=== PATIENT | male | born 1955 | race Caucasian/White ===

== ENCOUNTER 2016-09-09 11:32 | Emergency (ER) | payer OTHER ==
[2016-09-09] MEDS ORDERED: Albuterol/Ipratropium NEB.SOL* Albuterol 2.5 MG/Ipratropium 0.5 MG 3 ML INH ONE (12:28)
[2016-09-09 12:38] LABS: Hematocrit 41 % (42-52); Hemoglobin 14.4 g/dl (14.0-18.0); Mean Corpuscular HGB Conc 35 g/dl (31-36); Mean Corpuscular Hemoglobin 33 pg (27-31); Mean Corpuscular Volume 95 fL (80-94); Mean Platelet Volume 9 um3 (7.4-10.4); Red Blood Count 4.34 10^6/ul (4.0-5.4); Red Cell Distribution Width 14 % (10.5-15); White Blood Count 5.9 10^3/ul (3.5-10.8)
[2016-09-09] MEDS ORDERED: traMADol TAB* 50 MG PO ONE (12:49)
[2016-09-09 12:57] LABS: Albumin 4.3 g/dL (3.2-5.2); BUN/Creatinine Ratio 18.8 (8-20); Calcium 10.3 mg/dL (8.6-10.3); EGFR African American 149.9 (>60); EGFR Non-African American 116.6 (>60); Globulin 3.2 g/dL (2-4); Potassium 4.2 mmol/L (3.5-5.0); Total Bilirubin 0.3 mg/dL (0.2-1.0); Total Protein 7.5 g/dL (6.4-8.9)
--- NOTE | 2016-09-09 14:31 | RAD ---
Indication: Shortness of breath. 2 views of the chest including dual energy PA views demonstrate no mediastinal shift. Heart is of normal size and configuration. Lung jaimes demonstrate no pleural fluid, pneumonia or pneumothorax. IMPRESSION: No active cardiopulmonary disease is noted.
[2016-09-09 15:17] VITALS: BP 142/92
--- NOTE | 2016-09-09 18:01 | ED ---
Philip Cole Billy, scribed for Ryland Pierce MD on 09/09/16 at 1234 . Shortness of Breath - HPI Summary HPI Summary: Patient is a 61 y/o male who presents to the ED with SOB since this morning. He is an alcoholic and was at the [facility] this morning when the nurse noticed he had dyspnea. He denies edema in the lower extremities and reports SOB and dyspnea is unchanged from baseline. He states he normally coughs often and usually feels lightheaded or dizzy from coughing. He reports he had an alcoholic beverage the night before and that he is a smoker. - History of Current Complaint Chief Complaint: EDShortnessOfBreath Time Seen by Provider: 09/09/16 11:49 Hx Obtained From: Patient Onset/Duration: Gradual Onset, Lasting Weeks - Always present. Current Severity: Moderate Dyspnea At: Rest Aggrevating Factors: Nothing Alleviating Factors: Nothing Associated Signs & Symptoms: Cough (Nonproductive), Dizzy - with cough - Allergy/Home Medications Allergies/Adverse Reactions: Allergies Allergy/AdvReac Type Severity Reaction Status Date / Time No Known Allergies Allergy Verified 04/03/16 10:57 PMH/Surg Hx/FS Hx/Imm Hx Endocrine/Hematology History: Denies: Hx Anticoagulant Therapy, Hx Diabetes Cardiovascular History: Reports: Hx Hypertension Denies: Hx Congestive Heart Failure, Hx Myocardial Infarction Respiratory History: Reports: Hx Chronic Obstructive Pulmonary Disease (COPD), Hx Pneumonia GI History: Reports: Hx Gastroesophageal Reflux Disease History: Denies: Hx Renal Disease Musculoskeletal History: Denies: Hx Arthritis, Hx Gout Sensory History: Reports: Hx Contacts or Glasses, Hx Eye Injury, Hx Eye Prosthesis, Hx Legally Blind, Hx Deafness, Hx Hearing Aid Opthamlomology History: Reports: Hx Contacts or Glasses, Hx Eye Injury, Hx Eye Prosthesis, Hx Legally Blind Neurological History: Reports: Hx Headaches Psychiatric History: Reports: Hx Anxiety, Hx Depression, Hx Community Mental Health Tx, Hx Substance Abuse Denies: Hx Attention Deficit Hyperactivity Disorder, Hx Eating Disorder, Hx Panic Disorder, Hx Post Traumatic Stress Disorder, Hx Inpatient Treatment, Hx Schizophrenia, Hx Bipolar Disorder, Hx Suicide Attempt, Hx of Violent Episodes Against Others, Other Psychiatric Issues/Disorders - Surgical History Surgery Procedure, Year, and Place: RT EYE PROSTHESIS - Immunization History Date of Tetanus Vaccine: unsure Date of Influenza Vaccine: none Infectious Disease History: No Infectious Disease History: Denies: Hx Human Immunodeficiency Virus (HIV), Hx of Known/Suspected MRSA, Traveled Outside the [place] in Last 30 Days - Family History Known Family History: Positive: Other - cancer - Social History Alcohol Use: Weekly Alcohol Amount: Pt states 2-3 drinks 2-3x per wk Hx Substance Use: Yes Substance Use Type: Reports: Marijuana Substance Use Comment - Amount & Last Used: Pt states "2 or 3 beers just before coming to the hospital" Hx Tobacco Use: Yes Smoking Status (MU): Heavy Every Day Tobacco Smoker Type: Cigarettes Amount Used/How Often: PACK OH DAY Have You Smoked in the Last Year: Yes Review of Systems Negative: Fever Positive: Shortness Of Breath, Cough, Other - Dyspnea. Neurological: Other - lightheadedness and dizziness with cough All Other Systems Reviewed And Are Negative: Yes Physical Exam Triage Information Reviewed: Yes Vital Signs On Initial Exam: Initial Vitals Temp Pulse Resp BP Pulse Ox 97.2 F 99 22 153/110 96 09/09/16 11:34 09/09/16 11:34 09/09/16 11:34 09/09/16 11:34 09/09/16 11:34 Vital Signs Reviewed: Yes Appearance: Positive: Well-Appearing, No Pain Distress Skin: Positive: Warm, Skin Color Reflects Adequate Perfusion, Dry Head/Face: Positive: Normal Head/Face Inspection Eyes: Positive: Normal ENT: Positive: Normal ENT inspection Neck: Positive: Supple, Nontender Respiratory/Lung Sounds: Positive: Breath Sounds Present, Wheezes - Mild wheezing diffusely. Cardiovascular: Positive: RRR Abdomen Description: Positive: Nontender, Soft Musculoskeletal: Positive: Abnormal @ - Left upper extremity is deformed and ecchymotic. Neurological: Positive: Normal Psychiatric: Positive: Normal Diagnostics - Vital Signs Vital Signs Temp Pulse Resp BP Pulse Ox 09/09/16 11:34 97.2 F 99 22 153/110 96 - Laboratory Lab Results: Lab Results 09/09/16 09/09/16 09/09/16 Range/Units 12:30 12:30 12:30 WBC 5.9 (3.5-10.8) 10^3/ul RBC 4.34 (4.0-5.4) 10^6/ul Hgb 14.4 (14.0-18.0) g/dl Hct 41 L (42-52) % MCV 95 H (80-94) fL MCH 33 H (27-31) pg MCHC 35 (31-36) g/dl RDW 14 (10.5-15) % Plt Count 149 L (150-450) 10^3/ul MPV 9 (7.4-10.4) um3 Neut % (Auto) 62.4 (38-83) % Lymph % (Auto) 22.1 L (25-47) % [place] % (Auto) 10.4 H (1-9) % Eos % (Auto) 4.2 (0-6) % Baso % (Auto) 0.9 (0-2) % Absolute Neuts (auto) 3.7 (1.5-7.7) 10^3/ul Absolute Lymphs (auto) 1.3 (1.0-4.8) 10^3/ul Absolute Monos (auto) 0.6 (0-0.8) 10^3/ul Absolute Eos (auto) 0.2 (0-0.6) 10^3/ul Absolute Basos (auto) 0.1 (0-0.2) 10^3/ul Absolute Nucleated RBC 0 10^3/ul Nucleated RBC % 0 Sodium 135 (133-145) mmol/L Potassium 4.2 (3.5-5.0) mmol/L Chloride 104 (101-111) mmol/L Carbon Dioxide 28 (22-32) mmol/L Anion Gap 3 (2-11) mmol/L BUN 13 (6-24) mg/dL Creatinine 0.69 (0.67-1.17) mg/dL Est GFR ( Amer) 149.9 (>60) Est GFR (Non-Af Amer) 116.6 (>60) BUN/Creatinine Ratio 18.8 (8-20) Glucose 97 (70-100) mg/dL Lactic Acid 0.7 (0.5-2.0) mmol/L Calcium 10.3 (8.6-10.3) mg/dL Total Bilirubin 0.30 (0.2-1.0) mg/dL AST 41 H (13-39) U/L ALT 43 (7-52) U/L Alkaline Phosphatase 70 (34-104) U/L Troponin I 0.00 (<0.04) ng/mL B-Natriuretic Peptide ( - 100) pg/mL Total Protein 7.5 (6.4-8.9) g/dL Albumin 4.3 (3.2-5.2) g/dL Globulin 3.2 (2-4) g/dL Albumin/Globulin Ratio 1.3 (1-3) 09/09/16 Range/Units 12:30 WBC (3.5-10.8) 10^3/ul RBC (4.0-5.4) 10^6/ul Hgb (14.0-18.0) g/dl Hct (42-52) % MCV (80-94) fL MCH (27-31) pg MCHC (31-36) g/dl RDW (10.5-15) % Plt Count (150-450) 10^3/ul MPV (7.4-10.4) um3 Neut % (Auto) (38-83) % Lymph % (Auto) (25-47) % [place] % (Auto) (1-9) % Eos % (Auto) (0-6) % Baso % (Auto) (0-2) % Absolute Neuts (auto) (1.5-7.7) 10^3/ul Absolute Lymphs (auto) (1.0-4.8) 10^3/ul Absolute Monos (auto) (0-0.8) 10^3/ul Absolute Eos (auto) (0-0.6) 10^3/ul Absolute Basos (auto) (0-0.2) 10^3/ul Absolute Nucleated RBC 10^3/ul Nucleated RBC % Sodium (133-145) mmol/L Potassium (3.5-5.0) mmol/L Chloride (101-111) mmol/L Carbon Dioxide (22-32) mmol/L Anion Gap (2-11) mmol/L BUN (6-24) mg/dL Creatinine (0.67-1.17) mg/dL Est GFR ( Amer) (>60) Est GFR (Non-Af Amer) (>60) BUN/Creatinine Ratio (8-20) Glucose (70-100) mg/dL Lactic Acid (0.5-2.0) mmol/L Calcium (8.6-10.3) mg/dL Total Bilirubin (0.2-1.0) mg/dL AST (13-39) U/L ALT (7-52) U/L Alkaline Phosphatase (34-104) U/L Troponin I (<0.04) ng/mL B-Natriuretic Peptide 30 ( - 100) pg/mL Total Protein (6.4-8.9) g/dL Albumin (3.2-5.2) g/dL Globulin (2-4) g/dL Albumin/Globulin Ratio (1-3) Result Diagrams: 09/09/16 12:30 09/09/16 12:30 Lab Statement: Any lab studies that have been ordered have been reviewed, and results considered in the medical decision making process. - Radiology CXR Radiology Interpretation Completed By: Radiologist - IMPRESSION: No active cardiopulmonary disease is noted. - EKG 1144 EKG Interpretation: Sinus. Borderline tachycardia. 96 bpm. Course/Dx - Course Course Of Treatment: Mr. Newsome was pretty vague when he presented as to whether or not he really had any complaint at all. He did agree to a neb but stopped it shelter through. His labs and CXR were normal and he was D/C'd to [facility] with his PMD. - Diagnoses Provider Diagnoses: COPD exacerbation Discharge - Discharge Plan Condition: Stable Disposition: HOME Patient Education Materials: COPD (Chronic Obstructive Pulmonary Disease) (ED) Referrals: Heriberto Jang MD [Primary Care Provider] - The documentation as recorded by the Philip melton Billy accurately reflects the service I personally performed and the decisions made by me, Ryland Pierce MD.
== END 2016-09-09 15:15 | disposition home or self-care (01) ==
LOC: ED 11:32
DX: J44.1 Chronic obstructive pulmonary disease with (acute) exacerbation (principal); F41.9 Anxiety disorder, unspecified; F32.9 Major depressive disorder, single episode, unspecified; F17.210 Nicotine dependence, cigarettes, uncomplicated; F10.20 Alcohol dependence, uncomplicated; K21.9 Gastro-esophageal reflux disease without esophagitis; H54.8 Legal blindness, as defined in USA
CPT/HCPCS: 36415; 71020; 80053; 83605; 83880; 84484; 85025; 93005; 94640; 99283; A9270-GY

== ENCOUNTER 2016-11-09 21:04 | Observation (INO) | payer OTHER ==
[2016-11-09] MEDS ORDERED: Ondansetron INJ* 2 MG/ML VIAL IV ONE (22:08)
[2016-11-09] MEDS ORDERED: Morphine INJ* 4 MG/ML 1 ML SYRINGE IV ONE (22:08)
[2016-11-09] MEDS ORDERED: NS 0.9% 1000 ML* 1,000 ML IV ONE (22:08)
[2016-11-09 22:40] LABS: Hematocrit 46 % (42-52); Hemoglobin 15.6 g/dl (14.0-18.0); Mean Corpuscular HGB Conc 34 g/dl (31-36); Mean Corpuscular Hemoglobin 32 pg (27-31); Mean Corpuscular Volume 95 fL (80-94); Mean Platelet Volume 9 um3 (7.4-10.4); Red Blood Count 4.82 10^6/ul (4.0-5.4); Red Cell Distribution Width 14 % (10.5-15); White Blood Count 9.6 10^3/ul (3.5-10.8)
--- NOTE | 2016-11-09 22:52 | RAD ---
INDICATION: Chest pain. COMPARISON: Comparison is made with the prior study from September 09, 2016. TECHNIQUE: A portable view of the chest was obtained. FINDINGS: Cardiac and mediastinal contours appear to be within normal limits. The lungs are clear. No pleural effusion is seen. IMPRESSION: NO EVIDENCE FOR ACUTE DISEASE.
[2016-11-09 22:56] LABS: BUN/Creatinine Ratio 19.3 (8-20); Calcium 10.7 mg/dL (8.6-10.3); EGFR African American 113.2 (>60); Globulin 3.3 g/dL (2-4); Potassium 3.5 mmol/L (3.5-5.0); Total Bilirubin 1.4 mg/dL (0.2-1.0); Total Protein 8.3 g/dL (6.4-8.9); Troponin I 0.01 ng/mL (<0.04)
[2016-11-09 23:22] LABS: Urine Bacteria Absent (Absent); Urine Bilirubin Negative (Negative); Urine Glucose Negative (Negative); Urine Nitrite Negative (Negative)
[2016-11-09] MEDS ORDERED: cefTRIAXone(*) 1 GM in NS 0.9% 50 ML* 50 ML IVPB ONE (23:40)
[2016-11-09] MEDS ORDERED: Iohexol 300* (CONTRAST) 10 ML SDV IV ONE (23:42)
[2016-11-10] MEDS ORDERED: cefTRIAXone(*) 1 GM ADVAN ONE (00:28)
[2016-11-10] MEDS ORDERED: Metoclopramide IV* 5 MG/ML 2 ML VIAL IV SLOW PU ONE (01:07)
[2016-11-10] MEDS ORDERED: Metoclopramide IV* 5 MG/ML 2 ML VIAL ONE ×2 (01:09)
[2016-11-10] MEDS ORDERED: LORazepam INJ* 2 MG/ML 1 ML VIAL IV PUSH ONE (03:25)
--- NOTE | 2016-11-10 04:51 | HP ---
H&P (Free Text) History and Physical: PCP: Sendy Jang MD Date/Time of Evaluation: 11/10/2016 0340 CC: intractable N/V HPI: Mr Newsome is a 61YO obese male HX COPD, chronic LBP, blind OD, & markedly hard of hearing presents reporting onset of diffuse abdominal pain associated with N/V starting upon awakening yesterday AM ~0500. He denies fever, chest pain , cough, congestion, recent injury/fall, or other issues. Evaluation is notable for tachycardia 100-120s, hypertensive systolics 140-150s, newly elevated total bilirubin 1.40, AST/ALT 64/56, UA consistent with UTI, & negative rapid influenza. Additionally he reports numerous somatic complaints such as ongoing L humeral pain from FX last summer, chronic LBP, headaches. PMedHx Allergies No Known Allergies Allergy (Verified 04/03/16 10:57) COPD osteomyelitis chronic LBP alcoholism blind OD s/p enucleation for defect markedly hard of hearing Ambulatory Orders DULoxetine DR CAP* [Cymbalta CAP*] 60 mg PO DAILY #30 cap 01/07/16 Multivitamins/Minerals TAB* [Theragran/minerals TAB*] 1 tab PO DAILY tab Thiamine TAB* [Vitamin B-1 TAB 100 MG*] 100 mg PO DAILY tab 02/14/16 Albuterol HFA INHALER* [Ventolin HFA Inhaler*] 2 puff INH TID PRN 02/26/16 Ibuprofen [Addaprin] 400 mg PO QID PRN #14 tab 04/03/16 PSurgHx OD enucleation SocHx: 1/2PPD cigarettes formerly 3-4PPD, 3-4 24oz beers daily, occasional marijuana; on disability for chronic LBP; full code status FamHx: positive for HTN ROS: as above, otherwise reviewed and all were negative Constitutional: NAD, normally developed, overweight unkempt white male vitals: Vital Signs Temp 36.7 C 11/09/16 21:37 Pulse 109 11/10/16 05:00 Resp 15 11/10/16 04:00 BP 140/105 11/10/16 05:00 Pulse Ox 97 11/10/16 05:00 Intake & Output 11/09/16 11/09/16 11/10/16 11:59 23:59 11:59 Intake Total 1000 50 Balance 1000 50 Weight 99.79 kg Intake: IV Fluids 1000 50 HEENM: atraumatic; sclera/conjunctiva: non-icteric/clear OS, prosthesis OD; hearing: markedly hard of hearing; oropharynx: clear, mucosa dry Neck: soft tissue: no nuchal rigidity; thyroid: normal Pulmonary: mild B rowell-inspiratory & expiratory rhonchi w/o wheeze, fair aeration , no accessory muscle use CV: RR/RR, normal S1S2, no carotid bruit, no jugular venous distention, 2+ B DP/ PT, trace BLE edema Abdominal: soft, non-distended, non-tender, no rebound/guarding/rigidity, normoactive bowel sounds, no hepatosplenomegaly or masses, no costovertebral angle tenderness Musculoskeletal: gait: stable, no contractures Integumental: normal appearance and texture of exposed skin Psychiatric orientation: AA&O to PPS affect: calm mood: cooperative eye contact: fair content: reliable responses: lacking in detail, somewhat evasive insight: poor Testing: Lab Results 11/09/16 11/09/16 11/09/16 Range/Units 22:15 22:25 22:25 WBC 9.6 (3.5-10.8) 10^3/ul RBC 4.82 (4.0-5.4) 10^6/ul Hgb 15.6 (14.0-18.0) g/dl Hct 46 (42-52) % MCV 95 H (80-94) fL MCH 32 H (27-31) pg MCHC 34 (31-36) g/dl RDW 14 (10.5-15) % Plt Count 165 (150-450) 10^3/ul MPV 9 (7.4-10.4) um3 Neut % (Auto) 80.0 (38-83) % Lymph % (Auto) 10.0 L (25-47) % [place] % (Auto) 8.2 (1-9) % Eos % (Auto) 0.9 (0-6) % Baso % (Auto) 0.9 (0-2) % Absolute Neuts (auto) 7.7 (1.5-7.7) 10^3/ul Absolute Lymphs (auto) 1.0 (1.0-4.8) 10^3/ul Absolute Monos (auto) 0.8 (0-0.8) 10^3/ul Absolute Eos (auto) 0.1 (0-0.6) 10^3/ul Absolute Basos (auto) 0.1 (0-0.2) 10^3/ul Absolute Nucleated RBC 0 10^3/ul Nucleated RBC % 0.1 INR (Anticoag Therapy) 0.88 L (0.89-1.11) APTT 26.2 (26.0-36.3) seconds Sodium (133-145) mmol/L Potassium (3.5-5.0) mmol/L Chloride (101-111) mmol/L Carbon Dioxide (22-32) mmol/L Anion Gap (2-11) mmol/L BUN (6-24) mg/dL Creatinine (0.67-1.17) mg/dL Est GFR ( Amer) (>60) Est GFR (Non-Af Amer) (>60) BUN/Creatinine Ratio (8-20) Glucose (70-100) mg/dL Lactic Acid (0.5-2.0) mmol/L Calcium (8.6-10.3) mg/dL Total Bilirubin (0.2-1.0) mg/dL AST (13-39) U/L ALT (7-52) U/L Alkaline Phosphatase (34-104) U/L Troponin I (<0.04) ng/mL Total Protein (6.4-8.9) g/dL Albumin (3.2-5.2) g/dL Globulin (2-4) g/dL Albumin/Globulin Ratio (1-3) Urine Color Urine Appearance Urine pH (5-9) Ur Specific [place] (1.010-1.030) Urine Protein (Negative) Urine Ketones (Negative) Urine Blood (Negative) Urine Nitrate (Negative) Urine Bilirubin (Negative) Urine Urobilinogen (Negative) Ur Leukocyte Esterase (Negative) Urine WBC (Auto) (Absent) Urine RBC (Auto) (Absent) Ur Squamous Epith Cells (Absent) Urine Bacteria (Absent) Hyaline Casts (Absent) Urine Glucose (Negative) Influenza A (Rapid) Negative (Negative) Influenza B (Rapid) Negative (Negative) 11/09/16 11/09/16 11/09/16 Range/Units 22:25 22:25 23:05 WBC (3.5-10.8) 10^3/ul RBC (4.0-5.4) 10^6/ul Hgb (14.0-18.0) g/dl Hct (42-52) % MCV (80-94) fL MCH (27-31) pg MCHC (31-36) g/dl RDW (10.5-15) % Plt Count (150-450) 10^3/ul MPV (7.4-10.4) um3 Neut % (Auto) (38-83) % Lymph % (Auto) (25-47) % [place] % (Auto) (1-9) % Eos % (Auto) (0-6) % Baso % (Auto) (0-2) % Absolute Neuts (auto) (1.5-7.7) 10^3/ul Absolute Lymphs (auto) (1.0-4.8) 10^3/ul Absolute Monos (auto) (0-0.8) 10^3/ul Absolute Eos (auto) (0-0.6) 10^3/ul Absolute Basos (auto) (0-0.2) 10^3/ul Absolute Nucleated RBC 10^3/ul Nucleated RBC % INR (Anticoag Therapy) (0.89-1.11) APTT (26.0-36.3) seconds Sodium 135 (133-145) mmol/L Potassium 3.5 (3.5-5.0) mmol/L Chloride 95 L (101-111) mmol/L Carbon Dioxide 26 (22-32) mmol/L Anion Gap 14 H (2-11) mmol/L BUN 17 (6-24) mg/dL Creatinine 0.88 (0.67-1.17) mg/dL Est GFR ( Amer) 113.2 (>60) Est GFR (Non-Af Amer) 88.0 (>60) BUN/Creatinine Ratio 19.3 (8-20) Glucose 130 H (70-100) mg/dL Lactic Acid 1.5 (0.5-2.0) mmol/L Calcium 10.7 H (8.6-10.3) mg/dL Total Bilirubin 1.40 H (0.2-1.0) mg/dL AST 64 H (13-39) U/L ALT 56 H (7-52) U/L Alkaline Phosphatase 73 (34-104) U/L Troponin I 0.01 (<0.04) ng/mL Total Protein 8.3 (6.4-8.9) g/dL Albumin 5.0 (3.2-5.2) g/dL Globulin 3.3 (2-4) g/dL Albumin/Globulin Ratio 1.5 (1-3) Urine Color Sonja Urine Appearance Clear Urine pH 7.0 (5-9) Ur Specific [place] 1.027 (1.010-1.030) Urine Protein 1+(30 mg/dl) H (Negative) Urine Ketones 1+ H (Negative) Urine Blood Negative (Negative) Urine Nitrate Negative (Negative) Urine Bilirubin Negative (Negative) Urine Urobilinogen Positive H (Negative) Ur Leukocyte Esterase Trace H (Negative) Urine WBC (Auto) 2+(11-20/hpf) H (Absent) Urine RBC (Auto) 1+(3-5/hpf) H (Absent) Ur Squamous Epith Cells Present H (Absent) Urine Bacteria Absent (Absent) Hyaline Casts Present H (Absent) Urine Glucose Negative (Negative) Influenza A (Rapid) (Negative) Influenza B (Rapid) (Negative) ECG, personally reviewed: sinus tachycardia rate 109, Q-waves V2-6, I, II, III, & AVF, no ischemia CXR, personally reviewed: IMPRESSION: NO EVIDENCE FOR ACUTE DISEASE. 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
[2016-11-10] MEDS ORDERED: traMADol TAB* 50 MG PO PRN (05:50)
[2016-11-10] MEDS ORDERED: Albuterol 2.5 MG/3 ML NEB.SOL* (0.083%) INH PRN (05:50)
[2016-11-10] MEDS ORDERED: Nicotine Inhaler* 10 MG AMP INH PRN (05:50)
[2016-11-10] MEDS ORDERED: Melatonin (NF) 3 MG TAB PO PRN (05:50)
[2016-11-10] MEDS ORDERED: Acetaminophen TAB* 325 MG PO PRN (05:50)
[2016-11-10] MEDS ORDERED: PROCHLORPERAZINE INJ 5 MG/ML 2 ML VIAL IV PRN (05:50)
[2016-11-10] MEDS ORDERED: Metoclopramide IV* 5 MG/ML 2 ML VIAL IV PRN (05:50)
[2016-11-10] MEDS ORDERED: Ondansetron INJ* 2 MG/ML VIAL IV PRN (05:50)
[2016-11-10] MEDS ORDERED: Thiamine IV* 100 MG/ML 2 ML VIAL IM ONE (05:52)
[2016-11-10] MEDS ORDERED: LORazepam INJ* 2 MG/ML 1 ML VIAL IV SCH ×2 (06:00→06:23)
[2016-11-10] MEDS ORDERED: LORazepam TAB(*) 1 MG PO SCH (06:00)
[2016-11-10] MEDS: Pantoprazole IV* 40 MG IV SCH ×2 (06:54→09:49)
[2016-11-10] MEDS ORDERED: Albuterol 2.5 MG/3 ML NEB.SOL* (0.083%) INH SCH (07:00)
[2016-11-10 07:18] LABS: Hematocrit 44 % (42-52); Hemoglobin 14.8 g/dl (14.0-18.0); Mean Corpuscular HGB Conc 34 g/dl (31-36); Mean Corpuscular Hemoglobin 33 pg (27-31); Mean Corpuscular Volume 96 fL (80-94); Mean Platelet Volume 10 um3 (7.4-10.4); Red Blood Count 4.54 10^6/ul (4.0-5.4); Red Cell Distribution Width 14 % (10.5-15); White Blood Count 11.9 10^3/ul (3.5-10.8)
[2016-11-10 07:34] LABS: Albumin 4.6 g/dL (3.2-5.2); BUN/Creatinine Ratio 17.2 (8-20); Calcium 9.7 mg/dL (8.6-10.3); Direct Bilirubin 0.3 mg/dL (0.03-0.18); EGFR African American 114.7 (>60); EGFR Non-African American 89.2 (>60); Globulin 3.2 g/dL (2-4); Indirect Bilirubin 0.8 mg/dL (0.3-1.0); Potassium 3.6 mmol/L (3.5-5.0); Total Bilirubin 1.1 mg/dL (0.2-1.0); Total Protein 7.8 g/dL (6.4-8.9)
--- NOTE | 2016-11-10 07:49 | RAD ---
CLINICAL HISTORY: Vomiting, evaluate for small bowel obstruction COMPARISON: April 18, 2016 TECHNIQUE: Multiple contiguous axial CT scans were obtained of the abdomen and pelvis after the administration of intravenous contrast. Coronal and sagittal multiplanar reformations are submitted for review. Oral contrast was administered. Delayed images were obtained through the abdomen and pelvis. FINDINGS: LUNG BASES: The lung bases are clear. LIVER: The liver is diffusely low in attenuation compared to the spleen. There are no focal hepatic parenchymal masses. BILE DUCTS: There is no intrahepatic or extrahepatic biliary dilatation. GALLBLADDER: The gallbladder is normal, without pericholecystic inflammatory change. PANCREAS: The pancreas is normal, without mass or ductal dilatation. SPLEEN: Normal in size and appearance. UPPER GI TRACT: Evaluation of the gastrointestinal tract is limited by incomplete gastric distention. There is mucosal thickening of the distal esophagus SMALL BOWEL AND MESENTERY: The small bowel is normal in contour, course, and caliber. There is no obstruction or dilatation. COLON: The colon is normal in contour, course, caliber. There is no pericolonic inflammatory change. There is a tubular, vermiform, hollow viscus that is blind ending, and originates from the cecum, consistent with a normal appendix. There is no periappendiceal inflammatory change. This is best seen on images 52 through 58 ADRENALS: Normal bilaterally. KIDNEYS: The kidneys are normal in shape, size, contour, and axis. There is no hydronephrosis or nephrolithiasis. BLADDER: The bladder is smooth in contour. PELVIC ORGANS: The prostate gland is normal. The seminal vesicles are symmetric. AORTA: The aorta is normal. IVC: Unremarkable LYMPH NODES: There is no lymphadenopathy by size criteria. ABDOMINAL WALL: There is no evidence for abdominal wall hernia. BONES AND SOFT TISSUES: Degenerative changes are noted along the spine and hips. There is a dysraphic defect of the posterior arch of S1. There is a subacute to chronic appearing fracture of the left eighth rib. OTHER: None IMPRESSION: 1. FATTY LIVER. 2. AGAIN NOTED IS MUCOSAL THICKENING OF THE DISTAL ESOPHAGUS.
[2016-11-10] MEDS ORDERED: Pneumococcal Vac Polyvalent* 0.5 ML VIAL IM ONE (08:00)
[2016-11-10] MEDS ORDERED: Mometasone/Formoter 200/5 MDI INH SCH (09:00)
--- NOTE | 2016-11-10 09:06 | RAD ---
Indication: Abdominal pain, nausea and vomiting. Elevated bilirubin. Comparison: November 10, 2016 CT. Technique: RIGHT upper quadrant ultrasound. Report: Appropriate direction flow documented in the portal and hepatic veins. 17.8 cm cephalocaudal liver is increased in echogenicity consistent with fatty infiltration. No conspicuous focal hepatic lesions or biliary dilatation. 4.3 mm common bile duct. Adequately distended gallbladder with normal 1.9 mm wall is without pathologic finding. The pancreas is obscured due to bowel gas. Negative for ascites. Unremarkable 10.9 cm RIGHT kidney. IMPRESSION: 1. Fatty infiltration of the liver. 2. No evidence for gallbladder pathology. Negative for biliary dilatation.
[2016-11-10] MEDS: Folic Acid TAB* 1 MG PO SCH (09:51)
[2016-11-10] MEDS: Multivitamins/Minerals TAB PO SCH (09:51)
[2016-11-10] MEDS: Thiamine TAB* 100 MG TAB PO SCH (09:51)
[2016-11-10] MEDS ORDERED: Albuterol HFA INHALER* 8 gm MDI INH PRN (09:59)
[2016-11-10] MEDS ORDERED: LORazepam TAB(*) 0.5 MG PO PRN (10:00)
--- NOTE | 2016-11-10 10:13 | PN ---
Subjective Date of Service: 11/10/16 Interval History: Pt is feeling better. He states his nausea is better but he continues to have waves of abdominal pain. No BM yet. Objective Active Medications: Acetaminophen (Tylenol Tab*) 650 mg PO Q6H PRN PRN Reason: FEVER/PAIN Albuterol (Ventolin 2.5 Mg/3 Ml Neb.Mariaa*) 2.5 mg INH Q2H PRN PRN Reason: SOB/WHEEZING Albuterol (Ventolin Hfa Inhaler*) 2 puff INH Q4H PRN PRN Reason: SHORTNESS OF BREATH Duloxetine HCl (Cymbalta Cap*) 60 mg PO DAILY [facility] Folic Acid (Folvite Tab*) 1 mg PO DAILY [facility] Last Admin: 11/10/16 09:51 Dose: 1 mg Lactated Ringer's (Lactated Ringers 1000 Ml Bag*) 1,000 mls @ 125 mls/hr IV PER RATE [facility] Last Admin: 11/10/16 06:54 Dose: 125 mls/hr Lorazepam (Ativan Tab(*)) 0 mg PO Q4H PRN; Protocol PRN Reason: alcohol withdrawal Melatonin (Melatonin (Nf)) 3 mg PO BEDTIME PRN; Protocol PRN Reason: Sleep Metoclopramide HCl (Reglan Iv*) 10 mg IV Q6H PRN PRN Reason: NAUSEA Mometasone Furoate/Formoterol Fumar (Dulera 200/5 Mdi*) 2 puff INH BID [facility] Last Admin: 11/10/16 07:33 Dose: 2 puff Multivitamins/Minerals (Theragran/Minerals Tab*) 1 tab PO DAILY [facility] Last Admin: 11/10/16 09:51 Dose: 1 tab Nicotine (Nicotine Inhaler*) 10 mg INH Q2H PRN PRN Reason: CRAVING Omeprazole (Prilosec Cap*) 20 mg PO DAILY@0600 [facility] Ondansetron HCl (Zofran Inj*) 4 mg IV Q6H PRN PRN Reason: NAUSEA Prochlorperazine Edisylate (Compazine Inj*) 10 mg IV Q6H PRN PRN Reason: NAUSEA Thiamine HCl (Vitamin B-1 Tab*) 100 mg PO DAILY [facility] Last Admin: 11/10/16 09:51 Dose: 100 mg Tramadol HCl (Ultram*) 50 mg PO Q6H PRN PRN Reason: PAIN Vital Signs 11/10/16 11/10/16 11/10/16 03:45 04:00 04:30 Temperature Pulse Rate 119 Respiratory 20 15 Rate Blood Pressure 148/108 136/99 (mmHg) O2 Sat by Pulse 97 Oximetry 11/10/16 11/10/16 11/10/16 05:00 05:18 05:30 Temperature Pulse Rate 109 109 Respiratory Rate Blood Pressure 140/105 133/93 (mmHg) O2 Sat by Pulse 97 95 Oximetry 11/10/16 11/10/16 11/10/16 05:48 06:35 06:36 Temperature 99.1 F 97.5 F 97.5 F Pulse Rate 108 108 Respiratory 18 18 Rate Blood Pressure 160/89 160/89 (mmHg) O2 Sat by Pulse 98 98 Oximetry 11/10/16 11/10/16 11/10/16 06:53 07:21 07:30 Temperature 98.2 F Pulse Rate 108 Respiratory 20 16 Rate Blood Pressure 123/84 (mmHg) O2 Sat by Pulse 98 Oximetry 11/10/16 11/10/16 11/10/16 07:35 07:36 08:53 Temperature Pulse Rate 76 76 Respiratory 15 16 16 Rate Blood Pressure (mmHg) O2 Sat by Pulse 97 97 Oximetry 11/10/16 09:58 Temperature Pulse Rate Respiratory 16 Rate Blood Pressure (mmHg) O2 Sat by Pulse Oximetry Oxygen Devices in Use Now: None Appearance: Middle aged male sitting up in bed, NAD Eyes: No Scleral Icterus Ears/Nose/Mouth/Throat: Mucous Membranes Moist Respiratory: Symmetrical Chest Expansion and Respiratory Effort, Clear to Auscultation Cardiovascular: NL Sounds; No Murmurs; No JVD, RRR, No Edema Abdominal: NL Sounds; No Tenderness; No Distention Extremities: No Clubbing, Cyanosis Skin: No Rash or Ulcers, No Nodules or Sclerosis Neurological: Alert and Oriented x 3 Result Diagrams: 11/10/16 07:02 11/10/16 07:02 Assess/Plan/Problems-Billing Mr Newsome is a 61 yo M who has a h/o chronic LBP, L humerus pain, EtOH abuse and tobacco abuse who presented to the ER with c/o nausea and vomiting and abdominal pain. - Patient Problems (1) Nausea and vomiting Current Visit: Yes Status: Acute Code(s): R11.2 - NAUSEA WITH VOMITING, UNSPECIFIED SNOMED Code(s): 91300518 Comment: Likely viral gastroenteritis. His symptoms have improved since admission. Advance diet to regular. If he tolerates the diet can go home this afternoon. Continue prn antiemetics. No clear source of his abdominal pain-I suspect the pain is just secondary to gastroenteritis. (2) Transaminitis Current Visit: Yes Status: Acute Code(s): R74.0 - NONSPEC ELEV OF LEVELS OF TRANSAMNS & LACTIC ACID DEHYDRGNSE SNOMED Code(s): 724580634 Comment: Pt was found to have fatty infiltration of the liver on CT and US. This in conjunction with alcohol abuse is likely what has caused the transaminitis. Follow LFTs intermittently. (3) UTI (urinary tract infection) Current Visit: Yes Status: Acute Comment: On admission it was thought the patient had a UTI though no bacteria was seen in the urine. To me it just looks like he was dry with hyaline casts. Stop ceftriaxone. (4) Alcohol abuse Current Visit: Yes Status: Acute Code(s): F10.10 - ALCOHOL ABUSE, UNCOMPLICATED SNOMED Code(s): 38784341 Comment: Continue WAM protocol but change to oral. Stop standing oral ativan. (5) Chronic back pain Current Visit: Yes Status: Acute Code(s): M54.9 - DORSALGIA, UNSPECIFIED; G89.29 - OTHER CHRONIC PAIN SNOMED Code(s): 617843920 Comment: Continue prn tramadol. (6) COPD (chronic obstructive pulmonary disease) Current Visit: Yes Status: Chronic Code(s): J44.9 - CHRONIC OBSTRUCTIVE PULMONARY DISEASE, UNSPECIFIED SNOMED Code(s): 00356222 Comment: No signs of exacerbation. Continue prn albuterol. (7) Tobacco abuse Current Visit: Yes Status: Acute Code(s): Z72.0 - TOBACCO USE SNOMED Code( s): 175542654 Comment: Smoking cessation encouraged. Continue nicotine replacement therapy. (8) DVT prophylaxis Current Visit: Yes Status: Acute Code(s): XXC5847 - SNOMED Code(s): 278601503 Comment: SQ heparin (9) Full code status Current Visit: Yes Status: Acute Code(s): Z78.9 - OTHER SPECIFIED HEALTH STATUS SNOMED Code(s): 926925732
[2016-11-10] MEDS: Heparin VIAL(*) 5000 UNITS/ML VIAL (FIVE THOUSAND) SUBCUT SCH ×2 (14:20→21:31)
[2016-11-11] MEDS ORDERED: cefTRIAXone VIAL(*) 1,000 MG in NS 0.9% 50 ML* 50 ML IVPB SCH (00:30)
[2016-11-11] MEDS ORDERED: CMCS - Melatonin (NF) 3 MG TAB PO PRN (02:27)
[2016-11-11] MEDS: Heparin VIAL(*) 5000 UNITS/ML VIAL (FIVE THOUSAND) SUBCUT SCH (05:32)
[2016-11-11] MEDS ORDERED: Omeprazole CAP* 20 MG PO SCH (06:00)
[2016-11-11] MEDS: Folic Acid TAB* 1 MG PO SCH (08:30)
[2016-11-11] MEDS: Multivitamins/Minerals TAB PO SCH (08:30)
[2016-11-11] MEDS: Thiamine TAB* 100 MG TAB PO SCH (08:30)
[2016-11-11] MEDS ORDERED: DULoxetine DR CAP* 30 MG CAP.DR PO SCH (09:00)
[2016-11-11 09:15] VITALS: BP 137/80
--- NOTE | 2016-11-11 09:40 | PN ---
Subjective Date of Service: 11/11/16 Interval History: Pt is feeling well. No further N/V/D. Objective Active Medications: Acetaminophen (Tylenol Tab*) 650 mg PO Q6H PRN PRN Reason: FEVER/PAIN Last Admin: 11/10/16 21:33 Dose: 650 mg Albuterol (Ventolin 2.5 Mg/3 Ml Neb.Mariaa*) 2.5 mg INH Q2H PRN PRN Reason: SOB/WHEEZING Albuterol (Ventolin Hfa Inhaler*) 2 puff INH Q4H PRN PRN Reason: SHORTNESS OF BREATH Duloxetine HCl (Cymbalta Cap*) 60 mg PO DAILY [facility] Last Admin: 11/11/16 08:30 Dose: 60 mg Folic Acid (Folvite Tab*) 1 mg PO DAILY [facility] Last Admin: 11/11/16 08:30 Dose: 1 mg Heparin Sodium (Porcine) (Heparin Vial(*)) 5,000 units SUBCUT Q8HR [facility] Last Admin: 11/11/16 05:32 Dose: 5,000 units Lactated Ringer's (Lactated Ringers 1000 Ml Bag*) 1,000 mls @ 125 mls/hr IV PER RATE [facility] Last Admin: 11/11/16 08:29 Dose: 125 mls/hr Lorazepam (Ativan Tab(*)) 0 mg PO Q4H PRN; Protocol PRN Reason: alcohol withdrawal Melatonin (Melatonin (Nf)) 3 mg PO BEDTIME PRN; Protocol PRN Reason: Sleep Metoclopramide HCl (Reglan Iv*) 10 mg IV Q6H PRN PRN Reason: NAUSEA Multivitamins/Minerals (Theragran/Minerals Tab*) 1 tab PO DAILY [facility] Last Admin: 11/11/16 08:30 Dose: 1 tab Nicotine (Nicotine Inhaler*) 10 mg INH Q2H PRN PRN Reason: CRAVING Omeprazole (Prilosec Cap*) 20 mg PO DAILY@0600 [facility] Last Admin: 11/11/16 05:32 Dose: 20 mg Ondansetron HCl (Zofran Inj*) 4 mg IV Q6H PRN PRN Reason: NAUSEA Prochlorperazine Edisylate (Compazine Inj*) 10 mg IV Q6H PRN PRN Reason: NAUSEA Thiamine HCl (Vitamin B-1 Tab*) 100 mg PO DAILY [facility] Last Admin: 11/11/16 08:30 Dose: 100 mg Tramadol HCl (Ultram*) 50 mg PO Q6H PRN PRN Reason: PAIN Last Admin: 11/10/16 19:41 Dose: 50 mg Vital Signs 11/10/16 11/10/16 11/10/16 09:54 09:58 10:40 Temperature 98.9 F Pulse Rate 102 Respiratory 16 16 16 Rate Blood Pressure 110/77 (mmHg) O2 Sat by Pulse 97 Oximetry 11/10/16 11/10/16 11/10/16 11:00 11:23 13:00 Temperature 98.3 F Pulse Rate 102 Respiratory 16 16 Rate Blood Pressure 113/68 (mmHg) O2 Sat by Pulse 99 Oximetry 11/10/16 11/10/16 11/10/16 13:58 15:30 17:00 Temperature 98.3 F Pulse Rate 97 87 Respiratory 16 24 Rate Blood Pressure 118/77 116/71 (mmHg) O2 Sat by Pulse 99 97 Oximetry 11/10/16 11/10/16 11/10/16 17:15 17:48 19:31 Temperature 98.2 F 98.4 F Pulse Rate 86 84 93 Respiratory 16 24 Rate Blood Pressure 115/62 126/94 (mmHg) O2 Sat by Pulse 97 98 99 Oximetry 11/10/16 11/10/16 11/10/16 19:41 21:14 21:41 Temperature Pulse Rate 88 Respiratory 17 18 Rate Blood Pressure 120/73 (mmHg) O2 Sat by Pulse 96 Oximetry 11/10/16 11/11/16 11/11/16 23:44 01:33 03:22 Temperature 98.6 F 98.1 F Pulse Rate 82 87 80 Respiratory 16 16 Rate Blood Pressure 127/86 138/87 115/86 (mmHg) O2 Sat by Pulse 99 96 97 Oximetry 11/11/16 11/11/16 11/11/16 05:09 07:30 08:00 Temperature 97.7 F 97.7 F Pulse Rate 86 76 Respiratory 16 17 Rate Blood Pressure 105/62 143/90 (mmHg) O2 Sat by Pulse 97 98 98 Oximetry 11/11/16 11/11/16 08:32 09:11 Temperature 97.8 F Pulse Rate 85 88 Respiratory 14 Rate Blood Pressure 137/80 (mmHg) O2 Sat by Pulse 97 97 Oximetry Oxygen Devices in Use Now: None Appearance: Middle aged male lying in bed, NAD Eyes: No Scleral Icterus Ears/Nose/Mouth/Throat: Mucous Membranes Moist Respiratory: Symmetrical Chest Expansion and Respiratory Effort, Clear to Auscultation Cardiovascular: NL Sounds; No Murmurs; No JVD, RRR, No Edema Abdominal: NL Sounds; No Tenderness; No Distention Extremities: No Clubbing, Cyanosis Skin: No Rash or Ulcers, No Nodules or Sclerosis Neurological: Alert and Oriented x 3 Result Diagrams: 11/10/16 07:02 11/10/16 07:02 Microbiology and Other Data: Microbiology 11/10/16 07:02 Aerobic Blood Culture - Preliminary Blood Venous No Growth Day 1 Anaerobic Blood Culture - Preliminary No Growth Day 1 Assess/Plan/Problems-Billing Mr Newsome is a 61 yo M who has a h/o chronic LBP, L humerus pain, EtOH abuse and tobacco abuse who presented to the ER with c/o nausea and vomiting and abdominal pain. - Patient Problems (1) Nausea and vomiting Current Visit: Yes Status: Acute Code(s): R11.2 - NAUSEA WITH VOMITING, UNSPECIFIED SNOMED Code(s): 95435492 Comment: Likely viral gastroenteritis. Symptoms have resolved. He has tolerated a regular diet. He is ready to go home. (2) Transaminitis Current Visit: Yes Status: Acute Code(s): R74.0 - NONSPEC ELEV OF LEVELS OF TRANSAMNS & LACTIC ACID DEHYDRGNSE SNOMED Code(s): 288105978 Comment: Pt was found to have fatty infiltration of the liver on CT and US. This in conjunction with alcohol abuse is likely what has caused the transaminitis. Follow LFTs intermittently as an outpatient. (3) UTI (urinary tract infection) Current Visit: Yes Status: Acute Comment: No clear evidence of UTI. (4) Alcohol abuse Current Visit: Yes Status: Acute Code(s): F10.10 - ALCOHOL ABUSE, UNCOMPLICATED SNOMED Code(s): 54051720 Comment: Pt is showing no signs of withdrawal. (5) Chronic back pain Current Visit: Yes Status: Acute Code(s): M54.9 - DORSALGIA, UNSPECIFIED; G89.29 - OTHER CHRONIC PAIN SNOMED Code(s): 570633377 Comment: Continue prn tramadol. (6) COPD (chronic obstructive pulmonary disease) Current Visit: Yes Status: Chronic Code(s): J44.9 - CHRONIC OBSTRUCTIVE PULMONARY DISEASE, UNSPECIFIED SNOMED Code(s): 70270445 Comment: No signs of exacerbation. Continue prn albuterol. (7) Tobacco abuse Current Visit: Yes Status: Acute Code(s): Z72.0 - TOBACCO USE SNOMED Code( s): 879524130 Comment: Smoking cessation encouraged. Continue nicotine replacement therapy. (8) DVT prophylaxis Current Visit: Yes Status: Acute Code(s): LQL0506 - SNOMED Code(s): 798319041 Comment: SQ heparin (9) Full code status Current Visit: Yes Status: Acute Code(s): Z78.9 - OTHER SPECIFIED HEALTH STATUS SNOMED Code(s): 107220592 Status and Disposition: d/c home
--- NOTE | 2016-11-11 21:27 | ED ---
Philip Cole Billy, scribed for Williams Garza MD on 11/09/16 at 2247 . Complex/Multi-Sys Presentation - HPI Summary HPI Summary: Patient is a 61 year-old male coming to [facility] for evaluation of lower sternal chest pain with emesis. He states that the pain is only present when vomiting, and he has had numerous episodes since 0900 today. He also reports diaphoresis, myalgia, diffuse abdominal cramping and headache. Denies any fever. Last BM at 0500 this morning. - History Of Current Complaint Chief Complaint: EDAbdPain Time Seen by Provider: 11/09/16 21:21 Hx Obtained From: Patient Onset/Duration: Gradual Onset, Lasting Hours, Still Present Timing: Intermittent, Lasting: Severity Currently: Moderate Severity Initially: Moderate Location: Pain At: - chest lower sternal, abdominal pain diffusely Aggravating Factor(s): emesis Alleviating Factor(s): none Associated Signs And Symptoms: Positive: Headache, Chest Pain, Nausea, Vomiting , Abdominal Pain. Negative: Fever - Allergies/Home Medications Allergies/Adverse Reactions: Allergies Allergy/AdvReac Type Severity Reaction Status Date / Time No Known Allergies Allergy Verified 04/03/16 10:57 PMH/Surg Hx/FS Hx/Imm Hx Endocrine/Hematology History: Denies: Hx Anticoagulant Therapy, Hx Diabetes Cardiovascular History: Reports: Hx Hypertension Denies: Hx Congestive Heart Failure, Hx Myocardial Infarction, Hx Pacemaker/ ICD Respiratory History: Reports: Hx Chronic Obstructive Pulmonary Disease (COPD), Hx Pneumonia GI History: Reports: Hx Gastroesophageal Reflux Disease History: Denies: Hx Renal Disease Musculoskeletal History: Denies: Hx Arthritis, Hx Gout Sensory History: Reports: Hx Contacts or Glasses, Hx Eye Injury, Hx Eye Prosthesis, Hx Legally Blind, Hx Deafness, Hx Hearing Aid Opthamlomology History: Reports: Hx Contacts or Glasses, Hx Eye Injury, Hx Eye Prosthesis, Hx Legally Blind Neurological History: Reports: Hx Headaches Psychiatric History: Reports: Hx Anxiety, Hx Depression, Hx Community Mental Health Tx, Hx Substance Abuse Denies: Hx Attention Deficit Hyperactivity Disorder, Hx Eating Disorder, Hx Panic Disorder, Hx Post Traumatic Stress Disorder, Hx Inpatient Treatment, Hx Schizophrenia, Hx Bipolar Disorder, Hx Suicide Attempt, Hx of Violent Episodes Against Others, Other Psychiatric Issues/Disorders - Surgical History Surgery Procedure, Year, and Place: RT EYE PROSTHESIS Glass eye prev cleared by xray;. right wrist I&D - Immunization History Date of Tetanus Vaccine: unsure Date of Influenza Vaccine: none Infectious Disease History: No Infectious Disease History: Denies: Hx Human Immunodeficiency Virus (HIV), Hx of Known/Suspected MRSA, Traveled Outside the [place] in Last 30 Days - Family History Known Family History: Positive: Other - cancer - Social History Alcohol Use: Weekly Alcohol Amount: Pt states 2-3 drinks 2-3x per wk Hx Substance Use: Yes Substance Use Type: Reports: Marijuana Substance Use Comment - Amount & Last Used: Pt states "2 or 3 beers just before coming to the hospital" Hx Tobacco Use: Yes Smoking Status (MU): Heavy Every Day Tobacco Smoker Type: Cigarettes Amount Used/How Often: PACK OH DAY Have You Smoked in the Last Year: Yes Review of Systems Positive: Skin Diaphoresis Negative: Erythema Negative: Sore Throat Positive: Chest Pain Negative: Shortness Of Breath, Cough Positive: Abdominal Pain, Vomiting, Nausea Positive: Myalgia. Negative: Edema Negative: Rash Positive: Headache All Other Systems Reviewed And Are Negative: Yes Physical Exam - Summary Physical Exam Summary: Constitutional: Well-developed, Well-nourished, Alert. (-) Distressed Skin: Warm, Dry HENT: Normocephalic; Atraumatic Eyes: Conjunctiva normal. Right-sided eye droop which appears to be chronic. Neck: Musculoskeletal ROM normal neck. (-) JVD, (-) Stridor, (-) Tracheal deviation Cardio: Rhythm regular, rate normal, Heart sounds normal; Intact distal pulses; The pedal pulses are 2+ and symmetric. Radial pulses are 2+ and symmetric. (-) Murmur Pulmonary/Chest wall: Effort normal. (-) Respiratory distress, (-) Wheezes, (-) Rales Abd: Soft, Diffusely tender (although inconsistently so), (-) Distension, (-) Guarding, (-) Rebound Musculoskeletal: (-) Edema Lymph: (-) Cervical adenopathy Neuro: Alert, Oriented x3 Psych: Mood and affect Normal Triage Information Reviewed: Yes Vital Signs On Initial Exam: Initial Vitals BP 151/93 11/09/16 21:25 Vital Signs Reviewed: Yes - Emil Coma Scale Coma Scale Total: 15 Diagnostics - Vital Signs Vital Signs Temp Pulse Resp BP Pulse Ox 11/09/16 21:37 98.1 F 105 21 151/93 100 11/09/16 21:30 98.1 F 105 21 151/93 100 11/09/16 21:26 105 17 99 11/09/16 21:25 151/93 - Laboratory Lab Results: Lab Results 11/09/16 11/09/16 11/09/16 Range/Units 22:15 22:25 22:25 WBC 9.6 (3.5-10.8) 10^3/ul RBC 4.82 (4.0-5.4) 10^6/ul Hgb 15.6 (14.0-18.0) g/dl Hct 46 (42-52) % MCV 95 H (80-94) fL MCH 32 H (27-31) pg MCHC 34 (31-36) g/dl RDW 14 (10.5-15) % Plt Count 165 (150-450) 10^3/ul MPV 9 (7.4-10.4) um3 Neut % (Auto) 80.0 (38-83) % Lymph % (Auto) 10.0 L (25-47) % [place] % (Auto) 8.2 (1-9) % Eos % (Auto) 0.9 (0-6) % Baso % (Auto) 0.9 (0-2) % Absolute Neuts (auto) 7.7 (1.5-7.7) 10^3/ul Absolute Lymphs (auto) 1.0 (1.0-4.8) 10^3/ul Absolute Monos (auto) 0.8 (0-0.8) 10^3/ul Absolute Eos (auto) 0.1 (0-0.6) 10^3/ul Absolute Basos (auto) 0.1 (0-0.2) 10^3/ul Absolute Nucleated RBC 0 10^3/ul Nucleated RBC % 0.1 INR (Anticoag Therapy) 0.88 L (0.89-1.11) APTT 26.2 (26.0-36.3) seconds Sodium (133-145) mmol/L Potassium (3.5-5.0) mmol/L Chloride (101-111) mmol/L Carbon Dioxide (22-32) mmol/L Anion Gap (2-11) mmol/L BUN (6-24) mg/dL Creatinine (0.67-1.17) mg/dL Est GFR ( Amer) (>60) Est GFR (Non-Af Amer) (>60) BUN/Creatinine Ratio (8-20) Glucose (70-100) mg/dL Lactic Acid (0.5-2.0) mmol/L Calcium (8.6-10.3) mg/dL Magnesium (1.9-2.7) mg/dL Total Bilirubin (0.2-1.0) mg/dL AST (13-39) U/L ALT (7-52) U/L Alkaline Phosphatase (34-104) U/L Troponin I (<0.04) ng/mL Total Protein (6.4-8.9) g/dL Albumin (3.2-5.2) g/dL Globulin (2-4) g/dL Albumin/Globulin Ratio (1-3) Amylase (29-103) U/L Lipase (11.0-82.0) U/L Urine Color Urine Appearance Urine pH (5-9) Ur Specific [place] (1.010-1.030) Urine Protein (Negative) Urine Ketones (Negative) Urine Blood (Negative) Urine Nitrate (Negative) Urine Bilirubin (Negative) Urine Urobilinogen (Negative) Ur Leukocyte Esterase (Negative) Urine WBC (Auto) (Absent) Urine RBC (Auto) (Absent) Ur Squamous Epith Cells (Absent) Urine Bacteria (Absent) Hyaline Casts (Absent) Urine Glucose (Negative) Influenza A (Rapid) Negative (Negative) Influenza B (Rapid) Negative (Negative) 11/09/16 11/09/16 11/09/16 Range/Units 22:25 22:25 23:05 WBC (3.5-10.8) 10^3/ul RBC (4.0-5.4) 10^6/ul Hgb (14.0-18.0) g/dl Hct (42-52) % MCV (80-94) fL MCH (27-31) pg MCHC (31-36) g/dl RDW (10.5-15) % Plt Count (150-450) 10^3/ul MPV (7.4-10.4) um3 Neut % (Auto) (38-83) % Lymph % (Auto) (25-47) % [place] % (Auto) (1-9) % Eos % (Auto) (0-6) % Baso % (Auto) (0-2) % Absolute Neuts (auto) (1.5-7.7) 10^3/ul Absolute Lymphs (auto) (1.0-4.8) 10^3/ul Absolute Monos (auto) (0-0.8) 10^3/ul Absolute Eos (auto) (0-0.6) 10^3/ul Absolute Basos (auto) (0-0.2) 10^3/ul Absolute Nucleated RBC 10^3/ul Nucleated RBC % INR (Anticoag Therapy) (0.89-1.11) APTT (26.0-36.3) seconds Sodium 135 (133-145) mmol/L Potassium 3.5 (3.5-5.0) mmol/L Chloride 95 L (101-111) mmol/L Carbon Dioxide 26 (22-32) mmol/L Anion Gap 14 H (2-11) mmol/L BUN 17 (6-24) mg/dL Creatinine 0.88 (0.67-1.17) mg/dL Est GFR ( Amer) 113.2 (>60) Est GFR (Non-Af Amer) 88.0 (>60) BUN/Creatinine Ratio 19.3 (8-20) Glucose 130 H (70-100) mg/dL Lactic Acid 1.5 (0.5-2.0) mmol/L Calcium 10.7 H (8.6-10.3) mg/dL Magnesium 2.0 (1.9-2.7) mg/dL Total Bilirubin 1.40 H (0.2-1.0) mg/dL AST 64 H (13-39) U/L ALT 56 H (7-52) U/L Alkaline Phosphatase 73 (34-104) U/L Troponin I 0.01 (<0.04) ng/mL Total Protein 8.3 (6.4-8.9) g/dL Albumin 5.0 (3.2-5.2) g/dL Globulin 3.3 (2-4) g/dL Albumin/Globulin Ratio 1.5 (1-3) Amylase 40 (29-103) U/L Lipase 19 (11.0-82.0) U/L Urine Color Sonja Urine Appearance Clear Urine pH 7.0 (5-9) Ur Specific [place] 1.027 (1.010-1.030) Urine Protein 1+(30 mg/dl) H (Negative) Urine Ketones 1+ H (Negative) Urine Blood Negative (Negative) Urine Nitrate Negative (Negative) Urine Bilirubin Negative (Negative) Urine Urobilinogen Positive H (Negative) Ur Leukocyte Esterase Trace H (Negative) Urine WBC (Auto) 2+(11-20/hpf) H (Absent) Urine RBC (Auto) 1+(3-5/hpf) H (Absent) Ur Squamous Epith Cells Present H (Absent) Urine Bacteria Absent (Absent) Hyaline Casts Present H (Absent) Urine Glucose Negative (Negative) Influenza A (Rapid) (Negative) Influenza B (Rapid) (Negative) Result Diagrams: 11/10/16 07:02 11/10/16 07:02 Lab Statement: Any lab studies that have been ordered have been reviewed, and results considered in the medical decision making process. - Radiology CXR Xray Interpretation: No Acute Changes Radiology Interpretation Completed By: Radiologist - CT abd/pel w ct CT Interpretation Completed By: Radiologist - Fatty liver. Subacute left eighth rib fracture. Questionbale esophagitis. - EKG 2236 EKG Interpretation: sinus tachycardia 109 bpm, no STEMI Complex Multi-Symp Course/Dx - Diagnoses Provider Diagnoses: UTI (urinary tract infection), Nausea and vomiting - Physician Notifications Discussed Care Of Patient With: Dr. Garcia (hospitalist) accepts admission. Discharge - Discharge Plan Condition: Stable Disposition: ADMITTED TO [facility] documentation as recorded by the Philip melton Billy accurately reflects the service I personally performed and the decisions made by , Williams Garza MD.
--- NOTE | 2016-11-12 01:53 | DS ---
DISCHARGE SUMMARY: DATE OF ADMISSION: 11/10/16 DATE OF DISCHARGE: 11/11/16 PRIMARY CARE PROVIDER: Dr. Jang. ORTHOPEDIC SURGEON: Dr. Estrada. PRINCIPAL DIAGNOSIS: Viral gastroenteritis. SECONDARY DIAGNOSES: 1. Chronic back pain. 2. Chronic left shoulder/humerus pain. 3. Chronic obstructive pulmonary disease. 4. History of alcoholism. DISCHARGE MEDICATIONS: 1. Albuterol 2 puffs inhaled t.i.d. p.r.n. shortness of breath. 2. Ibuprofen 400 mg p.o. 4 times a day p.r.n. pain. 3. Duloxetine 60 mg p.o. daily. 4. Thiamine 100 mg p.o. daily. 5. Multivitamin 1 tab p.o. daily. 6. Tylenol 650 mg p.o. q.6 hours p.r.n. pain. HOSPITAL COURSE: Mr. Newsome is a 61-year-old male who presented to the emergency room on 11/09/16 with complaints of intractable nausea and vomiting. The patient woke up at approximately 5 a.m. on the morning of 11/09/16 with abdominal pain, nausea, and vomiting. He went all day and finally presented to the emergency room in the evening of 11/09/16. In the ER, he was noted to be tachycardic and had elevated LFTs. The patient was admitted for presumed viral gastroenteritis and evaluation of abdominal pain. The patient did undergo CT scan of the abdomen and pelvis, which revealed fatty liver and mucosal thickening of the distal esophagus. The patient, because of the elevated LFTs underwent an abdominal ultrasound, which again revealed fatty infiltration of the liver and no evidence for gallbladder pathology. I suspect this patient's elevated LFTs are related to his history of alcohol abuse and fatty liver disease. The patient will need to have these followed as an outpatient. In terms of the mucosal thickening seen on the abdomen and pelvis CT scan, this could be related to the vomiting that he was doing. Evaluation as an outpatient down the road could be considered. In terms of the abdominal pain, nausea, and vomiting, these symptoms have improved with the course of the hospitalization. The patient was able to tolerate a regular diet for several meals prior to being discharged home. He is not having any diarrhea or vomiting any further. At this point, it was felt that the patient is stable for discharge home. FOLLOWUP CONCERNS: The patient is being discharged home today, 11/11/16. He is to follow up with Dr. Jang on 11/17/16 at 3:30 p.m. Of note, I did contact Dr. Estrada's office to schedule an appointment for the patient due to complaints of left shoulder and humerus pain. The patient had previously seen Dr. Estrada; however, has missed his last 2 appointments. He has been scheduled for 11/12/16 at 10:45 a.m. I did stress the importance of making this appointment as if he does not, he may be dismissed from the practice. ACTIVITY LEVEL: As tolerated. DIET: Regular. CONDITION ON DISCHARGE: Stable. TIME SPENT: Thirty five minutes was spent discharging this patient. CC: Dr. Jang* [id number]/[facility] #: [id number] MTDStephanie
== END 2016-11-11 11:20 | disposition home or self-care (01) ==
LOC: ED 21:04 → MED 11-10 03:40
PROVIDERS: ADMIT Hospitalist; ATTEND Hospitalist
DX: A08.4 Viral intestinal infection, unspecified (principal); R10.9 Unspecified abdominal pain; N39.0 Urinary tract infection, site not specified; M54.9 Dorsalgia, unspecified; G89.29 Other chronic pain; M25.512 Pain in left shoulder; R74.0 Nonspecific elevation of levels of transaminase and lactic acid dehydrogenase [LDH]; J44.9 Chronic obstructive pulmonary disease, unspecified; F10.20 Alcohol dependence, uncomplicated; Z23 Encounter for immunization; M86.9 Osteomyelitis, unspecified; K76.0 Fatty (change of) liver, not elsewhere classified; R00.0 Tachycardia, unspecified; I45.81 Long QT syndrome; Z79.899 Other long term (current) drug therapy; F17.210 Nicotine dependence, cigarettes, uncomplicated
CPT/HCPCS: 36415; 71010; 74177; 76705; 80048; 80053; 80076; 81003; 81015; 82150; 83605; 83690; 83735; 84484; 85025; 85610; 85730; 87040; 87077; 87086; 87502; 90471; 90732; 93005; 94640; 94760; 96361; 96365; 96372; 96375; 99285; 99406; A9270-GY; G0009; G0378; J0696; J1644; J2060; J2270; J2405; Q9967

== ENCOUNTER 2016-11-20 17:39 | Observation (INO) | payer OTHER ==
[2016-11-20] MEDS ORDERED: LORazepam INJ* 2 MG/ML 1 ML VIAL IV PUSH ONE (18:22)
[2016-11-20] MEDS ORDERED: Morphine INJ* 4 MG/ML 1 ML SYRINGE IV ONE (18:22)
[2016-11-20] MEDS ORDERED: Ondansetron INJ* 2 MG/ML VIAL IV ONE (18:22)
[2016-11-20 18:30] LABS: Hematocrit 44 % (42-52); Mean Corpuscular HGB Conc 34 g/dl (31-36); Mean Corpuscular Hemoglobin 33 pg (27-31); Mean Corpuscular Volume 95 fL (80-94); Mean Platelet Volume 10 um3 (7.4-10.4); Red Blood Count 4.61 10^6/ul (4.0-5.4); Red Cell Distribution Width 14 % (10.5-15); White Blood Count 5.3 10^3/ul (3.5-10.8)
[2016-11-20 18:41] LABS: Albumin 4.7 g/dL (3.2-5.2); BUN/Creatinine Ratio 14.9 (8-20); Calcium 10.1 mg/dL (8.6-10.3); EGFR African American 114.7 (>60); EGFR Non-African American 89.2 (>60); Globulin 3.2 g/dL (2-4); Potassium 3.8 mmol/L (3.5-5.0); Total Bilirubin 1.1 mg/dL (0.2-1.0); Total Protein 7.9 g/dL (6.4-8.9)
[2016-11-20] MEDS ORDERED: Iohexol 300* (CONTRAST) 10 ML SDV IV ONE (18:54)
[2016-11-20] MEDS ORDERED: Iohexol 350* (CONTRAST) 500 ML MDV IV ONE (18:56)
--- NOTE | 2016-11-20 19:08 | RAD ---
INDICATION: Chest pain COMPARISON: Left shoulder September 14, 2016; chest x-ray November 09, 2016 TECHNIQUE: PA and lateral dual-energy views were obtained. FINDINGS: Bones/Soft Tissues: There are no acute bony findings. There is a known fracture of the surgical neck of the left humerus Cardiomediastinal: The cardiomediastinal silhouette is normal. Lungs: There are no infiltrates. Pleura: There are no pleural effusions. Other: None IMPRESSION: NO ACTIVE DISEASE.
--- NOTE | 2016-11-20 20:24 | RAD ---
INDICATION: Chest pain. Evaluate for pulmonary embolus. Epigastric pain. COMPARISON: CTA chest February 12, 2016; CT abdomen pelvis November 10, 2016 TECHNIQUE: Axial source images were obtained from the thoracic inlet to the symphysis pubis following administration of oral and intravenous contrast. 100 mL Omnipaque 300 was utilized. Coronal and sagittal reconstructed images were acquired. CHEST FINDINGS: Neck/thyroid: The visualized neck to include the thyroid appear normal. Chest wall: There are no acute abnormalities of the bony thorax or chest wall. There is no supraclavicular, infraclavicular, or axillary lymphadenopathy. There are mildly asymmetric left axillary lymph nodes with one lymph node measuring up to 11 mm in short axis. This appears essentially unchanged, however. Lungs : There are no pulmonary parenchymal masses or infiltrates. The pulmonary interstitium appears normal. There are no endobronchial lesions. Cardiomediastinal structures: The heart is normal in size. There is no pericardial effusion. There is no evidence of aortic aneurysm or dissection. The pulmonary vessels appear normal. There is no CT images of acute pulmonary embolic disease.. There is no mediastinal or hilar adenopathy. There is thickening of the distal esophagus unchanged consider esophagitis. Consider upper endoscopy Pleura : There are no pleural-based masses or effusions. ABDOMINAL/PELVIC FINDINGS: Liver: The liver is normal in size. There is hepatic steatosis There are no masses. There is no ductal dilatation. Gallbladder: There are no calcified gallstones. There is no evidence of wall thickening or pericholecystic fluid. Spleen: The spleen is normal in size. There are no masses. Pancreas: There is no evidence of pancreatic mass or ductal dilatation. Adrenal glands: There is no evidence of adrenal mass. Kidneys: The kidneys are normal in size and position. There are prompt nephrograms and there is prompt excretion bilaterally. There are no renal parenchymal masses. There is no evidence of nephrolithiasis. Adenopathy: There is no evidence of adenopathy by size criteria. Fluid collections: There are no free or localized fluid collections. Vessels:The aorta and IVC appear normal GI tract: There are no acute CT bowel findings. There is no obstruction. The stomach and small bowel appear normal. The lower GI tract is normal. The cecum, ileocecal valve, and terminal ileum appear normal. The appendix is visualized and appear normal. Pelvic organs: The prostate and seminal vesicles appear normal. Incidental note is made of a prostatic calcifications. Bladder: There are no bladder masses. Abdominal and pelvic soft tissues: The extraperitoneal abdominal and pelvic soft tissues appear normal.. Osseous structures: There are no acute osseous findings. There is posterior element fusion defect at S1. There is degenerative disc disease involving the lumbar spine with multilevel vacuum disc phenomena. IMPRESSION: 1. No CT evidence of acute pulmonary embolic disease. Lungs clear. 2. Nonspecific mucosal thickening of the distal esophagus. This represents a stable finding. Consider further investigation to include upper endoscopy if not already performed. 3. Hepatic steatosis
[2016-11-20] MEDS ORDERED: Metoclopramide IV* 5 MG/ML 2 ML VIAL IV ONE (22:09)
[2016-11-20] MEDS ORDERED: Albuterol HFA INHALER* 8 gm MDI INH PRN (22:46)
[2016-11-20] MEDS ORDERED: Ibuprofen TAB* 400 MG PO PRN (22:46)
[2016-11-20] MEDS ORDERED: Acetaminophen TAB* 325 MG PO PRN (22:46)
[2016-11-20] MEDS ORDERED: Ondansetron INJ* 2 MG/ML VIAL IV PRN (22:48)
[2016-11-20] MEDS ORDERED: Morphine INJ* 2 MG/ML 1 ML SYRINGE IV PRN (22:48)
[2016-11-20] MEDS ORDERED: Acetaminophen SUPP* 650 MG SUPP PR PRN (22:48)
[2016-11-20] MEDS ORDERED: NS 0.9% 1000 ML* 1,000 ML IV SCH (23:00)
[2016-11-21] MEDS ORDERED: LORazepam TAB(*) 1 MG PO PRN (01:12)
[2016-11-21] MEDS: Heparin VIAL(*) 5000 UNITS/ML VIAL (FIVE THOUSAND) SUBCUT SCH ×3 (05:25→21:23)
--- NOTE | 2016-11-21 05:29 | HP ---
ADDENDUM NOW INCLUDED ON THIS REPORT HISTORY AND PHYSICAL: DATE OF ADMISSION: 11/20/16 CHIEF COMPLAINT: Nausea, vomiting. HISTORY OF PRESENT ILLNESS: The patient is a 61-year-old gentleman recently discharged from [facility], who presents with intractable nausea and vomiting, which he said started at 5 a.m. and he has been doing regularly every hour since then. Does not matter if he eats or drinks. He denies any diarrhea. He says his last alcoholic beverage was on Wednesday, which was Budweiser and only had a few that day. He admits to alcohol abuse in his past, though. He is very anxious to stay as he feels he cannot go home because he has had an argument with his roommates as well. He denies any fevers or chills. He does have abdominal discomfort with the nausea and vomiting. He also has some left arm and shoulder pain from recent injury there as well. He has no other specific complaints. PAST MEDICAL HISTORY: Significant for osteomyelitis, COPD, alcohol abuse, chronic back pain, right eye blindness, hearing loss. PAST SURGICAL HISTORY: I and D of his forearm and a glass eye. MEDICATIONS: His current medications include: 1. Albuterol two puffs inhaled 3 times a day as needed. 2. Ibuprofen 400 mg 4 times a day as needed. 3. Duloxetine 60 mg daily. 4. Thiamine 100 mg daily. 5. Multivitamin one tablet daily. 6. Tylenol 650 mg every 6 hours as needed. ALLERGIES: No known drug allergies. FAMILY HISTORY: Reviewed, noncontributory. SOCIAL HISTORY: Smokes 3 to 4 packs a day. Drinks several Budweisers a day. Occasional marijuana. Surrogate decision maker is his friend, Anoop. REVIEW OF SYSTEMS: A 14-point review of systems was completed with the patient. All pertinent positives and negatives are in the history of present illness, otherwise negative. PHYSICAL EXAMINATION GENERAL: A pleasant gentleman, lying in bed, in no acute distress. VITAL SIGNS: Heart rate 108 beats per minute, respiratory rate 17 breaths per minute, pulse ox 95%, blood pressure 131/110, temperature is 97.9 degrees. HEENT: Normocephalic, atraumatic. Pupils equal, round, reactive to light. Moist mucous membranes. NECK: Supple. No JVD, bruits, palpable thyroid, or lymphadenopathy. CHEST: Clear to auscultation and percussion bilaterally. CARDIOVASCULAR: S1, S2 appreciated. Increased rate. ABDOMEN: Positive bowel sounds in all 4 quadrants. Soft, nontender, nondistended. No hepatosplenomegaly. EXTREMITIES: No cyanosis, clubbing, or edema; +2 peripheral pulses bilaterally. NEUROLOGIC: Alert and oriented x3. Moves all extremities. SKIN: No rashes or abnormalities. DIAGNOSTIC STUDIES/LAB DATA: White count 5.3, hemoglobin 15.0, hematocrit 44, and platelets 218. Sodium 132, potassium 3.8, chloride 95, CO2 24, BUN 13, creatinine 0.87, and glucose 126. AST 50, ALT 68. INR is 0.86. Flu swab is negative. Chest X-ray: No active disease. CTA of the chest, abdomen and pelvis was interpreted per Radiology as no CT evidence of acute pulmonary embolic disease. Lungs clear. Nonspecific mucosal thickening of distal esophagus. This represents stable finding, consider further investigation to include upper endoscopy if not already performed, hepatic steatosis. ASSESSMENT AND PLAN: 1. Intractable nausea and vomiting: We will place the patient on normal saline at 100 cc an hour, Zofran 4 mg IV q.4 hours p.r.n. Make patient NPO. Morphine p.r.n. for his pain. Anticipate the patient to turn around rather quickly and be able to discharge as early as tomorrow. 2. Alcohol abuse: He says his last drink was on Wednesday. Although he is a little tachycardic and tremulous, I think this is chronic. I do not think he is having any evidence of withdrawal at this time, but we will monitor. 3. Hypertension: Blood pressure is somewhat high as his heart rate. We will place the patient on Lopressor. 4. Depression: Continue duloxetine. 5. DVT prophylaxis: Heparin subcu. 6. Fluids, Electrolytes, Nutrition: NPO. Fluids as noted. 7. The patient is a full code. TIME SPENT: Over 75 minutes was spent on this H and P, more than 40 minutes of which was spent in direct [id number] contact with the patient in evaluation, physical exam, counseling, and coordination of care. ADDENDUM: Please note that the patient does have a finding on his CAT scan of some thickening of the esophagus and he would benefit from an upper EGD. This could be done as an outpatient, but should be followed up on. CC: Dr. Jang* [id number]/[facility] #: [id number]/[facility] #: [id number] KEANU
[2016-11-21 05:37] LABS: Urine Bacteria Absent (Absent); Urine Bilirubin Negative (Negative); Urine Glucose Negative (Negative); Urine Nitrite Negative (Negative)
--- NOTE | 2016-11-21 05:47 | HP ---
HISTORY AND PHYSICAL:* ADDENDUM: Please note that the patient does have a finding on his CAT scan of some thickening of the esophagus and he would benefit from an upper EGD. This could be done as an outpatient, but should be followed up on. [id number]/[facility] #: [id number] [facility]
[2016-11-21] MEDS ORDERED: Nicotine Inhaler* 10 MG AMP INH PRN (09:50)
[2016-11-21] MEDS ORDERED: Nicotine GUM* 2 MG PO PRN (09:50)
--- NOTE | 2016-11-21 09:50 | PN ---
Subjective Date of Service: 11/21/16 Interval History: Mr. Newsome states that he is "tired" from being up all night and "hungry." He denies nausea at this time and denies any significant abdominal pain. He states that he frequently has burning in his chest and abdominal pain that has been "worked up" but "nobody ever finds anything." He would like to try some food and see how he feels. Family History: Unchanged from Admission Social History: Unchanged from Admission Past Medical History: Unchanged from Admission Objective Active Medications: Acetaminophen (Tylenol Tab*) 650 mg PO Q6H PRN PRN Reason: FEVER/PAIN Acetaminophen (Tylenol Supp*) 650 mg SD Q4H PRN PRN Reason: FEVER/PAIN Albuterol (Ventolin Hfa Inhaler*) 2 puff INH TID PRN PRN Reason: SHORTNESS OF BREATH Duloxetine HCl (Cymbalta Cap*) 60 mg PO DAILY [facility] Heparin Sodium (Porcine) (Heparin Vial(*)) 5,000 units SUBCUT Q8HR [facility] Last Admin: 11/21/16 05:25 Dose: 5,000 units Sodium Chloride (Ns 0.9% 1000 Ml*) 1,000 mls @ 100 mls/hr IV PER RATE PAUL Last Admin: 11/21/16 00:45 Dose: 100 mls/hr Ibuprofen (Motrin Tab*) 400 mg PO QID PRN PRN Reason: PAIN Lorazepam (Ativan Tab(*)) 1 mg PO Q4H PRN PRN Reason: ANXIETY Last Admin: 11/21/16 01:52 Dose: 1 mg Metoprolol Tartrate (Lopressor Tab*) 25 mg PO BID [facility] Morphine Sulfate (Morphine Inj (Syringe)*) 2 mg IV Q4H PRN PRN Reason: PAIN - MILD Last Admin: 11/21/16 00:45 Dose: 2 mg Multivitamins/Minerals (Theragran/Minerals Tab*) 1 tab PO DAILY [facility] Ondansetron HCl (Zofran Inj*) 4 mg IV Q4H PRN PRN Reason: NAUSEA Last Admin: 11/21/16 00:45 Dose: 4 mg Pantoprazole Sodium (Protonix Iv*) 40 mg IV DAILY [facility] Thiamine HCl (Vitamin B-1 Tab*) 100 mg PO DAILY [facility] Vital Signs 11/20/16 11/20/16 11/21/16 23:00 23:38 00:00 Temperature 97.6 F Pulse Rate 111 105 107 Respiratory 23 16 Rate Blood Pressure 138/110 150/100 (mmHg) O2 Sat by Pulse 95 95 99 Oximetry 11/21/16 11/21/16 11/21/16 00:23 00:45 01:45 Temperature 97.6 F Pulse Rate 107 Respiratory 18 17 18 Rate Blood Pressure 150/100 (mmHg) O2 Sat by Pulse 99 Oximetry 11/21/16 11/21/16 11/21/16 01:52 02:45 03:47 Temperature 98.3 F Pulse Rate 101 Respiratory 16 16 16 Rate Blood Pressure 126/74 (mmHg) O2 Sat by Pulse 98 Oximetry 11/21/16 07:33 Temperature 98.0 F Pulse Rate 98 Respiratory 16 Rate Blood Pressure 144/75 (mmHg) O2 Sat by Pulse 100 Oximetry Oxygen Devices in Use Now: None Appearance: Male patient, sitting up in bed, in NAD Eyes: No Scleral Icterus Respiratory: Symmetrical Chest Expansion and Respiratory Effort, Clear to Auscultation Cardiovascular: NL Sounds; No Murmurs; No JVD, RRR - tachycardia, apical 102 Abdominal: - - diffuse tenderness, BS present Extremities: No Edema, No Clubbing, Cyanosis Skin: No Rash or Ulcers Neurological: Alert and Oriented x 3 Lines/Tubes/Other Access: Clean, Dry and Intact Peripheral IV Result Diagrams: 11/20/16 17:48 11/20/16 17:48 Assess/Plan/Problems-Billing Assessment: Mr. Newsome is a 61 yo male with a PMH of COPD, ETOH abuse, right eye blindness, chronic back pain, and depression who presented to the ED on 11/20 with intractable n/v. - Patient Problems (1) Nausea and vomiting Code(s): R11.2 - NAUSEA WITH VOMITING, UNSPECIFIED Comment: Unclear etiology, appears to be resolving No clear source of abdominal pain Patient with recent gastroenteritis last week ? if this episode secondary to acute gastritis from ETOH and NSAID use Patient recommended to have GI follow-up; also needs to follow up on esophageal thickening seen on CT. Continue prn antiemetics (2) Alcohol abuse Code(s): F10.10 - ALCOHOL ABUSE, UNCOMPLICATED Comment: Pt is showing no overt signs of withdrawal, though patient with noted HTN. Continue to monitor closely. Patient states last drink was on Wednesday. (3) Depression Code(s): F32.9 - MAJOR DEPRESSIVE DISORDER, SINGLE EPISODE, UNSPECIFIED Comment: Continue duloxetine. (4) HTN (hypertension) Code(s): I10 - ESSENTIAL (PRIMARY) HYPERTENSION Comment: Better controlled. Unclear if chronic or secondary to ETOH withdrawal. Continue metoprolol. (5) Tobacco abuse Code(s): Z72.0 - TOBACCO USE Comment: Smoking cessation encouraged. Continue nicotine replacement therapy. (6) COPD (chronic obstructive pulmonary disease) Code(s): J44.9 - CHRONIC OBSTRUCTIVE PULMONARY DISEASE, UNSPECIFIED Comment: No signs of exacerbation. Continue prn albuterol. (7) DVT prophylaxis Code(s): [id number] - Comment: SQ heparin Status and Disposition: OBV admit. D/c to home when medically stable.
[2016-11-21] MEDS: Pantoprazole IV* 40 MG IV SCH (09:58)
[2016-11-21] MEDS: Thiamine TAB* 100 MG TAB PO SCH (09:58)
[2016-11-21] MEDS: Metoprolol Tartrate TAB* 25 MG PO SCH ×2 (09:58→21:22)
[2016-11-21] MEDS: DULoxetine DR CAP* 60 MG CAP.DR PO SCH (09:58)
[2016-11-21] MEDS: Multivitamins/Minerals TAB PO SCH (09:58)
[2016-11-21] MEDS ORDERED: Mouth Piece, Nicotine* 1 EACH CARTRIDGE INH ONE (10:00)
[2016-11-21] MEDS: Nicotine PATCH 21 MG/24 HR* PATCH TRANSDERM SCH (10:37)
[2016-11-21] MEDS ORDERED: LORazepam TAB(*) 1 MG PO SCH (16:00)
[2016-11-21] MEDS ORDERED: Zolpidem TAB* 5 MG PO ONE (21:00)
[2016-11-21] MEDS ORDERED: Nicotine Patch Removal NOTE PATCH OFF SCH (21:00)
[2016-11-22] MEDS: Heparin VIAL(*) 5000 UNITS/ML VIAL (FIVE THOUSAND) SUBCUT SCH (06:35)
[2016-11-22] MEDS: DULoxetine DR CAP* 60 MG CAP.DR PO SCH (08:13)
[2016-11-22] MEDS: Thiamine TAB* 100 MG TAB PO SCH (08:13)
[2016-11-22] MEDS: Multivitamins/Minerals TAB PO SCH (08:13)
[2016-11-22] MEDS: Pantoprazole IV* 40 MG IV SCH (08:14)
[2016-11-22] MEDS: Metoprolol Tartrate TAB* 25 MG PO SCH (08:14)
[2016-11-22] MEDS: Nicotine PATCH 21 MG/24 HR* PATCH TRANSDERM SCH (08:15)
[2016-11-22] MEDS ORDERED: Multivitamins/Minerals TAB PO SCH (09:00)
[2016-11-22] MEDS ORDERED: Thiamine TAB* 100 MG TAB PO SCH (09:00)
[2016-11-22] MEDS ORDERED: Folic Acid TAB* 1 MG PO SCH (09:00)
--- NOTE | 2016-11-22 09:06 | PN ---
Subjective Date of Service: 11/22/16 Interval History: Mr. Newsome is very agitated this morning, stating, "I wanna get out of here, I' m fine." He denies abd pain, n/v/d. He states he didn't sleep all night and "I' ll be back anyway for something else." He sent the service counselor away this morning because "it's just going to hold up my discharge." I discussed that the patient expressed concern for black tarry stools yesterday. He has not yet provided a stool specimen and refuses a rectal exam. He has agreed to have a CBC drawn and then asked for a bus pass to leave. No other acute complaints. Family History: Unchanged from Admission Social History: Unchanged from Admission Past Medical History: Unchanged from Admission Objective Active Medications: Acetaminophen (Tylenol Tab*) 650 mg PO Q6H PRN PRN Reason: FEVER/PAIN Last Admin: 11/21/16 21:22 Dose: 650 mg Acetaminophen (Tylenol Supp*) 650 mg [place] Q4H PRN PRN Reason: FEVER/PAIN Albuterol (Ventolin Hfa Inhaler*) 2 puff INH TID PRN PRN Reason: SHORTNESS OF BREATH Duloxetine HCl (Cymbalta Cap*) 60 mg PO DAILY [facility] Last Admin: 11/22/16 08:13 Dose: 60 mg Folic Acid (Folvite Tab*) 1 mg PO DAILY [facility] Last Admin: 11/22/16 08:14 Dose: 1 mg Heparin Sodium (Porcine) (Heparin Vial(*)) 5,000 units SUBCUT Q8HR [facility] Last Admin: 11/22/16 06:35 Dose: 5,000 units Sodium Chloride (Ns 0.9% 1000 Ml*) 1,000 mls @ 100 mls/hr IV PER RATE [facility] Last Admin: 11/21/16 00:45 Dose: 100 mls/hr Ibuprofen (Motrin Tab*) 400 mg PO QID PRN PRN Reason: PAIN Lorazepam (Ativan Tab(*)) 0 mg PO .PER WAM SCORE [facility] PRN Reason: Protocol Metoprolol Tartrate (Lopressor Tab*) 25 mg PO BID [facility] Last Admin: 11/22/16 08:14 Dose: 25 mg Morphine Sulfate (Morphine Inj (Syringe)*) 2 mg IV Q4H PRN PRN Reason: PAIN - MILD Last Admin: 11/21/16 00:45 Dose: 2 mg Multivitamins/Minerals (Theragran/Minerals Tab*) 1 tab PO DAILY [facility] Last Admin: 11/22/16 08:13 Dose: 1 tab Nicotine (Nicotine Inhaler*) 10 mg INH Q2H PRN PRN Reason: CRAVING Nicotine (Nicotine Patch 21 Mg/24 Hr*) 1 patch TRANSDERM Q24HR [facility] Last Admin: 11/22/16 08:15 Dose: 1 patch Nicotine Polacrilex (Nicotine Gum*) 2 mg PO Q2H PRN PRN Reason: CRAVING Ondansetron HCl (Zofran Inj*) 4 mg IV Q4H PRN PRN Reason: NAUSEA Last Admin: 11/21/16 00:45 Dose: 4 mg Pantoprazole Sodium (Protonix Iv*) 40 mg IV DAILY [facility] Last Admin: 11/22/16 08:14 Dose: 40 mg Pharmacy Profile Note (Nicotine Patch Removal Note*) 1 note PATCH OFF 2100 [facility] Last Admin: 11/21/16 22:29 Dose: 1 note Thiamine HCl (Vitamin B-1 Tab*) 100 mg PO DAILY [facility] Last Admin: 11/22/16 08:13 Dose: 100 mg Vital Signs 11/21/16 11/21/16 11/21/16 15:22 19:53 23:54 Temperature 97.6 F 98.5 F 98.1 F Pulse Rate 82 78 83 Respiratory 12 18 Rate Blood Pressure 129/80 135/84 157/87 (mmHg) O2 Sat by Pulse 98 98 99 Oximetry 11/22/16 03:52 Temperature 98.5 F Pulse Rate 77 Respiratory 16 Rate Blood Pressure 112/75 (mmHg) O2 Sat by Pulse 98 Oximetry Oxygen Devices in Use Now: None Appearance: Male patient, sitting up in bed, in NAD Eyes: PERRLA Ears/Nose/Mouth/Throat: Clear Oropharnyx, Mucous Membranes Moist Neck: NL Appearance and Movements; NL JVP Respiratory: Symmetrical Chest Expansion and Respiratory Effort, Clear to Auscultation Cardiovascular: NL Sounds; No Murmurs; No JVD, RRR Abdominal: NL Sounds; No Tenderness; No Distention Extremities: No Edema Skin: No Rash or Ulcers Neurological: Alert and Oriented x 3 Lines/Tubes/Other Access: Clean, Dry and Intact Peripheral IV Nutrition: Taking PO's Result Diagrams: 11/20/16 17:48 04/21/17 17:48 Assess/Plan/Problems-Billing Assessment: Mr. Newsome is a 61 yo male with a PMH of COPD, ETOH abuse, right eye blindness, chronic back pain, and depression who presented to the ED on 11/20 with intractable n/v. - Patient Problems (1) Nausea and vomiting Code(s): R11.2 - NAUSEA WITH VOMITING, UNSPECIFIED Comment: Unclear etiology, resolved. No clear source of abdominal pain Recheck HH this AM Patient with recent gastroenteritis last week ? if this episode secondary to acute gastritis from ETOH and NSAID use Patient recommended to have GI follow-up; also needs to follow up on esophageal thickening seen on CT. Continue prn antiemetics (2) Alcohol abuse Code(s): F10.10 - ALCOHOL ABUSE, UNCOMPLICATED Comment: Pt is showing no overt signs of withdrawal, though patient with noted HTN. Patient only scored 0-1 on WAM Patient states last drink was on Wednesday. Patient advised to stop drinking ETOH. (3) Depression Code(s): F32.9 - MAJOR DEPRESSIVE DISORDER, SINGLE EPISODE, UNSPECIFIED Comment: Continue duloxetine. (4) HTN (hypertension) Code(s): I10 - ESSENTIAL (PRIMARY) HYPERTENSION Comment: Better controlled. Unclear if chronic or secondary to ETOH withdrawal. Continue metoprolol. Patient advised to f/u with PCP. He does not want to start any medication for HTN. (5) Tobacco abuse Code(s): Z72.0 - TOBACCO USE Comment: Smoking cessation encouraged. Continue nicotine replacement therapy. (6) COPD (chronic obstructive pulmonary disease) Code(s): J44.9 - CHRONIC OBSTRUCTIVE PULMONARY DISEASE, UNSPECIFIED Comment: No signs of exacerbation. Continue prn albuterol. (7) DVT prophylaxis Code(s): FQU1578 - Comment: SQ heparin Status and Disposition: OBV admit. D/c to home when medically stable.
[2016-11-22 09:24] LABS: Hematocrit 41 % (42-52); Hemoglobin 13.9 g/dl (14.0-18.0); Mean Corpuscular HGB Conc 34 g/dl (31-36); Mean Corpuscular Hemoglobin 33 pg (27-31); Mean Corpuscular Volume 96 fL (80-94); Mean Platelet Volume 9 um3 (7.4-10.4); Red Blood Count 4.27 10^6/ul (4.0-5.4); Red Cell Distribution Width 13 % (10.5-15); White Blood Count 4.6 10^3/ul (3.5-10.8)
[2016-11-22 09:26] VITALS: BP 139/96
--- NOTE | 2016-11-25 00:28 | DS ---
MEDICINE DISCHARGE SUMMARY: DATE OF ADMISSION: 11/20/16 DATE OF DISCHARGE: 11/22/16 ATTENDING PHYSICIAN: Ibis Colby MD* (as dictated by Janine Baumann NP). PRIMARY CARE PROVIDER: Dr. Heriberto Jang. PRIMARY DISCHARGE DIAGNOSES: 1. Nausea, vomiting and diarrhea. 2. Suspected gastritis. 3. Esophageal thickening seen on CT scan. The patient advised to follow up with PCP to obtain referral to GI for endoscopy. SECONDARY DISCHARGE DIAGNOSES: 1. History of osteomyelitis. 2. Chronic obstructive pulmonary disease. 3. Left shoulder pain. 4. History of alcohol abuse. 5. Chronic back pain. 6. Right eye blindness. 7. Hearing loss. MEDICATIONS AT DISCHARGE: 1. Multivitamin 1 tab daily. 2. Albuterol inhaler 2 puffs inhaled t.i.d. p.r.n. 3. Acetaminophen 650 mg q.6 hours p.r.n. 4. Thiamine 100 mg daily. 5. Ibuprofen 400 mg 4 times a day p.r.n. 6. Duloxetine DR 60 mg daily. HOSPITAL COURSE OF STAY: For full details, please refer to the H and P provided by Dr. Rendon on 11/20/16. In summary, Mr. Newsome is a 61-year-old male patient who presented to the ER with concerns for intractable nausea and vomiting that have been again ongoing for several hours. He denied recent alcohol use. He did report some abdominal discomfort. He was placed on n.p.o. status and given IV hydration as well as supportive care. The following morning , the patient was requesting food, he was started on clear liquids and advanced to soft diet and tolerated this well; however, later on the day the patient did report that he was having diarrhea that looked "dark and tarry." A stool occult order was placed as well as a stool culture, but the patient had no further stools that he provided for the specimens. The following morning, I did offer the patient a rectal exam in order to obtain the stool occult. The patient did decline stating that he thinks it is due to the Pepto-Bismol he had. He also refused any labs stating that he wanted to get out of here. I did explain to the patient because of his concern for GI bleeding that we should check this given that he has risk factors ____ alcohol use as well as previous history of chronic abdominal pain as well as esophageal thickening seen on a CT scan. The patient did agree to a CBC, which was stable. In regards to the hypertension, the patient was started on Lopressor here. The patient declined to continue this at home because his blood pressures he states are usually "pretty good." He will address this with his PCP. It is likely that his blood pressures were elevated secondary to possible withdrawal, as he did exhibit some tremors; however, he only scored at most a 1 on the WAM protocol. The patient was advised to follow up with his PCP to have further monitoring of his blood pressures outside of the hospital setting as he may benefit from antihypertensives. Again, the patient was advised to please follow up with his PCP and to pursue an outpatient endoscopy to further evaluate the esophageal thickening seen on his CT scan. Additionally, the patient continues to complain of left shoulder pain but has not followed up with his orthopedist, Dr. Estrada. He was advised to do so in order to get it evaluated and to prevent being discharged from their practice. CONCERNS AT DISCHARGE: Mr. Newsome was discharged to home on 11/22/16. DIET: Soft diet, advance as tolerated. ACTIVITY: As tolerated. CONDITION: Improved, stable. DISPOSITION: To home. TIME SPENT: Time spent on this discharge was approximately 40 minutes. Again, this is only a brief summary of the patient's hospital course of stay. For full details, please refer to the full medical record. If you have any further questions or need further assistance, please feel free to contact me at . JANINE BAUMNAN NP CC: Dr. Heriberto Jang* [id number]/[facility] #: [id number] KEANU
== END 2016-11-22 10:30 | disposition home or self-care (01) ==
LOC: ED 17:39 → MED 22:48
PROVIDERS: ADMIT Internal Medicine; ATTEND Internal Medicine
DX: R11.2 Nausea with vomiting, unspecified (principal); M86.9 Osteomyelitis, unspecified; J44.9 Chronic obstructive pulmonary disease, unspecified; M54.9 Dorsalgia, unspecified; F10.10 Alcohol abuse, uncomplicated; R07.9 Chest pain, unspecified; H54.41 Blindness, right eye, normal vision left eye; F32.9 Major depressive disorder, single episode, unspecified; R00.0 Tachycardia, unspecified; F17.210 Nicotine dependence, cigarettes, uncomplicated
CPT/HCPCS: 36415; 71020; 71275; 74177; 80053; 81003; 81015; 83605; 83690; 83880; 84484; 85025; 85610; 87040; 87502; 96361; 96372; 96374; 96375; 96376; 99285; A9270-GY; G0378; J1644; J2060; J2270; J2405; Q9967

== ENCOUNTER 2016-12-15 15:42 | Inpatient (IN) | payer OTHER ==
[2016-12-15] MEDS ORDERED: Ondansetron INJ* 2 MG/ML VIAL IV ONE (16:05)
[2016-12-15] MEDS ORDERED: LORazepam INJ* 2 MG/ML 1 ML VIAL ONE (16:10)
[2016-12-15] MEDS ORDERED: Propofol* 200 ML ONE (16:21)
[2016-12-15] MEDS ORDERED: Succinylcholine* 20 MG/ML 10 ML VIAL ONE (16:21)
[2016-12-15] MEDS ORDERED: Succinylcholine* 20 MG/ML 10 ML VIAL IV ONE (16:38)
[2016-12-15] MEDS ORDERED: Etomidate* 2 MG/ML 10 ML VIAL IV ONE (16:38)
[2016-12-15] MEDS ORDERED: Propofol* 10 MG/ML 20 ML BTL IV PUSH ONE ×2 (16:40→17:04)
[2016-12-15] MEDS ORDERED: Propofol* 500 MG/50 ML BTL ONE (16:41)
[2016-12-15] MEDS ORDERED: Midazolam* 1 MG/ML 10 ML VIAL (10 MG) ONE (16:50)
[2016-12-15] MEDS ORDERED: Propofol* 500 MG/50 ML BTL IV SCH ×3 (17:00→18:00)
[2016-12-15 17:27] LABS: Red Cell Distribution Width 13 % (10.5-15); White Blood Count 8.7 10^3/ul (3.5-10.8)
[2016-12-15 17:32] LABS: Hematocrit 45 % (42-52); Hemoglobin 15.2 g/dl (14.0-18.0); Mean Corpuscular HGB Conc 34 g/dl (31-36); Mean Corpuscular Hemoglobin 33 pg (27-31); Mean Corpuscular Volume 96 fL (80-94); Red Blood Count 4.67 10^6/ul (4.0-5.4)
[2016-12-15 17:37] LABS: Add Diff/Slide Review? Slide Review Added; Comments Flag Yes
[2016-12-15 17:44] LABS: ALT 23 U/L (7-52); AST 31 U/L (13-39); Albumin 4.5 g/dL (3.2-5.2); Alkaline Phosphatase 74 U/L (34-104); Anion Gap 11 mmol/L (2-11); BUN/Creatinine Ratio 9.3 (8-20); Blood Urea Nitrogen 9 mg/dL (6-24); CO2 Carbon Dioxide 23 mmol/L (22-32); Chloride 99 mmol/L (101-111); EGFR African American 101.2 (>60); EGFR Non-African American 78.7 (>60); Globulin 3.3 g/dL (2-4); Glucose 168 mg/dL (70-100); Lipase 14 U/L (11.0-82.0); Potassium 4.1 mmol/L (3.5-5.0); Sodium 133 mmol/L (133-145); Total Protein 7.8 g/dL (6.4-8.9); Troponin I 0.01 ng/mL (<0.04)
[2016-12-15] MEDS ORDERED: LORazepam INJ* 2 MG/ML 1 ML VIAL IM ONE (17:47)
--- NOTE | 2016-12-15 17:57 | RAD ---
Indication: Confusion. CT of the cervical spine was obtained in the axial plane. Sagittal and coronal reconstructed images were obtained. The skull base demonstrates no evidence of fracture. Mastoid air cells are grossly unremarkable. The C1 ring is intact. No fracture is noted. At C2-C3 there is no disc protrusion noted. Bilateral facet arthropathy is noted. No central or foraminal stenosis is identified. At C3-C4 degenerative disc disease with spondylytic ridge flattens the thecal sac. Bilateral uncovertebral joint hypertrophy is noted worse on the right than on the left resulting in right foraminal stenosis. At C4-C5 degenerative disc disease is noted. No central or foraminal stenosis is noted. Mild facet arthropathy is noted. At C5-C6 degenerative disc disease is noted. Spondylitic ridge is noted. Mild uncovertebral hypertrophy narrows both foramen bilaterally. Evidence of old fracture of the spinous process of C6 is noted. Margins appear to be well-corticated. At C6-C7 spondylitic ridge with bilateral uncovertebral joint hypertrophy narrows both foramen. At C7-T1 degenerative disc disease is noted. IMPRESSION: DEGENERATIVE DISC DISEASE AT C3-C4, C4-C5, C5-C6 AND C6-C7. NO FRACTURE OF THE CERVICAL SPINE IS NOTED. OLD UNUNITED FRACTURE SPINOUS PROCESS OF C6.
[2016-12-15 17:59] LABS: Alcohol < 10 mg/dL (<10)
[2016-12-15 18:05] LABS: Mean Platelet Volume 9 um3 (7.4-10.4)
--- NOTE | 2016-12-15 18:05 | RAD ---
Indication: Confusion. CT of the brain was performed without IV contrast. Comparison is made with previous exam dated January 31, 2016. Ventricular structures are midline. No midline shift is noted. The extra-axial spaces are unremarkable. There is no evidence of intracranial mass or hemorrhage. No other high or low density lesions are identified. Mastoid air cells are unremarkable. 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 Air-fluid level is noted in the left maxillary sinus. IMPRESSION: Acute left maxillary sinusitis. No intracranial mass or hemorrhage is noted. 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
--- NOTE | 2016-12-15 18:42 | RAD ---
Indication: Post intubation. Respiratory failure. Single frontal view of the chest performed at 1829 hours was reviewed. Comparison is made with previous exam dated November 20, 2016. No mediastinal shift is noted. Heart is of normal size and configuration. Lung jaimes appear clear. Endotracheal tube appears to BE in appropriate location. Nasogastric tube is in place. IMPRESSION: ET TUBE APPEARS TO BE IN APPROPRIATE LOCATION.
--- NOTE | 2016-12-15 19:49 | HP ---
H&P (Free Text) History and Physical: History & Physical - Critical Care Requesting Physician: Dr Williams Garza Primary Care: Dr Laine Louis Reason for consult: seizure Limitations in history/physical: intubated/sedated, post seizure, history from chart/ER Date of consult: 12/15/2016 HPI: 61y M w/pmhx Alcohol abuse, Atrial fibrillation, HTN, COPD, anxiety/ depression, tobacco abuse, Right eye prosthesis; who presented [place] [facility] complaints of [place]. He stated to ER he thought he had a seizure at home and fell on his head. In the ER he was nauseaous. While being evaluated he had a witnessed seizure episode, given Ativan iv, then intubated for airway protection. Started on propofol and versed infusion, Keppra IV for seizure. CT head and CT C-spine was done. They noted a small laceration on the back of patients head, red/swollen without bleeding, not very deep but definitely broken skin, no intervention done to stitch up site. According to chart he was awake/alert when he came in and smelled of alcohol. Currently in ICU now intubated, sedated; pupil on left reactive. No smell of alcohol. Not breathing over the vent. No seizures noted. ROS: unable to be obtained due to mental status/intubated/sedated PMHx: HTN, COPD, Atrial fibrillation, anxiety, depression, tobacco abuse, alcohol abuse PSHx: Right eye prosthesis Family History: unable to obtain Social History: as per chart; drinks daily 2-3 drinks 2-3x/week; marijuana+; smoking+; Allergies: NKDA Home Medications: RX: DULoxetine DR GONZALES* [Cymbalta CAP*] 60 mg PO DAILY #30 cap 01/07/16 [Rx Confirmed 12/15/16] RX: Multivitamins/Minerals TAB* [Theragran/minerals TAB*] 1 tab PO DAILY tab [Rx Confirmed 12/15/16] RX: Thiamine TAB* [Vitamin B-1 TAB 100 MG*] 100 mg PO DAILY tab 02/14/16 [Rx Confirmed 12/15/16] RX: Albuterol HFA INHALER* [Ventolin HFA Inhaler*] 2 puff INH TID PRN 02/26/16 [ History Confirmed 12/15/16] RX: Ibuprofen [Addaprin] 400 mg PO QID PRN #14 tab 04/03/16 [Rx Confirmed ] RX: Acetaminophen TAB* [Tylenol TAB*] 650 mg PO Q6H PRN #0 tab 11/11/16 [Rx Confirmed 12/15/16] Gabapentin CAP(*) [Neurontin 300 CAP(*)] 300 mg PO BEDTIME 12/15/16 [History Confirmed 12/15/16] traZODone TAB* [Desyrel TAB*] 100 mg PO BEDTIME PRN 12/15/16 [History Confirmed 12/15/16] Tele: NSR Vitals: Vital Signs Temp 97.2 F 12/15/16 19:34 Pulse 105 12/15/16 19:00 Resp 16 12/15/16 19:00 BP 124/90 12/15/16 19:00 Pulse Ox 100 12/15/16 19:00 Intake & Output 12/15/16 12/15/16 12/16/16 06:59 18:59 06:59 Intake Total 18 Balance 18 Weight 170 lb 205 lb 0.478 oz Intake: IV Narcotic Infusion 18 Versed 18 O2/Vent: AC 16/450/+5/50%; tv 450, rr 16 Infusions: propofol 100, versed 10mg/hr Current Medications: Propofol (Diprivan*) 500 mg in 50 mls @ 23.133 mls/hr IV .(Initial Rate) PAUL; 50 MCG/KG/MIN PRN Reason: Protocol Last Admin: 12/15/16 16:34 Dose: 23.133 mls/hr Thiamine HCl 100 mg/ Folic Acid 1 mg/ Multivitamins 10 ml / Sodium Chloride 1, 011.2 mls @ 75 mls/hr IV ONCE ONE Stop: 12/16/16 09:10 Levetiracetam 1,000 mg/ Sodium (Chloride) 110 mls @ 440 mls/hr IVPB ONCE ONE Stop: 12/15/16 19:54 Levetiracetam (Keppra Iv Premix*) 500 mg in 100 mls @ 400 mls/hr IV Q12H PAUL Midazolam HCl 100 mg/ Sodium (Chloride) 100 mls @ 0 mls/hr IV .Q24HR PAUL PRN Reason: As Directed Midazolam HCl 100 mg/ Sodium (Chloride) 100 mls @ 0 mls/hr IV .Q24HR PAUL PRN Reason: As Directed Propofol (Diprivan*) 500 mg in 50 mls @ 27.9 mls/hr IV .(Initial Rate) PAUL; 50 MCG/KG/MIN PRN Reason: Protocol Famotidine 20 mg/ Sodium (Chloride) 102 mls @ 408 mls/hr IVPB DAILY PAUL Lorazepam (Ativan Inj*) 1 mg IV PUSH Q1HR PRN PRN Reason: SEIZURES Thiamine HCl (Vitamin B-1 Tab*) 100 mg PO DAILY PAUL Physical Exam: General: intubated, sedated Head: normocephalic, posterior skull laceration/notbleeding/erythema/going skin deep only HEENT: right eye not present; left eye+ without icterus/pallor. Reactive pupil but pinpoint. Moist mucous membranes Neck: soft, supple, no jvd, no stridor CVS: normal rate, normal rhythm, no murmur Resp: bilateral air entry, no rhales, no wheeze, no rhonchi, no acc muscle use Abdomen: soft, nontender, nondistended, bowel sounds present Ext: pulses+, warm, no edema Skin: intact, no breakdown, + dryness Neuro: intubated, sedated, doesnt aroune to stimuli Labs: Laboratory Results - last 24 hr 12/15/16 12/15/16 12/15/16 17:15 17:15 17:15 WBC 8.7 RBC 4.67 Hgb 15.2 Hct 45 MCV 96 H MCH 33 H MCHC 34 RDW 13 Plt Count 211 MPV 9 Neut % (Auto) 79.5 Lymph % (Auto) 11.2 L [place] % (Auto) 7.2 Eos % (Auto) 1.1 Baso % (Auto) 1.0 Absolute Neuts (auto) 6.9 Absolute Lymphs (auto) 1.0 Absolute Monos (auto) 0.6 Absolute Eos (auto) 0.1 Absolute Basos (auto) 0.1 Absolute Nucleated RBC 0.03 Nucleated RBC % 0.3 Sodium 133 Potassium 4.1 Chloride 99 L Carbon Dioxide 23 Anion Gap 11 BUN 9 Creatinine 0.97 Est GFR ( Amer) 101.2 Est GFR (Non-Af Amer) 78.7 BUN/Creatinine Ratio 9.3 Glucose 168 H Lactic Acid 5.0 H* Calcium 10.0 Total Bilirubin 0.80 AST 31 ALT 23 Alkaline Phosphatase 74 Troponin I 0.01 Total Protein 7.8 Albumin 4.5 Globulin 3.3 Albumin/Globulin Ratio 1.4 Lipase 14 Serum Alcohol < 10 Imaging: CT head 12/15 reviewed acute left maxillary sinusitis Ct spine 12/15 reviewed deg disc disease C3-C7, no fracture; old spinous C6 fracture noted. CXR 12/15 ett above dagmar; no infiltrate/ptx/effusion/congestion noted. Assessment: 61y M w/pmhx Alcohol abuse, Atrial fibrillation, HTN, COPD, anxiety/ depression, tobacco abuse, Right eye prosthesis; who presented to [facility] [place] complaints of seizure and fall at home, had nausea and seizure in ER, intubated for airway protection. -Seizure -Acute Respiratory Failure, unspecified, intubated for airway protection -Fall with head laceration Plan: Neuro- keppra load to be given 1gm iv. Start keppra 500mg iv bid. Seizure may be due to etoh withdrawal? No electrolyte abnormalities. No acute intracranial process/bleed noted. Will obtain MRI. Neuro consult. Neurochecks. Fall prec. Asp prec. Dec versed first to off, then start decreasing propofol. Obtain EEG tonight. CT spine neg for trauma, unable to obtain neuro exam completely. CT head reviewed and negative. Wound care to head laceration. CVS- hemodyn stable. No pressors. Cont IVF. Give thiamine/folate/MVI first. Cont NS infusion. Trend lactic acid, likely elevated due to seizure/transient hypoxia during. Resp- on AC, obtain ABG. CXR clear. Wean sedation. Neurochecks and possible weaning in AM if alert/oriented. ID- afebrile, no wbc elevation. Some maxillary sinusitis. Will monitor for now. No abx. GI- NPO for now. GI prophylaxis Renal- IVF hydration. Normal renal function, normal K. trend lactic acid. Heme- hg stable, plt stable. No bleeding noted. Endo- FS as needed, BS elevated. Check hga1c Musculsk- wound care to back of head, no need for stitches at this time. Wounds- wound care to back of head Nutrition- NPO for now DVT prophylaxis: SCDs GI prophylaxis: pepcid Central Line: no Arterial Line: no Lira Cathetor: no Disposition: ICU for seizure, intubated for airway protection Code Status: full code Total Critical Care time is 45 minutes, excluding procedures/teaching Jl Byrnes MD Family Life Counselor (Electronically Signed)
[2016-12-15] MEDS ORDERED: Thiamine IV* 100 MG, Folic Acid IV* 1 MG, Multiple Vitamin IV ADULT* 10 ML in NS 0.9% 1... IV ONE (20:00)
[2016-12-15] MEDS ORDERED: Propofol* 100 ML ONE (20:13)
[2016-12-15] MEDS: Propofol* 100 ML IV SCH ×2 (20:16→22:09)
[2016-12-15 20:23] LABS: FIO2 45; Resp Rate 16; Ventilator Volume 500
[2016-12-15 20:27] LABS: PCO2 Arterial 45 mmHg (35-45)
[2016-12-16] MEDS: Propofol* 100 ML IV SCH ×6 (00:39→20:26)
[2016-12-16 04:10] LABS: Urine Bacteria 1+ (Absent); Urine Bilirubin Negative (Negative); Urine Glucose Negative (Negative); Urine Nitrite Negative (Negative)
[2016-12-16 06:21] LABS: Hematocrit 46 % (42-52); Hemoglobin 15.4 g/dl (14.0-18.0); Mean Corpuscular HGB Conc 34 g/dl (31-36); Mean Corpuscular Hemoglobin 33 pg (27-31); Mean Corpuscular Volume 98 fL (80-94); Mean Platelet Volume 10 um3 (7.4-10.4); Red Blood Count 4.67 10^6/ul (4.0-5.4); Red Cell Distribution Width 13 % (10.5-15); White Blood Count 11.2 10^3/ul (3.5-10.8)
[2016-12-16 06:36] LABS: BUN/Creatinine Ratio 10.8 (8-20); Calcium 9.7 mg/dL (8.6-10.3); EGFR African American 79.2 (>60); EGFR Non-African American 61.6 (>60); Potassium 3.7 mmol/L (3.5-5.0)
[2016-12-16] MEDS: levETIRAcetam 500 MG IVPREMIX* 500 MG/100 ML BAG IV SCH ×2 (07:37→20:41)
--- NOTE | 2016-12-16 08:06 | PN ---
Progress Note - Progress Note Note: Progress Note - Critical Care 24 hour events: -admitted yesterday, remaisn on vent; off versed. this morning on 80 of propofol -discontinued, awakens but not opening eyes, moving all ext, restless, doesnt follow commands; tachycardic -restarting some propofol -EEG to be done this morning Tele: NSR Vitals: Vital Signs Temp 98.1 F 12/16/16 03:28 Pulse 109 12/16/16 06:00 Resp 20 12/16/16 07:00 BP 144/87 12/16/16 06:00 Pulse Ox 100 12/16/16 06:00 Intake & Output 12/15/16 12/16/16 12/16/16 18:59 06:59 18:59 Intake Total 1641 Output Total 1050 Balance 591 Weight 170 lb 205 lb 14.588 oz Intake: IV Fluids 975 NS (0.9%) 337 banana bag 638 IVPB 110 NS (0.9%) 110 Medicated IV 508 CC - Propofol/Diprivan 487 Versed 21 IV Narcotic Infusion 48 Versed 48 Output: NG Tube Drainage Amount 250 Lira 800 O2/Vent: AC 16/500/+5/35%; tv 500, rr 23 Infusions: propofol 80 -> dec to 40 now Current Medications: Thiamine HCl 100 mg/ Folic Acid 1 mg/ Multivitamins 10 ml / Sodium Chloride 1, 011.2 mls @ 75 mls/hr IV ONCE ONE Stop: 12/16/16 09:28 Last Admin: 12/15/16 21:30 Dose: 75 mls/hr Levetiracetam (Keppra Iv Premix*) 500 mg in 100 mls @ 400 mls/hr IV Q12H PAUL Last Admin: 12/16/16 07:37 Dose: 400 mls/hr Midazolam HCl 100 mg/ Sodium (Chloride) 100 mls @ 0 mls/hr IV .Q24HR PAUL PRN Reason: As Directed Propofol (Diprivan*) 100 mls @ 27.9 mls/hr IV .(Initial Rate) PAUL; 50 MCG/KG/ MIN PRN Reason: Protocol Last Admin: 12/16/16 03:53 Dose: 44.6 mls/hr Famotidine 20 mg/ Sodium (Chloride) 102 mls @ 408 mls/hr IVPB DAILY PAUL Lorazepam (Ativan Inj*) 1 mg IV PUSH Q1HR PRN PRN Reason: SEIZURES Thiamine HCl (Vitamin B-1 Tab*) 100 mg PO DAILY PAUL Physical Exam: General: intubated, sedated Head: normocephalic, posterior skull laceration/notbleeding/erythema/going skin deep only HEENT: right eye not present; left eye+ without icterus/pallor, pinpoint but reactive. Moist mucous membranes Neck: soft, supple, no jvd, no stridor CVS: normal rate, normal rhythm, no murmur Resp: bilateral air entry, no rhales, no wheeze, no rhonchi, no acc muscle use Abdomen: soft, nontender, nondistended, bowel sounds present Ext: pulses+, warm, no edema Skin: intact, no breakdown, + dryness Neuro: intubated, sedated, moves all ext and awakening/not alert off sedation. Labs: Laboratory Results - last 24 hr 12/15/16 12/15/16 12/15/16 17:15 17:15 17:15 WBC 8.7 RBC 4.67 Hgb 15.2 Hct 45 MCV 96 H MCH 33 H MCHC 34 RDW 13 Plt Count 211 MPV 9 Neut % (Auto) 79.5 Lymph % (Auto) 11.2 L [place] % (Auto) 7.2 Eos % (Auto) 1.1 Baso % (Auto) 1.0 Absolute Neuts (auto) 6.9 Absolute Lymphs (auto) 1.0 Absolute Monos (auto) 0.6 Absolute Eos (auto) 0.1 Absolute Basos (auto) 0.1 Absolute Nucleated RBC 0.03 Nucleated RBC % 0.3 Patient Temperature ABG pH ABG pCO2 ABG pO2 ABG HCO3 ABG O2 Saturation ABG Base Excess Respiration Rate O2 Delivery Device Ventilator Type Vent Mode FiO2 Inspiratory Time PEEP Pressure Support Pressure Control EPAP IPAP BiPAP Sodium 133 Potassium 4.1 Chloride 99 L Carbon Dioxide 23 Anion Gap 11 BUN 9 Creatinine 0.97 Est GFR ( Amer) 101.2 Est GFR (Non-Af Amer) 78.7 BUN/Creatinine Ratio 9.3 Glucose 168 H Lactic Acid 5.0 H* Calcium 10.0 Total Bilirubin 0.80 AST 31 ALT 23 Alkaline Phosphatase 74 Troponin I 0.01 Total Protein 7.8 Albumin 4.5 Globulin 3.3 Albumin/Globulin Ratio 1.4 Lipase 14 Urine Color Urine Appearance Urine pH Ur Specific [place] Urine Protein Urine Ketones Urine Blood Urine Nitrate Urine Bilirubin Urine Urobilinogen Ur Leukocyte Esterase Urine WBC (Auto) Urine RBC (Auto) Ur Squamous Epith Cells Urine Bacteria Hyaline Casts Urine Glucose Serum Alcohol < 10 12/15/16 12/15/16 12/16/16 20:02 20:15 03:30 WBC RBC Hgb Hct MCV MCH MCHC RDW Plt Count MPV Neut % (Auto) Lymph % (Auto) [place] % (Auto) Eos % (Auto) Baso % (Auto) Absolute Neuts (auto) Absolute Lymphs (auto) Absolute Monos (auto) Absolute Eos (auto) Absolute Basos (auto) Absolute Nucleated RBC Nucleated RBC % Patient Temperature Not Reportable ABG pH 7.37 ABG pCO2 45 ABG pO2 195 H ABG HCO3 25.1 ABG O2 Saturation 99.8 H ABG Base Excess 0.3 Respiration Rate 16 O2 Delivery Device vent Ventilator Type 500 Vent Mode cmv/apv FiO2 45 Inspiratory Time 0.9 PEEP 5 Pressure Support Not Reportable Pressure Control Not Reportable EPAP Not Reportable IPAP Not Reportable BiPAP Not Reportable Sodium Potassium Chloride Carbon Dioxide Anion Gap BUN Creatinine Est GFR ( Amer) Est GFR (Non-Af Amer) BUN/Creatinine Ratio Glucose Lactic Acid 0.9 Calcium Total Bilirubin AST ALT Alkaline Phosphatase Troponin I Total Protein Albumin Globulin Albumin/Globulin Ratio Lipase Urine Color Yellow Urine Appearance Cloudy Urine pH 5.0 Ur Specific [place] 1.012 Urine Protein 2+(100 mg/dl) H Urine Ketones Negative Urine Blood 2+ H Urine Nitrate Negative Urine Bilirubin Negative Urine Urobilinogen Negative Ur Leukocyte Esterase 1+ H Urine WBC (Auto) 2+(11-20/hpf) H Urine RBC (Auto) 2+(6-10/hpf) H Ur Squamous Epith Cells Present H Urine Bacteria 1+ H Hyaline Casts Present H Urine Glucose Negative Serum Alcohol 12/16/16 12/16/16 05:55 05:55 WBC 11.2 H RBC 4.67 Hgb 15.4 Hct 46 MCV 98 H MCH 33 H MCHC 34 RDW 13 Plt Count 154 MPV 10 Neut % (Auto) 79.1 Lymph % (Auto) 8.0 L [place] % (Auto) 10.9 H Eos % (Auto) 1.4 Baso % (Auto) 0.6 Absolute Neuts (auto) 8.9 H Absolute Lymphs (auto) 0.9 L Absolute Monos (auto) 1.2 H Absolute Eos (auto) 0.2 Absolute Basos (auto) 0.1 Absolute Nucleated RBC 0 Nucleated RBC % 0 Patient Temperature ABG pH ABG pCO2 ABG pO2 ABG HCO3 ABG O2 Saturation ABG Base Excess Respiration Rate O2 Delivery Device Ventilator Type Vent Mode FiO2 Inspiratory Time PEEP Pressure Support Pressure Control EPAP IPAP BiPAP Sodium 134 Potassium 3.7 Chloride 100 L Carbon Dioxide 25 Anion Gap 9 BUN 13 Creatinine 1.20 H Est GFR ( Amer) 79.2 Est GFR (Non-Af Amer) 61.6 BUN/Creatinine Ratio 10.8 Glucose 106 H Lactic Acid Calcium 9.7 Total Bilirubin AST ALT Alkaline Phosphatase Troponin I Total Protein Albumin Globulin Albumin/Globulin Ratio Lipase Urine Color Urine Appearance Urine pH Ur Specific [place] Urine Protein Urine Ketones Urine Blood Urine Nitrate Urine Bilirubin Urine Urobilinogen Ur Leukocyte Esterase Urine WBC (Auto) Urine RBC (Auto) Ur Squamous Epith Cells Urine Bacteria Hyaline Casts Urine Glucose Serum Alcohol Imaging: CT head 12/15 reviewed acute left maxillary sinusitis Ct spine 12/15 reviewed deg disc disease C3-C7, no fracture; old spinous C6 fracture noted. CXR 12/15 ett above dagmar; no infiltrate/ptx/effusion/congestion noted. Assessment: 61y M w/pmhx Alcohol abuse, Atrial fibrillation, HTN, COPD, anxiety/ depression, tobacco abuse, Right eye prosthesis; who [place] [facility] [place] of [place] and fall at home, had nausea and seizure in ER, intubated for airway protection. -Seizure -Encephelopathy, r/o postictal state, sedation -ALBERT -Acute Respiratory Failure, unspecified, intubated for airway protection -Fall with head laceration Plan: Neuro- cont keppra 500mg iv bid. neuro checks, fall prec. EEG to be done now. Wean propofol down slowly to start waking patient, restarting to 40 for acute agitation. no seizures overnight noted. ativan prn if needed. off versed infusion. NSR without afib episodes. last temp 99.9, wbc 11 today. no electrolyte abnormalities. CVS- hemodyn stable. No pressors. Cont IVF. lactic acid resolved, likely from transient hypoxia/seizure. Resp- on AC, fio2 35%, no secretions. once more awake/alert, can go to cpap/ weaning for extubation. no acute respiratory issue, intubated for airway protection. ID- last temp 99.9, wbc 11 now. monitor off abx. will start if spike in temp or wbc further rises, this could be reactive. Some maxillary sinusitis on CT imaging only. GI- NPO for now. GI prophylaxis Renal- IVF hydration. nonoliguric ALBERT noted Cr 1.2; likely from transient hypoxic/ischemic insult. Cont IVF hydration, making urine with positive balance. Heme- hg stable, plt stable. No bleeding noted. Endo- FS as needed, BS elevated. Check hga1c Musculsk- wound care to back of head, no need for stitches at this time. Wounds- wound care to back of head Nutrition- NPO for now DVT prophylaxis: SCDs GI prophylaxis: pepcid Central Line: no Arterial Line: no Lira Cathetor: yes Disposition: ICU for seizure, intubated for airway protection Code Status: full code Total Critical Care time is 35 minutes, excluding procedures/teaching Jl Byrnes MD General Ophthalmologist (Electronically Signed)
[2016-12-16] MEDS ORDERED: NS 0.9% 1000 ML* 1,000 ML IV SCH ×2 (08:15)
[2016-12-16] MEDS ORDERED: LORazepam INJ* 2 MG/ML 1 ML VIAL IV PUSH ONE (10:41)
[2016-12-16] MEDS ORDERED: fentaNYL* 50 MCG/ML 2 ML VIAL (100 MCG VIAL) IV SLOW PU ONE (14:25)
[2016-12-16] MEDS ORDERED: fentaNYL* 50 MCG/ML 2 ML VIAL (100 MCG VIAL) ONE (14:25)
--- NOTE | 2016-12-16 15:32 | RAD ---
Indication: Pneumonia. Single frontal view of the chest performed at 1445 hours was reviewed. Comparison is made with previous exam dated December 15, 2016. Endotracheal tube is at the level of the aortic arch. Nasogastric tube appears in place. Lung jaimes appear hyperinflated. IMPRESSION: TUBES AND LINES APPEAR IN APPROPRIATE POSITION. NO DEFINITE INFILTRATES ARE NOTED.
[2016-12-16 16:00] LABS: Benzodiazepine Urine Screen Presumptive Positive (None Detect)
[2016-12-16 16:31] LABS: TSH (Thyroid Stimulating Horm) 0.43 mcIU/mL (0.34-5.60)
[2016-12-16 17:53] LABS: Free T4 0.95 ng/dL (0.61-1.12)
--- NOTE | 2016-12-16 18:36 | CONS ---
NEUROLOGY CONSULTATION: DATE OF CONSULT: 12/16/16 REFERRING PHYSICIAN: Dr. Byrnes. LOCATION: He is in the intensive care unit bed 2. CHIEF COMPLAINT: Unresponsiveness, seizure. HISTORY OF PRESENT ILLNESS: Tyler Newsome is a 61-year-old man who presented to the emergency room yesterday with an apparent seizure at home. I am not sure how he got to the emergency room, but he was able to give a history to the emergency room physician, Dr. Garza, that he thought he had a seizure at home and had hit his head. He was nauseous in the emergency room and then had a seizure observed. He did not recover and was given intra-venous lorazepam and intubated. He has been on propofol since. I have been told by Dr. Byrnes and the ICU staff that when the propofol is decreased, he becomes agitated and they have had to reinstitute it. He was put on levetiracetam when he presented to the emergency room, 1000 mg load and 500 q.12 hours. He has a history of alcoholism and was evaluated in [address] Berta Huang for a possible seizure with a normal EEG and a discharge diagnosis of possible alcohol withdrawal seizure. As far as we know, that is his only history of epilepsy and he is not on antiepileptics at home. His evaluation to this point is notable for head CT scan and notable for a scalp hematoma, but no intracranial abnormalities were interpreted. I reviewed the scan and it reveals a cerebellar atrophy to me, which was present in 2015 as well. His laboratory studies have been pretty unrevealing with a normal white blood cell count on admission, borderline elevated MCV at 96, and otherwise an unremarkable CBC. His white blood cell count argenis slightly to 11.2 this morning. His chemistries likewise have been fairly unremarkable with an admitting glucose of 168, a lactate of 5.0 which dropped rapidly to 0.9 by last night. His electrolytes including sodium and calcium are otherwise unremarkable. Liver enzymes are normal as is albumin. His alcohol level on admission was less than 10. He had a urinalysis on presentation notable for proteinuria, 2+ blood, 1+ leukocyte esterase, 1+ bacteria, and 2+ white blood cells. PAST MEDICAL HISTORY: Notable for alcoholism, remote history of osteomyelitis, hearing loss, chronic back pain, multiple emergency room visits for multiple falls typically associated with alcohol. MEDICATIONS: As far as we know, medications at home consist of: 1. Duloxetine 60 mg p.o. daily. 2. Multivitamins. 3. Thiamine 100 mg p.o. daily. 4. Ventolin inhaler 2 puffs t.i.d. p.r.n. 5. Gabapentin 300 mg p.o. q.h.s. 6. Trazodone 100 mg p.o. q.h.s. These are unconfirmed. Medications at the time of evaluation consist of: 1. Propofol drip which was discontinued at the beginning of my exam. 2. Thiamine 100 mg given intravenously yesterday and now p.o., which he is not getting. 3. He received some lorazepam earlier today, I believe. 4. Famotidine 20 mg IV q.24 hours. 5. Levetiracetam 500 mg IV q.12 hours. ALLERGIES: According to computer records, he does not have any drug allergies. REVIEW OF SYSTEMS: Currently not possible other than review of the hospital records. He was last here in the hospital on November 20 with intractable nausea and vomiting. He was still drinking alcohol as of that admission according to the admission records. PHYSICAL EXAMINATION: He is intubated in an ICU bed with a neck collar on. He initially is immobile, but as the propofol wears off, he exhibits more spontaneous movement. Most recent temperature is 99.1 temporally, blood pressure 122/79, heart rate is in the 110s and appears to be in sinus. Oxygen saturation is 100% when last checked. His CT of the cervical spine was cleared and the cervical collar was taken off. There is no meningismus. There is no Kernig's sign either. Straight leg raising produces no particular response. Heart is in a regular rhythm. I do not hear murmurs. The skin is warm and somewhat moist. He has a laceration in his left parieto-occipital area. 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 The left pupil reacts initially from about 2.5 to 2 mm, but as the propofol wears off, dilates to about 4 and reacts to 2 mm. He has a dense left lenticular cataract obscuring his fundus. There is no spontaneous eye movement. Initially, he does not respond to corneal reflex on the left, but does as the propofol wears off. Responds to nasal tickle early and briskly and symmetrically. He has a symmetrical facial grimace. Later as he starts to follow some commands, he attempts to open his eye and does just barely open the left eye. Muscle tone is fairly diminished initially and then increases as the propofol wears off. He moves his arms and legs restlessly. Early on, he did not respond to pain other than grimacing, but subsequently he did and symmetrically in all limbs. Reflexes were absent at the knees. Plantar responses were flexor bilaterally. After the propofol had been off a while, he became somewhat restless. At that point, he was able to follow some commands with squeezing my right hand, raising one finger in the right hand, and squeezing the left hand to command. DIAGNOSTIC STUDIES/LAB DATA: I reviewed his CT images personally. IMPRESSION: Observed seizure. May have been another alcohol withdrawal seizure or he may have a primary seizure disorder. I agree with Adriel at the current dosing. He had an EEG earlier today, which I reviewed. It reveals excessive beta activity consistent with drug effect, but no epileptiform discharges. He may have also suffered a concussion as clearly he has hit his head. Currently he is following commands. As he continues to lighten, hopefully we will be extubate him either today or tomorrow. Recommend repeating his EEG tomorrow morning. I would recommend checking an ammonia level, TSH, and a B12 level. He has already received parenteral thiamine. If he does not continue to improve, then we may opt to obtain an MRI scan, but it would be easier to do so as he is extubated, and at this point, I do not think it is needed. I will continue to follow with you. [id number]/[facility] #: [id number] [facility] CENTERStephanie
[2016-12-16] MEDS: Thiamine TAB* 100 MG TAB PO SCH (21:19)
[2016-12-17] MEDS: Propofol* 100 ML IV SCH ×2 (01:34→06:26)
[2016-12-17] MEDS: Chlorhexidine MOUTHWASH 0.12%* 15 ML UDC TOPICAL SCH ×6 (02:19→21:56)
[2016-12-17] MEDS: LORazepam INJ* 2 MG/ML 1 ML VIAL IV PUSH PRN ×3 (02:38→17:34)
[2016-12-17 06:24] LABS: Hematocrit 44 % (42-52); Hemoglobin 14.8 g/dl (14.0-18.0); Mean Corpuscular HGB Conc 34 g/dl (31-36); Mean Corpuscular Hemoglobin 33 pg (27-31); Mean Corpuscular Volume 97 fL (80-94); Mean Platelet Volume 10 um3 (7.4-10.4); Red Cell Distribution Width 14 % (10.5-15); White Blood Count 10.6 10^3/ul (3.5-10.8)
[2016-12-17 06:42] LABS: Albumin 3.9 g/dL (3.2-5.2); BUN/Creatinine Ratio 10.9 (8-20); Calcium 9.4 mg/dL (8.6-10.3); EGFR African American 96.6 (>60); EGFR Non-African American 75.1 (>60); Globulin 3.2 g/dL (2-4); Potassium 3.3 mmol/L (3.5-5.0); Total Bilirubin 0.8 mg/dL (0.2-1.0); Total Protein 7.1 g/dL (6.4-8.9)
--- NOTE | 2016-12-17 08:03 | EEG ---
ELECTROENCEPHALOGRAPHY: DATE OF STUDY: 12/16/16 LOCATION: The patient is in ICU, bed 5. REFERRING PROVIDER: Dr. Byrnes. CLINICAL PROBLEM: The patient presented with seizures in the emergency room the day prior to this r ecording. A second seizure resulted in intubation. The patient was on propofol at the onset of the recording. Other medications include Keppra and midazolam. REPORT: This 16-channel EEG is remarkable for background activity at the onset of the recording con sisting of mixed beta and theta rhythms mainly. Propofol was turned off right at the beginning of t he recording. Over the evolution of the recording, delta rhythms and theta rhythms diminished in pr ominence and beta activity also diminished somewhat in amplitude, but remained prominent. Rhythms a re generally synchronous and symmetrical. Beta rhythms were of higher amplitude bifrontally. Some delta rhythms increased in abundance centrally and parasagittally as the tracing progressed. Sleep stages were not recognized. Activation procedures were not attempted. There were no focal or epilep tiform discharges. CLINICAL IMPRESSION: Abnormal EEG due to generalized slowing and disorganization of background rhyt hms as well as increased beta rhythms all consistent with sedatives and hypnotic drug effect. There are no focal or epileptiform discharges during this recording. [id number]/[facility] #: [id number]
--- NOTE | 2016-12-17 08:12 | RAD ---
Indication: Seizure. Follow-up pneumonia. Fever, cough, shortness of breath. History of cardiac and chronic respiratory disease. Comparison: December 16, 2016 Technique: Upright AP 0605 hours Report: Tip of endotracheal tube 3.5 cm above the Kelly. Nasogastric tube passes to the gastric body. Mild prominence of the interstitial markings. No compelling alveolar infiltrates. Negative for pleural effusion or pneumothorax. Negative for cardiomegaly. Mildly tortuous thoracic aorta. Unremarkable central pulmonary vasculature. IMPRESSION: Unchanged mild prominence of interstitial markings. No compelling alveolar infiltrates.
[2016-12-17] MEDS: levETIRAcetam 500 MG IVPREMIX* 500 MG/100 ML BAG IV SCH ×2 (08:28→20:20)
[2016-12-17] MEDS ORDERED: Potassium Chloride LIQUID* 20 MEQ PACKET PO ONE (09:00)
[2016-12-17] MEDS: Thiamine TAB* 100 MG TAB PO SCH (09:25)
--- NOTE | 2016-12-17 10:29 | PN ---
Progress Note - Progress Note Note: Progress Note - Critical Care 24 hour events: -remains on vent; fever 100.8 last night; still tachy, -off propofol and calmer today, less coughing. -follows commands, no distress, no diaphoresis -yesterday had some hypoxia during sedation weaning, vent stopped working and gave no volume, manually bagged for a few min, sats came to 100%, and pt calm, vent was changed. Tele: tachycardic Vitals: Vital Signs Temp 100.3 F 12/17/16 07:27 Pulse 116 12/17/16 10:00 Resp 28 12/17/16 10:00 BP 129/89 12/17/16 10:00 Pulse Ox 100 12/17/16 10:00 Intake & Output 12/16/16 12/17/16 12/17/16 18:59 06:59 18:59 Intake Total 1090 523 Output Total 475 1175 Balance 615 -652 Weight 208 lb 8.917 oz Intake: IV Fluids 719 74 NS (0.9%) 357 74 banana bag 362 IVPB 110 110 NS (0.9%) 110 110 Medicated IV 261 339 CC - Propofol/Diprivan 261 339 Output: NG Tube Drainage Amount 250 Lira 475 925 O2/Vent: AC 16/500/+5/35%; tv 500, rr 18; sat 98% Infusions: propofol off Current Medications: Chlorhexidine Gluconate (Peridex Mouth Wash 0.12%*) 15 ml TOPICAL Q4HR [facility] Last Admin: 12/17/16 08:57 Dose: 15 ml Levetiracetam (Keppra Iv Premix*) 500 mg in 100 mls @ 400 mls/hr IV Q12H PAUL Last Admin: 12/17/16 08:28 Dose: 400 mls/hr Propofol (Diprivan*) 100 mls @ 27.9 mls/hr IV .(Initial Rate) PAUL; 50 MCG/KG/ MIN PRN Reason: Protocol Last Admin: 12/17/16 06:26 Dose: 19.5 mls/hr Famotidine 20 mg/ Sodium (Chloride) 102 mls @ 408 mls/hr IVPB DAILY PAUL Last Admin: 12/17/16 08:57 Dose: 408 mls/hr Lorazepam (Ativan Inj*) 1 mg IV PUSH Q1HR PRN PRN Reason: SEIZURE/WITHDRAW Last Admin: 12/17/16 06:18 Dose: 1 mg Thiamine HCl (Vitamin B-1 Tab*) 100 mg PO DAILY PAUL Last Admin: 12/17/16 09:25 Dose: 100 mg Physical Exam: General: intubated, follows commands, sleepy. Head: normocephalic, posterior skull laceration/notbleeding/erythema/going skin deep only HEENT: right eye not present; left eye+ without icterus/pallor, pinpoint but reactive. Moist mucous membranes Neck: soft, supple, no jvd, no stridor CVS: tachycardic, normal rhythm, no murmur Resp: bilateral air entry, no rhales, no wheeze, no rhonchi, no acc muscle use Abdomen: soft, nontender, nondistended, bowel sounds present Ext: pulses+, warm, no edema Skin: intact, no breakdown, + dryness Neuro: intubated, awakens, follows commands, opens eyes, comfortable, moves all ext and awakening/not alert off sedation. Labs: Laboratory Results - last 24 hr 12/16/16 12/16/16 12/16/16 15:12 15:30 15:30 WBC RBC Hgb Hct MCV MCH MCHC RDW Plt Count MPV Neut % (Auto) Lymph % (Auto) [place] % (Auto) Eos % (Auto) Baso % (Auto) Absolute Neuts (auto) Absolute Lymphs (auto) Absolute Monos (auto) Absolute Eos (auto) Absolute Basos (auto) Absolute Nucleated RBC Nucleated RBC % INR (Anticoag Therapy) 0.86 L APTT 28.3 Sodium Potassium Chloride Carbon Dioxide Anion Gap BUN Creatinine Est GFR ( Amer) Est GFR (Non-Af Amer) BUN/Creatinine Ratio Glucose Calcium Total Bilirubin AST ALT Alkaline Phosphatase Ammonia 51 Total Protein Albumin Globulin Albumin/Globulin Ratio TSH Free T4 Urine Opiates Screen None detected Ur Barbiturates Screen None detected Ur Phencyclidine Scrn None detected Ur Amphetamines Screen None detected U Benzodiazepines Scrn Presumptive positive H Urine Cocaine Screen None detected U Cannabinoids Screen Presumptive positive H 12/16/16 12/17/16 12/17/16 15:30 05:50 05:50 WBC 10.6 RBC 4.50 Hgb 14.8 Hct 44 MCV 97 H MCH 33 H MCHC 34 RDW 14 Plt Count 135 L MPV 10 Neut % (Auto) 77.9 Lymph % (Auto) 9.2 L [place] % (Auto) 11.1 H Eos % (Auto) 1.0 Baso % (Auto) 0.8 Absolute Neuts (auto) 8.3 H Absolute Lymphs (auto) 1.0 Absolute Monos (auto) 1.2 H Absolute Eos (auto) 0.1 Absolute Basos (auto) 0.1 Absolute Nucleated RBC 0.01 Nucleated RBC % 0.1 INR (Anticoag Therapy) APTT Sodium 138 Potassium 3.3 L Chloride 102 Carbon Dioxide 25 Anion Gap 11 BUN 11 Creatinine 1.01 Est GFR ( Amer) 96.6 Est GFR (Non-Af Amer) 75.1 BUN/Creatinine Ratio 10.9 Glucose 97 Calcium 9.4 Total Bilirubin 0.80 AST 34 ALT 19 Alkaline Phosphatase 67 Ammonia Total Protein 7.1 Albumin 3.9 Globulin 3.2 Albumin/Globulin Ratio 1.2 TSH 0.43 Free T4 0.95 Urine Opiates Screen Ur Barbiturates Screen Ur Phencyclidine Scrn Ur Amphetamines Screen U Benzodiazepines Scrn Urine Cocaine Screen U Cannabinoids Screen Imaging: CT head 12/15 reviewed acute left maxillary sinusitis Ct spine 12/15 reviewed deg disc disease C3-C7, no fracture; old spinous C6 fracture noted. CXR 12/15 ett above dagmar; no infiltrate/ptx/effusion/congestion noted. Assessment: 61y M w/pmhx Alcohol abuse, Atrial fibrillation, HTN, COPD, anxiety/ depression, tobacco abuse, Right eye prosthesis; who presented to [facility] ER for complaints of seizure and fall at home, had nausea and seizure in ER, intubated for airway protection. -Seizure -Encephelopathy, r/o postictal state, sedation -ALBERT, improved -Acute Respiratory Failure, unspecified, intubated for airway protection -Fall with head laceration Plan: Neuro- cont keppra 500mg iv bid. neuro checks, fall prec. EEG showed some slowing, possibly from medication, no acute seizures noted. Off propofol, appropriate,. reassess after extubation. ativan prn if needed. NSR without afib episodes. last temp 100.8, wbc 10 today. no electrolyte abnormalities. Friends told staff he drinks 12 beers a night everyday? WIll start librium now for withdrawal prevention, already >48 hours. cont thiamine/folate/mvi. neuro following, reviewed consult. reassess neuro status. previous seizure episodes from likely withdrawal in past noted in history. CVS- hemodyn stable, still tachy to 100-110. No pressors. off ivf. Resp- on CPAP, just extubated to DC, no distress. cough weak now. awake, alert, sleepy. bronchodilators prn. suctioning/pulm toilet as needed. wean fio2 to keep sat >92% ID- last temp 100.8, wbc 10. monitor off abx. Hemodyn stable. Some maxillary sinusitis on CT imaging only. Could this be some alcohol withdrawal causing fevers? GI- NPO for now. swallow eval later. today. Renal- nonoliguric ALBERT improved now to 1.01; likely from transient hypoxic/ ischemic insult. good urine output. Heme- hg stable, plt declined but >100k. No bleeding noted. d/c pepcid Endo- FS as needed, BS elevated. Check hga1c Musculsk- wound care to back of head, no need for stitches at this time. Wounds- wound care to back of head Nutrition- swallow eval later. DVT prophylaxis: SCDs GI prophylaxis: none Central Line: no Arterial Line: no Lira Cathetor: yes Disposition: ICU for seizure, intubated for airway protection; extubated now. Code Status: full code Total Critical Care time is 35 minutes, excluding procedures/teaching Jl Byrnes MD Fire Prevention Inspector (Electronically Signed)
[2016-12-17 12:41] LABS: BIPAP Y; EPAP 5; FIO2 35; IPAP 12; Patient Temp ABG 98.7; Resp Rate 34
[2016-12-17 12:44] LABS: PCO2 Arterial 39 mmHg (35-45)
--- NOTE | 2016-12-17 13:05 | PN ---
Progress Note - Progress Note Note: Extubate to ventimask; he was opening eyes, comfortable on vent and CPAP. following commands. Notified he was more lethargic, shallow breaths, tachypneic. Placed on NIV More awake and alert then, still looks sleepy overall still but moves all ext and opens eyes, just drowsy, doesnt answer questions. Off precedex, last ativan was at 6am this morning. Will hold all further sedatives/opiates. Does not appear to be in withdrawal state. No clinical seizures noted now. on keppra 500mg iv bid. keep on NIV 07/06 35% sat 99%, rr 18, tv 600-1000 ABG done - 7.41/39/108 on 35% NIV. Monitor on NIV Neurology f/u later today. Keep neurochecks repeat ABG if further lethargy/obtunded state low threshold for intubation for declining mental status. Will consider MRI/repeat CT head today. last EEG yesterday i was told was negative of seizures. Seems more encephelopathy (still post ictal? subclinical seizure? contusion?) is the issue now. Remains ICU status. Jl Byrnes
[2016-12-17] MEDS ORDERED: Haloperidol INJ IV/IM* 5 MG/ML AMP ONE (16:51)
[2016-12-17] MEDS ORDERED: EPINEPHrine,Rac 2.25% NEB.SOL* 0.5 ML ONE ×2 (17:29→18:35)
[2016-12-17] MEDS ORDERED: Dexamethasone IV* 4 MG/ML 5 ML VIAL (20 MG) ONE (17:31)
[2016-12-17] MEDS ORDERED: Dexamethasone IV* 10 MG in NS 0.9% 50 ML* 50 ML IVPB ONE (18:00)
[2016-12-17] MEDS ORDERED: EPINEPHrine,Rac 2.25% NEB.SOL* 0.5 ML INH ONE ×2 (18:00→19:30)
[2016-12-17] MEDS ORDERED: Albuterol 2.5 MG/3 ML NEB.SOL* (0.083%) INH ONE ×2 (19:55→19:57)
[2016-12-17] MEDS ORDERED: Morphine INJ* 2 MG/ML 1 ML SYRINGE ONE (19:57)
[2016-12-17] MEDS ORDERED: methylPREDNISolone 125 MG* 2 ML VIAL ONE (19:58)
[2016-12-17] MEDS ORDERED: Albuterol 2.5 MG/3 ML NEB.SOL* (0.083%) INH PRN (20:05)
[2016-12-17] MEDS ORDERED: methylPREDNISolone 125 MG* 2 ML VIAL IV ONE (20:05)
[2016-12-17] MEDS: Albuterol 2.5 MG/3 ML NEB.SOL* (0.083%) INH SCH (20:20)
[2016-12-17 20:37] LABS: PCO2 Arterial 33 mmHg (35-45)
[2016-12-17] MEDS ORDERED: Spiriva Inhaler DEVICE* 1 EACH DEVICE INH ONE (21:00)
[2016-12-17] MEDS: guaiFENesin ER TAB 600 MG PO SCH (21:55)
[2016-12-17] MEDS: Tiotropium CAP.INH* CAP.INH/18 MCG INH SCH (21:55)
[2016-12-17] MEDS: Mometasone/Formoter 200/5 MDI INH SCH (21:55)
--- NOTE | 2016-12-17 22:25 | PN ---
NEUROLOGY FOLLOWUP: DATE OF FOLLOWUP: 12/17/16 LOCATION: He is in the intensive care unit, bed 2. ATTENDING PHYSICIAN: Dr. Byrnes. CHIEF COMPLAINT: Seizure. INTERVAL HISTORY: Since yesterday, Tyler was extubated about 3 to 4 hours ago. His last propofol was at that point in time and he had Ativan at about 6 this morning. Currently, he is responding and answering questions and saying that he wants to go home. MEDICATIONS: Reviewed; he is on: 1. Thiamine orally at this point. 2. Keppra 500 mg IV q.12 hours. 3. Propofol and lorazepam as above. PHYSICAL EXAM: He was spoken to, but minimally examined. Temperature 98.7, blood pressure 129/85, and heart rate running in the 100 to 110 range. He is lethargic, but answers questions. He makes visual contact with the examiner. Voice is soft and somewhat harsh and mildly dysarthric. He moves his limbs voluntarily. He is oriented to person and place. IMPRESSION: Tyler probably had an alcohol withdrawal seizure. His roommate volunteers that he drinks about 12 beers a day. I asked Tyler about prior seizures and he said he did not have them as a kid, but that he did have one about a year and a half ago. That one was attributed to alcohol withdrawal and he said that is probably what happened here as well. Currently, he is still lethargic and would be at risk of falling. He should be kept in the hospital until he can safely ambulate. I would continue Keppra for now, but most likely would not discharge him on an anticonvulsant. He will need to be watched for possible alcohol withdrawal while he is here in the hospital. [id number]/[facility] #: [id number] [facility]
[2016-12-17] MEDS ORDERED: Ziprasidone IM INJ* 20 MG/ML VIAL IM ONE (23:00)
[2016-12-18] MEDS: LORazepam INJ* 2 MG/ML 1 ML VIAL IV PUSH PRN (00:02)
[2016-12-18] MEDS: Albuterol 2.5 MG/3 ML NEB.SOL* (0.083%) INH SCH ×2 (02:07→07:28)
--- NOTE | 2016-12-18 02:52 | EEG ---
ELECTROENCEPHALOGRAPHY: DATE OF STUDY: 12/17/16 - ROOM #ICU-02 REFERRING PHYSICIAN: Dr. Byrnes. LOCATION: The patient is in the intensive care unit. CLINICAL HISTORY: Seizure and subsequent unresponsiveness requiring intubation. The patient is on propofol, Keppra, Pepcid. REPORT: This 16-channel EEG is performed in the intensive care unit. The patient is on propofol at the onset of the recording. Background rhythm consists of diffuse beta and delta rhythms. There is no anterior to posterior gradient. Movement artifact is seen infrequently. The propofol was continued throughout the recording. There were no evidence of sleep stages. There were no focal or epileptiform discharges. CLINICAL IMPRESSION: Abnormal EEG due to generalized slowing and disorganization of background rhythms consistent with anesthetic drug effect. There were no epileptiform features to this recording. [id number]/[facility] #: [id number] MTDD
[2016-12-18] MEDS ORDERED: methylPREDNISolone SOD 40 MG* 1 ML VIAL IV SCH ×3 (04:00→18:00)
--- NOTE | 2016-12-18 04:59 | PN ---
Progress Note - Progress Note Note: Nursing called at start of shift ~1930 reporting Mr Newsome s/p extubation today now with strider, increased respiratory rate, decreased saO2. Receiving 3rd racemic epinephrine neb. Upon my arrival, Mr Newsome is awake and alert, oriented to person & place. Denies significant SOB, chest pain, N/V, palpitations, or other issues. Gen: unkempt white male; Lungs: no strider currently, poor aeration w/ scant mid- to end-expiratory wheeze, RR mid-20s to low 40s, mild abdominal accessory muscle use; CV: sinus tachycardia rate 120's ( receiving epinephrine neb); abdomen: SNTND. Case discussed with Rosaura Byrnes MD occupational nurse who agreed with albuterol neb x2 followed by ABG with plan to re- intubate if ABG is poor or if his respiratory status does no improve as he would not be expected to maintain this level work of breathing throughout the night. Re-evaluation post-albuterol nebs x2 reveals resolution of his abdominal accessory muscle use, improved aeration, and resolution of his expiratory wheeze. RR down to the mid- to high 20s. ABG consistent with mild hyperventilation. Dr Byrnes updated. Afterwards, he did become agitated, again increasing his RR into the mid-30s while maintaining his saO2 in the mid-90s. 10mg IM ziprasidone alleviated and allowed him to sleep comfortably through the night.
[2016-12-18] MEDS: Chlorhexidine MOUTHWASH 0.12%* 15 ML UDC TOPICAL SCH ×2 (05:46→05:55)
[2016-12-18 06:48] LABS: BUN/Creatinine Ratio 18.4 (8-20); Calcium 9.5 mg/dL (8.6-10.3); EGFR African American 134.1 (>60); EGFR Non-African American 104.3 (>60); Potassium 4.2 mmol/L (3.5-5.0)
--- NOTE | 2016-12-18 07:06 | ED ---
meredith Cole Timothy, scribed for Williams Garza MD on 12/15/16 at 1609 . Neurological HPI - HPI Summary HPI Summary: Initial visit was for fall, with bleeding from the occipital scalp. He began to seize during examination LEVEL V CAVEAT: PT IS INTOXICATED Tyler Newsome is a 61 yo male presenting to [facility] with seizure; the smell on his clothes is suggestive of EtOH. Pt states he is in 6/10 pain. His MHx includes R eye prosthesis and L ear hearing aid, irregular heartbeat, Afib, HTN , LAURENT, COPD, PNA, GERD, depression, anxiety, substance abuse, tobacco use. - History of Current Complaint Stated Complaint: SEIZURE Time Seen by Provider: 12/15/16 16:00 Hx Obtained From: Patient Onset/Duration: Sudden Onset Timing: Intermittent Episodes Lasting: Onset Severity: Moderate Current Severity: Moderate Seizure Severity: Moderate Number of Seizures: 1 Pain Intensity: 6 Pain Scale Used: 0-10 Numeric Character: Other: - seizure Associated Signs and Symptoms: Positive: Seizure - Additional Pertinent History Primary Care Physician: [id number] - Allergy/Home Medications Allergies/Adverse Reactions: Allergies Allergy/AdvReac Type Severity Reaction Status Date / Time No Known Allergies Allergy Verified 04/03/16 10:57 Home Medications: Home Medications Gabapentin CAP(*) [Neurontin 300 CAP(*)] 300 mg PO BEDTIME 12/15/16 [History Confirmed 12/15/16] traZODone TAB* [Desyrel TAB*] 100 mg PO BEDTIME PRN 12/15/16 [History Confirmed 12/15/16] PMH/Surg Hx/FS Hx/Imm Hx Endocrine/Hematology History: Denies: Hx Anticoagulant Therapy, Hx Diabetes Cardiovascular History: Reports: Hx Hypertension Denies: Hx Congestive Heart Failure, Hx Myocardial Infarction, Hx Pacemaker/ ICD Respiratory History: Reports: Hx Chronic Obstructive Pulmonary Disease (COPD), Hx Pneumonia GI History: Reports: Hx Gastroesophageal Reflux Disease History: Denies: Hx Renal Disease Musculoskeletal History: Denies: Hx Arthritis, Hx Gout Sensory History: Reports: Hx Contacts or Glasses, Hx Eye Injury, Hx Eye Prosthesis, Hx Legally Blind, Hx Deafness, Hx Hearing Aid, Other Sensory Impairments - Has R eye prosthesis and L hearing aide Opthamlomology History: Reports: Hx Contacts or Glasses, Hx Eye Injury, Hx Eye Prosthesis, Hx Legally Blind, Other Sensory Impairments - Has R eye prosthesis and L hearing aide Neurological History: Reports: Hx Headaches Psychiatric History: Reports: Hx Anxiety, Hx Depression, Hx Community Mental Health Tx, Hx Substance Abuse Denies: Hx Attention Deficit Hyperactivity Disorder, Hx Eating Disorder, Hx Panic Disorder, Hx Post Traumatic Stress Disorder, Hx Inpatient Treatment, Hx Schizophrenia, Hx Bipolar Disorder, Hx Suicide Attempt, Hx of Violent Episodes Against Others, Other Psychiatric Issues/Disorders - Surgical History Surgery Procedure, Year, and Place: RT EYE PROSTHESIS Glass eye prev cleared by xray;. right wrist I&D - Immunization History Date of Tetanus Vaccine: unsure Date of Influenza Vaccine: none Infectious Disease History: Denies: Hx Human Immunodeficiency Virus (HIV), Hx of Known/Suspected MRSA, Traveled Outside the [place] in Last 30 Days - Family History Known Family History: Positive: Unknown - level v caveat: pt is intoxicated and unable to communicate, Other - cancer. alcoholism. - Social History Alcohol Use: Daily Alcohol Amount: Pt states 2-3 drinks 2-3x per wk Hx Substance Use: Yes Substance Use Type: Reports: Marijuana Substance Use Comment - Amount & Last Used: Pt states "2 or 3 beers just before coming to the hospital" Hx Tobacco Use: Yes Smoking Status (MU): Heavy Every Day Tobacco Smoker Type: Cigarettes Amount Used/How Often: PACK OH DAY Have You Smoked in the Last Year: Yes - Additional Comments History Additional Comments: LEVEL V CAVEAT: PT IS INTOXICATED Review of Systems - ROS Summary Review of Systems Summary: LEVEL V CAVEAT: PT IS INTOXICATED Positive: Other - occipital scalp laceration Neurological: Other - seizure All Other Systems Reviewed And Are Negative: No Physical Exam - Summary Physical Exam Summary: LEVEL V CAVEAT: PT IS INTOXICATED Constitutional: Well-developed, Well-nourished, Alert. (-) Distressed Skin: Warm, Dry. Laceration to the occipital scalp. HENT: Eyes: Conjunctiva normal Neck: Musculoskeletal ROM normal neck. (-) JVD, (-) Stridor, (-) Tracheal deviation Cardio: Rhythm regular, rate normal, Heart sounds normal; Intact distal pulses; The pedal pulses are 2+ and symmetric. Radial pulses are 2+ and symmetric. (-) Murmur Pulmonary/Chest wall: Effort normal. (-) Respiratory distress, (-) Wheezes, (-) Rales. Pt is coughing and retching upon examination. Abd: Soft. (-) Tenderness, (-) Distension, (-) Guarding, (-) Rebound Musculoskeletal: (-) Edema Lymph: (-) Cervical adenopathy Neuro: Alert, Oriented x3, Strength normal, Cranial nerves II-XII are grossly intact. (-) Dysmetria, (-) Nystagmus, (-) Ataxia by finger to nose testing, (-) Sensory deficit. Psych: Mood and affect Normal Triage Information Reviewed: Yes Vital Signs On Initial Exam: Initial Vitals Temp Pulse Resp BP Pulse Ox 96.1 F 110 16 115/85 95 12/15/16 15:53 12/15/16 15:53 12/15/16 15:53 12/15/16 15:53 12/15/16 15:53 Vital Signs Reviewed: Yes Procedures - Intubation Time of Intubation: 16:11 Intubation Method: orotracheal Tube Size (cm): 7.5 Medications: Succinylcholine Breath Sounds after Intubation: equal Intubation Complications: no complications Post Intubation Xray: No - unable to be completed prior to admission Diagnostics - Vital Signs Vital Signs Temp Pulse Resp BP Pulse Ox 12/15/16 15:53 96.1 F 110 16 115/85 95 - Laboratory Lab Results: Lab Results 12/15/16 12/15/16 12/15/16 Range/Units 17:15 17:15 17:15 WBC 8.7 (3.5-10.8) 10^3/ul RBC 4.67 (4.0-5.4) 10^6/ul Hgb 15.2 (14.0-18.0) g/dl Hct 45 (42-52) % MCV 96 H (80-94) fL MCH 33 H (27-31) pg MCHC 34 (31-36) g/dl RDW 13 (10.5-15) % Plt Count 211 (150-450) 10^3/ul MPV 9 (7.4-10.4) um3 Neut % (Auto) 79.5 (38-83) % Lymph % (Auto) 11.2 L (25-47) % [place]dwell % (Auto) 7.2 (1-9) % Eos % (Auto) 1.1 (0-6) % Baso % (Auto) 1.0 (0-2) % Absolute Neuts (auto) 6.9 (1.5-7.7) 10^3/ul Absolute Lymphs (auto) 1.0 (1.0-4.8) 10^3/ul Absolute Monos (auto) 0.6 (0-0.8) 10^3/ul Absolute Eos (auto) 0.1 (0-0.6) 10^3/ul Absolute Basos (auto) 0.1 (0-0.2) 10^3/ul Absolute Nucleated RBC 0.03 10^3/ul Nucleated RBC % 0.3 Sodium 133 (133-145) mmol/L Potassium 4.1 (3.5-5.0) mmol/L Chloride 99 L (101-111) mmol/L Carbon Dioxide 23 (22-32) mmol/L Anion Gap 11 (2-11) mmol/L BUN 9 (6-24) mg/dL Creatinine 0.97 (0.67-1.17) mg/dL Est GFR ( Amer) 101.2 (>60) Est GFR (Non-Af Amer) 78.7 (>60) BUN/Creatinine Ratio 9.3 (8-20) Glucose 168 H (70-100) mg/dL Lactic Acid 5.0 H* (0.5-2.0) mmol/L Calcium 10.0 (8.6-10.3) mg/dL Total Bilirubin 0.80 (0.2-1.0) mg/dL AST 31 (13-39) U/L ALT 23 (7-52) U/L Alkaline Phosphatase 74 (34-104) U/L Troponin I 0.01 (<0.04) ng/mL Total Protein 7.8 (6.4-8.9) g/dL Albumin 4.5 (3.2-5.2) g/dL Globulin 3.3 (2-4) g/dL Albumin/Globulin Ratio 1.4 (1-3) Lipase 14 (11.0-82.0) U/L Serum Alcohol < 10 (<10) mg/dL Result Diagrams: 12/17/16 05:50 12/18/16 06:20 Lab Statement: Any lab studies that have been ordered have been reviewed, and results considered in the medical decision making process. - CT Brain CT Interpretation: No Acute Changes - IMPRESSION: Acute left maxillary sinusitis. No intracranial mass or hemorrhage is noted. 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 CT Interpretation Completed By: Radiologist C-Spine CT Interpretation: No Acute Changes - IMPRESSION: DEGENERATIVE DISC DISEASE AT C3-C4, C4-C5, C5-C6 AND C6-C7. NO FRACTURE OF THE CERVICAL SPINE IS NOTED. OLD UNUNITED FRACTURE SPINOUS PROCESS OF C6. CT Interpretation Completed By: Radiologist Re-Evaluation - Re-Evaluation First Eval Re-Evaluation Time: 16:09 Change: Worse Comment: Pt is seizing, and will be intubated (see procedure note) Second Eval Re-Evaluation Time: 16:39 Change: Worse Comment: Pt is seizing again. Third Eval Re-Evaluation Time: 17:03 Change: Improved Comment: Pt is resting comfortably. Course/Dx - Course Assessment/Plan: Tyler Newsome is a 61 yo male presenting to [facility] S/P seizure and intoxicated. In the ED he received ativan, zofran, anectine, diprivan, amidate, midazolam HCl, leviteracetam. Upon seizing in the ED, he was intubated (see procedural note). His CT brain suggests acute left maxillary sinusitis, no intracranial mass or hemorrhage is noted. There is chronic abnormality of the right orbit and eye prosthesis. His CT C-spine suggests no acute fracture (see documentation). After clinical examination and review of his lab and imaging studies, and discussion with Dr. Byrnes, he will be admitted to [facility] prior to completion of the ED work up, with EKG and CXR pending, due to the critical nature of the Pt's complaints. Intubation was for airway protection in this patient with seizures and active vomiting - Diagnoses Provider Diagnoses: Alcohol intoxication, Seizure, Closed head injury - Physician Notifications Discussed Care of Patient With: [id number] - Dr. Byrnes (paid search manager) - Dr. Byrnes will present to [facility] to evaluate Pt, and accept Pt for admission. - Critical Care Time Critical Care Time: 30-74 min Discharge - Discharge Plan Condition: Stable Disposition: ADMITTED TO [facility] documentation as recorded by the meredith melton Timothy accurately reflects the service I personally performed and the decisions made by me, Williams Garza MD.
[2016-12-18] MEDS: Mometasone/Formoter 200/5 MDI INH SCH ×2 (07:28→10:44)
[2016-12-18] MEDS: Tiotropium CAP.INH* CAP.INH/18 MCG INH SCH (07:29)
[2016-12-18] MEDS: levETIRAcetam 500 MG IVPREMIX* 500 MG/100 ML BAG IV SCH (07:56)
--- NOTE | 2016-12-18 08:39 | PN ---
Progress Note - Progress Note Note: Progress Note - Critical Care 24 hour events: -extubated yesterday successfully, was sleepy afterward and req transient bipap but more awake and comfortable afterward. -later in evening tachypneic, resp distress with stridor? but noted exp wheezing but night hospitalist. given racemic epi by me when called but with albuterol and steroids he was improved. -this morning on aerosol mask, no wheezing, comfortable, no distress, no acc muscle use. states he wants to go home. -last temp 100.3. no diarrhea/chills/cough/sputum prod. Tele: tachycardic Vitals: Vital Signs Temp 98.2 F 12/18/16 03:43 Pulse 111 12/18/16 07:30 Resp 24 12/18/16 07:30 BP 129/76 12/18/16 07:00 Pulse Ox 100 12/18/16 07:30 Intake & Output 12/17/16 12/18/16 12/18/16 18:59 06:59 18:59 Intake Total 164.3 211 Output Total 450 550 400 Balance -285.7 -339 -400 Weight 202 lb 9.677 oz Intake: IV Fluids 2.8 NS (0.9%) 2.8 IVPB 102 211 NS (0.9%) 102 211 Medicated IV 59.5 CC - Propofol/Diprivan 59.5 Output: Urine 550 400 Lira 450 O2/Vent: aerosol mask Infusions: none Current Medications: Albuterol (Ventolin 2.5 Mg/3 Ml Neb.Mariaa*) 2.5 mg INH Q2H PRN PRN Reason: SOB/WHEEZING Last Admin: 12/17/16 22:21 Dose: 2.5 mg Albuterol (Ventolin 2.5 Mg/3 Ml Neb.Mariaa*) 2.5 mg INH [id number] [facility]WA[facility] Last Admin: 12/18/16 07:28 Dose: 2.5 mg Chlorhexidine Gluconate (Peridex Mouth Wash 0.12%*) 15 ml TOPICAL Q4HR [facility] Last Admin: 12/18/16 05:55 Dose: Not Given Folic Acid (Folvite Tab*) 1 mg PO DAILY [facility] Guaifenesin (Mucinex*) 1,200 mg PO BID [facility] Last Admin: 12/17/16 21:55 Dose: Not Given Levetiracetam (Keppra Iv Premix*) 500 mg in 100 mls @ 400 mls/hr IV Q12H [facility] Last Admin: 12/18/16 07:56 Dose: 400 mls/hr Lorazepam (Ativan Inj*) 1 mg IV PUSH Q1HR PRN PRN Reason: SEIZURE/WITHDRAW Last Admin: 12/18/16 00:02 Dose: 1 mg Methylprednisolone Sodium Succinate (Solu-Medrol 40 Mg) 40 mg IV Q12H [facility] Mometasone Furoate/Formoterol Fumar (Dulera 200/5 Mdi*) 2 puff INH BID [facility] Last Admin: 12/18/16 07:28 Dose: Not Given Multivitamins (Theragran Tab*) 1 tab PO DAILY [facility] Thiamine HCl (Vitamin B-1 Tab*) 100 mg PO DAILY [facility] Last Admin: 12/17/16 09:25 Dose: 100 mg Tiotropium [place] (Spiriva Cap.Inh*) 1 cap INH DAILY [facility] Last Admin: 12/18/16 07:29 Dose: Not Given Physical Exam: General: awake, alert, no distress Head: normocephalic, posterior skull laceration/notbleeding/erythema/going skin deep only HEENT: right eye not present; left eye+ without icterus/pallor, pinpoint but reactive. Moist mucous membranes Neck: soft, supple, no jvd, no stridor CVS: tachycardic, normal rhythm, no murmur Resp: bilateral air entry, no rhales, no wheeze, no rhonchi, no acc muscle use Abdomen: soft, nontender, nondistended, bowel sounds present Ext: pulses+, warm, no edema Skin: intact, no breakdown, + dryness Neuro: awake, alert, follows commands, no distress, moves all ext. Labs: Laboratory Results - last 24 hr 12/17/16 12/17/16 12/18/16 12:30 20:30 06:20 Patient Temperature 98.7 ABG pH 7.41 7.44 ABG pCO2 39 33 L ABG pO2 108 H 89 ABG HCO3 25.0 24.1 ABG O2 Saturation 99.5 H 98.2 H ABG Base Excess 0.2 -1.0 Respiration Rate 34 O2 Delivery Device Bipap Ventilator Type Not Reportable Vent Mode St FiO2 35 Inspiratory Time .9 PEEP Not Reportable Pressure Support Not Reportable Pressure Control Not Reportable EPAP 5 IPAP 12 BiPAP Y Sodium 140 Potassium 4.2 Chloride 104 Carbon Dioxide 26 Anion Gap 10 BUN 14 Creatinine 0.76 Est GFR ( Amer) 134.1 Est GFR (Non-Af Amer) 104.3 BUN/Creatinine Ratio 18.4 Glucose 168 H Calcium 9.5 Imaging: CT head 12/15 reviewed acute left maxillary sinusitis Ct spine 12/15 reviewed deg disc disease C3-C7, no fracture; old spinous C6 fracture noted. CXR 12/15 ett above dagmar; no infiltrate/ptx/effusion/congestion noted. Assessment: 61y M w/pmhx Alcohol abuse, Atrial fibrillation, HTN, COPD, anxiety/ depression, tobacco abuse, Right eye prosthesis; who presented to [facility] for complaints of seizure and fall at home, had nausea and seizure in ER, intubated for airway protection. -COPD exaccerbation -Seizure -Encephelopathy, r/o postictal state, sedation -ALBERT, improved -Acute Respiratory Failure, unspecified, intubated for airway protection -Fall with head laceration Plan: Neuro- cont keppra 500mg iv bid. neuro checks, fall prec. EEG showed some slowing, possibly from medication, no acute seizures noted. More awake/alert. ativan prn if needed. NSR without afib episodes. No evidence of delirium or alcohol withdrawal noted. cont thiamine/folate/mvi. neuro following. Their rec is the seizure is likey from alcohol withdrawal, but would continue keppra for now on discharge, he would followup with PCP/neuro after discharge. reassess neuro status. CVS- hemodyn stable, still tachy to 100-110. No pressors. off ivf. Resp- on aerosol mask, wean to NC. cont albuterol q2h prn. solumedrol 40mg iv q12h. Far less resp distress today. wean fio2 to keep sat =>92%. CXR pending now. ID- afebrile, tmax last night 100.8 during exaccerbation. monitor off abx. CXR pending today. Hemodyn stable. Some maxillary sinusitis on CT imaging only. Could this be some alcohol withdrawal causing fevers? GI- PO diet to be started today, swallow eval. Renal- nonoliguric ALBERT improved; likely from transient hypoxic/ischemic insult. good urine output. Replete K as needed Heme- hg stable, plt declined but >100k. No bleeding noted. off pepcid Endo- FS as needed, BS elevated. Check hga1c Musculsk- wound care to back of head, no need for stitches at this time. Wounds- wound care to back of head Nutrition- PO diet after swallow eval. DVT prophylaxis: SCDs GI prophylaxis: none Central Line: no Arterial Line: no Lira Cathetor: yes Disposition: ICU for seizure, intubated for airway protection, extubated; monitor resp status. neuro f/u today. possible d/c in coming 24hrs if improved. Code Status: full code Jl Byrnes MD Certified Cytotechnologist (Electronically Signed)
[2016-12-18] MEDS ORDERED: Vitamin THERAPEUTIC TAB PO SCH (09:00)
[2016-12-18] MEDS ORDERED: Folic Acid TAB* 1 MG PO SCH (09:00)
--- NOTE | 2016-12-18 09:11 | RAD ---
INDICATION: COPD. Exacerbation. COMPARISON: December 17, 2016 TECHNIQUE: An AP portable view obtained at 0834 hours is submitted. FINDINGS: Bones/Soft Tissues: There are no acute bony findings. Cardiomediastinal: The cardiomediastinal silhouette is normal. Lungs: There are no infiltrates. Pleura: There are no pleural effusions. Other: None IMPRESSION: NO ACTIVE DISEASE.
[2016-12-18] MEDS ORDERED: Nicotine Inhaler* 10 MG AMP INH PRN (09:57)
[2016-12-18] MEDS ORDERED: Mouth Piece, Nicotine* 1 EACH CARTRIDGE INH PRN (09:57)
[2016-12-18] MEDS: guaiFENesin ER TAB 600 MG PO SCH (10:44)
[2016-12-18] MEDS: Thiamine TAB* 100 MG TAB PO SCH (10:48)
[2016-12-18 16:26] LABS: Hematocrit 41 % (42-52); Hemoglobin 13.6 g/dl (14.0-18.0); Mean Corpuscular HGB Conc 33 g/dl (31-36); Mean Corpuscular Hemoglobin 32 pg (27-31); Mean Corpuscular Volume 98 fL (80-94); Mean Platelet Volume 10 um3 (7.4-10.4); Red Blood Count 4.24 10^6/ul (4.0-5.4); Red Cell Distribution Width 13 % (10.5-15); White Blood Count 11.3 10^3/ul (3.5-10.8)
[2016-12-18 16:27] LABS: Add Diff/Slide Review? Slide Review Added; Comments Flag Yes
--- NOTE | 2016-12-18 17:28 | DCNOTE ---
Discharge Summary Patient Name: Tyler Newsome ; Acc [id number] Date of Admission: 12/15/2016 Date of Discharge: 12/18/2016 Attending: Dr Jl Byrnes Consultants: Dr Byron Long (neurologist) Admitting Diagnoses: Seizure Discharge Diagnoses: Seizure, COPD exaccerbation HPI/Hospital Course: 61y M w/pmhx Alcohol abuse, Atrial fibrillation, HTN, COPD , anxiety/depression, tobacco abuse, Right eye prosthesis; who presented to [facility] for complaints of seizure. He stated to ER he thought he had a seizure at home and fell on his head. In the ER he was nauseaous. While being evaluated he had a witnessed seizure episode, given Ativan iv, then intubated for airway protection. Started on propofol and versed infusion, Keppra IV for seizure. CT head and CT C-spine was done. They noted a small laceration on the back of patients head, red/swollen without bleeding, not very deep but definitely broken skin, no intervention done to stitch up site. According to chart he was awake/alert when he came in and smelled of alcohol. He was successfully extubated once mental status improved. We continued keppra with no further seizure activity, EEG was done twice with no seizure activity documented. Neurology suspected this to be alcohol withdrawal seizures. He was counselled on alcohol cessation and advised to followup with PCP. The day of extubation in the evening patient was short of breath and had wheezing, given albuterol and steroids and improved dramatically overnight. He was stable, walking around the ICU. He is determined to leave today, whether Against medical advice. We discussed care plan, options, new medications like keppra to be started till follow up with PCP and eventually neurologist outpatient is done. He stated he would take steroid taper and new Keppra medication from pharmacy. Procedures/Imaging: CT head; Electroencephelogram, Chest xray. Laboratory/Data: - Discharge Medications: See med reconciliation form; continue home medications; new medications are Keppra 500mg PO BID, Prednisone 20mg 10mg 5mg taper for 6 days total, mometasone/formoterol inhaler bid for COPD, Spiriva inh daily. Diet: cardiac diet Activity: as tolerated Condition upon discharge: stable Disposition: Home Code Status: full code Recommendations: follow up with PCP in 2 weeks with eventually Neurologist referral outpatient. Follow-up: as above. Total Discharge time <30minutes Jl Byrnes MD Parts Cataloger (Electronically Signed)
[2016-12-18 18:43] VITALS: BP 154/95
== END 2016-12-18 18:10 | disposition home or self-care (01) | DRG 53 ==
LOC: ED 15:42 → ICU 18:33
PROVIDERS: ADMIT Internal Medicine Critical Care Medicine; ATTEND Internal Medicine Critical Care Medicine
PROC: 0BH17EZ Insertion of Endotracheal Airway into Trachea, Via Natural or Artificial Opening (ICD-10-PCS; principal; 2016-12-15)
PROC: 5A1945Z Respiratory Ventilation, 24-96 Consecutive Hours (ICD-10-PCS; 2016-12-15)
DX: G40.509 Epileptic seizures related to external causes, not intractable, without status epilepticus (principal); J96.00 Acute respiratory failure, unspecified whether with hypoxia or hypercapnia; G93.40 Encephalopathy, unspecified; N17.9 Acute kidney failure, unspecified; J44.1 Chronic obstructive pulmonary disease with (acute) exacerbation; F10.239 Alcohol dependence with withdrawal, unspecified; Y90.0 Blood alcohol level of less than 20 mg/100 ml; I48.91 Unspecified atrial fibrillation; I10 Essential (primary) hypertension; F41.8 Other specified anxiety disorders; F17.210 Nicotine dependence, cigarettes, uncomplicated; S01.01XA Laceration without foreign body of scalp, initial encounter; W18.30XA Fall on same level, unspecified, initial encounter; Y92.9 Unspecified place or not applicable; Z79.1 Long term (current) use of non-steroidal anti-inflammatories (NSAID); Z79.899 Other long term (current) drug therapy; J32.0 Chronic maxillary sinusitis; R06.4 Hyperventilation
CPT/HCPCS: 36415; 36600; 70450; 71010; 72125; 80048; 80053; 80307; 80320; 81003; 81015; 82140; 82803; 83605; 83690; 84439; 84443; 84484; 85025; 85610; 85730; 87086; 87641; 93005; 94002; 94003; 94640; 94660; 94760; 95819; 95822; 99406; A9270-GY; G0480; J0330; J1630; J2060; J2250; J2270; J2704; J2920; J2930; J3010

== ENCOUNTER 2016-12-23 18:40 | Observation (INO) | payer OTHER ==
[2016-12-23] MEDS ORDERED: LORazepam INJ* 2 MG/ML 1 ML VIAL IV PUSH ONE (19:18)
[2016-12-23] MEDS ORDERED: Thiamine IV* 100 MG, Folic Acid IV* 1 MG, Multiple Vitamin IV ADULT* 10 ML in NS 0.9% 1... IV ONE (19:55)
[2016-12-23 19:57] LABS: Urine Bacteria Absent (Absent); Urine Bilirubin Negative (Negative); Urine Glucose Negative (Negative); Urine Nitrite Negative (Negative)
[2016-12-23 20:10] LABS: Hematocrit 39 % (42-52); Hemoglobin 13.2 g/dl (14.0-18.0); Mean Corpuscular HGB Conc 34 g/dl (31-36); Mean Corpuscular Hemoglobin 32 pg (27-31); Mean Corpuscular Volume 95 fL (80-94); Red Blood Count 4.07 10^6/ul (4.0-5.4); Red Cell Distribution Width 13 % (10.5-15); White Blood Count 8.2 10^3/ul (3.5-10.8)
[2016-12-23 20:11] LABS: Add Diff/Slide Review? Slide Review Added; Comments Flag Yes
[2016-12-23 20:12] LABS: ALT 27 U/L (7-52); Albumin 3.9 g/dL (3.2-5.2); Alcohol < 10 mg/dL (<10); Alkaline Phosphatase 62 U/L (34-104); BUN/Creatinine Ratio 16.4 (8-20); Blood Urea Nitrogen 12 mg/dL (6-24); CO2 Carbon Dioxide 27 mmol/L (22-32); Calcium 9.5 mg/dL (8.6-10.3); Chloride 99 mmol/L (101-111); EGFR African American 140.5 (>60); EGFR Non-African American 109.2 (>60); Globulin 3.4 g/dL (2-4); Glucose 114 mg/dL (70-100); Sodium 137 mmol/L (133-145); Total Protein 7.3 g/dL (6.4-8.9)
[2016-12-23] MEDS ORDERED: cefTRIAXone(*) 1 GM in NS 0.9% 50 ML* 50 ML IVPB ONE (21:11)
[2016-12-23 21:18] LABS: Magnesium 1.9 mg/dL (1.9-2.7)
[2016-12-23 21:34] LABS: Mean Platelet Volume 10 um3 (7.4-10.4)
--- NOTE | 2016-12-23 22:45 | RAD ---
INDICATION: Seizure COMPARISON: Most recent comparison CT of the brain is dated December 15, 2016 TECHNIQUE: Contiguous axial sections of the brain were obtained from the skull base to the vertex without contrast. FINDINGS: The ventricles, cisterns and sulci are within normal limits. The bazzi-white matter differentiation is adequately maintained and there is no sulcal effacement. No significant focal abnormality or mass effect is present. There is no evidence for intracranial hemorrhage. No significant focal osseous abnormality is present. The mastoid air cells appear clear. Inspissated secretion is partially visualized in the left maxillary sinus. IMPRESSION: No acute intracranial abnormality.
--- NOTE | 2016-12-23 22:46 | RAD ---
INDICATION: Seizure COMPARISON: None TECHNIQUE: 3 views of the right hip were obtained. FINDINGS: The visualized bones of the right hip are well-corticated and properly aligned. The joint spaces are normal. There is no radiographic evidence of acute fracture or dislocation. IMPRESSION: Normal radiograph of the right hip. If the patient's symptoms persist follow-up imaging is recommended.
[2016-12-23] MEDS ORDERED: Albuterol 2.5 MG/3 ML NEB.SOL* (0.083%) INH PRN (23:33)
[2016-12-23] MEDS ORDERED: Ondansetron INJ* 2 MG/ML VIAL IV PRN (23:33)
[2016-12-23] MEDS ORDERED: Melatonin (NF) 3 MG TAB PO PRN (23:33)
[2016-12-23] MEDS ORDERED: Acetaminophen TAB* 325 MG PO PRN (23:33)
[2016-12-23] MEDS ORDERED: NS 0.9% 1000 ML* 1,000 ML IV SCH (23:45)
[2016-12-23] MEDS ORDERED: LORazepam INJ* 2 MG/ML 1 ML VIAL IV SCH (23:45)
--- NOTE | 2016-12-23 23:59 | HP ---
H&P (Free Text) History and Physical: PCP: Sendy Jang MD Date/Time of Evaluation: 12/23/2016 2330 CC: "seizure" HPI: Mr Newsome is a 61YO alcoholic male discharged from [facility] 12/15/2016 after an ICU admission for alcohol withdrawal seizures requiring intubation. He relates that after discharge he immediately returned to drinking. He states over the past few days he has been drinking "about a beer an hour" until today when he decided only to drink 1/2 beer because he needed to get out and do some shopping. While at [facility] he collapsed and reportedly had seizure-like shaking. He did bite his tongue. There is no report of loss of bowel/bladder. He does not recall the event, only awakening to EMS. He denies prodromal symptoms and current new or worsened issues. He did not fill his prescription for levetiracetam prescribed at discharge. Vitals are notable for mild tachycardia, 100-110s. Labs are most notable for a K + of 3.3. Lactic acid is 1.3, will check prolactin. Mg++ is 1.9. PMedHx COPD osteomyelitis chronic LBP alcoholism w/ HX delirium tremens and withdrawal seizures mild macrocytic anemia blind OD s/p enucleation for defect markedly hard of hearing Ambulatory Orders Nursing to reconcile. DULoxetine DR CAP* [Cymbalta CAP*] 60 mg PO DAILY #30 cap 01/07/16 Multivitamins/Minerals TAB* [Theragran/minerals TAB*] 1 tab PO DAILY tab Thiamine TAB* [Vitamin B-1 TAB 100 MG*] 100 mg PO DAILY tab 02/14/16 Albuterol HFA INHALER* [Ventolin HFA Inhaler*] 2 puff INH TID PRN 02/26/16 Ibuprofen [Addaprin] 400 mg PO QID PRN #14 tab 04/03/16 Acetaminophen TAB* [Tylenol TAB*] 650 mg PO Q6H PRN #0 tab 11/11/16 Gabapentin CAP(*) [Neurontin 300 CAP(*)] 300 mg PO BEDTIME 12/15/16 traZODone TAB* [Desyrel TAB*] 100 mg PO BEDTIME PRN 12/15/16 Albuterol 2.5MG/3ML (0.083%)* [Ventolin 2.5 MG/3 ML NEB.DOMINGA*] 2.5 mg INH Q2H PRN #0 ml 12/18/16 Levetiracetam [Keppra 500] 500 mg PO BID #60 tab 12/18/16 Mometasone/Formoter 200/5 MDI* [Dulera 200/5 MDI*] 2 puff INH BID 30 Days Thiamine TAB* [Vitamin B-1 TAB 100 MG*] 100 mg PO DAILY tab 12/18/16 Tiotropium CAP.INH* [Spiriva CAP.INH*] 1 cap INH DAILY 30 Days 12/18/16 predniSONE TAB* [Deltasone TAB*] 5 mg PO DAILY #2 tab 12/18/16 predniSONE TAB* [Deltasone TAB*] 10 mg PO DAILY #2 tab 12/18/16 predniSONE TAB* [Deltasone TAB*] 20 mg PO DAILY #2 tab 12/18/16 Allergies No Known Allergies Allergy (Verified 04/03/16 10:57) PSurgHx OD enucleation SocHx: 1/2PPD cigarettes formerly 3-4PPD, 6-12 beers daily, occasional marijuana ; on disability for chronic LBP; full code status FamHx: positive for HTN & HLD ROS: as above, otherwise reviewed and all were negative Constitutional: NAD, normally developed, overweight unkempt malodorous white male vitals: Vital Signs Temp 35.9 C 12/23/16 18:43 Pulse 107 12/23/16 20:42 Resp 16 12/23/16 19:57 BP 121/81 12/23/16 20:30 Pulse Ox 93 12/23/16 20:42 Intake & Output 12/22/16 12/23/16 12/23/16 23:59 11:59 23:59 Weight 95.254 kg HEENM: atraumatic; sclera/conjunctiva: non-icteric/clear OS, enucleated OD with clean patch in place; hearing: markedly hard of hearing; oropharynx: clear, mucosa tacky Neck: soft tissue: non-tender; thyroid: normal Pulmonary: scattered mild rhonchi, fair to good aeration, no accessory muscle use CV: TR/RR, normal S1S2, no carotid bruit, no jugular venous distention, 2+ B DP/ PT, trace BLE edema Abdominal: soft, non-distended, non-tender, no rebound/guarding/rigidity, normoactive bowel sounds, no hepatosplenomegaly or masses, no costovertebral angle tenderness Musculoskeletal: general: grossly intact; gait: stable Integumental: healing contusion occiput (from previous seizure) Psychiatric orientation: AA&O to PPS affect: calm mood: cooperative eye contact: fair content: fairly reliable responses: lacking in detail, evasive insight: poor Testing: Lab Results 12/23/16 12/23/16 12/23/16 Range/Units 18:45 19:50 19:50 WBC 8.2 (3.5-10.8) 10^3/ul RBC 4.07 (4.0-5.4) 10^6/ul Hgb 13.2 L (14.0-18.0) g/dl Hct 39 L (42-52) % MCV 95 H (80-94) fL MCH 32 H (27-31) pg MCHC 34 (31-36) g/dl RDW 13 (10.5-15) % Plt Count 238 (150-450) 10^3/ul MPV 10 (7.4-10.4) um3 Neut % (Auto) 70.9 (38-83) % Lymph % (Auto) 15.3 L (25-47) % Weld % (Auto) 10.3 H (1-9) % Eos % (Auto) 3.3 (0-6) % Baso % (Auto) 0.2 (0-2) % Absolute Neuts (auto) 5.8 (1.5-7.7) 10^3/ul Absolute Lymphs (auto) 1.3 (1.0-4.8) 10^3/ul Absolute Monos (auto) 0.8 (0-0.8) 10^3/ul Absolute Eos (auto) 0.3 (0-0.6) 10^3/ul Absolute Basos (auto) 0 (0-0.2) 10^3/ul Absolute Nucleated RBC 0.01 10^3/ul Nucleated RBC % 0.2 INR (Anticoag Therapy) 1.02 (0.89-1.11) Sodium (133-145) mmol/L Potassium Chloride (101-111) mmol/L Carbon Dioxide (22-32) mmol/L Anion Gap BUN (6-24) mg/dL Creatinine (0.67-1.17) mg/dL Est GFR ( Amer) (>60) Est GFR (Non-Af Amer) (>60) BUN/Creatinine Ratio (8-20) Glucose (70-100) mg/dL Lactic Acid (0.5-2.0) mmol/L Calcium (8.6-10.3) mg/dL Magnesium Total Bilirubin (0.2-1.0) mg/dL AST ALT (7-52) U/L Alkaline Phosphatase (34-104) U/L Total Protein (6.4-8.9) g/dL Albumin (3.2-5.2) g/dL Globulin (2-4) g/dL Albumin/Globulin Ratio (1-3) Urine Color Sonja Urine Appearance Cloudy Urine pH 5.0 (5-9) Ur Specific [place] 1.027 (1.010-1.030) Urine Protein 2+(100 mg/dl) H (Negative) Urine Ketones 1+ H (Negative) Urine Blood Negative (Negative) Urine Nitrate Negative (Negative) Urine Bilirubin Negative (Negative) Urine Urobilinogen Positive H (Negative) Ur Leukocyte Esterase Trace H (Negative) Urine WBC (Auto) 1+(6-10/hpf) H (Absent) Urine RBC (Auto) Absent (Absent) Ur Squamous Epith Cells Present H (Absent) Urine Bacteria Absent (Absent) Urine Glucose Negative (Negative) Serum Alcohol (<10) mg/dL 12/23/16 12/23/16 12/23/16 Range/Units 19:50 19:50 20:56 WBC (3.5-10.8) 10^3/ul RBC (4.0-5.4) 10^6/ul Hgb (14.0-18.0) g/dl Hct (42-52) % MCV (80-94) fL MCH (27-31) pg MCHC (31-36) g/dl RDW (10.5-15) % Plt Count (150-450) 10^3/ul MPV (7.4-10.4) um3 Neut % (Auto) (38-83) % Lymph % (Auto) (25-47) % Weld % (Auto) (1-9) % Eos % (Auto) (0-6) % Baso % (Auto) (0-2) % Absolute Neuts (auto) (1.5-7.7) 10^3/ul Absolute Lymphs (auto) (1.0-4.8) 10^3/ul Absolute Monos (auto) (0-0.8) 10^3/ul Absolute Eos (auto) (0-0.6) 10^3/ul Absolute Basos (auto) (0-0.2) 10^3/ul Absolute Nucleated RBC 10^3/ul Nucleated RBC % INR (Anticoag Therapy) (0.89-1.11) Sodium 137 (133-145) mmol/L Potassium TNP 3.3 L Chloride 99 L (101-111) mmol/L Carbon Dioxide 27 (22-32) mmol/L Anion Gap TNP BUN 12 (6-24) mg/dL Creatinine 0.73 (0.67-1.17) mg/dL Est GFR ( Amer) 140.5 (>60) Est GFR (Non-Af Amer) 109.2 (>60) BUN/Creatinine Ratio 16.4 (8-20) Glucose 114 H (70-100) mg/dL Lactic Acid 1.3 (0.5-2.0) mmol/L Calcium 9.5 (8.6-10.3) mg/dL Magnesium TNP 1.9 Total Bilirubin 0.70 (0.2-1.0) mg/dL AST TNP 26 ALT 27 (7-52) U/L Alkaline Phosphatase 62 (34-104) U/L Total Protein 7.3 (6.4-8.9) g/dL Albumin 3.9 (3.2-5.2) g/dL Globulin 3.4 (2-4) g/dL Albumin/Globulin Ratio 1.1 (1-3) Urine Color Urine Appearance Urine pH (5-9) Ur Specific [place] (1.010-1.030) Urine Protein (Negative) Urine Ketones (Negative) Urine Blood (Negative) Urine Nitrate (Negative) Urine Bilirubin (Negative) Urine Urobilinogen (Negative) Ur Leukocyte Esterase (Negative) Urine WBC (Auto) (Absent) Urine RBC (Auto) (Absent) Ur Squamous Epith Cells (Absent) Urine Bacteria (Absent) Urine Glucose (Negative) Serum Alcohol < 10 (<10) mg/dL ECG, personally reviewed: NSR rate 102, no ischemia CT brain WO, personally reviewed: IMPRESSION: No acute intracranial abnormality. XRY pelvis/R hip, personally reviewed: IMPRESSION: Normal radiograph of the right hip. If the patient's symptoms persist follow-up imaging is recommended. 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
[2016-12-24] MEDS: LORazepam TAB(*) 1 MG PO SCH ×2 (00:18→08:14)
[2016-12-24] MEDS: levETIRAcetam TAB* 500 MG PO SCH ×2 (00:18→08:15)
[2016-12-24 05:46] LABS: BUN/Creatinine Ratio 13.8 (8-20); Calcium 8.4 mg/dL (8.6-10.3); EGFR African American 160.6 (>60); EGFR Non-African American 124.9 (>60); Potassium 3.3 mmol/L (3.5-5.0)
[2016-12-24] MEDS ORDERED: Omeprazole CAP* 20 MG PO SCH (06:00)
[2016-12-24] MEDS ORDERED: Nicotine Inhaler* 10 MG AMP INH PRN (08:27)
[2016-12-24] MEDS ORDERED: Mouth Piece, Nicotine* 1 EACH CARTRIDGE INH ONE (09:00)
[2016-12-24] MEDS ORDERED: Multivitamins/Minerals TAB PO SCH (09:00)
[2016-12-24] MEDS ORDERED: Docusate CAP* 100 MG PO SCH (09:00)
[2016-12-24] MEDS ORDERED: Spiriva Inhaler DEVICE* 1 EACH DEVICE ONE (09:00)
[2016-12-24] MEDS ORDERED: Thiamine TAB* 100 MG TAB PO SCH (09:00)
[2016-12-24] MEDS ORDERED: Folic Acid TAB* 1 MG PO SCH (09:00)
[2016-12-24] MEDS ORDERED: Tiotropium CAP.INH* CAP.INH/18 MCG INH SCH (09:00)
[2016-12-24] MEDS ORDERED: Mometasone/Formoter 200/5 MDI INH SCH (09:00)
[2016-12-24] MEDS ORDERED: NS 0.9% 1000 ML* 1,000 ML IV SCH (10:49)
--- NOTE | 2016-12-24 10:50 | PN ---
Subjective Date of Service: 12/24/16 Interval History: Patient seen and examined at bedside. He looks very disorganized and is wandering around the room with gauze hanging from his nose. When asked what he is looking for, he states, "cards." When asked to specify, he states, "Visa and [employer]." I asked where he is and he replies, "the 12th floor." He does not remember what brought him in last evening. He states, "I'm getting out of here. " Does not answer any more of my questions. Family History: Unchanged from Admission Social History: Unchanged from Admission Past Medical History: Unchanged from Admission Objective Active Medications: Acetaminophen (Tylenol Tab*) 650 mg PO Q6H PRN PRN Reason: FEVER/PAIN Albuterol (Ventolin 2.5 Mg/3 Ml Neb.Mariaa*) 2.5 mg INH Q2H PRN PRN Reason: SOB/WHEEZING Docusate Sodium (Colace Cap*) 200 mg PO BID [facility] Last Admin: 12/24/16 08:15 Dose: 200 mg Folic Acid (Folvite Tab*) 1 mg PO DAILY [facility] Last Admin: 12/24/16 08:15 Dose: 1 mg Levetiracetam (Keppra Tab*) 500 mg PO BID [facility] Last Admin: 12/24/16 08:15 Dose: 500 mg Lorazepam (Ativan Inj*) 0 mg IV .PER WAM SCORE [facility] PRN Reason: Protocol Lorazepam (Ativan Tab(*)) 2 mg PO Q8H [facility] PRN Reason: Taper Stop: 12/26/16 19:59 Last Admin: 12/24/16 08:14 Dose: 2 mg Melatonin (Melatonin (Nf)) 3 mg PO BEDTIME PRN; Protocol PRN Reason: Sleep Mometasone Furoate/Formoterol Fumar (Dulera 200/5 Mdi*) 2 puff INH BID [facility] Last Admin: 12/24/16 08:10 Dose: 2 puff Multivitamins/Minerals (Theragran/Minerals Tab*) 1 tab PO DAILY [facility] Last Admin: 12/24/16 08:15 Dose: 1 tab Nicotine (Nicotine Inhaler*) 10 mg INH Q2H PRN PRN Reason: CRAVING Last Admin: 12/24/16 09:32 Dose: 10 mg Omeprazole (Prilosec Cap*) 20 mg PO DAILY@0600 [facility] Last Admin: 12/24/16 05:05 Dose: Not Given Ondansetron HCl (Zofran Inj*) 4 mg IV Q6H PRN PRN Reason: NAUSEA Thiamine HCl (Vitamin B-1 Tab*) 100 mg PO DAILY [facility] Last Admin: 12/24/16 08:15 Dose: 100 mg Tiotropium Altus (Spiriva Cap.Inh*) 1 cap INH DAILY [facility] Last Admin: 12/24/16 08:09 Dose: 1 inh Vital Signs 12/23/16 12/24/16 12/24/16 23:46 00:01 00:18 Temperature 97.6 F Pulse Rate 110 31 Respiratory 20 16 Rate Blood Pressure 139/66 (mmHg) O2 Sat by Pulse 98 56 Oximetry 12/24/16 12/24/16 12/24/16 02:18 03:22 03:30 Temperature 99.1 F Pulse Rate 105 Respiratory 32 32 Rate Blood Pressure 146/55 (mmHg) O2 Sat by Pulse 94 90 Oximetry 12/24/16 12/24/16 12/24/16 07:15 08:14 09:18 Temperature 98.5 F 98.7 F Pulse Rate 98 94 Respiratory 18 18 22 Rate Blood Pressure 131/77 115/70 (mmHg) O2 Sat by Pulse 99 98 Oximetry Oxygen Devices in Use Now: None Appearance: Disheveled male, agitated, pacing in room Eyes: - - right eye enucleation, prosthetic not in place Respiratory: - - scattered rhonchi Cardiovascular: RRR Abdominal: NL Sounds; No Tenderness; No Distention Neurological: - - Alert, oriented to self Lines/Tubes/Other Access: Clean, Dry and Intact Peripheral IV Nutrition: Taking PO's Result Diagrams: 12/23/16 19:50 12/24/16 05:09 Assess/Plan/Problems-Billing Assessment: 61 yo male, PMH significant for ETOH abuse and withdrawal induced seizures, chronic back pain and chronic shoulder pain, hearing loss, COPD who presented to the ED on 12/23 with concern for seizure at [facility]. - Patient Problems (1) Altered mental status Code(s): R41.82 - ALTERED MENTAL STATUS, UNSPECIFIED Comment: ? delirium Patient is profoundly hard of hearing but is also refusing to stop and listen or answer questions appropriately. Continue WAM and neuro checks. Patient informed that he will not be discharged or allowed to leave until he answers questions appropriately and proves he is able to understand the information. (2) Alcohol withdrawal seizure Code(s): F10.239 - ALCOHOL DEPENDENCE WITH WITHDRAWAL, UNSPECIFIED; R56.9 - UNSPECIFIED CONVULSIONS Comment: Continue scheduled lorazepam. Previously hospitalized earlier this month for the same Discharged 12/15/16 and instructed to continue Keppra - pt states he could not get Rx Patient states he is leaving the area and going to [place] and won't be around to follow-up with PCP. SW consult. Will try to have Rx filled here at [facility] prior to discharge. (3) Alcohol abuse Current Visit: No Status: Chronic Code(s): F10.10 - ALCOHOL ABUSE, UNCOMPLICATED SNOMED Code(s): 09454218 Comment: Patient mildly tachycardic - continue fluids Pt is showing no overt signs of withdrawal, only scoring 1-2 on WAM Patient advised to stop drinking ETOH. Patient not motivated to quit drinking at this time. (4) COPD (chronic obstructive pulmonary disease) Code(s): J44.9 - CHRONIC OBSTRUCTIVE PULMONARY DISEASE, UNSPECIFIED Comment: No signs of exacerbation. Continue Spiriva and prn albuterol. (5) HTN (hypertension) Code(s): I10 - ESSENTIAL (PRIMARY) HYPERTENSION Comment: Controlled. Continue to monitor. (6) Hypokalemia Code(s): E87.6 - HYPOKALEMIA Comment: Will give 1L NS with 40mEq K+ (7) DVT prophylaxis Code(s): NAP2736 - Comment: SCDs Status and Disposition: OBV admit. D/c to home when medically stable.
[2016-12-24] MEDS ORDERED: NS 0.9% w/ 40 Meq KCL 1000 ML* 1,000 ML IV SCH ×2 (11:00)
[2016-12-24 14:01] VITALS: BP 132/90
--- NOTE | 2016-12-24 14:14 | PN ---
Hospitalist Progress Note Security at bedside with patient. Patient is more oriented and is able to identify why he is here and where he is. He states, "I know. I had a seizure." He is very upset that he is missing $600 and the clothes he bought at [facility]. He states, "I'm going to go get what's mine." I spoke with the patient and conveyed my concern for continued alcohol withdrawal and risk of further seizures without being on Keppra or benzos, which he has been receiving here. I did offer to send the patient a prescription to [facility]. He states he won't pick it up because his insurance makes him get prescriptions at [facility]. I asked the patient to get his Keppra at [facility], to which he responds, "I don't care. I want what's mine. If I , I ." Patient able to verbalize understanding that he has a seizure disorder and that this is likely related to his drinking. He understands that we are giving him medication to treat his seizure but he does not want to wait for us to provide this medication here. I did let the patient know that I was willing to send a RX to [facility] for him to cone picker later for the Keppra that was previously prescribed. Patient leaving AMA. He pulled his own IV and is packing up to go.
--- NOTE | 2016-12-25 01:39 | DS ---
DISCHARGE SUMMARY: DATE OF ADMISSION: 12/23/16 DATE OF DISCHARGE: 12/24/16 ATTENDING PHYSICIAN: Ibis Colby MD* (as dictated by Janine Baumann NP) PRIMARY CARE PHYSICIAN: Dr. Jang. HOSPITAL COURSE: Mr. Newsome is a 61-year-old male, who was recently [place] [facility] on 12/15/16 after an ICU admission for alcohol withdrawal seizures requiring intubation. Per the H and P provided by Dr. Garcia on 12/23/16, the patient reports that after discharge, he immediately returned to drinking and reported that he had been drinking "about hour" over the past 3 days. Yesterday, on 12/23/16, the patient reports drinking only half a beer, because he needed to go out and do some shopping. While at the [facility] in [place], the patient reportedly collapsed and had seizure-like shaking. The patient does not recall the event. He was brought into the ER for further evaluation and admitted under observation. On the medicine unit this morning, the patient was seen wandering in his room. He was refusing IV fluids and was verbally aggressive and reportedly somewhat combative with staff. The patient would not directly answer the questions asked by this provider, stating "I have to get out of here." He did not seem to know where he was. At one point, he just stopped answering questions altogether. I did tell him very clearly that I would not agree to discharge him or allow him to leave the hospital if I felt that he was unsafe or disoriented. He also was told that he needs to cooperate with the assessment and questions. The patient did agree to IV fluids at this point and his room was moved to the front of the unit by the nurses' station. However, after a few hours, the patient again became agitated and states that he is leaving. He is reporting that his money and belongings were still in that [facility] last evening and he is going to go find it. I did return back to the room and found security was nearby for safety purposes. The patient did agree to speak with me and was able to coherently tell me that he understands that he had a seizure. He also understands that his alcohol use and drinking and withdrawal is the cause of his seizure. He states that he was prescribed medication, but that the mail order pharmacy never delivered his medications. Apparently, he has been bouncing between a friend's apartment and the rescue mission. He states that he does stay with a friend here in [place]. He will also be leaving the area to go to [place] over the next couple of days. In any case, the patient was able to demonstrate capacity to understand the situation and is able to properly identify himself, time, and place. He is fully aware that if he leaves here that he is at risk for having additional seizures, which may result in severe disability, further injury and possible , including by cardiorespiratory arrest. The patient states "I don't care. If I , I ." He denies trying to harm himself. He simply states that he wants to get back to [facility] and find his stuff. The patient was discharged AMA. He did sign the AMA paperwork and was escorted out of the building by hospital staff. TIME SPENT: Time spent on this discharge was approximately 55 minutes. JANINE BAUMANN NP CC: Dr. Jang* [id number]/CPS #: [id number] KEANU
== END 2016-12-24 14:23 | disposition left against medical advice (07) ==
LOC: ED 18:40 → MEDTELE 23:30
PROVIDERS: ADMIT Hospitalist; ATTEND Internal Medicine
DX: G40.509 Epileptic seizures related to external causes, not intractable, without status epilepticus (principal); F10.239 Alcohol dependence with withdrawal, unspecified; R41.82 Altered mental status, unspecified; R00.0 Tachycardia, unspecified; J44.9 Chronic obstructive pulmonary disease, unspecified; M54.9 Dorsalgia, unspecified; M25.519 Pain in unspecified shoulder; H91.90 Unspecified hearing loss, unspecified ear; I10 Essential (primary) hypertension; E87.6 Hypokalemia; S70.01XA Contusion of right hip, initial encounter; W19.XXXA Unspecified fall, initial encounter; Y92.512 Supermarket, store or market as the place of occurrence of the external cause; F17.210 Nicotine dependence, cigarettes, uncomplicated
CPT/HCPCS: 36415; 70450; 80048; 80053; 80320; 81003; 81015; 83605; 83735; 84146; 85025; 85610; 87086; 93005; 94640; 94760; 96365; 96366; 96367; 96375; 99285; 99406; A9270-GY; G0378; G0480; J0696; J2060

== ENCOUNTER 2017-01-02 14:46 | Emergency (ER) | payer OTHER ==
--- NOTE | 2017-01-02 18:34 | ED ---
Rubén Cole Rebecca, scribed for Yrn Arango MD on 01/02/17 at 1454 . Substance Abuse/Use - HPI Summary HPI Summary: Pt is a 61 y/o M BIBA accompanied by police who comes to ED p/w EtOH intoxication. EtOH intoxication is characterized as moderately stuporous. Unknown amount of EtOH consumed or approximate time of ingestion. Current sx aggravated and alleviated by nothing. Per EMS, he had his LLE stuck in a first- floor window and they helped him down from it. Pt denies any complaints, including neck pain. Denies any trauma or injuries. PMHx substance abuse. - History Of Current Complaint Chief Complaint: EDSubstanceAbuse Stated Complaint: 2208 Hx Obtained From: Patient, EMS Ingestion History: Type/Name Of Drug - EtOH Overdose Characteristics: Oral Severity Initially: Moderate Severity Currently: Moderate Character: Stuporous Aggravating Factor(s): Nothing Alleviating Factor(s): Nothing Associated Signs And Symptoms: Negative - Allergies/Home Medications Allergies/Adverse Reactions: Allergies Allergy/AdvReac Type Severity Reaction Status Date / Time No Known Allergies Allergy Verified 04/03/16 10:57 PMH/Surg Hx/FS Hx/Imm Hx Endocrine/Hematology History: Denies: Hx Anticoagulant Therapy, Hx Diabetes Cardiovascular History: Reports: Hx Hypertension Denies: Hx Congestive Heart Failure, Hx Myocardial Infarction, Hx Pacemaker/ ICD Respiratory History: Reports: Hx Chronic Obstructive Pulmonary Disease (COPD), Hx Pneumonia GI History: Reports: Hx Gastroesophageal Reflux Disease History: Denies: Hx Renal Disease Musculoskeletal History: Denies: Hx Arthritis, Hx Gout Sensory History: Reports: Hx Cataracts, Hx Contacts or Glasses, Hx Eye Injury, Hx Eye Prosthesis, Hx Legally Blind, Hx Deafness, Hx Hearing Aid, Other Sensory Impairments - Has R eye prosthesis and L hearing aide Opthamlomology History: Reports: Hx Cataracts, Hx Contacts or Glasses, Hx Eye Injury, Hx Eye Prosthesis, Hx Legally Blind, Other Sensory Impairments - Has R eye prosthesis and L hearing aide Neurological History: Reports: Hx Headaches Psychiatric History: Reports: Hx Anxiety, Hx Depression, Hx Community Mental Health Tx, Hx Substance Abuse Denies: Hx Attention Deficit Hyperactivity Disorder, Hx Eating Disorder, Hx Panic Disorder, Hx Post Traumatic Stress Disorder, Hx Inpatient Treatment, Hx Schizophrenia, Hx Bipolar Disorder, Hx Suicide Attempt, Hx of Violent Episodes Against Others, Other Psychiatric Issues/Disorders - Surgical History Surgery Procedure, Year, and Place: RT EYE PROSTHESIS Glass eye prev cleared by xray;. right wrist I&D - Immunization History Date of Tetanus Vaccine: unsure Date of Influenza Vaccine: none Infectious Disease History: Denies: Hx Human Immunodeficiency Virus (HIV), Hx of Known/Suspected MRSA - Family History Known Family History: Positive: Other - cancer. alcoholism. - Social History Alcohol Use: Daily Alcohol Amount: Pt states 2-3 drinks 2-3x per wk Hx Substance Use: Yes Substance Use Type: Reports: Marijuana Hx Tobacco Use: Yes Smoking Status (MU): Heavy Every Day Tobacco Smoker Type: Cigarettes Amount Used/How Often: PACK OH DAY Have You Smoked in the Last Year: Yes Review of Systems Negative: Arthralgia - Denies neck pain Positive: Other - EtOH intoxication - stuporous All Other Systems Reviewed And Are Negative: Yes Physical Exam - Summary Physical Exam Summary: Gen: no pain distress, smells of alcohol Skin: warm, color, dry Head: Old abrasions on the back of his head with scabs Eyes: EOMI, HAILEY, R eye is closed ENT: normal Neck: supple, nontender Resp: CTA, breath sounds present Cardio: RRR Abd: soft, nontender Bowel: present Musc: normal, strength/ROM intact Neuro: normal, sensory/motor intact, A&O x3 Psych: stuporous Triage Information Reviewed: Yes Vital Signs On Initial Exam: Initial Vitals Temp Pulse Resp BP Pulse Ox 97.7 F 101 20 133/63 98 01/02/17 14:52 01/02/17 14:52 01/02/17 14:52 01/02/17 14:52 01/02/17 14:52 Vital Signs Reviewed: Yes Diagnostics - Vital Signs Vital Signs Temp Pulse Resp BP Pulse Ox 01/02/17 14:52 97.7 F 101 20 133/63 98 - Laboratory Lab Statement: Any lab studies that have been ordered have been reviewed, and results considered in the medical decision making process. Course/Dx - Course Course Of Treatment: A 61 year-old Quinn JEFFERSON accompanied by police comes to ED p/w EtOH intoxication. He is moderately stuporous, having consumed an unknown amount of EtOH. Pt denies any complaints, including neck pain. Denies any trauma or injuries. Assessment/Plan: NO CRITICAL CARE TIME. 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 DISCHARGE HOME STABLE. - Diagnoses Provider Diagnoses: Alcohol intoxication, Non-union of fracture, Chronic left shoulder pain Discharge - Discharge Plan Condition: Stable Disposition: HOME Patient Education Materials: Alcohol Intoxication (ED), Shoulder Pain (ED) Referrals: Heriberto Jang MD [Primary Care Provider] - [facility] [Outside] [facility] [Outside] [facility] [Outside] Additional Instructions: FOLLOW UP WITH YOUR DOCTOR. RETURN TO THE EMERGENCY DEPARTMENT FOR ANY WORSENING OF YOUR CONDITION OR QUESTIONS OR CONCERNS. The documentation as recorded by the Rubén melton Rebecca accurately reflects the service I personally performed and the decisions made by me, Yrn Arango MD.
[2017-01-02 18:46] VITALS: BP 130/85
--- NOTE | 2017-01-02 18:49 | RAD ---
Indication: Shoulder pain. 4 views of left shoulder demonstrates an ununited fracture of the anatomic neck of the humerus. This was present on September 14, 2016 and is not significantly changed. AC joint arthritis is noted. 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 Pseudoarthrosis is noted. No changes noted since previous exam.
== END 2017-01-02 18:45 | disposition home or self-care (01) ==
LOC: ED 14:46
DX: F10.129 Alcohol abuse with intoxication, unspecified (principal); M25.519 Pain in unspecified shoulder; F17.210 Nicotine dependence, cigarettes, uncomplicated; M25.512 Pain in left shoulder
CPT/HCPCS: 99281

== ENCOUNTER 2017-01-17 12:26 | Observation (INO) | payer OTHER ==
[2017-01-17] MEDS ORDERED: NS 0.9% 1000 ML* 1,000 ML IV ONE ×2 (13:03→15:34)
[2017-01-17] MEDS ORDERED: Ondansetron INJ* 2 MG/ML VIAL IV ONE ×2 (13:03→17:14)
[2017-01-17] MEDS ORDERED: Thiamine IV* 100 MG, Folic Acid IV* 1 MG, Multiple Vitamin IV ADULT* 10 ML in NS 0.9% 1... IV ONE (13:07)
[2017-01-17 13:24] LABS: Hematocrit 46 % (42-52); Hemoglobin 15.3 g/dl (14.0-18.0); Mean Corpuscular HGB Conc 33 g/dl (31-36); Mean Corpuscular Hemoglobin 32 pg (27-31); Mean Corpuscular Volume 97 fL (80-94); Mean Platelet Volume 10 um3 (7.4-10.4); Red Blood Count 4.78 10^6/ul (4.0-5.4); Red Cell Distribution Width 15 % (10.5-15); White Blood Count 4.6 10^3/ul (3.5-10.8)
[2017-01-17 13:36] LABS: ALT 37 U/L (7-52); AST 61 U/L (13-39); Albumin 4.3 g/dL (3.2-5.2); Alkaline Phosphatase 81 U/L (34-104); Anion Gap 12 mmol/L (2-11); BUN/Creatinine Ratio 8.1 (8-20); Blood Urea Nitrogen 6 mg/dL (6-24); C Reactive Protein 2.23 mg/L (< 5.00); CO2 Carbon Dioxide 24 mmol/L (22-32); Calcium 9.9 mg/dL (8.6-10.3); Chloride 102 mmol/L (101-111); Creatine Kinase 153 U/L (10-223); EGFR African American 138.3 (>60); EGFR Non-African American 107.5 (>60); Globulin 3.2 g/dL (2-4); Glucose 87 mg/dL (70-100); Lipase 16 U/L (11.0-82.0); Magnesium 1.6 mg/dL (1.9-2.7); Potassium 3.7 mmol/L (3.5-5.0); Sodium 138 mmol/L (133-145); Total Protein 7.5 g/dL (6.4-8.9)
[2017-01-17 14:03] LABS: Acetaminophen < 15 mcg/mL; Salicylate < 2.50 mg/dL (<30)
[2017-01-17] MEDS ORDERED: Magnesium Sulfate 2 GM IV* 2 GM/50 ML BAG IVPB ONE (14:05)
[2017-01-17] MEDS ORDERED: Iohexol 300* (CONTRAST) 10 ML SDV IV ONE (15:21)
[2017-01-17 15:28] LABS: Urine Bacteria Absent (Absent); Urine Bilirubin Negative (Negative); Urine Glucose Negative (Negative); Urine Nitrite Negative (Negative); Urine Sperm Present (Absent)
[2017-01-17 15:52] LABS: Alcohol 27 mg/dL (<10)
--- NOTE | 2017-01-17 16:06 | RAD ---
CLINICAL HISTORY: Vomiting and right lower quadrant pain COMPARISON: Numerous prior CTs of the abdomen and pelvis, most recently dated November 10, 2016 TECHNIQUE: Contrast enhanced CT examination of the abdomen and pelvis from the lung bases through the initial tuberosities. The patient received 109 mL Omnipaque 300 intravenously prior to imaging.The patient received oral contrast as well prior to imaging. FINDINGS: Unless otherwise specified comparisons reference below are made to the fourth 1117 CT of the abdomen and pelvis. VISUALIZED LUNG BASES: The posterior aspect of the right lung base there is a pleural-based density most consistent with atelectasis. Otherwise the visualized lung bases are grossly clear. There is no pleural effusion. ABDOMEN AND PELVIS: Similar to the previous CT examination there is diffuse homogenous hypoattenuation of the liver. The spleen, pancreas and adrenal glands are grossly normal in appearance. The gallbladder is normal. The kidneys are normal in appearance without focal mass, calcification or signs of hydronephrosis. The oral contrast has progressed as far as the descending colon. The small and large bowel are not distended. The patient's normal appendix is identified in the right lower quadrant measuring 6 mm in diameter. There is no gross retroperitoneal or mesenteric lymphadenopathy. In the left anterior pararenal fat there is a stable partially calcified 8 mm nodule of doubtful clinical significance. Coarse calcification is seen in the otherwise normal-appearing prostate gland. The abdominal aorta and iliac arteries are normal in course and diameter. Degenerative changes of the lower thoracic and lumbar spine includes loss of intervertebral disc height and multilevel vacuum disc phenomenon. The changes are most severe at the L4/L5 disc space where there is endplate sclerosis and subchondral lucencies.There are no pathologic appearing bone lesions. IMPRESSION: 1. Hepatic steatosis or other chronic infiltrative disease of the liver is normal in appearance to the prior CT examinations. 2. There is no acute inflammatory change of the gastrointestinal tract, 3. Chronic and degenerative changes unlikely to be directly related to the patient's current presentation.
[2017-01-17] MEDS ORDERED: LORazepam INJ* 2 MG/ML 1 ML VIAL IV ONE (17:14)
--- NOTE | 2017-01-17 17:39 | ED ---
Esperanza Cole Edward, scribed for Yrn Arango MD on 01/17/17 at 1303 . Abdominal Pain/Male - HPI Summary HPI Summary: 61 y/o male presents to ED with abdominal pain and vomiting. The pain is diffuse and characterized as a cramping pain. Assoc sx: blood in emesis, lower back and L shoulder pain, diaphoresis and no bowel movements in the past two days. Denies troubles with urination. Patient stated that he slipped and hurt his back at 05:00 this morning. Patient also states he had an esophageal tube placed a couple of weeks ago. PMHx esophageal varices. - History of Current Complaint Chief Complaint: EDNauseaVomitDiarrh Stated Complaint: VOMITING Time Seen by Provider: 01/17/17 12:55 Hx Obtained From: Patient Onset/Duration: Sudden Onset - At 05:00 this morning Timing: Intermittent - Stomach cramps Severity Initially: Moderate Severity Currently: Moderate Pain Intensity: 4 Pain Scale Used: 0-10 Numeric Location: Diffuse - ABD Character: Cramping Associated Signs And Symptoms: Positive: Diaphoresis, Back Pain - Lower pack pain, Vomiting - blood in vomit, Other - L Shoulder pain, no bowel movements in past two days. Denies troubles with urination - Allergies/Home Medications Allergies/Adverse Reactions: Allergies Allergy/AdvReac Type Severity Reaction Status Date / Time No Known Allergies Allergy Verified 04/03/16 10:57 PMH/Surg Hx/FS Hx/Imm Hx Previously Healthy: No Endocrine/Hematology History: Denies: Hx Anticoagulant Therapy, Hx Diabetes Cardiovascular History: Reports: Hx Hypertension Denies: Hx Congestive Heart Failure, Hx Myocardial Infarction, Hx Pacemaker/ ICD Respiratory History: Reports: Hx Chronic Obstructive Pulmonary Disease (COPD), Hx Pneumonia GI History: Reports: Hx Gastroesophageal Reflux Disease History: Denies: Hx Renal Disease Musculoskeletal History: Denies: Hx Arthritis, Hx Gout Sensory History: Reports: Hx Cataracts, Hx Contacts or Glasses, Hx Eye Injury, Hx Eye Prosthesis, Hx Legally Blind, Hx Deafness, Hx Hearing Aid, Other Sensory Impairments - Has R eye prosthesis and L hearing aide Opthamlomology History: Reports: Hx Cataracts, Hx Contacts or Glasses, Hx Eye Injury, Hx Eye Prosthesis, Hx Legally Blind, Other Sensory Impairments - Has R eye prosthesis and L hearing aide Neurological History: Reports: Hx Headaches Psychiatric History: Reports: Hx Anxiety, Hx Depression, Hx Community Mental Health Tx, Hx Substance Abuse Denies: Hx Attention Deficit Hyperactivity Disorder, Hx Eating Disorder, Hx Panic Disorder, Hx Post Traumatic Stress Disorder, Hx Inpatient Treatment, Hx Schizophrenia, Hx Bipolar Disorder, Hx Suicide Attempt, Hx of Violent Episodes Against Others, Other Psychiatric Issues/Disorders - Surgical History Surgery Procedure, Year, and Place: RT EYE PROSTHESIS Glass eye prev cleared by xray;. right wrist I&D - Immunization History Date of Tetanus Vaccine: unsure Date of Influenza Vaccine: none Infectious Disease History: No Infectious Disease History: Denies: Hx Human Immunodeficiency Virus (HIV), Hx of Known/Suspected MRSA, Traveled Outside the [place] in Last 30 Days - Family History Known Family History: Positive: Other - cancer. alcoholism. - Social History Occupation: Unemployed Lives: With Family - With friends Alcohol Use: Daily Alcohol Amount: Pt states 2-3 drinks 2-3x per wk Hx Substance Use: Yes Substance Use Type: Reports: Marijuana Substance Use Comment - Amount & Last Used: Pt states "2 or 3 beers just before coming to the hospital" Hx Tobacco Use: Yes Smoking Status (MU): Heavy Every Day Tobacco Smoker Type: Cigarettes Amount Used/How Often: PACK OH DAY Have You Smoked in the Last Year: Yes Review of Systems Positive: Skin Diaphoresis Eyes: Negative ENT: Negative Cardiovascular: Negative Respiratory: Negative Positive: Abdominal Pain - Diffuse, cramping, Vomiting - Hematemesis, Other - No bowel movments in a day or two Genitourinary: Negative Negative: dysuria Positive: Myalgia - Lower back pain, L shoulder pain Skin: Negative Neurological: Negative Psychological: Normal All Other Systems Reviewed And Are Negative: Yes Physical Exam Triage Information Reviewed: Yes Vital Signs On Initial Exam: Initial Vitals Temp Pulse Resp BP Pulse Ox 97.8 F 106 16 142/88 100 01/17/17 12:30 01/17/17 12:30 01/17/17 12:30 01/17/17 12:30 01/17/17 12:30 Vital Signs Reviewed: Yes Appearance: Positive: Ill-Appearing - Moderately ill-appearing Skin: Positive: Warm, Skin Color Reflects Adequate Perfusion, Diaphoretic Head/Face: Positive: Normal Head/Face Inspection Eyes: Positive: Normal, EOMI, HAILEY ENT: Positive: Normal ENT inspection Neck: Positive: Supple, Nontender Respiratory/Lung Sounds: Positive: Clear to Auscultation, Breath Sounds Present Cardiovascular: Positive: Tachycardia Abdomen Description: Positive: Soft, Other: - Diffusely tender. Emesis is pink- tinged Bowel Sounds: Positive: Hypoactive Musculoskeletal: Positive: Normal Neurological: Positive: Normal, Sensory/Motor Intact, Alert, Oriented to Person Place, Time Psychiatric: Positive: Normal, Affect/Mood Appropriate - [place] Coma Scale Coma Scale Total: 15 Diagnostics - Vital Signs Vital Signs Temp Pulse Resp BP Pulse Ox 01/17/17 12:32 103 16 98 01/17/17 12:30 97.8 F 106 16 142/88 100 - Laboratory Lab Results: Lab Results 01/17/17 01/17/17 01/17/17 Range/Units 12:48 12:48 12:48 WBC 4.6 (3.5-10.8) 10^3/ul RBC 4.78 (4.0-5.4) 10^6/ul Hgb 15.3 (14.0-18.0) g/dl Hct 46 (42-52) % MCV 97 H (80-94) fL MCH 32 H (27-31) pg MCHC 33 (31-36) g/dl RDW 15 (10.5-15) % Plt Count 107 L (150-450) 10^3/ul MPV 10 (7.4-10.4) um3 Neut % (Auto) 68.4 (38-83) % Lymph % (Auto) 17.8 L (25-47) % [place]iscoe % (Auto) 8.5 (1-9) % Eos % (Auto) 2.8 (0-6) % Baso % (Auto) 2.5 H (0-2) % Absolute Neuts (auto) 3.1 (1.5-7.7) 10^3/ul Absolute Lymphs (auto) 0.8 L (1.0-4.8) 10^3/ul Absolute Monos (auto) 0.4 (0-0.8) 10^3/ul Absolute Eos (auto) 0.1 (0-0.6) 10^3/ul Absolute Basos (auto) 0.1 (0-0.2) 10^3/ul Absolute Nucleated RBC 0.01 10^3/ul Nucleated RBC % 0.2 INR (Anticoag Therapy) 0.81 L (0.89-1.11) APTT 31.0 (26.0-36.3) seconds Sodium 138 (133-145) mmol/L Potassium 3.7 (3.5-5.0) mmol/L Chloride 102 (101-111) mmol/L Carbon Dioxide 24 (22-32) mmol/L Anion Gap 12 H (2-11) mmol/L BUN 6 (6-24) mg/dL Creatinine 0.74 (0.67-1.17) mg/dL Est GFR ( Amer) 138.3 (>60) Est GFR (Non-Af Amer) 107.5 (>60) BUN/Creatinine Ratio 8.1 (8-20) Glucose 87 (70-100) mg/dL Lactic Acid (0.5-2.0) mmol/L Calcium 9.9 (8.6-10.3) mg/dL Magnesium 1.6 L (1.9-2.7) mg/dL Total Bilirubin 0.80 (0.2-1.0) mg/dL AST 61 H (13-39) U/L ALT 37 (7-52) U/L Alkaline Phosphatase 81 (34-104) U/L Total Creatine Kinase 153 (10-223) U/L Troponin I 0.00 (<0.04) ng/mL C-Reactive Protein 2.23 (< 5.00) mg/L B-Natriuretic Peptide ( - 100) pg/mL Total Protein 7.5 (6.4-8.9) g/dL Albumin 4.3 (3.2-5.2) g/dL Globulin 3.2 (2-4) g/dL Albumin/Globulin Ratio 1.3 (1-3) Lipase 16 (11.0-82.0) U/L TSH 0.90 (0.34-5.60) mcIU/mL Urine Color Urine Appearance Urine pH (5-9) Ur Specific Singer (1.010-1.030) Urine Protein (Negative) Urine Ketones (Negative) Urine Blood (Negative) Urine Nitrate (Negative) Urine Bilirubin (Negative) Urine Urobilinogen (Negative) Ur Leukocyte Esterase (Negative) Urine WBC (Auto) (Absent) Urine RBC (Auto) (Absent) Ur Squamous Epith Cells (Absent) Urine Bacteria (Absent) Hyaline Casts (Absent) Urine Sperm (Absent) Urine Glucose (Negative) Salicylates < 2.50 (<30) mg/dL Acetaminophen < 15 mcg/mL Serum Alcohol 27 H (<10) mg/dL 01/17/17 01/17/17 01/17/17 Range/Units 12:48 12:48 15:15 WBC (3.5-10.8) 10^3/ul RBC (4.0-5.4) 10^6/ul Hgb (14.0-18.0) g/dl Hct (42-52) % MCV (80-94) fL MCH (27-31) pg MCHC (31-36) g/dl RDW (10.5-15) % Plt Count (150-450) 10^3/ul MPV (7.4-10.4) um3 Neut % (Auto) (38-83) % Lymph % (Auto) (25-47) % [place]isco[place] % (Auto) (1-9) % Eos % (Auto) (0-6) % Baso % (Auto) (0-2) % Absolute Neuts (auto) (1.5-7.7) 10^3/ul Absolute Lymphs (auto) (1.0-4.8) 10^3/ul Absolute Monos (auto) (0-0.8) 10^3/ul Absolute Eos (auto) (0-0.6) 10^3/ul Absolute Basos (auto) (0-0.2) 10^3/ul Absolute Nucleated RBC 10^3/ul Nucleated RBC % INR (Anticoag Therapy) (0.89-1.11) APTT (26.0-36.3) seconds Sodium (133-145) mmol/L Potassium (3.5-5.0) mmol/L Chloride (101-111) mmol/L Carbon Dioxide (22-32) mmol/L Anion Gap (2-11) mmol/L BUN (6-24) mg/dL Creatinine (0.67-1.17) mg/dL Est GFR ( Amer) (>60) Est GFR (Non-Af Amer) (>60) BUN/Creatinine Ratio (8-20) Glucose (70-100) mg/dL Lactic Acid 2.8 H* (0.5-2.0) mmol/L Calcium (8.6-10.3) mg/dL Magnesium (1.9-2.7) mg/dL Total Bilirubin (0.2-1.0) mg/dL AST (13-39) U/L ALT (7-52) U/L Alkaline Phosphatase (34-104) U/L Total Creatine Kinase (10-223) U/L Troponin I (<0.04) ng/mL C-Reactive Protein (< 5.00) mg/L B-Natriuretic Peptide 18 ( - 100) pg/mL Total Protein (6.4-8.9) g/dL Albumin (3.2-5.2) g/dL Globulin (2-4) g/dL Albumin/Globulin Ratio (1-3) Lipase (11.0-82.0) U/L TSH (0.34-5.60) mcIU/mL Urine Color Sonja Urine Appearance Clear Urine pH 5.0 (5-9) Ur Specific Singer 1.026 (1.010-1.030) Urine Protein 1+(30 mg/dl) H (Negative) Urine Ketones Trace H (Negative) Urine Blood 1+ H (Negative) Urine Nitrate Negative (Negative) Urine Bilirubin Negative (Negative) Urine Urobilinogen Negative (Negative) Ur Leukocyte Esterase Trace H (Negative) Urine WBC (Auto) 2+(11-20/hpf) H (Absent) Urine RBC (Auto) 1+(3-5/hpf) H (Absent) Ur Squamous Epith Cells Present H (Absent) Urine Bacteria Absent (Absent) Hyaline Casts Present H (Absent) Urine Sperm Present H (Absent) Urine Glucose Negative (Negative) Salicylates (<30) mg/dL Acetaminophen mcg/mL Serum Alcohol (<10) mg/dL Result Diagrams: 01/17/17 12:48 01/17/17 12:48 Lab Statement: Any lab studies that have been ordered have been reviewed, and results considered in the medical decision making process. - CT ABD/Pelvis CT CT Interpretation: No Acute Changes - 1. Hepatic steatosis or other chronic infiltrative disease of the liver is normal in appearance to the prior CT examinations. 2. There is no acute inflammatory change of the gastrointestinal tract, 3. Chronic and degenerative changes unlikely to be directly related to the patient's current presentation CT Interpretation Completed By: Radiologist Re-Evaluation - Re-Evaluation 1 Re-Evaluation Time: 17:35 Change: Unchanged - Still vomiting, abd pain still present Abdominal Pain Fem Course/Dx - Course Course Of Treatment: NO CRITICAL CARE TIME. DISCUSSED RESULTS WITH PATIENT. HE IS STILL VOMITING, HAVING PAIN AND UNABLE TO TOLERATE PO. ADMIT HOSPITALIST STABLE. - Diagnoses Provider Diagnoses: Intractable vomiting, Abdominal pain - Provider Notifications Discussed Care Of Patient With: Aldo Bonilla Time Discussed With Above Provider: 17:30 Instructed by Provider To: Admit As Inpatient Discharge - Discharge Plan Condition: Stable Disposition: ADMITTED TO [facility] Referrals: Heriberto Jang MD [Primary Care Provider] - The documentation as recorded by the Esperanza melton Edward accurately reflects the service I personally performed and the decisions made by me, Yrn Arango MD.
--- NOTE | 2017-01-17 17:54 | ADMNOTE ---
Subjective Date of Service: 01/17/17 Interval History: ADMISSION HISTORY AND PHYSICAL EXAM: Allergies Allergy/AdvReac Type Severity Reaction Status Date / Time No Known Allergies Allergy Verified 04/03/16 10:57 Home Medications Medication Instructions Recorded Confirmed Type DULoxetine CAP* [Cymbalta CAP*] 60 mg PO DAILY #30 cap 01/07/16 12/15/16 Rx Multivitamins/Minerals TAB* 1 tab PO DAILY tab 02/14/16 12/15/16 Rx [Theragran/minerals TAB*] Thiamine TAB* [Vitamin B-1 TAB 100 100 mg PO DAILY tab 02/14/16 12/15/16 Rx MG*] Albuterol HFA INHALER* [Ventolin 2 puff INH TID PRN 02/26/16 12/15/16 History HFA Inhaler*] Ibuprofen [Addaprin] 400 mg PO QID PRN #14 tab 04/03/16 12/15/16 Rx Acetaminophen TAB* [Tylenol TAB*] 650 mg PO Q6H PRN #0 tab 11/11/16 12/15/16 Rx Gabapentin CAP(*) [Neurontin 300 300 mg PO BEDTIME 12/15/16 12/15/16 History CAP(*)] traZODone TAB* [Desyrel TAB*] 100 mg PO BEDTIME PRN 12/15/16 12/15/16 History Albuterol 2.5MG/3ML (0.083%)* 2.5 mg INH Q2H PRN #0 ml 12/18/16 Rx [Ventolin 2.5 MG/3 ML NEB.DOMINGA*] Levetiracetam [Keppra 500] 500 mg PO BID #60 tab 12/18/16 Rx Mometasone/Formoter 200/5 MDI* 2 puff INH BID 30 Days 12/18/16 Rx [Dulera 200/5 MDI*] Thiamine TAB* [Vitamin B-1 TAB 100 100 mg PO DAILY tab 12/18/16 Rx MG*] Tiotropium CAP.INH* [Spiriva 1 cap INH DAILY 30 Days 12/18/16 Rx CAP.INH*] predniSONE TAB* [Deltasone TAB*] 5 mg PO DAILY #2 tab 12/18/16 Rx predniSONE TAB* [Deltasone TAB*] 10 mg PO DAILY #2 tab 12/18/16 Rx predniSONE TAB* [Deltasone TAB*] 20 mg PO DAILY #2 tab 12/18/16 Rx levETIRAcetam TAB* [Keppra TAB*] 500 mg PO BID #90 tab 12/24/16 Rx HPI: Patient states he has had mid-abdominal pain and emesis including blood for about 24 hrs, states he had "a couple" of drinks yesterday. He only take vitamins, thiamin, and tramadol at home. Social History: Findings - Lives in rooming house. SDM is his friend there, Anoop Solorzano. Smoker, alcoholic Past Medical History: Findings Review of Systems - Measurements Intake and Output: Intake and Output Last 24 Hours 01/15/17 01/16/17 01/17/17 01/18/17 06:59 06:59 06:59 06:59 Intake Total 2049 Balance 2049 Weight 190 lb Intake: IV Fluids 2049 - Review of Systems Constitutional Symptoms: Negative: Weight Gain, Weight Loss, Weakness, Fatigue, Fever, Night Sweats, Unexplained Falls, Other Dermatology: Positive: Normal HEENT: Positive: Normal Eyes: Positive: Other - hx enucleation R eye Thyroid: Positive: Normal Pulmonary: Positive: Cough - chronic cough Cardiology: Positive: Normal Gastroenterology: Positive: Abdominal Pain, Vomiting, Haematemesis Genital - Urinary: Positive: Normal Endocrinology: Positive: Normal Hematologic/Lymphatic: Negative: Anemia, Easy Brusing, Hx Leukemia, Hx Lymphoma, Use of Anticoagulant, Use of Antiplatelet Drugs, Other Neurology: Positive: Other - diminished hearing Psychiatry: Positive: Normal Allergic/Immunologic: Negative: Hx Anaphylaxis, Hx Angioedema, Hx Environmental, Hx Seasonal, Athsma, Hx HIV, Immunocompromise, Swollen Glands LymphNodes, Other Objective Active Medications: Chlordiazepoxide (Librium Cap*) 25 mg PO TID PAUL Chlordiazepoxide (Librium Cap*) 25 mg PO Q3H PRN PRN Reason: AGITATION/ANXIETY Enoxaparin Sodium (Lovenox(*)) 40 mg SUBCUT Q24H PAUL Potassium Chloride/Dextrose (D5w 1/2 Ns Kcl 20 Meq 1000 Ml*) 1,000 mls @ 125 mls/hr IV PER RATE PAUL Pantoprazole Sodium (Protonix Iv*) 40 mg IV Q12H PAUL Thiamine HCl (Vitamin B-1 Tab*) 100 mg PO DAILY [facility] Vital Signs 01/17/17 01/17/17 01/17/17 12:30 12:32 13:00 Temperature 97.8 F Pulse Rate 106 103 104 Respiratory 16 16 19 Rate Blood Pressure 142/88 (mmHg) O2 Sat by Pulse 100 98 100 Oximetry 01/17/17 01/17/17 01/17/17 14:00 15:00 16:00 Temperature Pulse Rate 101 105 102 Respiratory 12 17 11 Rate Blood Pressure 138/104 (mmHg) O2 Sat by Pulse 100 98 95 Oximetry 01/17/17 01/17/17 17:00 17:31 Temperature Pulse Rate 96 Respiratory 16 18 Rate Blood Pressure (mmHg) O2 Sat by Pulse 98 Oximetry Oxygen Devices in Use Now: None Appearance: Alert, sitting up on ED stretcher. In good spirits, looks comfortable. Eyes: No Scleral Icterus Ears/Nose/Mouth/Throat: Clear Oropharnyx, Mucous Membranes Moist Neck: NL Appearance and Movements; NL JVP, No Thyroid Enlargement, Masses Respiratory: Symmetrical Chest Expansion and Respiratory Effort, Clear to Percussion, - - mild Cardiovascular: NL Sounds; No Murmurs; No JVD, RRR, No Edema Abdominal: - - soft, mild mid-abdominal tenderness. Nl BS Extremities: No Edema, No Clubbing, Cyanosis, - Skin: No Rash or Ulcers, No Nodules or Sclerosis, - Neurological: Alert and Oriented x 3, NL Sensation Result Diagrams: 01/17/17 12:48 01/17/17 12:48 Additional Lab and Data: Lab Results 01/17/17 01/17/17 01/17/17 Range/Units 12:48 12:48 12:48 WBC 4.6 (3.5-10.8) 10^3/ul RBC 4.78 (4.0-5.4) 10^6/ul Hgb 15.3 (14.0-18.0) g/dl Hct 46 (42-52) % MCV 97 H (80-94) fL MCH 32 H (27-31) pg MCHC 33 (31-36) g/dl RDW 15 (10.5-15) % Plt Count 107 L (150-450) 10^3/ul MPV 10 (7.4-10.4) um3 Neut % (Auto) 68.4 (38-83) % Lymph % (Auto) 17.8 L (25-47) % [place] % (Auto) 8.5 (1-9) % Eos % (Auto) 2.8 (0-6) % Baso % (Auto) 2.5 H (0-2) % Absolute Neuts (auto) 3.1 (1.5-7.7) 10^3/ul Absolute Lymphs (auto) 0.8 L (1.0-4.8) 10^3/ul Absolute Monos (auto) 0.4 (0-0.8) 10^3/ul Absolute Eos (auto) 0.1 (0-0.6) 10^3/ul Absolute Basos (auto) 0.1 (0-0.2) 10^3/ul Absolute Nucleated RBC 0.01 10^3/ul Nucleated RBC % 0.2 INR (Anticoag Therapy) 0.81 L (0.89-1.11) APTT 31.0 (26.0-36.3) seconds Sodium 138 (133-145) mmol/L Potassium 3.7 (3.5-5.0) mmol/L Chloride 102 (101-111) mmol/L Carbon Dioxide 24 (22-32) mmol/L Anion Gap 12 H (2-11) mmol/L BUN 6 (6-24) mg/dL Creatinine 0.74 (0.67-1.17) mg/dL Est GFR ( Amer) 138.3 (>60) Est GFR (Non-Af Amer) 107.5 (>60) BUN/Creatinine Ratio 8.1 (8-20) Glucose 87 (70-100) mg/dL Lactic Acid (0.5-2.0) mmol/L Calcium 9.9 (8.6-10.3) mg/dL Magnesium 1.6 L (1.9-2.7) mg/dL Total Bilirubin 0.80 (0.2-1.0) mg/dL AST 61 H (13-39) U/L ALT 37 (7-52) U/L Alkaline Phosphatase 81 (34-104) U/L Total Creatine Kinase 153 (10-223) U/L Troponin I 0.00 (<0.04) ng/mL C-Reactive Protein 2.23 (< 5.00) mg/L B-Natriuretic Peptide ( - 100) pg/mL Total Protein 7.5 (6.4-8.9) g/dL Albumin 4.3 (3.2-5.2) g/dL Globulin 3.2 (2-4) g/dL Albumin/Globulin Ratio 1.3 (1-3) Lipase 16 (11.0-82.0) U/L TSH 0.90 (0.34-5.60) mcIU/mL Urine Color Urine Appearance Urine pH (5-9) Ur Specific Conway (1.010-1.030) Urine Protein (Negative) Urine Ketones (Negative) Urine Blood (Negative) Urine Nitrate (Negative) Urine Bilirubin (Negative) Urine Urobilinogen (Negative) Ur Leukocyte Esterase (Negative) Urine WBC (Auto) (Absent) Urine RBC (Auto) (Absent) Ur Squamous Epith Cells (Absent) Urine Bacteria (Absent) Hyaline Casts (Absent) Urine Sperm (Absent) Urine Glucose (Negative) Salicylates < 2.50 (<30) mg/dL Acetaminophen < 15 mcg/mL Serum Alcohol 27 H (<10) mg/dL 01/17/17 01/17/17 01/17/17 Range/Units 12:48 12:48 15:15 WBC (3.5-10.8) 10^3/ul RBC (4.0-5.4) 10^6/ul Hgb (14.0-18.0) g/dl Hct (42-52) % MCV (80-94) fL MCH (27-31) pg MCHC (31-36) g/dl RDW (10.5-15) % Plt Count (150-450) 10^3/ul MPV (7.4-10.4) um3 Neut % (Auto) (38-83) % Lymph % (Auto) (25-47) % Borden % (Auto) (1-9) % Eos % (Auto) (0-6) % Baso % (Auto) (0-2) % Absolute Neuts (auto) (1.5-7.7) 10^3/ul Absolute Lymphs (auto) (1.0-4.8) 10^3/ul Absolute Monos (auto) (0-0.8) 10^3/ul Absolute Eos (auto) (0-0.6) 10^3/ul Absolute Basos (auto) (0-0.2) 10^3/ul Absolute Nucleated RBC 10^3/ul Nucleated RBC % INR (Anticoag Therapy) (0.89-1.11) APTT (26.0-36.3) seconds Sodium (133-145) mmol/L Potassium (3.5-5.0) mmol/L Chloride (101-111) mmol/L Carbon Dioxide (22-32) mmol/L Anion Gap (2-11) mmol/L BUN (6-24) mg/dL Creatinine (0.67-1.17) mg/dL Est GFR ( Amer) (>60) Est GFR (Non-Af Amer) (>60) BUN/Creatinine Ratio (8-20) Glucose (70-100) mg/dL Lactic Acid 2.8 H* (0.5-2.0) mmol/L Calcium (8.6-10.3) mg/dL Magnesium (1.9-2.7) mg/dL Total Bilirubin (0.2-1.0) mg/dL AST (13-39) U/L ALT (7-52) U/L Alkaline Phosphatase (34-104) U/L Total Creatine Kinase (10-223) U/L Troponin I (<0.04) ng/mL C-Reactive Protein (< 5.00) mg/L B-Natriuretic Peptide 18 ( - 100) pg/mL Total Protein (6.4-8.9) g/dL Albumin (3.2-5.2) g/dL Globulin (2-4) g/dL Albumin/Globulin Ratio (1-3) Lipase (11.0-82.0) U/L TSH (0.34-5.60) mcIU/mL Urine Color Sonja Urine Appearance Clear Urine pH 5.0 (5-9) Ur Specific [place] 1.026 (1.010-1.030) Urine Protein 1+(30 mg/dl) H (Negative) Urine Ketones Trace H (Negative) Urine Blood 1+ H (Negative) Urine Nitrate Negative (Negative) Urine Bilirubin Negative (Negative) Urine Urobilinogen Negative (Negative) Ur Leukocyte Esterase Trace H (Negative) Urine WBC (Auto) 2+(11-20/hpf) H (Absent) Urine RBC (Auto) 1+(3-5/hpf) H (Absent) Ur Squamous Epith Cells Present H (Absent) Urine Bacteria Absent (Absent) Hyaline Casts Present H (Absent) Urine Sperm Present H (Absent) Urine Glucose Negative (Negative) Salicylates (<30) mg/dL Acetaminophen mcg/mL Serum Alcohol (<10) mg/dL Microbiology and Other Data: Microbiology 01/17/17 15:25 Gastric Occult Blood - Final Gastric Fluid Assess/Plan/Problems-Billing Assessment: - Patient Problems (1) Abdominal pain Current Visit: Yes Status: Acute Code(s): R10.9 - UNSPECIFIED ABDOMINAL PAIN SNOMED Code(s): 66059166 Comment: Suspect alcoholic gastritis. IV pantoprazole q 12 hr, IV fluids. CBC 01/18. (2) Alcoholism /alcohol abuse Current Visit: No Status: Chronic Priority: Medium Code(s): F10.20 - ALCOHOL DEPENDENCE, UNCOMPLICATED SNOMED Code(s): 1034221 Comment: SW referral made. (3) Tobacco abuse Current Visit: No Status: Chronic Code(s): Z72.0 - TOBACCO USE SNOMED Code (s): 624585383 Comment: Pt advised to quit smoking and avoid second hand smoke.
[2017-01-17] MEDS ORDERED: Enoxaparin(*) 40 MG/0.4 ML SYR SUBCUT SCH (18:00)
[2017-01-17] MEDS: chlordiazePOXIDE CAP* 25 MG PO PRN (18:12)
[2017-01-17] MEDS: Pantoprazole IV* 40 MG IV SCH (19:09)
[2017-01-17] MEDS: Thiamine TAB* 100 MG TAB PO SCH (21:04)
[2017-01-17] MEDS ORDERED: Acetaminophen TAB* 325 MG PO PRN (21:19)
[2017-01-17] MEDS: chlordiazePOXIDE CAP* 25 MG PO SCH (22:07)
[2017-01-17] MEDS: D5W 1/2 NS KCl 20 Meq 1000 ML* 1,000 ML IV SCH (22:08)
[2017-01-18] MEDS: Pantoprazole IV* 40 MG IV SCH (05:45)
[2017-01-18] MEDS: chlordiazePOXIDE CAP* 25 MG PO PRN (05:54)
[2017-01-18 06:03] LABS: Hematocrit 40 % (42-52); Hemoglobin 13.7 g/dl (14.0-18.0); Mean Corpuscular HGB Conc 34 g/dl (31-36); Mean Corpuscular Hemoglobin 33 pg (27-31); Mean Corpuscular Volume 97 fL (80-94); Mean Platelet Volume 10 um3 (7.4-10.4); Red Blood Count 4.17 10^6/ul (4.0-5.4); Red Cell Distribution Width 14 % (10.5-15); White Blood Count 5.6 10^3/ul (3.5-10.8)
[2017-01-18 06:10] LABS: Comments Flag Yes
[2017-01-18 06:11] LABS: Add Diff/Slide Review? Slide Review Added
[2017-01-18] MEDS: D5W 1/2 NS KCl 20 Meq 1000 ML* 1,000 ML IV SCH (06:38)
[2017-01-18] MEDS: chlordiazePOXIDE CAP* 25 MG PO SCH ×2 (08:40→13:57)
[2017-01-18] MEDS: Thiamine TAB* 100 MG TAB PO SCH (08:41)
[2017-01-18] MEDS ORDERED: Multivitamins/Minerals TAB PO SCH (09:00)
[2017-01-18] MEDS ORDERED: Folic Acid TAB* 1 MG PO SCH (09:00)
--- NOTE | 2017-01-18 10:56 | DCNOTE ---
"Subjective Date of Service: 01/18/17 Interval History: Feels much better today. Ate OK. Slept poorly due to frequent interruptions by the staff. Anxious to go home. Pt states he already missed his appt with his counselor this AM but will re-schedule it. Social History: Findings - Lives in rooming house. SDM is his friend there, Anoop Solorzano. Smoker, alcoholic Past Medical History: Findings Objective Active Medications: Acetaminophen (Tylenol Tab*) 650 mg PO Q4H PRN PRN Reason: PAIN Chlordiazepoxide (Librium Cap*) 25 mg PO TID [facility] Last Admin: 01/18/17 08:40 Dose: 25 mg Chlordiazepoxide (Librium Cap*) 25 mg PO Q3H PRN PRN Reason: AGITATION/ANXIETY Last Admin: 01/18/17 05:54 Dose: 25 mg Enoxaparin Sodium (Lovenox(*)) 40 mg SUBCUT Q24H [facility] Last Admin: 01/17/17 21:04 Dose: 40 mg Folic Acid (Folvite Tab*) 1 mg PO DAILY [facility] Last Admin: 01/18/17 08:41 Dose: 1 mg Potassium Chloride/Dextrose (D5w 1/2 Ns Kcl 20 Meq 1000 Ml*) 1,000 mls @ 125 mls/hr IV PER RATE [facility] Last Admin: 01/18/17 06:38 Dose: 125 mls/hr Multivitamins/Minerals (Theragran/Minerals Tab*) 1 tab PO DAILY [facility] Last Admin: 01/18/17 08:41 Dose: 1 tab Pantoprazole Sodium (Protonix Iv*) 40 mg IV Q12H [facility] Last Admin: 01/18/17 05:45 Dose: 40 mg Thiamine HCl (Vitamin B-1 Tab*) 100 mg PO DAILY [facility] Last Admin: 01/18/17 08:41 Dose: 100 mg Vital Signs 01/17/17 01/17/17 01/17/17 18:00 18:12 18:30 Temperature Pulse Rate 93 Respiratory 20 22 Rate Blood Pressure 142/96 149/94 (mmHg) O2 Sat by Pulse 98 Oximetry 01/17/17 01/17/17 01/17/17 19:00 19:38 20:41 Temperature 97.8 F 97.8 F Pulse Rate 93 92 92 Respiratory 24 18 18 Rate Blood Pressure 169/92 169/92 (mmHg) O2 Sat by Pulse 97 100 100 Oximetry 01/17/17 01/17/17 01/17/17 22:07 22:20 22:22 Temperature 98.6 F Pulse Rate 89 Respiratory 20 20 16 Rate Blood Pressure 120/76 (mmHg) O2 Sat by Pulse 97 Oximetry 01/18/17 01/18/17 01/18/17 00:07 00:14 02:22 Temperature 98.0 F Pulse Rate 89 82 Respiratory 18 Rate Blood Pressure 140/86 124/79 (mmHg) O2 Sat by Pulse 100 98 Oximetry 01/18/17 01/18/17 01/18/17 04:05 05:54 05:59 Temperature Pulse Rate 81 79 Respiratory 19 Rate Blood Pressure 143/88 127/83 (mmHg) O2 Sat by Pulse 97 97 Oximetry 01/18/17 01/18/17 07:57 08:40 Temperature 97.3 F Pulse Rate 78 Respiratory 16 16 Rate Blood Pressure 115/93 (mmHg) O2 Sat by Pulse 100 Oximetry Oxygen Devices in Use Now: None Appearance: Alert, sitting up in bed. In good spirits. Looks comfortable. Respiratory: Symmetrical Chest Expansion and Respiratory Effort, Clear to Auscultation, Clear to Percussion Cardiovascular: NL Sounds; No Murmurs; No JVD, RRR, No Edema, - Extremities: No Edema, No Clubbing, Cyanosis, - Neurological: Alert and Oriented x 3, NL Sensation Result Diagrams: 01/18/17 05:37 01/17/17 12:48 Additional Lab and Data: Lab Results 01/17/17 01/17/17 01/17/17 Range/Units 12:48 12:48 12:48 WBC 4.6 (3.5-10.8) 10^3/ul RBC 4.78 (4.0-5.4) 10^6/ul Hgb 15.3 (14.0-18.0) g/dl Hct 46 (42-52) % MCV 97 H (80-94) fL MCH 32 H (27-31) pg MCHC 33 (31-36) g/dl RDW 15 (10.5-15) % Plt Count 107 L (150-450) 10^3/ul MPV 10 (7.4-10.4) um3 Neut % (Auto) 68.4 (38-83) % Lymph % (Auto) 17.8 L (25-47) % Stoddard % (Auto) 8.5 (1-9) % Eos % (Auto) 2.8 (0-6) % Baso % (Auto) 2.5 H (0-2) % Absolute Neuts (auto) 3.1 (1.5-7.7) 10^3/ul Absolute Lymphs (auto) 0.8 L (1.0-4.8) 10^3/ul Absolute Monos (auto) 0.4 (0-0.8) 10^3/ul Absolute Eos (auto) 0.1 (0-0.6) 10^3/ul Absolute Basos (auto) 0.1 (0-0.2) 10^3/ul Absolute Nucleated RBC 0.01 10^3/ul Nucleated RBC % 0.2 INR (Anticoag Therapy) 0.81 L (0.89-1.11) APTT 31.0 (26.0-36.3) seconds Sodium 138 (133-145) mmol/L Potassium 3.7 (3.5-5.0) mmol/L Chloride 102 (101-111) mmol/L Carbon Dioxide 24 (22-32) mmol/L Anion Gap 12 H (2-11) mmol/L BUN 6 (6-24) mg/dL Creatinine 0.74 (0.67-1.17) mg/dL Est GFR ( Amer) 138.3 (>60) Est GFR (Non-Af Amer) 107.5 (>60) BUN/Creatinine Ratio 8.1 (8-20) Glucose 87 (70-100) mg/dL Lactic Acid (0.5-2.0) mmol/L Calcium 9.9 (8.6-10.3) mg/dL Magnesium 1.6 L (1.9-2.7) mg/dL Total Bilirubin 0.80 (0.2-1.0) mg/dL AST 61 H (13-39) U/L ALT 37 (7-52) U/L Alkaline Phosphatase 81 (34-104) U/L Total Creatine Kinase 153 (10-223) U/L Troponin I 0.00 (<0.04) ng/mL C-Reactive Protein 2.23 (< 5.00) mg/L B-Natriuretic Peptide ( - 100) pg/mL Total Protein 7.5 (6.4-8.9) g/dL Albumin 4.3 (3.2-5.2) g/dL Globulin 3.2 (2-4) g/dL Albumin/Globulin Ratio 1.3 (1-3) Lipase 16 (11.0-82.0) U/L TSH 0.90 (0.34-5.60) mcIU/mL Urine Color Urine Appearance Urine pH (5-9) Ur Specific Towson (1.010-1.030) Urine Protein (Negative) Urine Ketones (Negative) Urine Blood (Negative) Urine Nitrate (Negative) Urine Bilirubin (Negative) Urine Urobilinogen (Negative) Ur Leukocyte Esterase (Negative) Urine WBC (Auto) (Absent) Urine RBC (Auto) (Absent) Ur Squamous Epith Cells (Absent) Urine Bacteria (Absent) Hyaline Casts (Absent) Urine Sperm (Absent) Urine Glucose (Negative) Salicylates < 2.50 (<30) mg/dL Acetaminophen < 15 mcg/mL Serum Alcohol 27 H (<10) mg/dL 01/17/17 01/17/17 01/17/17 Range/Units 12:48 12:48 15:15 WBC (3.5-10.8) 10^3/ul RBC (4.0-5.4) 10^6/ul Hgb (14.0-18.0) g/dl Hct (42-52) % MCV (80-94) fL MCH (27-31) pg MCHC (31-36) g/dl RDW (10.5-15) % Plt Count (150-450) 10^3/ul MPV (7.4-10.4) um3 Neut % (Auto) (38-83) % Lymph % (Auto) (25-47) % Stoddard % (Auto) (1-9) % Eos % (Auto) (0-6) % Baso % (Auto) (0-2) % Absolute Neuts (auto) (1.5-7.7) 10^3/ul Absolute Lymphs (auto) (1.0-4.8) 10^3/ul Absolute Monos (auto) (0-0.8) 10^3/ul Absolute Eos (auto) (0-0.6) 10^3/ul Absolute Basos (auto) (0-0.2) 10^3/ul Absolute Nucleated RBC 10^3/ul Nucleated RBC % INR (Anticoag Therapy) (0.89-1.11) APTT (26.0-36.3) seconds Sodium (133-145) mmol/L Potassium (3.5-5.0) mmol/L Chloride (101-111) mmol/L Carbon Dioxide (22-32) mmol/L Anion Gap (2-11) mmol/L BUN (6-24) mg/dL Creatinine (0.67-1.17) mg/dL Est GFR ( Amer) (>60) Est GFR (Non-Af Amer) (>60) BUN/Creatinine Ratio (8-20) Glucose (70-100) mg/dL Lactic Acid 2.8 H* (0.5-2.0) mmol/L Calcium (8.6-10.3) mg/dL Magnesium (1.9-2.7) mg/dL Total Bilirubin (0.2-1.0) mg/dL AST (13-39) U/L ALT (7-52) U/L Alkaline Phosphatase (34-104) U/L Total Creatine Kinase (10-223) U/L Troponin I (<0.04) ng/mL C-Reactive Protein (< 5.00) mg/L B-Natriuretic Peptide 18 ( - 100) pg/mL Total Protein (6.4-8.9) g/dL Albumin (3.2-5.2) g/dL Globulin (2-4) g/dL Albumin/Globulin Ratio (1-3) Lipase (11.0-82.0) U/L TSH (0.34-5.60) mcIU/mL Urine Color Sonja Urine Appearance Clear Urine pH 5.0 (5-9) Ur Specific Tow[place] 1.026 (1.010-1.030) Urine Protein 1+(30 mg/dl) H (Negative) Urine Ketones Trace H (Negative) Urine Blood 1+ H (Negative) Urine Nitrate Negative (Negative) Urine Bilirubin Negative (Negative) Urine Urobilinogen Negative (Negative) Ur Leukocyte Esterase Trace H (Negative) Urine WBC (Auto) 2+(11-20/hpf) H (Absent) Urine RBC (Auto) 1+(3-5/hpf) H (Absent) Ur Squamous Epith Cells Present H (Absent) Urine Bacteria Absent (Absent) Hyaline Casts Present H (Absent) Urine Sperm Present H (Absent) Urine Glucose Negative (Negative) Salicylates (<30) mg/dL Acetaminophen mcg/mL Serum Alcohol (<10) mg/dL Microbiology and Other Data: Microbiology 01/17/17 15:25 Gastric Occult Blood - Final Gastric Fluid Assess/Plan/Problems-Billing Assessment: - Patient Problems (1) Abdominal pain Current Visit: Yes Status: Acute Code(s): R10.9 - UNSPECIFIED ABDOMINAL PAIN SNOMED Code(s): 57166972 Comment: Suspect alcoholic gastritis, much improved. Rx omeprazole 20 mg daily for 2 months as outpt. (2) Alcoholism /alcohol abuse Current Visit: No Status: Chronic Priority: Medium Code(s): F10.20 - ALCOHOL DEPENDENCE, UNCOMPLICATED SNOMED Code(s): 9040245 Comment: Pt advised to make appt with his counselor this week. (3) Tobacco abuse Current Visit: No Status: Chronic Code(s): Z72.0 - TOBACCO USE SNOMED Code (s): 679068048 Comment: Pt advised to quit smoking and avoid second hand smoke. Status and Disposition: Discharge now. Fup Dr. Jang and his counselor. Search Terms: tyler chauhan, 1955 Search Date: 01/18/2017 10:57:31 AM The Drug Utilization Report below displays all of the controlled substance prescriptions, if any, that your patient has filled in the last twelve months. The information displayed on this report is compiled from pharmacy submissions to the Department, and accurately reflects the information as submitted by the pharmacies. This report was requested by: Aldo Bonilla | Reference #: [id number] Others' Prescriptions Patient Name: Tyler Chauhan Date: 1955 Address: [address] [place] [address] Sex: Male Rx Written Rx Dispensed Drug Quantity Days Supply Prescriber Name 08/13/2016 12/02/2016 zolpidem tartrate 10 mg tablet 14 14 Heriberto Jang MD 08/13/2016 10/17/2016 zolpidem tartrate 10 mg tablet 14 14 Heriberto Jang MD 08/13/2016 08/14/2016 zolpidem tartrate 10 mg tablet 14 14 Heriberto Jang MD 08/13/2016 08/14/2016 tramadol hcl 50 mg tablet 30 15 Heriberto Jang MD 04/18/2016 04/18/2016 oxycodone-acetaminophen 5-325 mg tablet 10 3 Yrn Arango MD 03/24/2016 03/24/2016 hydrocodone-acetaminophen 5-325 tablet 10 4 Ryland Pierce MD 02/27/2016 02/27/2016 oxycodone-acetaminophen 5-325 mg tablet 10 3 Nic Moreira 02/14/2016 02/15/2016 hydrocodone-acetaminophen 5-325 tablet 20 4 Diana Abbasi 02/01/2016 02/01/2016 hydrocodone-acetaminophen 5-325 tablet 20 4 Yrn Arango MD"
[2017-01-18 14:26] VITALS: BP 132/85
--- NOTE | 2017-01-18 22:34 | DS ---
CC: Dr. Jang * DISCHARGE SUMMARY: DATE OF ADMISSION: 01/17/17 DATE OF DISCHARGE: 01/18/17 HOSPITAL COURSE: This 61-year-old man presented with abdominal pain and vomiting. He had these symptoms for about one day. Although he had been discharged from the hospital not so long ago with a long list of medications, I do not think he was taking any of them. He did mention he had some tramadol at home, which I believe he got from Urgent Care at some time. He takes some vitamins. He continues to smoke. I believe he greatly understated how much alcohol he had been drinking. His alcohol level was 27 in the emergency room. My clinical impression was that the patient had alcoholic gastritis.. On the day of discharge, his hematocrit was 40, hemoglobin was 13.7, which is a little lower than on admission, but that may be accounted for by his IV hydration. He received some intravenous fluids and some chlordiazepoxide. He felt much better the next morning. Basically, his symptoms are gone and he was ready to go home. I am giving him 2 months' prescription for omeprazole 20 mg daily. He had had an appointment with his alcohol counselor scheduled for the morning of discharge , which he missed. I told him to reschedule it within a week of his discharge today. He was advised to quit smoking as well. FINAL DIAGNOSES: 1. Probable alcoholic gastritis. 2. Chronic alcoholism. 3. Tobacco abuse. DISCHARGE MEDICATIONS: 1. Chlordiazepoxide 25 mg b.i.d., dispense 4 capsules. 2. Omeprazole 20 mg daily for 2 months. 3. Albuterol inhaler 2 puffs t.i.d. p.r.n. 4. Thiamine 100 mg daily. [id number]/[facility] #: [id number] MTDD
== END 2017-01-18 14:25 | disposition home or self-care (01) ==
LOC: ED 12:26 → MED 17:49
PROVIDERS: ADMIT Internal Medicine; ATTEND Internal Medicine
DX: K29.20 Alcoholic gastritis without bleeding (principal); F10.20 Alcohol dependence, uncomplicated; I10 Essential (primary) hypertension; J44.9 Chronic obstructive pulmonary disease, unspecified; K21.9 Gastro-esophageal reflux disease without esophagitis; F17.210 Nicotine dependence, cigarettes, uncomplicated; Z79.899 Other long term (current) drug therapy
CPT/HCPCS: 36415; 74177; 80053; 80320; 80329; 81003; 81015; 82271; 82550; 83605; 83690; 83735; 83880; 84443; 84484; 85025; 85610; 85730; 86140; 87077; 87086; 96361; 96365; 96366; 96367; 96372; 96375; 96376; 99284; A9270-GY; G0378; G0480; J1650; J2060; J2405; Q9967

== ENCOUNTER 2017-04-27 15:30 | Inpatient (IN) | payer OTHER ==
[2017-04-27] MEDS ORDERED: LORazepam INJ* 2 MG/ML 1 ML VIAL IV PUSH ONE ×3 (17:14→18:59)
[2017-04-27] MEDS ORDERED: NS 0.9% 1000 ML* 1,000 ML IV ONE (17:15)
[2017-04-27 17:53] LABS: Hematocrit 43 % (42-52); Mean Corpuscular HGB Conc 35 g/dl (31-36); Mean Corpuscular Hemoglobin 34 pg (27-31); Mean Corpuscular Volume 97 fL (80-94); Mean Platelet Volume 10 um3 (7.4-10.4); Red Blood Count 4.46 10^6/ul (4.0-5.4); Red Cell Distribution Width 13 % (10.5-15); White Blood Count 5.5 10^3/ul (3.5-10.8)
[2017-04-27 18:03] LABS: Albumin 4.7 g/dL (3.2-5.2); Anion Gap 19 mmol/L (2-11); BUN/Creatinine Ratio 9.9 (8-20); Blood Urea Nitrogen 8 mg/dL (6-24); CO2 Carbon Dioxide 20 mmol/L (22-32); Calcium 10.5 mg/dL (8.6-10.3); Chloride 98 mmol/L (101-111); EGFR African American 124.2 (>60); EGFR Non-African American 96.6 (>60); Globulin 3.6 g/dL (2-4); Glucose 100 mg/dL (70-100); Potassium 3.5 mmol/L (3.5-5.0); Sodium 137 mmol/L (133-145); Total Protein 8.3 g/dL (6.4-8.9)
[2017-04-27 18:04] LABS: ALT 79 U/L (7-52); AST 157 U/L (13-39); Alkaline Phosphatase 71 U/L (34-104)
[2017-04-27 18:05] LABS: Acetaminophen < 15 mcg/mL; Alcohol 81 mg/dL (<10); Salicylate < 2.50 mg/dL (<30)
[2017-04-27 18:19] LABS: TSH (Thyroid Stimulating Horm) 2.51 mcIU/mL (0.34-5.60)
[2017-04-27] MEDS ORDERED: Ondansetron INJ* 2 MG/ML VIAL IV PRN (19:24)
[2017-04-27] MEDS ORDERED: NS 0.9% 1000 ML* 1,000 ML IV SCH (19:30)
[2017-04-27] MEDS ORDERED: Thiamine IV* 100 MG/ML 2 ML VIAL IM ONE (19:44)
[2017-04-27] MEDS ORDERED: levETIRAcetam TAB* 500 MG PO SCH (21:00)
[2017-04-27] MEDS: LORazepam INJ* 2 MG/ML 1 ML VIAL IV PUSH SCH ×2 (21:07→22:43)
[2017-04-27] MEDS: LORazepam TAB(*) 1 MG PO SCH (21:07)
[2017-04-27] MEDS: Heparin VIAL(*) 5000 UNITS/ML VIAL (FIVE THOUSAND) SUBCUT SCH (21:10)
[2017-04-27 21:41] LABS: Benzodiazepine Urine Screen None Detected (None Detect)
[2017-04-27 21:43] LABS: Urine Bacteria Absent (Absent); Urine Bilirubin Negative (Negative); Urine Glucose Negative (Negative); Urine Nitrite Negative (Negative)
[2017-04-28] MEDS: LORazepam INJ* 2 MG/ML 1 ML VIAL IV PUSH SCH ×2 (00:18→02:13)
--- NOTE | 2017-04-28 00:30 | HP ---
HISTORY AND PHYSICAL: DATE OF ADMISSION: 04/27/17 PROVIDER: Devonte Garcia MD* (this H and P dictation provided by Mariama Field NP) PRIMARY CARE PROVIDER: Heriberto Jang MD CHIEF COMPLAINT: Vomiting. As of note, the patient is not able to answer all questions, some information is gathered from prior H and P and from what the patient is able to provide. HISTORY OF PRESENT ILLNESS: He is a 62-year-old alcoholic male, [place] [facility] [place]. He was here in November of this year with alcohol withdrawal seizures, requiring intubation. Today, he comes to the emergency room via EMS, complained of vomiting and diarrhea. He stated that there was some blood in his vomit when he was still at home. On arrival of the ER, he was shaking, Ativan was given and he has been drowsy ever since. He does awake to stimuli, but then goes back to sleep easily. He has not had any vomiting since arrival to the ER or any further shaking. We were consulted for admission to control his seizures and manage his nausea and vomiting. He will be admitted to the medical floor for observation tonight. We will provide the [facility] protocol, Ativan IV p.r.n., fluid to replenish what he had, and monitoring of his seizures. PAST MEDICAL HISTORY: COPD, osteomyelitis, chronic low back pain, alcoholism with history of delirium tremens and withdrawal seizures. He is unable to provide what medications he is actually taking at this time. Nursing to reconcile once he is alert and oriented. ALLERGIES: No known drug allergies. FAMILY HISTORY: According to previous records is positive for hypertension and hyperlipidemia. SOCIAL HISTORY: Unable to provide me social history, but he was able to say that he has only had one beer today. He is a full code status and was unable to tell me who is surrogate decision maker is. REVIEW OF SYSTEMS: He appears weak on the stretcher, unsteady when he is moving from side to side, very tremulous. He wears dark sunglasses over his eyes. When asked if he has had chest pain, he states no. He denies being short of breath. He does state he had nausea and vomiting at home with blood that he saw on the vomit. He has multiple bruises, a large bruise on his right shoulder. He has an open area on his right leblanc. He denies being dizzy, having increased anxiety or depression. PHYSICAL EXAMINATION GENERAL: This is a 62-year-old male looking older than his stated age. He is unkempt male. HEENT: He does have his sunglasses on. His eyes are swollen. Mouth: Moist mucous membranes. NECK: Nontender, thyroid is normal. LUNGS: He does have some scattered rhonchi. Good aeration on room air. Symmetrical chest rise. HEART: Normal S1, S2. No carotid bruit. No jugular distention. He is tachycardic with a sinus tachycardia. ABDOMEN: Round, soft, nondistended, nontender. Active bowel sounds. MUSCULOSKELETAL: He is lying on the stretcher, appears tremulous. He has not been up walking since he has been here. PSYCHIATRIC: He is alert, knows he is in the hospital, but does not know the time of day or what day it is. He is shaky, but cooperative, a poor historian at this point. DIAGNOSTIC STUDIES/LAB DATA: Reports since he has been here he had an electrocardiogram, which shows a sinus tachycardia. His laboratory results, white count 5.5, H and H 15 and 43, platelet count 143. His chemistry, sodium is 137, potassium 3.5, chloride 98, carbon dioxide 20, BUN and creatinine is 8 and 0.81, glucose is 100, calcium 10.5, AST is 157, ALT is 79. TSH is 2.51. Toxicology, his serum alcohol is 81 at this time. IMPRESSION: A 62-year-old who will be admitted for alcohol withdrawal seizures related to nausea and vomiting. He will be placed on the [place] protocol and will have seizure precautions in place. PLAN: 1. Nausea and vomiting. We will replace his fluid loss and provide Zofran for nausea and vomiting. 2. Seizures. He will be on seizure precautions and Ativan p.r.n. 3. ETOH withdrawal. He will be on the [place] protocol and we will provide Ativan according to the [facility] protocol. 4. FEN. We will keep him n.p.o. until he is more awake, and is not having nausea and vomiting. 5. DVT prophylaxis. We will have him on heparin 5000 units q.8 hours and SCD stocking. 6. He is a full code. He is unable to tell me at this time his surrogate decision maker. TIME SPENT: Time spent on this exam was approximately 60 minutes with greater than half that time was spent [id number] with the patient, obtaining H and P. The other half time was spent going over the plan of care and implementing the plan of care. I discussed plan with Dr. Garcia, who is in agreement with the plan. MARIAMA FIELD, [employer] [id number]/[facility] #: [id number] KEANU
[2017-04-28] MEDS: Nicotine Inhaler* 10 MG AMP INH PRN ×2 (00:53→19:39)
[2017-04-28] MEDS: Acetaminophen TAB* 325 MG PO PRN ×2 (00:53→10:53)
[2017-04-28] MEDS: Mouth Piece, Nicotine* 1 EACH CARTRIDGE INH SCH ×2 (00:53→19:38)
[2017-04-28] MEDS: LORazepam TAB(*) 1 MG PO SCH (04:24)
[2017-04-28] MEDS: Heparin VIAL(*) 5000 UNITS/ML VIAL (FIVE THOUSAND) SUBCUT SCH ×4 (06:20→21:26)
[2017-04-28] MEDS ORDERED: chlordiazePOXIDE CAP* 25 MG PO ONE (08:19)
[2017-04-28] MEDS ORDERED: Multivitamins/Minerals TAB PO SCH (09:00)
[2017-04-28] MEDS: Thiamine TAB* 100 MG TAB PO SCH (09:32)
[2017-04-28] MEDS ORDERED: chlordiazePOXIDE CAP* 25 MG PO PRN (09:32)
[2017-04-28] MEDS: Folic Acid TAB* 1 MG PO SCH (09:32)
--- NOTE | 2017-04-28 09:40 | PN ---
Subjective Date of Service: 04/28/17 Interval History: C/O pain R elbow. Objective Active Medications: Acetaminophen (Tylenol Tab*) 650 mg PO Q4H PRN PRN Reason: PAIN Last Admin: 04/28/17 00:53 Dose: 650 mg Chlordiazepoxide (Librium Cap*) 25 mg PO TID COUNTS INCLUDE 234 BEDS AT THE [facility] Chlordiazepoxide (Librium Cap*) 25 mg PO Q2H PRN PRN Reason: AGITATION Device (Nicotine Mouth Piece*) 1 each INH .CARTRIDGE COUNTS INCLUDE 234 BEDS AT THE [facility] Last Admin: 04/28/17 00:53 Dose: 1 each Folic Acid (Folvite Tab*) 1 mg PO DAILY COUNTS INCLUDE 234 BEDS AT THE [facility] Last Admin: 04/28/17 09:32 Dose: 1 mg Heparin Sodium (Porcine) (Heparin Vial(*)) 5,000 units SUBCUT Q8HR COUNTS INCLUDE 234 BEDS AT THE [facility] Last Admin: 04/28/17 06:20 Dose: 5,000 units Nicotine (Nicotine Inhaler*) 10 mg INH Q2H PRN PRN Reason: CRAVING Last Admin: 04/28/17 00:53 Dose: 10 mg Thiamine HCl (Vitamin B-1 Tab*) 100 mg PO DAILY COUNTS INCLUDE 234 BEDS AT THE [facility] Last Admin: 04/28/17 09:32 Dose: 100 mg Vital Signs 04/27/17 04/27/17 04/27/17 19:30 20:25 20:30 Temperature 98.2 F Pulse Rate 115 120 Respiratory 29 21 21 Rate Blood Pressure 126/77 149/103 (mmHg) O2 Sat by Pulse 98 100 Oximetry 04/27/17 04/27/17 04/27/17 21:07 22:07 22:22 Temperature 98.4 F Pulse Rate 116 Respiratory 20 18 24 Rate Blood Pressure 139/79 (mmHg) O2 Sat by Pulse 94 Oximetry 04/27/17 04/27/17 04/27/17 22:43 23:07 23:43 Temperature Pulse Rate Respiratory 17 18 16 Rate Blood Pressure (mmHg) O2 Sat by Pulse Oximetry 04/27/17 04/28/17 04/28/17 23:54 00:18 01:18 Temperature 98.2 F Pulse Rate 114 Respiratory 20 18 16 Rate Blood Pressure 131/86 (mmHg) O2 Sat by Pulse 97 Oximetry 04/28/17 04/28/17 04/28/17 02:06 02:13 03:13 Temperature 98.2 F Pulse Rate 112 Respiratory 20 19 17 Rate Blood Pressure 142/86 (mmHg) O2 Sat by Pulse 98 Oximetry 04/28/17 04/28/17 04/28/17 04:22 04:24 06:01 Temperature 98.2 F Pulse Rate 97 97 Respiratory 16 16 16 Rate Blood Pressure 134/87 125/79 (mmHg) O2 Sat by Pulse 98 93 Oximetry 04/28/17 04/28/17 04/28/17 06:24 07:57 08:00 Temperature 98.1 F Pulse Rate 76 Respiratory 16 16 16 Rate Blood Pressure 155/76 (mmHg) O2 Sat by Pulse Oximetry 04/28/17 09:31 Temperature Pulse Rate Respiratory 24 Rate Blood Pressure (mmHg) O2 Sat by Pulse Oximetry Oxygen Devices in Use Now: None Appearance: Alert, sitting on the edge of his bed. Neutral affect. Shaky but otherwise looks comfortable. Eyes: No Scleral Icterus Respiratory: Symmetrical Chest Expansion and Respiratory Effort, Clear to Auscultation, Clear to Percussion Cardiovascular: NL Sounds; No Murmurs; No JVD, RRR, No Edema, - Extremities: No Edema, No Clubbing, Cyanosis, - - R elbow minimally tender Neurological: NL Sensation - Gave day of month as the . Mod tremor. Moves all limbs. Result Diagrams: 04/27/17 16:20 04/27/17 16:20 Additional Lab and Data: Lab Results 04/27/17 04/27/17 Range/Units 16:20 16:20 WBC 5.5 (3.5-10.8) 10^3/ul RBC 4.46 (4.0-5.4) 10^6/ul Hgb 15.0 (14.0-18.0) g/dl Hct 43 (42-52) % MCV 97 H (80-94) fL MCH 34 H (27-31) pg MCHC 35 (31-36) g/dl RDW 13 (10.5-15) % Plt Count 143 L (150-450) 10^3/ul MPV 10 (7.4-10.4) um3 Neut % (Auto) 61.7 (38-83) % Lymph % (Auto) 21.0 L (25-47) % Taney % (Auto) 13.8 H (1-9) % Eos % (Auto) 0.7 (0-6) % Baso % (Auto) 2.8 H (0-2) % Absolute Neuts (auto) 3.4 (1.5-7.7) 10^3/ul Absolute Lymphs (auto) 1.2 (1.0-4.8) 10^3/ul Absolute Monos (auto) 0.8 (0-0.8) 10^3/ul Absolute Eos (auto) 0 (0-0.6) 10^3/ul Absolute Basos (auto) 0.2 (0-0.2) 10^3/ul Absolute Nucleated RBC 0 10^3/ul Nucleated RBC % 0.1 Sodium 137 (133-145) mmol/L Potassium 3.5 (3.5-5.0) mmol/L Chloride 98 L (101-111) mmol/L Carbon Dioxide 20 L (22-32) mmol/L Anion Gap 19 H (2-11) mmol/L BUN 8 (6-24) mg/dL Creatinine 0.81 (0.67-1.17) mg/dL Est GFR ( Amer) 124.2 (>60) Est GFR (Non-Af Amer) 96.6 (>60) BUN/Creatinine Ratio 9.9 (8-20) Glucose 100 (70-100) mg/dL Calcium 10.5 H (8.6-10.3) mg/dL Total Bilirubin 1.30 H (0.2-1.0) mg/dL AST 157 H (13-39) U/L ALT 79 H (7-52) U/L Alkaline Phosphatase 71 (34-104) U/L Troponin I 0.00 (<0.04) ng/mL Total Protein 8.3 (6.4-8.9) g/dL Albumin 4.7 (3.2-5.2) g/dL Globulin 3.6 (2-4) g/dL Albumin/Globulin Ratio 1.3 (1-3) TSH 2.51 (0.34-5.60) mcIU/mL Salicylates < 2.50 (<30) mg/dL Acetaminophen < 15 mcg/mL Serum Alcohol 81 H (<10) mg/dL Assess/Plan/Problems-Billing Assessment: - Patient Problems (1) Alcohol withdrawal Current Visit: No Status: Acute Priority: Medium Code(s): F10.239 - ALCOHOL DEPENDENCE WITH WITHDRAWAL, UNSPECIFIED SNOMED Code(s): 572818100 Comment: Mild to mod sx's. Start scheduled and PRN chlordiazepoxide. About 4 PM, having received 2 doses of chlordiazepoxide, he told nurse he was suicidai and wanted to sign out AMA. He told me he wanted to leave and was depressed, also wanted to smoke. Psychiatry consult to evaluate capacity to sign our AMA requested.
--- NOTE | 2017-04-28 10:18 | RAD ---
INDICATION: Right elbow pain COMPARISON: None. TECHNIQUE: 2 views right elbow. REPORT: The visualized bones of the right elbow are well corticated and properly aligned. There is no radiographically apparent fracture or dislocation. There is no radiographic evidence of pathologic joint effusion. IMPRESSION: Normal radiograph of the right elbow. If the patient's symptoms persist further follow-up imaging is recommended.
[2017-04-28] MEDS: chlordiazePOXIDE CAP* 25 MG PO SCH ×4 (14:35→21:43)
--- NOTE | 2017-04-28 16:56 | CONSULT ---
Consult Consult: Consult for Medical Decision Making Capacity S: Psychiatry is asked to evaluate the medical decision making capacity of this 62 y.o. single, white male with a history of chronic alcohol use disorder, currently admitted for alcohol detoxification on , who is demanding d/c to home AMA. As per primary team the patient is at risk for negative medical outcomes including possible seizure or delirium tremens if he were to leave prior to completing treatment. They also express a concern that the patient allegedly made a suicidal statement to a member of the nursing staff. He later denied this to the attending physician. On exam the patient is hard of hearing and somewhat difficult to engage for this reason. He denies SI and states that he wants to go home so that he can watch TV and have a cigarette. I ask him about possible negative outcomes related to leaving AMA and he is unable to identify any. He is tearful and claims to have untreated pain in his left shoulder. He declines the offer of alcohol rehabilitation services, stating "My dad drank until he was 89 and he was fine." O: the patient is an aging, long haired white male with an enucleated right eye , wearing glasses and patient gown. Patient is tearful, speaks loudly, is minimally cooperative; depressed with tearful affect; somewhat disorganized thought process; thought content mostly somatic; denies SI or HI, poor insight with impaired judgment; awake and alert A/P 1. Capacity: the patient lacks an understanding of the risks associated with his preference to leave the hospital AMA. He does not have capacity to make informed medical decisions and the hospital should not sara his request of discharge AMA. 2. Suicidal ideation: the patient denies this. No need for psychiatric follow up. 3. Alcohol Use DO: patient would benefit from drug/alcohol rehabilitation but declines this.
[2017-04-29] MEDS: Mouth Piece, Nicotine* 1 EACH CARTRIDGE INH SCH ×2 (00:49→10:33)
[2017-04-29] MEDS: Nicotine Inhaler* 10 MG AMP INH PRN ×3 (00:50→18:09)
[2017-04-29] MEDS: Heparin VIAL(*) 5000 UNITS/ML VIAL (FIVE THOUSAND) SUBCUT SCH ×3 (05:53→22:47)
[2017-04-29] MEDS ORDERED: chlordiazePOXIDE CAP* 25 MG PO ONE (09:27)
[2017-04-29] MEDS: chlordiazePOXIDE CAP* 25 MG PO SCH ×3 (09:28→22:45)
[2017-04-29] MEDS: Folic Acid TAB* 1 MG PO SCH (09:31)
[2017-04-29] MEDS: Thiamine TAB* 100 MG TAB PO SCH (09:31)
--- NOTE | 2017-04-29 09:36 | PN ---
Subjective Date of Service: 04/29/17 Interval History: C/O L shoulder pain after a while. States he wants to leave. Objective Active Medications: Acetaminophen (Tylenol Tab*) 650 mg PO Q4H PRN PRN Reason: PAIN Last Admin: 04/28/17 10:53 Dose: 650 mg Chlordiazepoxide (Librium Cap*) 25 mg PO Q2H PRN PRN Reason: AGITATION Chlordiazepoxide (Librium Cap*) 25 mg PO Q6H [facility] Chlordiazepoxide (Librium Cap*) 25 mg PO ONCE ONE Stop: 04/29/17 09:28 Device (Nicotine Mouth Piece*) 1 each INH [facility] Last Admin: 04/29/17 00:49 Dose: 1 each Folic Acid (Folvite Tab*) 1 mg PO DAILY [facility] Last Admin: 04/28/17 09:32 Dose: 1 mg Heparin Sodium (Porcine) (Heparin Vial(*)) 5,000 units SUBCUT Q8HR [facility] Last Admin: 04/29/17 05:53 Dose: Not Given Nicotine (Nicotine Inhaler*) 10 mg INH Q2H PRN PRN Reason: CRAVING Last Admin: 04/29/17 00:50 Dose: 10 mg Thiamine HCl (Vitamin B-1 Tab*) 100 mg PO DAILY [facility] Last Admin: 04/28/17 09:32 Dose: 100 mg Vital Signs 04/28/17 04/28/17 04/28/17 10:06 11:31 12:18 Temperature Pulse Rate 100 93 Respiratory 22 Rate Blood Pressure 133/83 146/89 (mmHg) O2 Sat by Pulse 98 Oximetry 04/28/17 04/28/17 04/28/17 14:17 14:35 16:35 Temperature 97.9 F Pulse Rate 97 Respiratory 18 18 18 Rate Blood Pressure 136/89 (mmHg) O2 Sat by Pulse Oximetry 04/28/17 04/28/17 04/28/17 18:34 20:00 20:17 Temperature 98.2 F Pulse Rate 95 86 Respiratory 20 16 18 Rate Blood Pressure 126/70 129/79 (mmHg) O2 Sat by Pulse 99 97 Oximetry 04/28/17 04/28/17 04/28/17 21:43 22:15 23:43 Temperature Pulse Rate 87 Respiratory 20 16 16 Rate Blood Pressure 131/87 (mmHg) O2 Sat by Pulse 98 Oximetry 0904/29/17 04/29/17 00:02 02:08 03:55 Temperature 97.7 F 98.1 F 98.1 F Pulse Rate 85 93 87 Respiratory 20 18 20 Rate Blood Pressure 142/91 138/86 129/93 (mmHg) O2 Sat by Pulse 99 99 96 Oximetry 04/29/17 04/29/17 04/29/17 03:57 06:05 08:00 Temperature 97.7 F Pulse Rate 85 Respiratory 20 16 18 Rate Blood Pressure 124/77 (mmHg) O2 Sat by Pulse 99 Oximetry 04/29/17 08:10 Temperature 97.9 F Pulse Rate 106 Respiratory 18 Rate Blood Pressure 123/99 (mmHg) O2 Sat by Pulse 100 Oximetry Oxygen Devices in Use Now: None Appearance: Alert, walking easily in his room. Sl agitated, restless, otehrwise looks comfortable. Eyes: No Scleral Icterus Extremities: No Edema, No Clubbing, Cyanosis, - Skin: No Rash or Ulcers, No Nodules or Sclerosis, - Neurological: NL Sensation - Rambling thoughts, not making logical connections. , - - Not making logical connections, rambling thoughts. SL wide-based gait. Result Diagrams: 04/27/17 16:20 04/27/17 16:20 Additional Lab and Data: Lab Results 04/27/17 04/27/17 Range/Units 16:20 16:20 WBC 5.5 (3.5-10.8) 10^3/ul RBC 4.46 (4.0-5.4) 10^6/ul Hgb 15.0 (14.0-18.0) g/dl Hct 43 (42-52) % MCV 97 H (80-94) fL MCH 34 H (27-31) pg MCHC 35 (31-36) g/dl RDW 13 (10.5-15) % Plt Count 143 L (150-450) 10^3/ul MPV 10 (7.4-10.4) um3 Neut % (Auto) 61.7 (38-83) % Lymph % (Auto) 21.0 L (25-47) % [place] % (Auto) 13.8 H (1-9) % Eos % (Auto) 0.7 (0-6) % Baso % (Auto) 2.8 H (0-2) % Absolute Neuts (auto) 3.4 (1.5-7.7) 10^3/ul Absolute Lymphs (auto) 1.2 (1.0-4.8) 10^3/ul Absolute Monos (auto) 0.8 (0-0.8) 10^3/ul Absolute Eos (auto) 0 (0-0.6) 10^3/ul Absolute Basos (auto) 0.2 (0-0.2) 10^3/ul Absolute Nucleated RBC 0 10^3/ul Nucleated RBC % 0.1 Sodium 137 (133-145) mmol/L Potassium 3.5 (3.5-5.0) mmol/L Chloride 98 L (101-111) mmol/L Carbon Dioxide 20 L (22-32) mmol/L Anion Gap 19 H (2-11) mmol/L BUN 8 (6-24) mg/dL Creatinine 0.81 (0.67-1.17) mg/dL Est GFR ( Amer) 124.2 (>60) Est GFR (Non-Af Amer) 96.6 (>60) BUN/Creatinine Ratio 9.9 (8-20) Glucose 100 (70-100) mg/dL Calcium 10.5 H (8.6-10.3) mg/dL Total Bilirubin 1.30 H (0.2-1.0) mg/dL AST 157 H (13-39) U/L ALT 79 H (7-52) U/L Alkaline Phosphatase 71 (34-104) U/L Troponin I 0.00 (<0.04) ng/mL Total Protein 8.3 (6.4-8.9) g/dL Albumin 4.7 (3.2-5.2) g/dL Globulin 3.6 (2-4) g/dL Albumin/Globulin Ratio 1.3 (1-3) TSH 2.51 (0.34-5.60) mcIU/mL Salicylates < 2.50 (<30) mg/dL Acetaminophen < 15 mcg/mL Serum Alcohol 81 H (<10) mg/dL Assess/Plan/Problems-Billing Assessment: - Patient Problems (1) Alcohol withdrawal Current Visit: No Status: Acute Priority: Medium Code(s): F10.239 - ALCOHOL DEPENDENCE WITH WITHDRAWAL, UNSPECIFIED SNOMED Code(s): 573694807 Comment: Stilll in delirium 04/29. Increase chlordiazepoxide to 25 mg q 6 hr , extra 25 mg 04/29 AM. Psychiatry consult appreciated. Pt lacks capacity to sign out AMA, denied suicidal ideation. COntinue thiamine. (2) Tobacco abuse Current Visit: No Status: Chronic Code(s): Z72.0 - TOBACCO USE SNOMED Code (s): 035757050 Comment: Nicotine inhaler PRN.
[2017-04-29] MEDS ORDERED: chlordiazePOXIDE CAP* 25 MG PO SCH ×2 (10:00→14:00)
[2017-04-29] MEDS ORDERED: LORazepam INJ* 2 MG/ML 1 ML VIAL IV PUSH PRN (12:36)
[2017-04-29] MEDS ORDERED: chlordiazePOXIDE CAP* 25 MG PO PRN (12:37)
[2017-04-29] MEDS: LORazepam INJ* 2 MG/ML 1 ML VIAL ONE ×2 (12:42→14:16)
[2017-04-29] MEDS ORDERED: LORazepam INJ* 2 MG/ML 1 ML VIAL IV PUSH ONE ×2 (12:50→12:56)
[2017-04-29] MEDS ORDERED: LORazepam INJ* 2 MG/ML 1 ML VIAL ONE (12:57)
[2017-04-29] MEDS ORDERED: Haloperidol INJ IV/IM* 5 MG/ML AMP IM PRN (13:10)
[2017-04-29] MEDS ORDERED: Haloperidol INJ IV/IM* 5 MG/ML AMP ONE (13:12)
[2017-04-29] MEDS: LORazepam INJ* 2 MG/ML 1 ML VIAL IV PUSH PRN ×3 (15:50→22:46)
[2017-04-29] MEDS: Acetaminophen TAB* 325 MG PO PRN (18:07)
[2017-04-29] MEDS: Ziprasidone IM INJ* 20 MG/ML VIAL IM PRN (19:14)
[2017-04-30] MEDS: LORazepam INJ* 2 MG/ML 1 ML VIAL IV PUSH PRN ×9 (00:59→23:37)
[2017-04-30] MEDS: chlordiazePOXIDE CAP* 25 MG PO SCH ×4 (05:11→23:41)
[2017-04-30] MEDS: Heparin VIAL(*) 5000 UNITS/ML VIAL (FIVE THOUSAND) SUBCUT SCH ×3 (05:12→23:41)
[2017-04-30] MEDS: Folic Acid TAB* 1 MG PO SCH (07:44)
[2017-04-30] MEDS: Thiamine TAB* 100 MG TAB PO SCH (07:44)
--- NOTE | 2017-04-30 14:42 | ED ---
Kanu Cole Thomas, scribed for Williams Garza MD on 04/27/17 at 1851 . Complex/Multi-Sys Presentation - HPI Summary HPI Summary: The pt is a 62 y/o M BIBA with N/V/D that began this AM. He did notice some blood in his vomit. He additionally c/o diaphoresis, tachypnea, abd pain and he is tremulous. He late used alcohol today at 12:00. He was a patient at [facility] a few months ago. During that visit, he had a major withdrawal seizure and had to be emergently intubated. He is currently on medication for depression. - History Of Current Complaint Chief Complaint: EDNauseaVomitDiarrh Time Seen by Provider: 04/27/17 16:45 Hx Obtained From: Patient Onset/Duration: Still Present Timing: Constant Severity Currently: Severe Aggravating Factor(s): None Alleviating Factor(s): None Associated Signs And Symptoms: Positive: Nausea, Vomiting, Diarrhea, Diaphoresis , Other - Hematemesis, tachypnea, abd pain Related History: Other - Hx of ETOH abuse - Allergies/Home Medications Allergies/Adverse Reactions: Allergies Allergy/AdvReac Type Severity Reaction Status Date / Time No Known Allergies Allergy Verified 04/03/16 10:57 Home Medications: Home Medications DULoxetine CAP* [Cymbalta CAP*] 60 mg PO DAILY 04/27/17 [History Confirmed ] levETIRAcetam TAB* [Keppra TAB*] 500 mg PO 04/27/17 [History] PMH/Surg Hx/FS Hx/Imm Hx Previously Healthy: No Endocrine/Hematology History: Reports: Hx Anemia - Mild macrocytic anemia Denies: Hx Anticoagulant Therapy, Hx Diabetes Cardiovascular History: Reports: Hx Hypertension Denies: Hx Congestive Heart Failure, Hx Myocardial Infarction, Hx Pacemaker/ ICD Respiratory History: Reports: Hx Chronic Obstructive Pulmonary Disease (COPD), Hx Pneumonia GI History: Reports: Hx Gastroesophageal Reflux Disease History: Denies: Hx Renal Disease Musculoskeletal History: Reports: Other Musculoskeletal History - Pt. states fx of right arm that needs to be examined by a DrJoseline Denies: Hx Arthritis, Hx Gout Sensory History: Reports: Hx Cataracts, Hx Contacts or Glasses, Hx Eye Injury, Hx Eye Prosthesis, Hx Legally Blind, Hx Deafness, Other Sensory Impairments - Has R eye prosthesis, Blind OD s/p enucleation defect Denies: Hx Hearing Aid Opthamlomology History: Reports: Hx Cataracts, Hx Contacts or Glasses, Hx Eye Injury, Hx Eye Prosthesis, Hx Legally Blind, Other Sensory Impairments - Has R eye prosthesis, Blind OD s/p enucleation defect Neurological History: Reports: Hx Headaches, Hx Seizures - Alcohol withdrawal Psychiatric History: Reports: Hx Anxiety, Hx Depression, Hx Community Mental Health Tx, Hx Substance Abuse Denies: Hx Attention Deficit Hyperactivity Disorder, Hx Eating Disorder, Hx Panic Disorder, Hx Post Traumatic Stress Disorder, Hx Inpatient Treatment, Hx Schizophrenia, Hx Bipolar Disorder, Hx Suicide Attempt, Hx of Violent Episodes Against Others, Other Psychiatric Issues/Disorders - Surgical History Surgery Procedure, Year, and Place: RT EYE PROSTHESIS Glass eye prev cleared by xray;. right wrist I&D - Immunization History Date of Tetanus Vaccine: unsure Date of Influenza Vaccine: none Infectious Disease History: No Infectious Disease History: Denies: Hx Human Immunodeficiency Virus (HIV), Hx of Known/Suspected MRSA, Traveled Outside the [place] in Last 30 Days - Family History Known Family History: Positive: Other - cancer. alcoholism. - Social History Alcohol Use: Daily Alcohol Amount: Pt states 2-3 drinks 2-3x per wk Hx Substance Use: Yes Substance Use Type: Reports: Marijuana Substance Use Comment - Amount & Last Used: Pt. states that his last drink was at 2200 on 01/16/17, two 24 oz beers Hx Tobacco Use: Yes Smoking Status (MU): Heavy Every Day Tobacco Smoker Type: Cigarettes Amount Used/How Often: PACK OH DAY Have You Smoked in the Last Year: Yes Review of Systems Positive: Skin Diaphoresis. Negative: Fever, Chills Negative: Erythema - eyes Negative: Sore Throat Negative: Chest Pain Positive: Other - Tachypnea. Negative: Shortness Of Breath Positive: Abdominal Pain, Vomiting - with blood, Diarrhea, Nausea Negative: dysuria, hematuria Negative: Myalgia, Edema - legs Negative: Rash Neurological: Other - Tremulous. NEGATIVE: dizziness All Other Systems Reviewed And Are Negative: Yes Physical Exam - Summary Physical Exam Summary: Constitutional: Well-developed, Well-nourished, Alert. (-) Distressed Skin: Warm, Diaphoretic. HENT: Normocephalic; Atraumatic Eyes: Conjunctiva normal Neck: Musculoskeletal ROM normal neck. (-) JVD, (-) Stridor, (-) Tracheal deviation Cardio: Rhythm regular, tachycardic, Heart sounds normal; Intact distal pulses; The pedal pulses are 2+ and symmetric. Radial pulses are 2+ and symmetric. (-) Murmur Pulmonary/Chest wall: Effort normal. (-) Respiratory distress, (-) Wheezes, (-) Rales. He is tachypnic. Abd: Soft, (-) Tenderness, (-) Distension, (-) Guarding, (-) Rebound Musculoskeletal: (-) Edema Lymph: (-) Cervical adenopathy Neuro: Alert, Oriented x3. He is tremulous. Psych: Mood and affect Normal Triage Information Reviewed: Yes Vital Signs On Initial Exam: Initial Vitals Temp Pulse Resp BP Pulse Ox 96.8 F 113 15 146/98 99 04/27/17 16:10 04/27/17 16:10 04/27/17 16:10 04/27/17 16:10 04/27/17 16:10 Vital Signs Reviewed: Yes - [place] Coma Scale Coma Scale Total: 15 Diagnostics - Vital Signs Vital Signs Temp Pulse Resp BP Pulse Ox 04/27/17 18:30 111 22 160/108 100 04/27/17 18:00 109 21 162/98 100 04/27/17 17:39 112 20 159/104 99 04/27/17 17:30 123 21 142/122 100 04/27/17 17:26 117 20 173/93 100 04/27/17 17:25 117 16 100 04/27/17 16:10 96.8 F 113 15 146/98 99 - Laboratory Lab Results: Lab Results 04/27/17 04/27/17 Range/Units 16:20 16:20 WBC 5.5 (3.5-10.8) 10^3/ul RBC 4.46 (4.0-5.4) 10^6/ul Hgb 15.0 (14.0-18.0) g/dl Hct 43 (42-52) % MCV 97 H (80-94) fL MCH 34 H (27-31) pg MCHC 35 (31-36) g/dl RDW 13 (10.5-15) % Plt Count 143 L (150-450) 10^3/ul MPV 10 (7.4-10.4) um3 Neut % (Auto) 61.7 (38-83) % Lymph % (Auto) 21.0 L (25-47) % [place] % (Auto) 13.8 H (1-9) % Eos % (Auto) 0.7 (0-6) % Baso % (Auto) 2.8 H (0-2) % Absolute Neuts (auto) 3.4 (1.5-7.7) 10^3/ul Absolute Lymphs (auto) 1.2 (1.0-4.8) 10^3/ul Absolute Monos (auto) 0.8 (0-0.8) 10^3/ul Absolute Eos (auto) 0 (0-0.6) 10^3/ul Absolute Basos (auto) 0.2 (0-0.2) 10^3/ul Absolute Nucleated RBC 0 10^3/ul Nucleated RBC % 0.1 Sodium 137 (133-145) mmol/L Potassium 3.5 (3.5-5.0) mmol/L Chloride 98 L (101-111) mmol/L Carbon Dioxide 20 L (22-32) mmol/L Anion Gap 19 H (2-11) mmol/L BUN 8 (6-24) mg/dL Creatinine 0.81 (0.67-1.17) mg/dL Est GFR ( Amer) 124.2 (>60) Est GFR (Non-Af Amer) 96.6 (>60) BUN/Creatinine Ratio 9.9 (8-20) Glucose 100 (70-100) mg/dL Calcium 10.5 H (8.6-10.3) mg/dL Total Bilirubin 1.30 H (0.2-1.0) mg/dL AST 157 H (13-39) U/L ALT 79 H (7-52) U/L Alkaline Phosphatase 71 (34-104) U/L Troponin I 0.00 (<0.04) ng/mL Total Protein 8.3 (6.4-8.9) g/dL Albumin 4.7 (3.2-5.2) g/dL Globulin 3.6 (2-4) g/dL Albumin/Globulin Ratio 1.3 (1-3) TSH 2.51 (0.34-5.60) mcIU/mL Salicylates < 2.50 (<30) mg/dL Acetaminophen < 15 mcg/mL Serum Alcohol 81 H (<10) mg/dL Result Diagrams: 04/27/17 16:20 04/27/17 16:20 Lab Statement: Any lab studies that have been ordered have been reviewed, and results considered in the medical decision making process. - EKG 17:16 Cardiac Rate: Tachycardia - 117 BPM EKG Interpretation: Sinus tachycardia. No STEMI. Complex Multi-Symp Course/Dx Assessment/Plan: The pt is a 62 y/o M BIBA with N/V/D that began this AM. He did notice some blood in his vomit. He additionally c/o diaphoresis, tachypnea, abd pain and he is tremulous. He late used alcohol today at 12:00. He was a patient at [facility] a few months ago. During that visit, he had a major withdrawal seizure and had to be emergently intubated. He is currently on medication for depression. In the ED course the patient was given Ativan and IV fluids. Bloodwork and toxicology was obtained. EKG at 17:16 shows sinus tachycardia at 117 BPM with no STEMI. I consulted with Jane Field NP, who admits the patient to [facility]. He is diagnosed with alcohol withdrawal. - Diagnoses Provider Diagnoses: Alcohol withdrawal - Physician Notifications Discussed Care Of Patient With: Jane Field Time Discussed With Above Provider: 19:13 Instructed by Provider To: Other - I consulted with Jane Field NP, who admits the patient to [facility]. Discharge - Discharge Plan Condition: Stable Disposition: ADMITTED TO [facility] documentation as recorded by the Kanu melton Thomas accurately reflects the service I personally performed and the decisions made by me, Williams Garza MD.
[2017-04-30] MEDS: Ziprasidone IM INJ* 20 MG/ML VIAL IM PRN (17:17)
--- NOTE | 2017-04-30 19:52 | PN ---
Subjective Date of Service: 04/30/17 Interval History: Multiple elevated WAMs ~10-15. Pt poor historian not able to express other complaints. Objective Active Medications: Acetaminophen (Tylenol Tab*) 650 mg PO Q4H PRN PRN Reason: PAIN Last Admin: 04/29/17 18:07 Dose: 650 mg Chlordiazepoxide (Librium Cap*) 50 mg PO Q2H PRN PRN Reason: AGITATION Last Admin: 04/29/17 18:07 Dose: 50 mg Chlordiazepoxide (Librium Cap*) 50 mg PO Q6H [facility] Last Admin: 04/30/17 16:14 Dose: 50 mg Device (Nicotine Mouth Piece*) 1 each INH [facility] Last Admin: 04/29/17 10:33 Dose: 1 each Folic Acid (Folvite Tab*) 1 mg PO DAILY [facility] Last Admin: 04/30/17 07:44 Dose: 1 mg Heparin Sodium (Porcine) (Heparin Vial(*)) 5,000 units SUBCUT Q8HR [facility] Last Admin: 04/30/17 14:06 Dose: 5,000 units Lorazepam (Ativan Inj*) 0 mg IV PUSH Q2H PRN; Protocol PRN Reason: ANXIETY Last Admin: 04/30/17 16:11 Dose: 4 mg Nicotine (Nicotine Inhaler*) 10 mg INH Q2H PRN PRN Reason: CRAVING Last Admin: 04/29/17 18:09 Dose: 10 mg Thiamine HCl (Vitamin B-1 Tab*) 100 mg PO DAILY [facility] Last Admin: 04/30/17 07:44 Dose: 100 mg Ziprasidone (Geodon Im Inj*) 20 mg IM Q6H PRN PRN Reason: AGITATION Last Admin: 04/30/17 17:17 Dose: 20 mg Vital Signs 04/29/17 04/29/17 04/29/17 20:00 20:07 22:45 Temperature Pulse Rate Respiratory 22 20 20 Rate Blood Pressure (mmHg) O2 Sat by Pulse Oximetry 04/29/17 04/29/17 04/30/17 22:46 23:46 00:44 Temperature Pulse Rate Respiratory 20 20 20 Rate Blood Pressure (mmHg) O2 Sat by Pulse Oximetry 04/30/17 04/30/17 04/30/17 00:49 00:59 01:59 Temperature Pulse Rate 107 Respiratory 18 22 20 Rate Blood Pressure 134/89 (mmHg) O2 Sat by Pulse 95 Oximetry 04/30/17 04/30/17 04/30/17 02:19 02:23 04:21 Temperature Pulse Rate 111 111 128 Respiratory 16 16 24 Rate Blood Pressure 135/87 135/87 145/94 (mmHg) O2 Sat by Pulse 97 97 97 Oximetry 04/30/17 04/30/17 04/30/17 04:23 05:10 05:11 Temperature Pulse Rate 128 Respiratory 24 20 20 Rate Blood Pressure 145/94 (mmHg) O2 Sat by Pulse 97 Oximetry 04/30/17 04/30/17 04/30/17 06:22 06:25 07:24 Temperature Pulse Rate 117 117 Respiratory 42 42 48 Rate Blood Pressure 146/98 146/98 (mmHg) O2 Sat by Pulse 98 98 Oximetry 04/30/17 04/30/17 04/30/17 07:31 07:39 07:46 Temperature 97.9 F 97.9 F Pulse Rate 155 120 Respiratory 18 40 40 Rate Blood Pressure 155/91 155/91 (mmHg) O2 Sat by Pulse 93 93 Oximetry 04/30/17 04/30/17 04/30/17 08:00 08:29 08:39 Temperature Pulse Rate Respiratory 40 40 40 Rate Blood Pressure (mmHg) O2 Sat by Pulse Oximetry 04/30/17 04/30/17 04/30/17 09:05 09:26 09:27 Temperature 97.6 F 97.6 F Pulse Rate 119 119 Respiratory 20 44 44 Rate Blood Pressure 158/86 158/86 (mmHg) O2 Sat by Pulse 97 97 Oximetry 04/30/17 04/30/17 04/30/17 09:33 10:33 11:14 Temperature 98.3 F Pulse Rate 116 Respiratory 44 32 20 Rate Blood Pressure 145/86 (mmHg) O2 Sat by Pulse 95 Oximetry 04/30/17 04/30/17 04/30/17 11:25 11:26 11:33 Temperature 98.3 F Pulse Rate 116 Respiratory 40 40 40 Rate Blood Pressure 145/86 (mmHg) O2 Sat by Pulse 95 Oximetry 04/30/17 04/30/17 04/30/17 12:33 13:06 13:31 Temperature Pulse Rate 89 89 Respiratory 32 20 32 Rate Blood Pressure 120/71 120/71 (mmHg) O2 Sat by Pulse 91 93 Oximetry 04/30/17 04/30/17 04/30/17 13:32 14:06 15:06 Temperature Pulse Rate Respiratory 32 32 36 Rate Blood Pressure (mmHg) O2 Sat by Pulse Oximetry 04/30/17 04/30/17 04/30/17 15:08 16:00 16:05 Temperature 98.9 F Pulse Rate 117 117 Respiratory 36 44 Rate Blood Pressure 148/105 141/96 (mmHg) O2 Sat by Pulse 98 97 Oximetry 04/30/17 04/30/17 04/30/17 16:11 16:14 17:11 Temperature Pulse Rate Respiratory 44 44 44 Rate Blood Pressure (mmHg) O2 Sat by Pulse Oximetry 04/30/17 04/30/17 04/30/17 17:21 18:14 18:17 Temperature Pulse Rate 122 129 Respiratory 40 Rate Blood Pressure 165/91 156/94 (mmHg) O2 Sat by Pulse 97 Oximetry Oxygen Devices in Use Now: None Appearance: tremulousness, uncomprehensible speech. Ears/Nose/Mouth/Throat: NL Teeth, Lips, Gums Neck: NL Appearance and Movements; NL JVP Respiratory: Symmetrical Chest Expansion and Respiratory Effort, Clear to Auscultation Cardiovascular: NL Sounds; No Murmurs; No JVD, RRR Abdominal: NL Sounds; No Tenderness; No Distention, No Hepatosplenomegaly Extremities: No Edema, - - left shoulder dislocated. Skin: No Rash or Ulcers Neurological: - - not oriented vs difficult to comprehend. tremulousness. Result Diagrams: 04/27/17 16:20 04/27/17 16:20 Additional Lab and Data: Lab Results 04/27/17 04/27/17 Range/Units 16:20 16:20 WBC 5.5 (3.5-10.8) 10^3/ul RBC 4.46 (4.0-5.4) 10^6/ul Hgb 15.0 (14.0-18.0) g/dl Hct 43 (42-52) % MCV 97 H (80-94) fL MCH 34 H (27-31) pg MCHC 35 (31-36) g/dl RDW 13 (10.5-15) % Plt Count 143 L (150-450) 10^3/ul MPV 10 (7.4-10.4) um3 Neut % (Auto) 61.7 (38-83) % Lymph % (Auto) 21.0 L (25-47) % [place] % (Auto) 13.8 H (1-9) % Eos % (Auto) 0.7 (0-6) % Baso % (Auto) 2.8 H (0-2) % Absolute Neuts (auto) 3.4 (1.5-7.7) 10^3/ul Absolute Lymphs (auto) 1.2 (1.0-4.8) 10^3/ul Absolute Monos (auto) 0.8 (0-0.8) 10^3/ul Absolute Eos (auto) 0 (0-0.6) 10^3/ul Absolute Basos (auto) 0.2 (0-0.2) 10^3/ul Absolute Nucleated RBC 0 10^3/ul Nucleated RBC % 0.1 Sodium 137 (133-145) mmol/L Potassium 3.5 (3.5-5.0) mmol/L Chloride 98 L (101-111) mmol/L Carbon Dioxide 20 L (22-32) mmol/L Anion Gap 19 H (2-11) mmol/L BUN 8 (6-24) mg/dL Creatinine 0.81 (0.67-1.17) mg/dL Est GFR ( Amer) 124.2 (>60) Est GFR (Non-Af Amer) 96.6 (>60) BUN/Creatinine Ratio 9.9 (8-20) Glucose 100 (70-100) mg/dL Calcium 10.5 H (8.6-10.3) mg/dL Total Bilirubin 1.30 H (0.2-1.0) mg/dL AST 157 H (13-39) U/L ALT 79 H (7-52) U/L Alkaline Phosphatase 71 (34-104) U/L Troponin I 0.00 (<0.04) ng/mL Total Protein 8.3 (6.4-8.9) g/dL Albumin 4.7 (3.2-5.2) g/dL Globulin 3.6 (2-4) g/dL Albumin/Globulin Ratio 1.3 (1-3) TSH 2.51 (0.34-5.60) mcIU/mL Salicylates < 2.50 (<30) mg/dL Acetaminophen < 15 mcg/mL Serum Alcohol 81 H (<10) mg/dL Assess/Plan/Problems-Billing Assessment: 62 year old male PMH alcohol abuse complicated by seizures and DTs who p/w alcohol intoxication, withdrawals and delerium tremens. Still high benzodiazapine requirements. Did not have capacity to leave AMA per psych on recent eval. - Patient Problems (1) Acute alcohol intoxication delirium with moderate or severe use disorder Current Visit: No Status: Acute Priority: Medium Code(s): F10.921 - ALCOHOL USE, UNSPECIFIED WITH INTOXICATION DELIRIUM SNOMED Code(s): 43449635 Comment: continue WAM, ativan and standing librium 50mg q6 with 50mg q2 prn. (2) Alcohol withdrawal Current Visit: No Status: Acute Priority: Medium Code(s): F10.239 - ALCOHOL DEPENDENCE WITH WITHDRAWAL, UNSPECIFIED SNOMED Code(s): 873374301 Comment: Stilll in delirium 04/30 Pt lacks capacity to sign out AMA, denied suicidal ideation. Continue thiamine. (3) Tobacco abuse Current Visit: No Status: Chronic Code(s): Z72.0 - TOBACCO USE SNOMED Code (s): 488753009 Comment: Nicotine inhaler PRN. (4) DVT prophylaxis Current Visit: No Status: Acute Code(s): PSJ9599 - SNOMED Code(s): 150890290 Comment: heparin 5000 TID Status and Disposition: medicine inpatient. still in DT may be several more days to resolve. Attending: Chano Garnica
[2017-05-01] MEDS: Ziprasidone IM INJ* 20 MG/ML VIAL IM PRN (01:40)
[2017-05-01] MEDS: chlordiazePOXIDE CAP* 25 MG PO SCH ×3 (07:14→16:12)
[2017-05-01] MEDS: Heparin VIAL(*) 5000 UNITS/ML VIAL (FIVE THOUSAND) SUBCUT SCH ×3 (07:21→21:43)
[2017-05-01] MEDS: LORazepam INJ* 2 MG/ML 1 ML VIAL IV PUSH PRN ×7 (07:29→21:44)
[2017-05-01] MEDS: Folic Acid TAB* 1 MG PO SCH (09:02)
[2017-05-01] MEDS: Thiamine TAB* 100 MG TAB PO SCH (09:02)
--- NOTE | 2017-05-01 14:33 | RAD ---
INDICATION: Cough. Possible pneumonia COMPARISON: December 18, 2016 TECHNIQUE: An AP portable view obtained at 1450 hours is submitted. FINDINGS: Bones/Soft Tissues: There are no acute bony findings. Cardiomediastinal: The cardiomediastinal silhouette is normal. Lungs: There are no infiltrates. Pleura: There are no pleural effusions. Other: None IMPRESSION: NO ACTIVE DISEASE.
[2017-05-01] MEDS ORDERED: cefTRIAXone VIAL(*) 1,000 MG in NS 0.9% 50 ML* 50 ML IVPB SCH (16:30)
--- NOTE | 2017-05-01 17:27 | PN ---
Subjective Date of Service: 05/01/17 Interval History: Pt with increased cough with clear sputum. Continued tachycardia, Tmax 99.5. Orientation slightly better. Objective Active Medications: Acetaminophen (Tylenol Tab*) 650 mg PO Q4H PRN PRN Reason: PAIN Last Admin: 04/29/17 18:07 Dose: 650 mg Chlordiazepoxide (Librium Cap*) 50 mg PO Q2H PRN PRN Reason: AGITATION Last Admin: 04/29/17 18:07 Dose: 50 mg Chlordiazepoxide (Librium Cap*) 50 mg PO Q6H [facility] Last Admin: 05/01/17 16:12 Dose: Not Given Device (Nicotine Mouth Piece*) 1 each INH .CARTRIDGE [facility] Last Admin: 04/29/17 10:33 Dose: 1 each Folic Acid (Folvite Tab*) 1 mg PO DAILY [facility] Last Admin: 05/01/17 09:02 Dose: Not Given Heparin Sodium (Porcine) (Heparin Vial(*)) 5,000 units SUBCUT Q8HR [facility] Last Admin: 05/01/17 14:13 Dose: 5,000 units Ceftriaxone Sodium 1,000 mg/ (Sodium Chloride) 50 mls @ 200 mls/hr IVPB Q24H [facility] Last Admin: 05/01/17 17:14 Dose: 200 mls/hr Metronidazole/Sodium Chloride (Flagyl 500 Mg Ivpb*) 500 mg in 100 mls @ 100 mls /hr IVPB Q8H [facility] Lorazepam (Ativan Inj*) 0 mg IV PUSH Q2H PRN; Protocol PRN Reason: ANXIETY Last Admin: 05/01/17 16:01 Dose: 1 mg Nicotine (Nicotine Inhaler*) 10 mg INH Q2H PRN PRN Reason: CRAVING Last Admin: 04/29/17 18:09 Dose: 10 mg Thiamine HCl (Vitamin B-1 Tab*) 100 mg PO DAILY [facility] Last Admin: 05/01/17 09:02 Dose: Not Given Vital Signs 04/30/17 04/30/17 04/30/17 18:14 18:17 19:59 Temperature 98.3 F Pulse Rate 129 115 Respiratory 40 46 Rate Blood Pressure 156/94 169/97 (mmHg) O2 Sat by Pulse 97 100 Oximetry 04/30/17 04/30/17 04/30/17 20:08 20:10 21:08 Temperature Pulse Rate Respiratory 42 42 30 Rate Blood Pressure (mmHg) O2 Sat by Pulse Oximetry 04/30/17 04/30/17 04/30/17 22:04 23:37 23:41 Temperature 98.5 F Pulse Rate 108 Respiratory 38 40 36 Rate Blood Pressure 156/86 (mmHg) O2 Sat by Pulse 97 Oximetry 05/01/17 05/01/17 05/01/17 00:37 01:41 02:31 Temperature Pulse Rate 118 Respiratory 42 26 Rate Blood Pressure 128/81 (mmHg) O2 Sat by Pulse 94 Oximetry 05/01/17 05/01/17 05/01/17 03:00 06:19 07:29 Temperature Pulse Rate 125 115 Respiratory 45 16 Rate Blood Pressure 191/104 152/95 (mmHg) O2 Sat by Pulse 94 93 Oximetry 05/01/17 05/01/17 05/01/17 08:00 08:29 09:28 Temperature Pulse Rate 122 Respiratory 36 36 43 Rate Blood Pressure 126/101 (mmHg) O2 Sat by Pulse 95 Oximetry 05/01/17 05/01/17 05/01/17 09:36 10:36 11:42 Temperature 98.1 F Pulse Rate 112 Respiratory 38 32 38 Rate Blood Pressure 123/100 (mmHg) O2 Sat by Pulse 95 Oximetry 05/01/17 05/01/17 05/01/17 11:57 13:39 14:13 Temperature 98.5 F Pulse Rate 124 Respiratory 34 42 32 Rate Blood Pressure 140/93 (mmHg) O2 Sat by Pulse 96 Oximetry 05/01/17 05/01/17 05/01/17 15:13 15:45 16:01 Temperature 99.5 F Pulse Rate 120 Respiratory 34 22 38 Rate Blood Pressure 125/86 (mmHg) O2 Sat by Pulse 95 Oximetry Oxygen Devices in Use Now: None Appearance: Chronically ill appearing. Tachypneic. less tremulous Eyes: No Scleral Icterus, PERRLA, - - right eye enucleated. Neck: NL Appearance and Movements; NL JVP Respiratory: - - RR 30s, some rhonchi, no rales or wheezing. Cardiovascular: NL Sounds; No Murmurs; No JVD, RRR, - - tachycardic, regular. Abdominal: NL Sounds; No Tenderness; No Distention Extremities: No Edema, - - left shoulder painful, dislocated. Skin: No Rash or Ulcers Neurological: - - Oriented to name Result Diagrams: 04/27/17 16:20 04/27/17 16:20 Additional Lab and Data: Assess/Plan/Problems-Billing Assessment: 62 year old male PMH alcohol abuse complicated by seizures and DTs who p/w alcohol intoxication, withdrawals and delerium tremens. Tachy, tachpneic with worse cough, CXR clear but concern for aspiration, adding CFTX/flagyl (no unasyn here) - Patient Problems (1) Acute alcohol intoxication delirium with moderate or severe use disorder Current Visit: No Status: Acute Priority: Medium Code(s): F10.921 - ALCOHOL USE, UNSPECIFIED WITH INTOXICATION DELIRIUM SNOMED Code(s): 45558635 Comment: continue WAM, prn ativan. Reduce to librium 25mg TID prn (was not actually getting today 2/2 reported lethargy) (2) Alcohol withdrawal Current Visit: No Status: Acute Priority: Medium Code(s): F10.239 - ALCOHOL DEPENDENCE WITH WITHDRAWAL, UNSPECIFIED SNOMED Code(s): 537498187 Comment: plan as above, Continue thiamine. (3) Tobacco abuse Current Visit: No Status: Chronic Code(s): Z72.0 - TOBACCO USE SNOMED Code (s): 451204030 Comment: Nicotine inhaler PRN. (4) DVT prophylaxis Current Visit: No Status: Acute Code(s): JTE4392 - SNOMED Code(s): 765539468 Comment: heparin 5000 TID (5) Tachypnea Current Visit: Yes Status: Acute Code(s): R06.82 - TACHYPNEA, NOT ELSEWHERE CLASSIFIED SNOMED Code(s): 811542361 Comment: got CXR which was clear empirically treat for aspiration given worsening cough, tachpynea, tachycardia ( though could be from withdrawal still). No unasyn here will try ceftriaxone + flagyl as RN thought not taking po well. aspiration precautions. Status and Disposition: medicine inpatient. Attending: Chano Garnica
[2017-05-01] MEDS: metroNIDAZOLE IV 500 MG/100ML* 500 MG/100 ML BAG IVPB SCH (17:36)
[2017-05-01] MEDS ORDERED: chlordiazePOXIDE CAP* 25 MG PO PRN (17:41)
[2017-05-02] MEDS: metroNIDAZOLE IV 500 MG/100ML* 500 MG/100 ML BAG IVPB SCH ×2 (02:23→08:40)
[2017-05-02] MEDS: Heparin VIAL(*) 5000 UNITS/ML VIAL (FIVE THOUSAND) SUBCUT SCH ×3 (06:38→21:39)
[2017-05-02] MEDS: Folic Acid TAB* 1 MG PO SCH (07:57)
[2017-05-02] MEDS: Thiamine TAB* 100 MG TAB PO SCH (07:57)
[2017-05-02] MEDS: LORazepam INJ* 2 MG/ML 1 ML VIAL IV PUSH PRN ×5 (10:55→23:36)
--- NOTE | 2017-05-02 15:09 | PN ---
Subjective Date of Service: 05/02/17 Interval History: Pt much more alert today. Able to have understandable coherent conversation. Some coughing still, reduced RR. Objective Active Medications: Acetaminophen (Tylenol Tab*) 650 mg PO Q4H PRN PRN Reason: PAIN Last Admin: 04/29/17 18:07 Dose: 650 mg Amoxicillin/Clavulanate Potassium (Augmentin Tab*) 875 mg PO BID [facility] Chlordiazepoxide (Librium Cap*) 25 mg PO TID PRN PRN Reason: AGITATION Device (Nicotine Mouth Piece*) 1 each INH .CARTRIDGE [facility] Last Admin: 04/29/17 10:33 Dose: 1 each Folic Acid (Folvite Tab*) 1 mg PO DAILY [facility] Last Admin: 05/02/17 07:57 Dose: 1 mg Heparin Sodium (Porcine) (Heparin Vial(*)) 5,000 units SUBCUT Q8HR [facility] Last Admin: 05/02/17 13:20 Dose: 5,000 units Lorazepam (Ativan Inj*) 0 mg IV PUSH Q2H PRN; Protocol PRN Reason: ANXIETY Last Admin: 05/02/17 13:19 Dose: 2 mg Nicotine (Nicotine Inhaler*) 10 mg INH Q2H PRN PRN Reason: CRAVING Last Admin: 04/29/17 18:09 Dose: 10 mg Thiamine HCl (Vitamin B-1 Tab*) 100 mg PO DAILY [facility] Last Admin: 05/02/17 07:57 Dose: 100 mg Vital Signs 05/01/17 05/01/17 05/01/17 15:13 15:45 16:01 Temperature 99.5 F Pulse Rate 120 Respiratory 34 22 38 Rate Blood Pressure 125/86 (mmHg) O2 Sat by Pulse 95 Oximetry 05/01/17 05/01/17 05/01/17 16:42 17:01 17:39 Temperature 98.1 F 98.6 F Pulse Rate 123 134 Respiratory 28 38 28 Rate Blood Pressure 124/76 122/106 (mmHg) O2 Sat by Pulse 94 96 Oximetry 05/01/17 05/01/17 05/01/17 17:44 18:44 18:53 Temperature 98.1 F Pulse Rate 136 Respiratory 38 36 30 Rate Blood Pressure 120/80 (mmHg) O2 Sat by Pulse 97 Oximetry 05/01/17 05/01/17 05/01/17 19:47 20:00 20:34 Temperature 98.1 F 98.2 F Pulse Rate 120 116 Respiratory 28 28 24 Rate Blood Pressure 139/90 142/87 (mmHg) O2 Sat by Pulse 97 97 Oximetry 05/01/17 05/01/17 05/01/17 21:30 21:44 22:44 Temperature 98.0 F Pulse Rate 121 Respiratory 30 36 20 Rate Blood Pressure 127/90 (mmHg) O2 Sat by Pulse 96 Oximetry 05/01/17 05/02/17 05/02/17 22:50 00:26 02:56 Temperature 97.3 F 97.4 F Pulse Rate 126 71 104 Respiratory 30 16 16 Rate Blood Pressure 129/93 131/78 133/77 (mmHg) O2 Sat by Pulse 96 92 92 Oximetry 05/02/17 05/02/17 05/02/17 05:47 07:46 08:00 Temperature 97.6 F 97.9 F Pulse Rate 102 103 Respiratory 17 35 32 Rate Blood Pressure 119/87 133/95 (mmHg) O2 Sat by Pulse 97 97 Oximetry 05/02/17 05/02/17 05/02/17 09:52 10:55 11:50 Temperature 97.9 F Pulse Rate 107 Respiratory 28 34 32 Rate Blood Pressure 95/77 (mmHg) O2 Sat by Pulse 96 Oximetry 05/02/17 05/02/17 05/02/17 13:11 13:19 14:19 Temperature 98.1 F Pulse Rate 120 Respiratory 27 26 30 Rate Blood Pressure 109/82 (mmHg) O2 Sat by Pulse 97 Oximetry Oxygen Devices in Use Now: None Appearance: Much improved. No acute distress Eyes: No Scleral Icterus, PERRLA Ears/Nose/Mouth/Throat: NL Teeth, Lips, Gums Neck: NL Appearance and Movements; NL JVP Respiratory: Symmetrical Chest Expansion and Respiratory Effort, - - shallow breaths, initially some rhonchi in right middle lung Cardiovascular: NL Sounds; No Murmurs; No JVD, RRR Abdominal: NL Sounds; No Tenderness; No Distention Extremities: No Edema, - - left shoulder dislocation Neurological: Alert and Oriented x 3 Result Diagrams: 04/27/17 16:20 04/27/17 16:20 Additional Lab and Data: Microbiology and Other Data: Microbiology 04/27/17 16:24 Aerobic Blood Culture - Preliminary Blood Venous No Growth Day 4 Anaerobic Blood Culture - Preliminary No Growth Day 4 Blood Culture - Final Assess/Plan/Problems-Billing Assessment: 62 year old male PMH alcohol abuse complicated by seizures and DTs who p/w alcohol intoxication, withdrawals and delerium tremens. Tachy, tachpneic with worse cough, CXR clear but concern for aspiration and had rapid improvement after adding CFTX/flagyl (now changed to augmentin as safer for po) - Patient Problems (1) Acute alcohol intoxication delirium with moderate or severe use disorder Current Visit: No Status: Acute Priority: Medium Code(s): F10.921 - ALCOHOL USE, UNSPECIFIED WITH INTOXICATION DELIRIUM SNOMED Code(s): 81518907 Comment: continue WAM, prn ativan. Reduce to librium 25mg TID prn (was not actually getting today 2/2 reported lethargy) (2) Tachypnea Current Visit: Yes Status: Acute Code(s): R06.82 - TACHYPNEA, NOT ELSEWHERE CLASSIFIED SNOMED Code(s): 696839331 Comment: CXR which was clear empirically treat for aspiration given worsening cough, tachpynea, tachycardia ( though could be from withdrawal still). Improved with ceftriaxone + flagyl. Now augmentin as safer for po. (3) Alcohol withdrawal Current Visit: No Status: Acute Priority: Medium Code(s): F10.239 - ALCOHOL DEPENDENCE WITH WITHDRAWAL, UNSPECIFIED SNOMED Code(s): 471136717 Comment: plan as above, Continue thiamine. (4) Tobacco abuse Current Visit: No Status: Chronic Code(s): Z72.0 - TOBACCO USE SNOMED Code (s): 026423102 Comment: Nicotine inhaler PRN. (5) DVT prophylaxis Current Visit: No Status: Acute Code(s): [id number] - SNOMED Code(s): 169291115 Comment: heparin 5000 TID Status and Disposition: medicine inpatient. f/u re-ordered PT as per aide was requiring 2 person assist. Attending: Chano Garnica
[2017-05-02] MEDS: Nicotine Inhaler* 10 MG AMP INH PRN (17:17)
[2017-05-02] MEDS: Amoxicillin/Clavulanate TAB* 875 MG PO SCH (20:50)
[2017-05-03] MEDS: Heparin VIAL(*) 5000 UNITS/ML VIAL (FIVE THOUSAND) SUBCUT SCH ×3 (06:06→22:06)
[2017-05-03] MEDS: Folic Acid TAB* 1 MG PO SCH (07:58)
[2017-05-03] MEDS: Amoxicillin/Clavulanate TAB* 875 MG PO SCH ×2 (07:58→19:57)
[2017-05-03] MEDS: Thiamine TAB* 100 MG TAB PO SCH (07:58)
[2017-05-03] MEDS: Nicotine Inhaler* 10 MG AMP INH PRN ×2 (17:30→20:48)
--- NOTE | 2017-05-03 17:49 | PN ---
Subjective Date of Service: 05/03/17 Interval History: Patient seen and examined at bedside. Pt states that he has been having hallucinations. He feels as though the people around the hospital are here to hurt him and they may be putting stuff in his drinks. He was also afraid to tell me what town he lives in, in fear that I would send people to harm him at home. Denies fever, chills, shortness of breath, chest discomfort, N/V/D. He would like to get his arm fixed, he reports fracturing his right humerus last year and has not been able to get it fixed. Family History: Unchanged from Admission Social History: Unchanged from Admission Past Medical History: Unchanged from Admission Objective Active Medications: Acetaminophen (Tylenol Tab*) 650 mg PO Q4H PRN Reason: PAIN Amoxicillin/Clavulanate Potassium (Augmentin Tab*) 875 mg PO BID [facility] Chlordiazepoxide (Librium Cap*) 25 mg PO TID PRN Reason: AGITATION Device (Nicotine Mouth Piece*) 1 each INH .CARTRIDGE [facility] Folic Acid (Folvite Tab*) 1 mg PO DAILY [facility] Heparin Sodium (Porcine) (Heparin Vial(*)) 5,000 units SUBCUT Q8HR [facility] Lorazepam (Ativan Inj*) 0 mg IV PUSH Q2H PRN; Protocol Reason: ANXIETY Nicotine (Nicotine Inhaler*) 10 mg INH Q2H PRN Reason: CRAVING Thiamine HCl (Vitamin B-1 Tab*) 100 mg PO DAILY [facility] Vital Signs 05/02/17 05/02/17 05/02/17 18:14 19:29 19:36 Temperature 97.5 F Pulse Rate 115 Respiratory 30 20 22 Rate Blood Pressure 124/88 (mmHg) O2 Sat by Pulse 98 Oximetry 05/02/17 05/02/17 05/02/17 20:00 20:36 21:29 Temperature Pulse Rate 104 Respiratory 22 21 26 Rate Blood Pressure 112/81 (mmHg) O2 Sat by Pulse Oximetry 05/02/17 05/02/17 05/03/17 23:23 23:36 00:36 Temperature 98.2 F Pulse Rate 100 Respiratory 24 23 19 Rate Blood Pressure 125/84 (mmHg) O2 Sat by Pulse 96 Oximetry 05/03/17 05/03/17 05/03/17 01:38 03:29 05:30 Temperature 97.3 F 98.3 F 98.1 F Pulse Rate 94 91 95 Respiratory 16 16 16 Rate Blood Pressure 120/67 113/73 112/79 (mmHg) O2 Sat by Pulse 95 97 100 Oximetry 05/03/17 05/03/17 05/03/17 07:48 07:56 08:00 Temperature 97.9 F Pulse Rate 100 Respiratory 24 18 18 Rate Blood Pressure 107/79 (mmHg) O2 Sat by Pulse 95 Oximetry 05/03/17 05/03/17 05/03/17 10:14 12:19 14:42 Temperature 97.3 F 97.2 F Pulse Rate 93 96 97 Respiratory 20 18 20 Rate Blood Pressure 116/80 110/77 112/66 (mmHg) O2 Sat by Pulse 98 97 99 Oximetry 05/03/17 16:11 Temperature 97.4 F Pulse Rate 88 Respiratory 16 Rate Blood Pressure 115/75 (mmHg) O2 Sat by Pulse 100 Oximetry Oxygen Devices in Use Now: None Appearance: NAD, sitting up in a chair Ears/Nose/Mouth/Throat: Mucous Membranes Moist Respiratory: Symmetrical Chest Expansion and Respiratory Effort, Clear to Auscultation Cardiovascular: NL Sounds; No Murmurs; No JVD, RRR Abdominal: NL Sounds; No Tenderness; No Distention Extremities: No Edema Skin: No Rash or Ulcers Neurological: NL Muscle Strength and Tone, - - Alert and Oriented to person and time. Thinks he is in a hospital in [place]. Lines/Tubes/Other Access: Clean, Dry and Intact Peripheral IV - , site benign Nutrition: Taking PO's Result Diagrams: 04/27/17 16:20 04/27/17 16:20 Additional Lab and Data: Microbiology and Other Data: Microbiology 04/27/17 16:24 Aerobic Blood Culture - Preliminary Blood Venous No Growth Day 4 Anaerobic Blood Culture - Preliminary No Growth Day 4 Blood Culture - Final Assess/Plan/Problems-Billing Assessment: Mr. Newsome is a 62 year old male H alcohol abuse complicated by seizures and DTs who p/w alcohol intoxication, withdrawals and delirium tremens. - Patient Problems (1) Acute alcohol intoxication delirium with moderate or severe use disorder Code(s): F10.921 - ALCOHOL USE, UNSPECIFIED WITH INTOXICATION DELIRIUM SNOMED Code(s): 50247253 Comment: - Continue WAM, prn ativan, and librium 25mg TID prn (2) Alcohol withdrawal Code(s): F10.239 - ALCOHOL DEPENDENCE WITH WITHDRAWAL, UNSPECIFIED SNOMED Code (s): 816187138 Comment: - plan as above, Continue thiamine. (3) Tachypnea Code(s): R06.82 - TACHYPNEA, NOT ELSEWHERE CLASSIFIED SNOMED Code(s): 823702471 Comment: - CXR which was clear - Empirically treated for aspiration given worsening cough, tachpynea, tachycardia (though could be from withdrawal still) - Continue augmentin (4) Depression Status: Chronic Code(s): F32.9 - MAJOR DEPRESSIVE DISORDER, SINGLE EPISODE, UNSPECIFIED SNOMED Code(s): 98474083 Comment: - Resume duloxetine. (5) HTN (hypertension) Current Visit: No Status: Chronic Code(s): I10 - ESSENTIAL (PRIMARY) HYPERTENSION SNOMED Code(s): 93452957 Comment: -Normotensive (6) Tobacco abuse Code(s): Z72.0 - TOBACCO USE SNOMED Code(s): 234411556 Comment: - Nicotine inhaler PRN. (7) DVT prophylaxis Code(s): [id number] - SNOMED Code(s): 733042482 Comment: - SQ Heparin (8) Full code status Code(s): Z78.9 - OTHER SPECIFIED HEALTH STATUS SNOMED Code(s): 637174761 Status and Disposition: Inpatient. Possible discharge to home in the AM.
[2017-05-03] MEDS: Acetaminophen TAB* 325 MG PO PRN (19:57)
[2017-05-03] MEDS: Mouth Piece, Nicotine* 1 EACH CARTRIDGE INH SCH (20:51)
[2017-05-04] MEDS: Heparin VIAL(*) 5000 UNITS/ML VIAL (FIVE THOUSAND) SUBCUT SCH (05:33)
[2017-05-04 06:13] LABS: Hematocrit 37 % (42-52); Hemoglobin 12.9 g/dl (14.0-18.0); Mean Corpuscular HGB Conc 35 g/dl (31-36); Mean Corpuscular Hemoglobin 34 pg (27-31); Mean Corpuscular Volume 99 fL (80-94); Mean Platelet Volume 10 um3 (7.4-10.4); Red Blood Count 3.78 10^6/ul (4.0-5.4); Red Cell Distribution Width 13 % (10.5-15); White Blood Count 4.5 10^3/ul (3.5-10.8)
[2017-05-04 06:30] LABS: BUN/Creatinine Ratio 19.7 (8-20); Calcium 9.1 mg/dL (8.6-10.3); EGFR African American 144.6 (>60); EGFR Non-African American 112.4 (>60); Magnesium 1.8 mg/dL (1.9-2.7); Potassium 3.4 mmol/L (3.5-5.0)
[2017-05-04] MEDS ORDERED: Magnesium Sulfate 2 GM IV* 2 GM/50 ML BAG IVPB ONE (08:05)
[2017-05-04] MEDS ORDERED: Potassium Chlor TAB* 20 MEQ TAB.ER PO ONE (08:05)
[2017-05-04] MEDS: Folic Acid TAB* 1 MG PO SCH (08:20)
[2017-05-04] MEDS: Thiamine TAB* 100 MG TAB PO SCH (08:20)
[2017-05-04] MEDS: Amoxicillin/Clavulanate TAB* 875 MG PO SCH (08:20)
[2017-05-04 08:31] VITALS: BP 107/72
[2017-05-04] MEDS ORDERED: DULoxetine DR CAP* 30 MG CAP.DR PO SCH (09:00)
--- NOTE | 2017-05-04 10:14 | PN ---
Subjective Date of Service: 05/04/17 Interval History: Patient seen and examined at bedside. Denies fever, chills, shortness of breath , chest discomfort, N/V/D. Pt is anxious to get home today. Denies hallucinations and paranoia today. Family History: Unchanged from Admission Social History: Unchanged from Admission Past Medical History: Unchanged from Admission Objective Active Medications: Acetaminophen (Tylenol Tab*) 650 mg PO Q4H PRN Reason: PAIN Amoxicillin/Clavulanate Potassium (Augmentin Tab*) 875 mg PO BID [facility] Chlordiazepoxide (Librium Cap*) 25 mg PO TID PRN Reason: AGITATION Device (Nicotine Mouth Piece*) 1 each INH .CARTRIDGE [facility] Duloxetine HCl (Cymbalta Cap*) 60 mg PO DAILY [facility] Folic Acid (Folvite Tab*) 1 mg PO DAILY [facility] Heparin Sodium (Porcine) (Heparin Vial(*)) 5,000 units SUBCUT Q8HR [facility] Lorazepam (Ativan Inj*) 0 mg IV PUSH Q2H PRN; Protocol Reason: ANXIETY Nicotine (Nicotine Inhaler*) 10 mg INH Q2H PRN Reason: CRAVING Thiamine HCl (Vitamin B-1 Tab*) 100 mg PO DAILY [facility] Vital Signs 05/03/17 05/03/17 05/03/17 10:14 12:19 14:42 Temperature 97.3 F 97.2 F Pulse Rate 93 96 97 Respiratory 20 18 20 Rate Blood Pressure 116/80 110/77 112/66 (mmHg) O2 Sat by Pulse 98 97 99 Oximetry 05/03/17 05/03/17 05/03/17 16:11 18:12 19:33 Temperature 97.4 F 98.3 F 97.3 F Pulse Rate 88 98 90 Respiratory 16 18 20 Rate Blood Pressure 115/75 111/92 114/77 (mmHg) O2 Sat by Pulse 100 100 100 Oximetry 05/03/17 05/03/17 05/04/17 20:30 22:09 00:01 Temperature 98.0 F 97.3 F Pulse Rate 80 76 Respiratory 20 20 16 Rate Blood Pressure 119/74 108/70 (mmHg) O2 Sat by Pulse 99 100 Oximetry 05/04/17 05/04/17 03:06 08:29 Temperature 98.1 F 97.6 F Pulse Rate 86 91 Respiratory 16 18 Rate Blood Pressure 107/65 107/72 (mmHg) O2 Sat by Pulse 100 100 Oximetry Oxygen Devices in Use Now: None Appearance: NAD, standing in room Ears/Nose/Mouth/Throat: Mucous Membranes Moist Respiratory: Symmetrical Chest Expansion and Respiratory Effort, Clear to Auscultation Cardiovascular: NL Sounds; No Murmurs; No JVD, RRR Abdominal: NL Sounds; No Tenderness; No Distention Extremities: No Edema Skin: No Rash or Ulcers Neurological: Alert and Oriented x 3, NL Muscle Strength and Tone Lines/Tubes/Other Access: Clean, Dry and Intact Peripheral IV - site benign Nutrition: Taking PO's Result Diagrams: 05/04/17 05:59 05/04/17 05:59 Additional Lab and Data: Microbiology and Other Data: Microbiology 04/27/17 16:24 Aerobic Blood Culture - Preliminary Blood Venous No Growth Day 4 Anaerobic Blood Culture - Preliminary No Growth Day 4 Blood Culture - Final Assess/Plan/Problems-Billing Assessment: Mr. Newsome is a 62 year old male H alcohol abuse complicated by seizures and DTs who p/w alcohol intoxication, withdrawals and delirium tremens. - Patient Problems (1) Acute alcohol intoxication delirium with moderate or severe use disorder Code(s): F10.921 - ALCOHOL USE, UNSPECIFIED WITH INTOXICATION DELIRIUM SNOMED Code(s): 05722929 Comment: - Continue WAM, prn ativan, and librium 25mg TID prn (2) Alcohol withdrawal Code(s): F10.239 - ALCOHOL DEPENDENCE WITH WITHDRAWAL, UNSPECIFIED SNOMED Code (s): 921786345 Comment: - plan as above, Continue thiamine. (3) Tachypnea Code(s): R06.82 - TACHYPNEA, NOT ELSEWHERE CLASSIFIED SNOMED Code(s): 863151334 Comment: - Resolved - CXR which was clear - Empirically treated for aspiration (given worsening cough, tachpynea, tachycardia, though could be from withdrawal still) - Discontinue augmentin (4) Depression Status: Chronic Code(s): F32.9 - MAJOR DEPRESSIVE DISORDER, SINGLE EPISODE, UNSPECIFIED SNOMED Code(s): 88110159 Comment: - Resume duloxetine. (5) HTN (hypertension) Current Visit: No Status: Chronic Code(s): I10 - ESSENTIAL (PRIMARY) HYPERTENSION SNOMED Code(s): 33612270 Comment: -Normotensive (6) Tobacco abuse Code(s): Z72.0 - TOBACCO USE SNOMED Code(s): 975519846 Comment: - Nicotine inhaler PRN. (7) DVT prophylaxis Code(s): [id number] - SNOMED Code(s): 601470485 Comment: - SQ Heparin (8) Full code status Code(s): Z78.9 - OTHER SPECIFIED HEALTH STATUS SNOMED Code(s): 517291340 Status and Disposition: Inpatient. Stable for discharge to home today.
[2017-05-04] MEDS: Nicotine Inhaler* 10 MG AMP INH PRN (12:23)
--- NOTE | 2017-05-05 09:35 | DS ---
CC: Heriberto Jang MD * DISCHARGE SUMMARY: DATE OF ADMISSION: 04/27/17 DATE OF DISCHARGE: 05/04/17 ATTENDING PHYSICIAN: Yuliet Stallworth DO * (dictated by Shahid Bernal NP) PRIMARY CARE PROVIDER: Heriberto Jang MD PRIMARY DIAGNOSES: 1. Alcohol intoxication and alcohol withdrawal with delirium tremens. 2. Nausea, vomiting, resolved. 3. Suspected aspiration pneumonitis. SECONDARY DIAGNOSES: 1. Depression. 2. Hypertension. 3. Tobacco abuse. CONSULTATIONS WHILE IN THE HOSPITAL: Dr. Efraín Montez with Psychiatry. STUDIES WHILE IN THE HOSPITAL: Right elbow x-ray on 04/28/17. Radiologist's impression: Normal radiograph of the right elbow. Chest x-ray on 05/01/17. Radiologist's impression: No active disease. DISCHARGE MEDICATIONS: Continued home medications: 1. Folic acid 1 mg oral daily. 2. Thiamine 100 mg oral daily. 3. Albuterol HFA inhaler 2 puffs inhalation 3 times daily as needed for shortness of breath. 4. Cymbalta 60 mg oral daily. Discontinued home medications: Keppra. HISTORY OF PRESENT ILLNESS/HOSPITAL COURSE: Mr. Newsome is a 62-year-old male with past medical history significant for COPD, osteomyelitis, chronic low back pain, alcoholism with history of delirium tremens, withdrawal seizures, who presented to the hospital via EMS with complaints of vomiting and diarrhea. The patient reported some possible blood in his vomit at home. To note, the patient was here in November of this year with alcohol withdrawal seizures requiring intubation. On arrival to the emergency room, the patient was shaking. He was provided with Ativan and had been drowsy ever since. While in the emergency room, the patient had labs showing a hemoglobin of 15 and a hematocrit of 43, platelet count of 143. He had a chemistry showing a sodium of 137, potassium 3.5 , chloride 98, CO2 20, BUN 8, and creatinine 0.81, glucose 100. Toxicology showed a serum alcohol level of 81. Due to the patient's presentation, the Hospitalists were asked to evaluate him for admission. During the patient's hospitalization, he went through alcohol withdrawal. He was placed on a WAM protocol. He was requiring Ativan and Librium. During his stay, he was noted to be tachypneic, have tachycardia. It was felt this could be withdrawal. He had a chest x-ray on 05/01/17 that showed no active cardiopulmonary disease, but he was empirically started on Augmentin for possible aspiration pneumonia. The patient had Librium decreased as he was oversedated. At one point during his stay, the patient was trying to leave against medical advice. He was deemed to lack capacity at that time and it was felt that he did not have capacity to make his own medical decisions and leave the hospital. The patient, at that time, had denied any suicidal ideation. The patient continued to slowly improve, becoming more alert and oriented and less agitated and restless. The patient was able to walk around, ambulate with a straight gait, he took a shower and felt that he was ready for discharge to home. It was discussed with the patient about stopping drinking. He does not want to go to Alcoholics Anonymous, but was willing to go to the [facility] for treatment of his depression and alcohol abuse. It was felt that the patient was in a good state of mind and he was able to take care of himself in the outpatient setting. According to the patient, he is currently only on duloxetine, a multivitamin, vitamin Thiamine, and folic acid in addition to his inhaler. He denied taking any other medications currently. The patient is interested in trying to get his left arm repaired after a humerus fracture, but states that he is unsure of orthopedic surgeon willing to operate on him. Mr. Newsome is stable for discharge to home today. Vital signs are as follows: Temperature 97.6, heart rate 91, respiratory rate 18, O2 sat 100% on room air, blood pressure 107/72. DISCHARGE PLAN: Mr. Newsome will be discharged back to his boarding house where he currently rents a room. The patient is not interested in outpatient rehab at this time or Alcoholics Anonymous. The patient is agreeable to returning to the [facility] for counselling and has been encouraged to call and make himself an appointment. ACTIVITY: He can be activity as tolerated. DIET: Regular diet. As far as the patient's depression, he has been continued on his home Cymbalta. As far as his alcohol abuse, he has been encouraged to continue to take Thiamine, folic acid, and a multivitamin. The patient has been encouraged to stop smoking and drinking alcohol. The patient has been asked to return to the emergency room for any chest pain, shortness of breath. The patient has a followup appointment with Dr. Jang on 05/07/17 at 11:10 a.m. This is a summarized report of a complex medical history and hospital stay. For further details, please see the entire medical record. TIME SPENT: Time for this discharge was approximately 50 minutes, greater than half of that was spent [id number] with the patient discussing discharge plans and instructions. CONDITION ON DISCHARGE: Stable. SHAHID BERNAL, ANTHONY [id number]/[facility] #: [id number] KEANU
== END 2017-05-04 12:45 | disposition home or self-care (01) | DRG 775 ==
LOC: ED 15:30 → MED 19:13
PROVIDERS: ADMIT Internal Medicine; ATTEND Internal Medicine
DX: F10.239 Alcohol dependence with withdrawal, unspecified (principal); J69.0 Pneumonitis due to inhalation of food and vomit; F10.221 Alcohol dependence with intoxication delirium; G40.509 Epileptic seizures related to external causes, not intractable, without status epilepticus; Y90.4 Blood alcohol level of 80-99 mg/100 ml; F32.9 Major depressive disorder, single episode, unspecified; I10 Essential (primary) hypertension; F17.210 Nicotine dependence, cigarettes, uncomplicated; J44.9 Chronic obstructive pulmonary disease, unspecified; M54.5 Low back pain; Z82.49 Family history of ischemic heart disease and other diseases of the circulatory system; R06.82 Tachypnea, not elsewhere classified
CPT/HCPCS: 36415; 71010; 80048; 80053; 80307; 80320; 80329; 81003; 81015; 83735; 84443; 84484; 85025; 87040; 93005; 99406; A9270-GY; G0480; J0696; J1630; J1644; J2060; J3411; J3475; J3486

== ENCOUNTER 2017-05-21 13:54 | Emergency (ER) | payer OTHER ==
[2017-05-21] MEDS ORDERED: Ondansetron INJ* 2 MG/ML VIAL IV ONE (15:23)
[2017-05-21] MEDS ORDERED: Famotidine IV* 10 MG/ML 2 ML (20 mg) IV ONE (15:23)
[2017-05-21] MEDS ORDERED: NS 0.9% 1000 ML* 1,000 ML IV ONE (15:23)
--- NOTE | 2017-05-21 16:06 | RAD ---
Indication: Lower abdominal pain. CT of the abdomen and pelvis was performed without oral or IV contrast demonstration. Coronal and sagittal reconstructed images were obtained. Lung bases demonstrate no pleural fluid, nodules or masses. Heart is of normal size without evidence of pericardial effusion. The liver is normal in size. It is diffusely decreased in density consistent with hepatic steatosis. The gallbladder demonstrates no calcified gallstones. No pericholecystic fluid or wall thickening is identified. The pancreas demonstrates no mass or pancreatic duct dilatation. Common duct is not dilated. The spleen is normal in size. No adrenal masses are noted. The kidneys demonstrate symmetric nephrograms without hydronephrosis. No retroperitoneal lymphadenopathy is noted. CT of the pelvis demonstrates no evidence of pelvic adenopathy. The prostate is otherwise unremarkable. Calcification is noted in the prostate. No hernias are noted. IMPRESSION: No evidence of obstructive uropathy is noted. Evidence of prior prostatitis. Hepatic steatosis.
[2017-05-21 16:19] VITALS: BP 131/93
[2017-05-21 16:23] LABS: Hematocrit 42 % (42-52); Hemoglobin 14.4 g/dl (14.0-18.0); Mean Corpuscular HGB Conc 34 g/dl (31-36); Mean Corpuscular Hemoglobin 34 pg (27-31); Mean Corpuscular Volume 99 fL (80-94); Mean Platelet Volume 10 um3 (7.4-10.4); Red Blood Count 4.25 10^6/ul (4.0-5.4); Red Cell Distribution Width 13 % (10.5-15)
[2017-05-21 16:45] LABS: Albumin 4.5 g/dL (3.2-5.2); BUN/Creatinine Ratio 15.4 (8-20); C Reactive Protein 6.79 mg/L (< 5.00); EGFR African American 160.1 (>60); EGFR Non-African American 124.5 (>60); Globulin 3.4 g/dL (2-4); Potassium 4.2 mmol/L (3.5-5.0); Total Bilirubin 0.6 mg/dL (0.2-1.0); Total Protein 7.9 g/dL (6.4-8.9)
--- NOTE | 2017-05-23 08:22 | ED ---
Osvaldo Cole Angela, scribed for Ziyad Nagy MD on 05/21/17 at 1523 . Abdominal Pain/Male - HPI Summary HPI Summary: This pt is a 62 y/o male presenting to [facility] c/o abd pain, nausea and vomiting since 3-4 hours [employer]. Pt states he has some constipation and headache. He denies diarrhea. Pt states drinking about 4 ounces of alcohol today prior to onset of symptoms. PMHx: stomach ulcer, "kidney problems." Pt has chronic back and left shoulder pain. - History of Current Complaint Chief Complaint: EDAbdPain Stated Complaint: ABD PAIN Time Seen by Provider: 05/21/17 14:41 Hx Obtained From: Patient Onset/Duration: Lasting Hours Timing: Lasting Hours Severity Initially: Moderate Severity Currently: Moderate Pain Intensity: 4 Pain Scale Used: 0-10 Numeric Location: Diffuse Radiates: No Aggravating Factor(s): Other: - alcohol Alleviating Factor(s): Nothing Associated Signs And Symptoms: Positive: Constipation, Nausea, Vomiting, Other - headache. Negative: Diarrhea - Allergies/Home Medications Allergies/Adverse Reactions: Allergies Allergy/AdvReac Type Severity Reaction Status Date / Time No Known Allergies Allergy Verified 04/03/16 10:57 PMH/Surg Hx/FS Hx/Imm Hx Endocrine/Hematology History: Reports: Hx Anemia - Mild macrocytic anemia Denies: Hx Anticoagulant Therapy, Hx Diabetes Cardiovascular History: Reports: Hx Hypertension Denies: Hx Congestive Heart Failure, Hx Myocardial Infarction, Hx Pacemaker/ ICD Respiratory History: Reports: Hx Chronic Obstructive Pulmonary Disease (COPD), Hx Pneumonia GI History: Reports: Hx Gastroesophageal Reflux Disease History: Denies: Hx Renal Disease Musculoskeletal History: Reports: Other Musculoskeletal History - Pt. states fx of right arm that needs to be examined by a DrJoseline Denies: Hx Arthritis, Hx Gout Sensory History: Reports: Hx Cataracts, Hx Contacts or Glasses, Hx Eye Injury, Hx Eye Prosthesis, Hx Legally Blind, Hx Deafness, Other Sensory Impairments - Has R eye prosthesis, Blind OD s/p enucleation defect Denies: Hx Hearing Aid Opthamlomology History: Reports: Hx Cataracts, Hx Contacts or Glasses, Hx Eye Injury, Hx Eye Prosthesis, Hx Legally Blind, Other Sensory Impairments - Has R eye prosthesis, Blind OD s/p enucleation defect Neurological History: Reports: Hx Headaches, Hx Seizures - Alcohol withdrawal Psychiatric History: Reports: Hx Anxiety, Hx Depression, Hx Community Mental Health Tx, Hx Substance Abuse Denies: Hx Attention Deficit Hyperactivity Disorder, Hx Eating Disorder, Hx Panic Disorder, Hx Post Traumatic Stress Disorder, Hx Inpatient Treatment, Hx Schizophrenia, Hx Bipolar Disorder, Hx Suicide Attempt, Hx of Violent Episodes Against Others, Other Psychiatric Issues/Disorders - Surgical History Surgery Procedure, Year, and Place: RT EYE PROSTHESIS Glass eye prev cleared by xray;. right wrist I&D - Immunization History Date of Tetanus Vaccine: unsure Date of Influenza Vaccine: none Infectious Disease History: No Infectious Disease History: Denies: Hx Human Immunodeficiency Virus (HIV), Hx of Known/Suspected MRSA, Traveled Outside the [place] in Last 30 Days - Family History Known Family History: Positive: Other - cancer. alcoholism. - Social History Alcohol Use: Daily Alcohol Amount: Pt states 2-3 beers daily Hx Substance Use: Yes Substance Use Type: Reports: None, Marijuana Substance Use Comment - Amount & Last Used: Pt. states that his last drink was at 2200 on 01/16/17, two 24 oz beers Hx Tobacco Use: Yes Smoking Status (MU): Heavy Every Day Tobacco Smoker Type: Cigarettes Amount Used/How Often: PACK OH DAY Have You Smoked in the Last Year: Yes Review of Systems Negative: Fever, Chills Eyes: Negative ENT: Negative Cardiovascular: Negative Gastrointestinal: Other - constipation Positive: Abdominal Pain, Vomiting, Nausea. Negative: Diarrhea Genitourinary: Negative Positive: Other - chronic back pain, left shoulder pain Positive: Headache All Other Systems Reviewed And Are Negative: Yes Physical Exam - Summary Physical Exam Summary: VITAL SIGNS: Reviewed. GENERAL: Patient is a well-developed and nourished male who is lying comfortable in the stretcher. Patient is not in any acute respiratory distress. HEAD AND FACE: Normocephalic and atraumatic. EYES: PERRLA, EOMI, No injected conjunctiva. Pt has a right glass eye. EARS: Hearing grossly intact. Ear canals and tympanic membranes are WNL. MOUTH: Oropharynx within normal limits. NECK: Supple, trachea is midline, no adenopathy, no JVD. CHEST: Symmetric, no tenderness at palpation LUNGS: Clear to auscultation bilaterally. No wheezing or crackles. CVS: RRR, S1 and S2 present, no murmurs or gallops appreciated. ABDOMEN: Soft. Pt has diffuse abd tenderness. No signs of distention. Positive bowel sounds. No rebound no guarding, and no masses palpated. No abdominal bruit or pulsations. EXTREMITIES: FROM in all major joints, no edema, no cyanosis or clubbing. NEURO: Alert and oriented x 3. No acute neurological deficits. Speech is normal. SKIN: Dry and warm Triage Information Reviewed: Yes Vital Signs On Initial Exam: Initial Vitals Temp Pulse Resp BP Pulse Ox 97.1 F 110 17 115/78 98 05/21/17 14:08 05/21/17 14:08 05/21/17 14:08 05/21/17 14:08 05/21/17 14:08 Vital Signs Reviewed: Yes Diagnostics - Vital Signs Vital Signs Temp Pulse Resp BP Pulse Ox 05/21/17 14:15 108 13 97 05/21/17 14:08 97.1 F 110 17 115/78 98 - Laboratory Result Diagrams: 05/21/17 16:00 05/21/17 16:00 Lab Statement: Any lab studies that have been ordered have been reviewed, and results considered in the medical decision making process. - CT Abdomen/pelvis CT CT Interpretation: No Acute Changes - IMPRESSION: No evidence of obstructive uropathy is noted. Evidence of prior prostatitis. Hepatic steatosis. ED physician has reviewed this radiology report and agrees. CT Interpretation Completed By: Radiologist - EKG 1529 Cardiac Rate: Tachycardia - 107 bpm EKG Rhythm: Sinus Rhythm EKG Interpretation: No ST elevation EKG Comparison: No Significant Change - from priot on 04/27/17. 1758 Cardiac Rate: Tachycardia - 102 bpm EKG Rhythm: Sinus Rhythm EKG Interpretation: No ST elevation Re-Evaluation - Re-Evaluation First Eval Re-Evaluation Time: 18:01 Comment: I discussed the CT results with the pt. Abdominal Pain Fem Course/Dx - Course Assessment/Plan: This pt is a 62 y/o male presenting to [facility] c/o abd pain, nausea and vomiting since 3-4 hours [employer]. Pt states he has some constipation and headache. He denies diarrhea. Pt states drinking about 4 ounces of alcohol today prior to onset of symptoms. PMHx: stomach ulcer, "kidney problems." Pt has chronic back and left shoulder pain. Test results are at his baseline, including increased LFTs. CRP is 6.7. Since the pt came with bilateral flank pain and abdominal pain I did an abdominen/pelvis CT. Abd/pel CT shows no evidence of obstructive uropathy is noted. Evidence of prior prostatitis. Hepatic steatosis. The pt was given Zofran for the nausea and his symptoms improved. The pt reported an episode of sharp pain with movement with radiation to his chest. Second EKG is negative. The sharp pain lasted only 1-2 seconds but resolved. Therefore I have no suspicion for acute coronary syndrome. Since the pt is feeling better the pt will be discharged home. Pt is hemodynamically stable, alert and oriented x3. - Diagnoses Provider Diagnoses: Abdominal pain Discharge - Discharge Plan Condition: Stable Disposition: HOME Prescriptions: Ondansetron TAB* [Zofran 4 MG Tab*] 4 mg PO Q6H PRN #10 tab PRN Reason: Vomiting Patient Education Materials: Abdominal Pain (ED) Referrals: Heriberto Jang MD [Primary Care Provider] - Additional Instructions: Please follow up with your primary care provider. The documentation as recorded by the Osvaldo melton Angela accurately reflects the service I personally performed and the decisions made by , Ziyad Nagy MD.
== END 2017-05-21 18:17 | disposition home or self-care (01) ==
LOC: ED 13:54
DX: R10.84 Generalized abdominal pain (principal); R11.2 Nausea with vomiting, unspecified; K59.00 Constipation, unspecified; R51 Headache; R00.0 Tachycardia, unspecified; K76.0 Fatty (change of) liver, not elsewhere classified; D53.9 Nutritional anemia, unspecified; I10 Essential (primary) hypertension; J44.9 Chronic obstructive pulmonary disease, unspecified; K21.9 Gastro-esophageal reflux disease without esophagitis; F41.9 Anxiety disorder, unspecified; F32.9 Major depressive disorder, single episode, unspecified; F17.210 Nicotine dependence, cigarettes, uncomplicated
CPT/HCPCS: 36415; 74176; 80053; 83690; 85025; 86140; 93005; 96361; 96374; 96375; 99282; J2405

== ENCOUNTER 2017-06-21 02:28 | Emergency (ER) | payer OTHER ==
[2017-06-21] MEDS ORDERED: Aspirin Low Dose CHEW TAB* 81 MG PO ONE (02:50)
[2017-06-21] MEDS ORDERED: Morphine INJ* 4 MG/ML 1 ML CARPUJECT IV ONE (02:53)
[2017-06-21] MEDS ORDERED: Metoclopramide IV* 5 MG/ML 2 ML VIAL IV SLOW PU ONE (02:54)
[2017-06-21 03:38] LABS: Hematocrit 44 % (42-52); Hemoglobin 15.1 g/dl (14.0-18.0); Mean Corpuscular HGB Conc 35 g/dl (31-36); Mean Corpuscular Hemoglobin 34 pg (27-31); Mean Corpuscular Volume 98 fL (80-94); Mean Platelet Volume 10 um3 (7.4-10.4); Red Blood Count 4.45 10^6/ul (4.0-5.4); Red Cell Distribution Width 13 % (10.5-15)
[2017-06-21 03:49] LABS: Albumin 4.6 g/dL (3.2-5.2); BUN/Creatinine Ratio 14.7 (8-20); Calcium 10.3 mg/dL (8.6-10.3); EGFR African American 135.7 (>60); EGFR Non-African American 105.5 (>60); Globulin 3.1 g/dL (2-4); Magnesium 1.5 mg/dL (1.9-2.7); Potassium 3.6 mmol/L (3.5-5.0); Total Bilirubin 1.2 mg/dL (0.2-1.0); Total Protein 7.7 g/dL (6.4-8.9)
[2017-06-21 03:50] LABS: Troponin I 0.01 ng/mL (<0.04)
[2017-06-21] MEDS ORDERED: Magnesium Sulfate 2 GM IV* 2 GM/50 ML BAG IVPB ONE (04:05)
[2017-06-21] MEDS ORDERED: Iohexol 350* (CONTRAST) 500 ML MDV IV ONE (04:27)
--- NOTE | 2017-06-21 07:39 | RAD ---
HISTORY: Chest pain COMPARISONS: May 01, 2017 VIEWS: 1: frontal portable view of the chest at 3:15 AM FINDINGS: LINES AND TUBES: None. CARDIOMEDIASTINAL SILHOUETTE: The cardiomediastinal silhouette is normal for portable technique. PLEURA: The costophrenic angles are sharp. No pleural abnormalities are noted. LUNG PARENCHYMA: The lungs are clear. ABDOMEN: The upper abdomen is clear. There is no subphrenic gas. BONES AND SOFT TISSUES: No bone or soft tissue abnormalities are noted. IMPRESSION: NO ACTIVE CARDIOPULMONARY DISEASE.
--- NOTE | 2017-06-21 07:46 | RAD ---
HISTORY: Vomiting, chest pain, rule out pulmonary wasn't COMPARISONS: November 11, 2016 TECHNIQUE: Multiple contiguous axial CT scans of the chest were obtained without intravenous contrast. Coronal and sagittal multiplanar reformations are also submitted for review. FINDINGS: NECK AND THYROID: The lower neck and thyroid are unremarkable. CHEST WALL: There is no lower cervical, axillary, or supraclavicular lymphadenopathy by size criteria. HEART AND PERICARDIUM: The heart is unremarkable. AORTA AND PULMONARY VASCULATURE: There is no pulmonary arterial filling defect to suggest pulmonary embolism. There is no linear filling defect within the aorta to suggest aortic dissection. MEDIASTINUM: There is no mediastinal lymphadenopathy by size criteria. RAFFAELE: There is no hilar lymphadenopathy by size criteria. AIRWAY AND ESOPHAGUS: The airway is unremarkable, without endobronchial filling defect. The esophagus is grossly normal. LUNG PARENCHYMA: The lungs are clear. PLEURA: No pleural abnormalities are noted. UPPER ABDOMEN: There is fatty infiltration of the liver BONES AND SOFT TISSUES: Degenerative changes are noted. There is a chronic appearing fracture of the left eighth rib. OTHER: None. IMPRESSION: 1. NO PULMONARY ARTERIAL FILLING DEFECT TO SUGGEST PULMONARY EMBOLISM. 2. CHRONIC APPEARING LEFT EIGHTH RIB FRACTURE.
[2017-06-21 07:48] VITALS: BP 136/82
[2017-06-21] MEDS ORDERED: Ondansetron INJ* 2 MG/ML VIAL IV ONE (08:31)
--- NOTE | 2017-06-21 11:50 | ED ---
Marianela Cole Alfonso, scribed for Ziyad Nagy MD on 06/21/17 at 0927 . Progress - Progress Note Progress Note: This patient was signed out from Dr. Jones, pending disposition, awaiting social work consult. Pt given Zofran for N/V and his symptoms completely resolved. Tolerating PO very well. He declined Social work assessment because he has an outpatient social services assistant and an appointment for later today. He requests to be discharge. Therefore he will be discharged to home with PCP follow up The patients condition is stable and he will be discharged to home with Dx of nausea and vomiting. Course/Dx - Diagnoses Provider Diagnoses: Nausea and vomiting The documentation as recorded by the Marianela melton Alfonso accurately reflects the service I personally performed and the decisions made by , Ziyad Nagy MD.
== END 2017-06-21 09:39 | disposition home or self-care (01) ==
LOC: ED 02:28
DX: R11.2 Nausea with vomiting, unspecified (principal); R07.9 Chest pain, unspecified
CPT/HCPCS: 36415; 71010; 71275; 80053; 82150; 82550; 83690; 83735; 84484; 85025; 85379; 85610; 85730; 93005; 96374; 96375; 99283; A9270-GY; J2270; J2405; J2765; J3475; Q9967

== ENCOUNTER 2017-06-24 17:58 | Emergency (ER) | payer OTHER ==
[2017-06-24 18:04] VITALS: BP 130/84
--- NOTE | 2017-06-24 19:06 | RAD ---
indication: Fall. + EtOH. 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 COMPARISON: Most recent CT of the brain December 23, [address] scan of the brain and c-spine was performed without intravenous contrast enhancement. Contiguous axial sections were obtained from the lung apices through the vertex. BRAIN: The consistent with reported history. 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 The right globe prosthesis seen on prior CT examinations is not seen today. The ventricles, cisterns and sulci are within normal limits. No significant focal abnormality or mass effect is seen. The chang-white differentiation is adequately maintained. There is no evidence for intracranial hemorrhage. No significant bony abnormality is present. The mastoid air cells are appropriately aerated. The visualized paranasal sinuses are clear. C-SPINE: There is straightening of the normal cervical lordosis similar in appearance to the prior CT examination. The vertebral bodies and facet joints are otherwise appropriately aligned. There is no acute fracture. The dens is intact. There is no atlantodental widening. Multilevel degenerative changes of the cervical spine includes loss of intervertebral disc height at multiple levels most severely affecting C6/C7. On the coronal view images there is uncovertebral hypertrophy at the same levels. There is no hyperdense material in the cervical canal to indicate hemorrhage. The visualized musculature and soft tissues are normal. There is no gross lymphadenopathy visualized. Similar to the prior CT examination the lung apices exhibit centrilobular emphysematous changes and subpleural bullae. IMPRESSION: 1. No CT evidence of acute calvarial fracture or intracranial hemorrhage. 2. Consistent with the patient's reported history, the right globe prosthesis is absent. 2. Stable multilevel degenerative changes of the cervical spine without acute fracture or dislocation.
[2017-06-24] MEDS ORDERED: Al Hydrox/Mg Hydrox/Simet LIQ* 30 ML UDC ONE (19:58)
[2017-06-24] MEDS ORDERED: Al Hydrox/Mg Hydrox/Simet LIQ* 30 ML UDC PO ONE (19:59)
--- NOTE | 2017-06-24 21:53 | ED ---
Margo Cole SooYoung, scribed for Ryland Pierce MD on 06/24/17 at 1806 . Substance Abuse/Use - HPI Summary HPI Summary: LEVEL 5 CAVEAT: HPI LIMITED DUE TO PT CONDITION, ETOH A 62 y/o M LI presents to ED after possible fall. Per EMS, friend called ambulance and stated pt was reaching for something "and BOOM." Pt was alert on scene, but not fully oriented. Pt has been drinking. Pt has no complaints, denies LAURENT, neck pain. Pt has a R glass eye that is missing. - History Of Current Complaint Chief Complaint: EDSubstanceAbuse Stated Complaint: ETOH Time Seen by Provider: 06/24/17 17:59 Hx Obtained From: EMS - Allergies/Home Medications Allergies/Adverse Reactions: Allergies Allergy/AdvReac Type Severity Reaction Status Date / Time No Known Allergies Allergy Verified 06/21/17 02:35 PMH/Surg Hx/FS Hx/Imm Hx Previously Healthy: No Endocrine/Hematology History: Reports: Hx Anemia - Mild macrocytic anemia Denies: Hx Anticoagulant Therapy, Hx Diabetes Cardiovascular History: Reports: Hx Hypertension Denies: Hx Congestive Heart Failure, Hx Myocardial Infarction, Hx Pacemaker/ ICD Respiratory History: Reports: Hx Chronic Obstructive Pulmonary Disease (COPD), Hx Pneumonia GI History: Reports: Hx Gastroesophageal Reflux Disease History: Reports: Hx Renal Disease Denies: Hx Dialysis Musculoskeletal History: Reports: Other Musculoskeletal History - Pt. states fx of right arm that needs to be examined by a Dr. Denies: Hx Arthritis, Hx Gout Sensory History: Reports: Hx Cataracts, Hx Contacts or Glasses, Hx Eye Injury, Hx Eye Prosthesis, Hx Legally Blind, Hx Deafness, Other Sensory Impairments - Has R eye prosthesis, Blind OD s/p enucleation defect Denies: Hx Hearing Aid Opthamlomology History: Reports: Hx Cataracts, Hx Contacts or Glasses, Hx Eye Injury, Hx Eye Prosthesis, Hx Legally Blind, Other Sensory Impairments - Has R eye prosthesis, Blind OD s/p enucleation defect Neurological History: Reports: Hx Headaches, Hx Seizures - Alcohol withdrawal Psychiatric History: Reports: Hx Anxiety, Hx Depression, Hx Community Mental Health Tx, Hx Substance Abuse Denies: Hx Attention Deficit Hyperactivity Disorder, Hx Eating Disorder, Hx Panic Disorder, Hx Post Traumatic Stress Disorder, Hx Inpatient Treatment, Hx Schizophrenia, Hx Bipolar Disorder, Hx Suicide Attempt, Hx of Violent Episodes Against Others, Other Psychiatric Issues/Disorders - Surgical History Surgery Procedure, Year, and Place: RT EYE PROSTHESIS Glass eye prev cleared by xray;. right wrist I&D - Immunization History Date of Tetanus Vaccine: unk Date of Influenza Vaccine: unk Infectious Disease History: No Infectious Disease History: Denies: Hx Human Immunodeficiency Virus (HIV), Hx of Known/Suspected MRSA, Traveled Outside the [place] in Last 30 Days - Family History Known Family History: Positive: Unknown - level v caveat: pt is intoxicated and unable to communicate, Other - cancer. alcoholism. - Social History Occupation: Unemployed Lives: With Family Alcohol Use: Daily Alcohol Amount: Pt states 2-3 beers daily Hx Substance Use: Yes Substance Use Type: Reports: Marijuana Hx Tobacco Use: Yes Smoking Status (MU): Heavy Every Day Tobacco Smoker Type: Cigarettes Amount Used/How Often: PACK OH DAY Have You Smoked in the Last Year: Yes Review of Systems - ROS Summary Review of Systems Summary: LEVEL 5 CAVEAT, ETOH Negative: Other - neg: denies neck pain Negative: Headache All Other Systems Reviewed And Are Negative: Yes Physical Exam - Summary Physical Exam Summary: Appearance: The patient is well-nourished in no acute distress and in no acute pain. Skin: The skin is warm and dry and skin color reflects adequate perfusion. HEENT: Ecchymosis on occiput seems to be non-tender. The pupils are equal and reactive. The conjunctivae are clear and without drainage. Nares are patent and without drainage. Mouth reveals moist mucous membranes and the throat is without erythema and exudate. The external ears are intact. The ear canals are patent and without drainage. The tympanic membranes are intact. Neck: the neck is supple with full range of motion and non-tender. There are no carotid bruits. There is no neck vein distension. Respiratory: Chest is non-tender. Lungs are clear to auscultation and breath sounds are symmetrical and equal. Cardiovascular: Heart is regular rate and rhythm. There is no murmur or rub auscultated. There is no peripheral edema and pulses are symmetrical and equal. Abdomen: The abdomen is soft and non-tender. There are normal bowel sounds heard in all four quadrants and there is no organomegaly palpated. Musculoskeletal: There is no back tenderness noted. Extremities are non-tender with full range of motion. There is good capillary refill. There is no peripheral edema or calf tenderness elicited. Neurological: Patient is alert, it is difficult to keep pt oriented. The patient has symmetrical motor strength in all four extremities. Cranial nerves are grossly intact. Deep tendon reflexes are symmetrical and equal in all four extremities. Psychiatric: The patient has an appropriate affect and does not exhibit any anxiety or depression. Triage Information Reviewed: Yes Vital Signs On Initial Exam: Initial Vitals Temp Pulse Resp BP Pulse Ox 97.8 F 106 16 130/84 99 06/24/17 17:59 06/24/17 17:59 06/24/17 17:59 06/24/17 17:59 06/24/17 17:59 Vital Signs Reviewed: Yes - [place] Coma Scale Best Eye Response: 4 - Spontaneous Best Motor Response: 6 - Obeys Commands Best Verbal Response: 5 - Oriented [place] Coma Scale Comments: 15 Diagnostics - Vital Signs Vital Signs Temp Pulse Resp BP Pulse Ox 06/24/17 17:59 97.8 F 106 16 130/84 99 - Laboratory Lab Statement: Any lab studies that have been ordered have been reviewed, and results considered in the medical decision making process. - CT BRAIN CT CT Interpretation: No Acute Changes - IMPRESSION: 1. No CT evidence of acute calvarial fracture or intracranial hemorrhage. 2. Consistent with the patient's reported history, the right globe prosthesis is absent. 2. Stable multilevel degenerative changes of the cervical spine without acute fracture or dislocation. ED physician has reviewed this radiology report and agrees. CT Interpretation Completed By: Radiologist CSPINE CT Interpretation: No Acute Changes - IMPRESSION: 1. No CT evidence of acute calvarial fracture or intracranial hemorrhage. 2. Consistent with the patient's reported history, the right globe prosthesis is absent. 2. Stable multilevel degenerative changes of the cervical spine without acute fracture or dislocation. ED physician has reviewed this radiology report and agrees. CT Interpretation Completed By: Radiologist Course/Dx - Course Course Of Treatment: Mr. Newsome was drink a bit tonight and fell while reaching up for something. He really has no C/O on arrrival but doesw have an occipital hematoma. CT was negative and he was able to amvulate about and cooperate and I will let him go back home. - Diagnoses Provider Diagnoses: Head injury due to trauma Discharge - Discharge Plan Condition: Stable Disposition: HOME Patient Education Materials: Fall Prevention for Older Adults (ED), Head Injury (ED) Referrals: Heriberto Jang MD [Medical Doctor] - Additional Instructions: Follow up with your primary care provider this week. Please return to the ED if you experience new or worsening symptoms. The documentation as recorded by the Margo melton SooYoung accurately reflects the service I personally performed and the decisions made by me, Ryland Pierce MD.
== END 2017-06-24 21:08 | disposition home or self-care (01) ==
LOC: ED 17:58
DX: S09.90XA Unspecified injury of head, initial encounter (principal); X58.XXXA Exposure to other specified factors, initial encounter; Y93.9 Activity, unspecified; Y92.9 Unspecified place or not applicable; Z86.79 Personal history of other diseases of the circulatory system; F17.210 Nicotine dependence, cigarettes, uncomplicated
CPT/HCPCS: 70450; 72125; 99282; A9270-GY

== ENCOUNTER 2017-08-16 18:44 | Observation (INO) | payer OTHER ==
[2017-08-16] MEDS ORDERED: LORazepam INJ* 2 MG/ML 1 ML VIAL IV PUSH ONE (18:58)
--- NOTE | 2017-08-16 19:48 | RAD ---
INDICATION: Seizure COMPARISON: Most recent CT of the brain June 24, 2017 TECHNIQUE: Contiguous axial sections of the brain were obtained from the skull base to the vertex without contrast. FINDINGS: The right globe is absent similar to prior CTs. The ventricles, cisterns and sulci are within normal limits. The bazzi-white matter differentiation is adequately maintained and there is no sulcal effacement. No significant focal abnormality or mass effect is present. There is no evidence for intracranial hemorrhage. No significant focal osseous abnormality is present. The visualized portion of the paranasal sinuses appear clear. The mastoid air cells are well aerated bilaterally. IMPRESSION: No acute intracranial abnormality.
[2017-08-16 20:11] LABS: Urine Appearance Clear; Urine Blood 1+ (Negative); Urine Color Yellow; Urine Ketones Trace (Negative); Urine Protein 2+(100 mg/dL) (Negative); Urine Specific Gravity 1.009 (1.010-1.030); Urine Urobilinogen Negative (Negative)
[2017-08-16 20:29] LABS: ABS Basophils 0.1 10^3/ul (0-0.2); ABS Eosinophils 0.1 10^3/ul (0-0.6); ABS Lymphocytes 0.8 10^3/ul (1.0-4.8); ABS Monocytes 0.5 10^3/ul (0-0.8); ABS Nucleated RBC 0 10^3/ul; Eosinophil % 1.1 % (0-6); Hematocrit 44 % (42-52); Hemoglobin 15.1 g/dl (14.0-18.0); Lymphocyte % 10.9 % (25-47); Mean Corpuscular HGB Conc 35 g/dl (31-36); Mean Corpuscular Hemoglobin 34 pg (27-31); Mean Corpuscular Volume 97 fL (80-94); Mean Platelet Volume 9 um3 (7.4-10.4); Nucleated Red Blood Cells % 0; Platelet Count 192 10^3/ul (150-450); Red Blood Count 4.49 10^6/ul (4.0-5.4); Red Cell Distribution Width 13 % (10.5-15); White Blood Count 7.6 10^3/ul (3.5-10.8)
[2017-08-16 20:35] LABS: INR 0.82 (0.77-1.02)
[2017-08-16 20:40] LABS: EGFR Non-African American 103.9 (>60)
[2017-08-16] MEDS ORDERED: NS 0.9% 1000 ML* 1,000 ML IV ONE (21:11)
[2017-08-16] MEDS ORDERED: cefTRIAXone(*) 1 GM in NS 0.9% 50 ML* 50 ML IVPB ONE (21:11)
[2017-08-16] MEDS ORDERED: levETIRAcetam IV* 1,000 MG in NS 0.9% 100 ML* 100 ML IVPB ONE (21:12)
[2017-08-16] MEDS ORDERED: NS 0.9% 100 ML* 100 ML ONE (21:20)
--- NOTE | 2017-08-16 22:55 | ED ---
Chris Cole Gabriel, scribed for Williams Garza MD on 08/16/17 at 1903 . 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 Patient reports nausea. Patient denies pain and vomiting. Patient states he remembers getting on to the bus then next thing was getting in the ambulance. He states last drink was a couple days ago and last seizure was a month ago. Patient is missing his glass right eye and has not eaten today. Patient is an alcoholic with a history of seizures. He currently takes ASA daily and 2-3 25 oz cans of beer. - History of Current Complaint Chief Complaint: EDSeizure Stated Complaint: SEIZURES Time Seen by Provider: 08/16/17 18:57 Hx Obtained From: Patient Onset/Duration: Resolved Timing: Constant Current Severity: None Seizure Severity: Severe Number of Seizures: 1 Pain Intensity: 0 Pain Scale Used: 0-10 Numeric Syncope Context: Witnessed, Loss of Consciousness: Yes Alleviating: Spontanious Resolution Associated Signs and Symptoms: Positive: Negative, Seizure - Additional Pertinent History Primary Care Physician: [id number] - Allergy/Home Medications Allergies/Adverse Reactions: Allergies Allergy/AdvReac Type Severity Reaction Status Date / Time No Known Allergies Allergy Verified 08/16/17 18:53 PMH/Surg Hx/FS Hx/Imm Hx Endocrine/Hematology History: Reports: Hx Anemia - Mild macrocytic anemia Denies: Hx Anticoagulant Therapy, Hx Diabetes Cardiovascular History: Reports: Hx Hypertension Denies: Hx Congestive Heart Failure, Hx Myocardial Infarction, Hx Pacemaker/ ICD Respiratory History: Reports: Hx Chronic Obstructive Pulmonary Disease (COPD), Hx Pneumonia GI History: Reports: Hx Gastroesophageal Reflux Disease History: Reports: Hx Renal Disease Denies: Hx Dialysis Musculoskeletal History: Reports: Other Musculoskeletal History - Pt. states fx of right arm that needs to be examined by a DrJoseline Denies: Hx Arthritis, Hx Gout Sensory History: Reports: Hx Cataracts, Hx Contacts or Glasses, Hx Eye Injury, Hx Eye Prosthesis, Hx Legally Blind, Hx Deafness, Other Sensory Impairments - Has R eye prosthesis, Blind OD s/p enucleation defect Denies: Hx Hearing Aid Opthamlomology History: Reports: Hx Cataracts, Hx Contacts or Glasses, Hx Eye Injury, Hx Eye Prosthesis, Hx Legally Blind, Other Sensory Impairments - Has R eye prosthesis, Blind OD s/p enucleation defect Neurological History: Reports: Hx Headaches, Hx Seizures - Alcohol withdrawal Psychiatric History: Reports: Hx Anxiety, Hx Depression, Hx Community Mental Health Tx, Hx Substance Abuse Denies: Hx Attention Deficit Hyperactivity Disorder, Hx Eating Disorder, Hx Panic Disorder, Hx Post Traumatic Stress Disorder, Hx Inpatient Treatment, Hx Schizophrenia, Hx Bipolar Disorder, Hx Suicide Attempt, Hx of Violent Episodes Against Others, Other Psychiatric Issues/Disorders - Surgical History Surgery Procedure, Year, and Place: RT EYE PROSTHESIS Glass eye prev cleared by xray;. right wrist I&D - Immunization History Date of Tetanus Vaccine: unk Date of Influenza Vaccine: unk Infectious Disease History: No Infectious Disease History: Denies: Hx Human Immunodeficiency Virus (HIV), Hx of Known/Suspected MRSA, Traveled Outside the US in Last 30 Days - Family History Known Family History: Positive: Other - cancer. alcoholism. Negative: Respiratory Disease, Seizure Disorder - Social History Alcohol Use: Daily Alcohol Amount: Pt states 2-3 beers daily Hx Substance Use: Yes Substance Use Type: Reports: Marijuana Substance Use Comment - Amount & Last Used: Pt. states that his last drink was at 2200 on 01/16/17, two 24 oz beers Hx Tobacco Use: Yes Smoking Status (MU): Heavy Every Day Tobacco Smoker Type: Cigarettes Amount Used/How Often: PACK OH DAY Have You Smoked in the Last Year: Yes Review of Systems Negative: Fever, Chills Negative: Erythema Negative: Sore Throat Negative: Chest Pain Negative: Shortness Of Breath, Cough Positive: Nausea. Negative: Abdominal Pain, Vomiting Negative: dysuria, hematuria Negative: Myalgia, Edema Negative: Rash Neurological: Negative - dizziness , Other - seizure All Other Systems Reviewed And Are Negative: Yes Physical Exam - Summary Physical Exam Summary: Constitutional: Well-developed, Well-nourished, Alert. (-) Distressed Skin: Warm, Dry HENT: Normocephalic; Atraumatic Eyes: Conjunctiva normal, Right eye prosthetic is missing Neck: Musculoskeletal ROM normal neck. (-) JVD, (-) Stridor, (-) Tracheal deviation Cardio: Rhythm regular, rate normal, Heart sounds normal; Intact distal pulses; The pedal pulses are 2+ and symmetric. Radial pulses are 2+ and symmetric. (-) Murmur, pulse is 110 Pulmonary/Chest wall: Effort normal. (-) Respiratory distress, (-) Wheezes, (-) Rales, Abd: Soft, (-) Tenderness, (-) Distension, (-) Guarding, (-) Rebound Musculoskeletal: (-) Edema Lymph: (-) Cervical adenopathy Neuro: Alert, Oriented x3 Psych: Mood and affect Normal Triage Information Reviewed: Yes Vital Signs On Initial Exam: Initial Vitals Temp Pulse Resp BP Pulse Ox 98.0 F 111 15 139/77 96 08/16/17 18:47 08/16/17 18:47 08/16/17 18:47 08/16/17 18:47 08/16/17 18:47 Vital Signs Reviewed: Yes - [place] Coma Scale Coma Scale Total: 15 Diagnostics - Vital Signs Vital Signs Temp Pulse Resp BP Pulse Ox 08/16/17 18:50 113 97 08/16/17 18:49 139/77 08/16/17 18:47 98.0 F 111 15 139/77 96 - Laboratory Lab Results: Lab Results 08/16/17 08/16/17 08/16/17 Range/Units 19:40 20:10 20:10 WBC 7.6 (3.5-10.8) 10^3/ul RBC 4.49 (4.0-5.4) 10^6/ul Hgb 15.1 (14.0-18.0) g/dl Hct 44 (42-52) % MCV 97 H (80-94) fL MCH 34 H (27-31) pg MCHC 35 (31-36) g/dl RDW 13 (10.5-15) % Plt Count 192 (150-450) 10^3/ul MPV 9 (7.4-10.4) um3 Neut % (Auto) 79.7 (38-83) % Lymph % (Auto) 10.9 L (25-47) % [place] % (Auto) 7.1 (1-9) % Eos % (Auto) 1.1 (0-6) % Baso % (Auto) 1.2 (0-2) % Absolute Neuts (auto) 6.0 (1.5-7.7) 10^3/ul Absolute Lymphs (auto) 0.8 L (1.0-4.8) 10^3/ul Absolute Monos (auto) 0.5 (0-0.8) 10^3/ul Absolute Eos (auto) 0.1 (0-0.6) 10^3/ul Absolute Basos (auto) 0.1 (0-0.2) 10^3/ul Absolute Nucleated RBC 0 10^3/ul Nucleated RBC % 0 INR (Anticoag Therapy) (0.77-1.02) Sodium 131 L (133-145) mmol/L Potassium 3.8 (3.5-5.0) mmol/L Chloride 95 L (101-111) mmol/L Carbon Dioxide 29 (22-32) mmol/L Anion Gap 7 (2-11) mmol/L BUN 8 (6-24) mg/dL Creatinine 0.76 (0.67-1.17) mg/dL Est GFR ( Amer) 133.7 (>60) Est GFR (Non-Af Amer) 103.9 (>60) BUN/Creatinine Ratio 10.5 (8-20) Glucose 133 H (70-100) mg/dL Lactic Acid (0.5-2.0) mmol/L Calcium 10.3 (8.6-10.3) mg/dL Magnesium 2.2 (1.9-2.7) mg/dL Total Bilirubin 0.60 (0.2-1.0) mg/dL AST 28 (13-39) U/L ALT 24 (7-52) U/L Alkaline Phosphatase 67 (34-104) U/L Total Protein 7.8 (6.4-8.9) g/dL Albumin 4.7 (3.2-5.2) g/dL Globulin 3.1 (2-4) g/dL Albumin/Globulin Ratio 1.5 (1-3) Urine Color Yellow Urine Appearance Clear Urine pH 6.0 (5-9) Ur Specific [place] 1.009 L (1.010-1.030) Urine Protein 2+(100 mg/dl) H (Negative) Urine Ketones Trace H (Negative) Urine Blood 1+ H (Negative) Urine Nitrate Negative (Negative) Urine Bilirubin Negative (Negative) Urine Urobilinogen Negative (Negative) Ur Leukocyte Esterase Trace H (Negative) Urine WBC (Auto) 2+(11-20/hpf) H (Absent) Urine RBC (Auto) Trace(0-2/hpf) (Absent) Urine Bacteria Absent (Absent) Hyaline Casts Present H (Absent) Urine Sperm Present H (Absent) Urine Glucose Negative (Negative) Serum Alcohol < 10 (<10) mg/dL 08/16/17 08/16/17 Range/Units 20:10 20:10 WBC (3.5-10.8) 10^3/ul RBC (4.0-5.4) 10^6/ul Hgb (14.0-18.0) g/dl Hct (42-52) % MCV (80-94) fL MCH (27-31) pg MCHC (31-36) g/dl RDW (10.5-15) % Plt Count (150-450) 10^3/ul MPV (7.4-10.4) um3 Neut % (Auto) (38-83) % Lymph % (Auto) (25-47) % [place] % (Auto) (1-9) % Eos % (Auto) (0-6) % Baso % (Auto) (0-2) % Absolute Neuts (auto) (1.5-7.7) 10^3/ul Absolute Lymphs (auto) (1.0-4.8) 10^3/ul Absolute Monos (auto) (0-0.8) 10^3/ul Absolute Eos (auto) (0-0.6) 10^3/ul Absolute Basos (auto) (0-0.2) 10^3/ul Absolute Nucleated RBC 10^3/ul Nucleated RBC % INR (Anticoag Therapy) 0.82 (0.77-1.02) Sodium (133-145) mmol/L Potassium (3.5-5.0) mmol/L Chloride (101-111) mmol/L Carbon Dioxide (22-32) mmol/L Anion Gap (2-11) mmol/L BUN (6-24) mg/dL Creatinine (0.67-1.17) mg/dL Est GFR ( Amer) (>60) Est GFR (Non-Af Amer) (>60) BUN/Creatinine Ratio (8-20) Glucose (70-100) mg/dL Lactic Acid 2.0 (0.5-2.0) mmol/L Calcium (8.6-10.3) mg/dL Magnesium (1.9-2.7) mg/dL Total Bilirubin (0.2-1.0) mg/dL AST (13-39) U/L ALT (7-52) U/L Alkaline Phosphatase (34-104) U/L Total Protein (6.4-8.9) g/dL Albumin (3.2-5.2) g/dL Globulin (2-4) g/dL Albumin/Globulin Ratio (1-3) Urine Color Urine Appearance Urine pH (5-9) Ur Specific [place] (1.010-1.030) Urine Protein (Negative) Urine Ketones (Negative) Urine Blood (Negative) Urine Nitrate (Negative) Urine Bilirubin (Negative) Urine Urobilinogen (Negative) Ur Leukocyte Esterase (Negative) Urine WBC (Auto) (Absent) Urine RBC (Auto) (Absent) Urine Bacteria (Absent) Hyaline Casts (Absent) Urine Sperm (Absent) Urine Glucose (Negative) Serum Alcohol (<10) mg/dL Result Diagrams: 08/16/17 20:10 08/16/17 20:10 Lab Statement: Any lab studies that have been ordered have been reviewed, and results considered in the medical decision making process. - CT CT Brain CT Interpretation Completed By: Radiologist - No acute intracranial abnormality. ED physician has reviewed this radiology report. - EKG 19:31 Cardiac Rate: Tachycardia EKG Rhythm: Sinus Tachycardia - at 103 BPM EKG Interpretation: no STEMI Course/Dx - Course Assessment/Plan: This patient is a 62 year old M BIBA to [facility] s/p seizure that occurred GL[employer]. Patient reports nausea. Patient denies pain and vomiting. Patient states he remembers getting on to the bus then next thing was getting in the ambulance. He states last drink was a couple days ago and last seizure was a month ago. Patient is missing his glass right eye and has not eaten today. Patient is an alcoholic with a history of seizures. I have significant concern for alcohol withdrawal given his tremulousness and tachycardia, decrease in alcohol intake, and seizure today. He has a history of alochol withdrawal seizure and status epilepticus. He has a concurrent UTI, and should have observation for breakthrough seizure and IV antibiotics. CT Brain reveals, per radiologist, No acute intracranial abnormality. Test results with no significant abnormalities. - Diagnoses Provider Diagnoses: Alcohol withdrawal seizure, UTI (urinary tract infection) Discharge - Discharge Plan Condition: Good Disposition: ADMITTED TO [facility] Referrals: No Primary Care Phys,NOPCP [Primary Care Provider] - The documentation as recorded by the Chris melton Gabriel accurately reflects the service I personally performed and the decisions made by me, Williams Garza MD.
[2017-08-17] MEDS ORDERED: Thiamine IV* 100 MG/ML 2 ML VIAL IM ONE (01:22)
[2017-08-17] MEDS ORDERED: Acetaminophen TAB* 325 MG PO PRN (01:22)
[2017-08-17] MEDS ORDERED: Albuterol HFA INHALER* 8 gm MDI INH PRN (01:46)
[2017-08-17] MEDS ORDERED: LORazepam TAB(*) 1 MG PO SCH (02:00)
[2017-08-17] MEDS ORDERED: LORazepam INJ* 2 MG/ML 1 ML VIAL IM SCH (02:00)
[2017-08-17 08:32] VITALS: BP 115/72
[2017-08-17] MEDS ORDERED: Mometasone/Formoter 200/5 MDI INH SCH (09:00)
[2017-08-17] MEDS ORDERED: levETIRAcetam TAB* 500 MG PO SCH (09:00)
[2017-08-17] MEDS ORDERED: Folic Acid TAB* 1 MG PO SCH ×2 (09:00)
[2017-08-17] MEDS ORDERED: Tiotropium CAP.INH* CAP.INH/18 MCG (USE ORDER SET !) INH SCH (09:00)
[2017-08-17] MEDS ORDERED: Multivitamins/Minerals TAB PO SCH (09:00)
[2017-08-17] MEDS ORDERED: Thiamine TAB* 100 MG TAB PO SCH ×2 (09:00)
[2017-08-17] MEDS ORDERED: Spiriva Inhaler DEVICE* 1 EACH DEVICE INH ONE (09:00)
--- NOTE | 2017-08-17 11:34 | HP ---
HISTORY AND PHYSICAL: DATE OF ADMISSION: 08/16/17 ADMITTING PROVIDER: Chano Garnica MD CHIEF COMPLAINT: Witnessed seizure on [employer] bus; continued alcohol abuse. HISTORY OF PRESENT ILLNESS: Mr. Newsome is a 62-year-old male with a past medical history of alcoholism, with history of delirium tremens and alcohol withdrawal seizures, anxiety, depression, osteomyelitis, COPD, GERD, hypertension; microcytic anemia; chronic low back and shoulder pain, on disability; legally blind in the right eye with a prosthesis. The patient reportedly had an observed seizure on a [employer] bus on the day of admission on 08/16/17 and was taken to the emergency room. He denies to me taking any medications, pills or inhalers for any of his medical medications. He was recently returning from Dr. Metcalf's office, his PCP, who reportedly did write him some prescriptions. The patient attests that he drank 5 beers over the weekend and last drink was approximately 9 a.m. morning of admission. In the emergency room, he had a CT of his head, which showed no acute intracranial abnormality. His vitals were unremarkable, afebrile. Labs also unremarkable except for a low sodium of 131. He did have a urinalysis, which showed 2+ protein, trace ketones, 1+ blood, trace leukocyte esterase and 2+ wbc's and was given 1 dose of ceftriaxone in the emergency room and 1 L of normal saline for potential urinary tract infection. He was also given IV Keppra for seizure prophylaxis. He got 1 mg of IV Ativan, was admitted for suspected seizure in the setting of continued alcohol use and being off his Keppra prophylaxis medications. MEDICATIONS: Of note, he denies taking any medications whatsoever. His listed prescribed medications include, 1. Keppra 500 mg p.o. b.i.d. 2. Spiriva 1 capsule inhaled daily. 3. Thiamine 100 mg p.o. daily. 4. Zofran 4 mg p.o. q.6 hours p.r.n. 5. Prilosec 20 mg p.o. daily. 6. Multivitamin daily. 7. Dulera 2 puffs inhaled b.i.d. 8. Folic acid 1 mg p.o. daily. 9. Cymbalta 60 mg p.o. daily. 10. Ventolin/albuterol inhaler 2 puffs inhaled t.i.d. p.r.n. ALLERGIES: No known drug allergies. FAMILY HISTORY: The patient denied any family history of coronary artery disease, diabetes or cancer. SOCIAL HISTORY: The patient attests to living with 2 other roommates at [address] [place] [address]. He denies current smoking, but most recently had been smoking up to 15 cigarettes a day and smoked for the last 45 years. He attested drinking 5 beers over the weekend, previously attested to smoking marijuana. Denies any family and could not attest who he would want his medical surrogate to be, although in the past it has been his roommate Anoop Solorzano. He desired to be a full code. REVIEW OF SYSTEMS: A complete 14-point review of systems was negative as per HPI. PHYSICAL EXAMINATION GENERAL APPEARANCE: The patient lay asleep, easily arousable, although slow to awaken fully. No acute distress. VITAL SIGNS: Temperature 98.3, pulse rate 84, respiratory rate 18, satting 100 % on room air, blood pressure 133/79. He was initially tachycardic to the 110s. HEENT: Normocephalic, atraumatic. Right eye closed. RESPIRATORY: Clear to auscultation bilaterally with no wheezing, rales or rhonchi. CARDIOVASCULAR: Regular rate and rhythm. No murmurs, rubs or gallops. ABDOMEN: Soft, nontender, nondistended. EXTREMITIES: Warm, well perfused, no peripheral edema. SKIN: No lesions, no rashes. NEUROLOGIC: Moving all extremities. Cranial nerves II through XII grossly intact. right eye. IMAGING: Brain CT, no acute intracranial abnormality. ASSESSMENT AND PLAN: Mr. Tyler Newsome is a 62-year-old male with history of continued alcohol abuse, history of delirium tremens and alcohol withdrawal seizures, reported to have seizure on [employer] bus today. He is being admitted for alcohol withdrawal, although he does attest to drinking over the weekend and additionally the morning of admission. The patient will continued [facility] with Ativan p.r.n. for withdrawal symptoms and especially with any seizure like activity. Order physical therapy. Denies taking any medications for any of his chronic medical conditions including chronic obstructive pulmonary disease, hypertension. We will put him on inhalers p.r.n. and not currently bronchospastic. We will continue thiamine and folate supplementation while he is here in the hospital. He is a full code. He is to be a on heart- healthy diet. [id number]/[facility] #: [id number] KEANU
--- NOTE | 2017-08-18 11:18 | DS ---
DISCHARGE SUMMARY: DATE OF ADMISSION: 08/16/17 DATE OF DISCHARGE: 08/17/17 PRIMARY CARE PROVIDER: None. The patient does not want to establish a primary care provider at this time. PRIMARY DIAGNOSIS: Seizure. SECONDARY DIAGNOSES: Include: 1. History of seizure disorder. 2. Active alcohol abuse. MEDICATIONS ON DISCHARGE: Include: 1. Omeprazole 20 mg daily. 2. Duloxetine 60 mg daily. 3. Thiamine 100 mg daily. 4. Spiriva 1 cap inhaled twice daily. 5. Levetiracetam 500 mg twice daily. 6. Folic acid 1 cap daily. 7. Advair 1 puff twice daily. 8. Albuterol 1 puff every 4 hours as needed. Medications were delivered from Meds-to-Bed to ensure the patient receives his medications, particularly his Keppra. HISTORY OF PRESENT ILLNESS AND HOSPITAL COURSE: This is a 62-year-old man, past medical history includes chronic alcoholism, who had a witnessed seizure- like event on [facility] on the day of admission. He did not remember the event, but has been drinking no more or no less than usual. He reports he does not take his medications because they never filled at [facility], but has never followed up with his primary care provider nor neurologist. The patient reports that he has no inclination to quit drinking at this time. During the course of his hospital stay, he did not require any Ativan after that for which he received in the emergency room in the setting of his recent seizure. He had no evidence of withdrawal at the time of discharge. He was discharged with medications and instructions to return should he have any additional seizures, seizure-like activity, or inability to tolerate his medications. This is an unfortunate case. The patient will not accept any of our social work help nor care management. He seems intent on continuing to drink; unfortunately, it seems likely that he will return in the future. TIME SPENT: Greater than 30 minutes was spent on the discharge of this patient , greater than half was spent [id number] with the patient. [id number]/[facility] #: [id number] KEANU
== END 2017-08-17 13:45 | disposition home or self-care (01) ==
LOC: ED 18:44 → MEDTELE 22:54 → INTOOBSV 22:54
PROVIDERS: ADMIT Internal Medicine; ATTEND Internal Medicine
DX: R56.9 Unspecified convulsions (principal); F10.239 Alcohol dependence with withdrawal, unspecified; N39.0 Urinary tract infection, site not specified; Z86.69 Personal history of other diseases of the nervous system and sense organs; F17.210 Nicotine dependence, cigarettes, uncomplicated; R11.0 Nausea
CPT/HCPCS: 36415; 70450; 80053; 80177; 80320; 81003; 81015; 83605; 83735; 85025; 85610; 87086; 93005; 94640; 96372; 96374; 99284; A9270-GY; G0378; G0480; J0696; J2060; J3411

== ENCOUNTER 2018-04-13 02:10 | Emergency (ER) | payer OTHER ==
[2018-04-13] MEDS ORDERED: Tetan/Diph/Pertus SYR(Tdap)* 0.5 ML SYR(BOOSTRIX) use SYR IM ONE (02:30)
[2018-04-13] MEDS ORDERED: Lidocaine 2% EPI 1:200000 MPF*10-20 ML VIAL ONE (02:54)
--- NOTE | 2018-04-13 02:58 | ED ---
Head Injury - HPI Summary HPI Summary: This patient is a 63 year old M BIBA to [facility] s/p fall that occurred [facility] [employer] [facility]. Pt is intoxicated and fell causing a LOC and forehead laceration. The patient rates the pain 0/10 in severity. Patient denies any other complaints at this time. Pt is not on blood thinners - History Of Current Complaint Chief Complaint: EDFacialInjury Stated Complaint: ETOH, FALL, HEAD LAC Time Seen by Provider: 04/13/18 02:29 Hx Obtained From: Patient Mechanism Of Injury: Fall From A Standing Position Onset/Duration: Still Present Onset of Pain: Immediate Severity Currently: Moderate Severity Initially: Moderate Pain Intensity: 0 Pain Scale Used: 0-10 Numeric Location of Head Injury: Frontal Associated Signs And Symptoms: Other: - LOC and lac - Allergies/Home Medications Allergies/Adverse Reactions: Allergies Allergy/AdvReac Type Severity Reaction Status Date / Time No Known Allergies Allergy Verified 04/01/18 13:29 PMH/Surg Hx/FS Hx/Imm Hx Endocrine/Hematology History: Reports: Hx Anemia - Mild macrocytic anemia Denies: Hx Anticoagulant Therapy, Hx Diabetes Cardiovascular History: Reports: Hx Hypertension - on medication, Other Cardiovascular Problems/Disorders - Hyperlipidemia Denies: Hx Congestive Heart Failure, Hx Myocardial Infarction, Hx Pacemaker/ ICD Respiratory History: Reports: Hx Asthma, Hx Chronic Obstructive Pulmonary Disease (COPD), Hx Pneumonia, Other Respiratory Problems/Disorders - Dyspnea GI History: Reports: Hx Gastroesophageal Reflux Disease - on omeprazole Denies: Other GI Disorders History: Reports: Hx Renal Disease, Other Problems/Disorders - Frequent urination Denies: Hx Dialysis Musculoskeletal History: Reports: Other Musculoskeletal History - nondisplaced fracture neck or left humerus Denies: Hx Arthritis, Hx Gout Sensory History: Reports: Hx Cataracts - 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, Hx Contacts or Glasses - Glasses - Right eye missing- doesn't wear prosthetic eye, Hx Eye Injury, Hx Eye Prosthesis - bnot with Pt, Hx Legally Blind, Hx Deafness, Hx Hearing Aid - left ear, Other Sensory Impairments - Has R eye prosthesis, Blind OD s/p enucleation defect Denies: Hx Glaucoma Opthamlomology History: Reports: Hx Cataracts - 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, Hx Contacts or Glasses - Glasses - Right eye missing- doesn't wear prosthetic eye, Hx Eye Injury, Hx Eye Prosthesis - bnot with Pt, Hx Legally Blind, Other Sensory Impairments - Has R eye prosthesis , Blind OD s/p enucleation defect Denies: Hx Glaucoma Neurological History: Reports: Hx Headaches - occasionally, Hx Seizures - Alcohol withdrawal Denies: Other Neuro Impairments/Disorders Psychiatric History: Reports: Hx Anxiety - at times, Hx Depression - at times, Hx Community Mental Health Tx, Hx Substance Abuse Denies: Hx Attention Deficit Hyperactivity Disorder, Hx Eating Disorder, Hx Panic Disorder, Hx Post Traumatic Stress Disorder, Hx Inpatient Treatment, Hx Schizophrenia, Hx Bipolar Disorder, Hx Suicide Attempt, Hx of Violent Episodes Against Others, Other Psychiatric Issues/Disorders - Surgical History Surgery Procedure, Year, and Place: RT EYE PROSTHESIS-Glass eye prev cleared by xray-doesn't wear-state the eye is too small. RIGHT WRIST I & D-cellulitis Hx Anesthesia Reactions: No - Immunization History Date of Tetanus Vaccine: unk Date of Influenza Vaccine: unk Infectious Disease History: No Infectious Disease History: Denies: Hx Human Immunodeficiency Virus (HIV), Hx of Known/Suspected MRSA, History Other Infectious Disease, Traveled Outside the [place] in Last 30 Days - Family History Known Family History: Positive: Other - cancer. alcoholism. Negative: Respiratory Disease, Seizure Disorder - Social History Alcohol Use: Daily Alcohol Amount: Couple on 03/27/18 Hx Substance Use: Yes Substance Use Type: Reports: Marijuana Substance Use Comment - Amount & Last Used: Pt. states that his last drink was at 2200 on 01/16/17, two 24 oz beers Hx Tobacco Use: Yes Smoking Status (MU): Heavy Every Day Tobacco Smoker Type: Cigarettes Amount Used/How Often: PACK DAY- wearing nicotine patch, trying to quit-hasn't smoked for 2 days Have You Smoked in the Last Year: Yes Review of Systems Positive: Other - fall . Negative: Fever Positive: Other - laceration Positive: Syncope All Other Systems Reviewed And Are Negative: Yes Physical Exam - Summary Physical Exam Summary: VITAL SIGNS: Reviewed. GENERAL: Patient is a well-developed and obese male who is lying comfortable in the stretcher. Patient is not in any acute respiratory distress. HEAD AND FACE: No signs of trauma. No ecchymosis, hematomas or skull depressions. No sinus tenderness. EYES: PERRLA, EOMI x 2, No injected conjunctiva, no nystagmus. EARS: Hearing grossly intact. Ear canals and tympanic membranes are within normal limits. MOUTH: Oropharynx within normal limits. NECK: Supple, trachea is midline, no adenopathy, no JVD, no carotid bruit, no c- spine tenderness, neck with full ROM. CHEST: Symmetric, no tenderness at palpation LUNGS: Clear to auscultation bilaterally. No wheezing or crackles. CVS: Regular rate and rhythm, S1 and S2 present, no murmurs or gallops appreciated. ABDOMEN: Soft, non-tender. No signs of distention. No rebound no guarding, and no masses palpated. Bowel sounds are normal. EXTREMITIES: FROM in all major joints, no edema, no cyanosis or clubbing. NEURO: Alert and oriented x 3. No acute neurological deficits. Speech is normal and follows commands. SKIN: there is a 5cm laceration at the mid forehead Triage Information Reviewed: Yes Vital Signs On Initial Exam: Initial Vitals Pulse Pulse Ox 84 96 04/13/18 02:19 04/13/18 02:19 Vital Signs Reviewed: Yes - Emil Coma Scale Best Eye Response: 4 - Spontaneous Best Motor Response: 6 - Obeys Commands Best Verbal Response: 5 - Oriented Coma Scale Total: 15 Procedures - Laceration/Wound Repair 1 Location: head - 5CM Description: Linear Anesthesia: 2.0%, Epi - 5CC's Length, Depth and Shape: 5CM Irrigated w/ Saline (ccs): 1,000 Suture Type: Nylon - 5-0 Number of Sutures: 11 Sterile Dressing Applied?: Yes Diagnostics - Vital Signs Vital Signs Temp Pulse Resp BP Pulse Ox 04/13/18 02:22 98.3 F 84 16 100/73 95 04/13/18 02:20 84 100/73 95 04/13/18 02:19 84 96 - Laboratory Lab Statement: Any lab studies that have been ordered have been reviewed, and results considered in the medical decision making process. - CT CT brain' CT Interpretation Completed By: Radiologist - no acute findings ED physician has reviewed this radiology report. Re-Evaluation - Re-Evaluation First Eval Re-Evaluation Time: 06:23 Change: Improved Comment: Patient was able to ambulate in the ED with a steady gait. 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 Pt is intoxicated and fell causing a LOC and forehead laceration. The patient rates the pain 0/10 in severity. Patient denies any other complaints at this time. Pt is not on blood thinners. An EKG reveals. CT Head reveals, per radiologist, no acute findings. Pt was given a tetanus booster in the ED. Patient will be discharged and follow up from PCP for stiches removal. The patient is agreeable with this plan. - Diagnoses Provider Diagnoses: Alcohol intoxication, Scalp laceration Discharge - Sign-Out/Discharge Documenting (check all that apply): Patient Departure - Discharge Plan Condition: Stable Disposition: HOME Patient Education Materials: Care For Your Stitches (ED), Alcohol Use Disorder (ED) Referrals: Dario Pierce NP [Primary Care Provider] - 2 Days Additional Instructions: Stiches may be removed in 10 days. RETURN TO THE EMERGENCY DEPARTMENT FOR CHANGING OR WORSENING SYMPTOMS. FOLLOW UP WITH PCP IN 1-2 DAYS - Attestation Statements Document Initiated by Scribe: Yes Documenting Scribe: Ismael Perez Provider For Whom Scribe is Documenting (Include Credential): Tc Jones MD Scribe Attestation: Ismael Cole , scribed for Tc Jones MD on 04/13/18 at 0622.
--- NOTE | 2018-04-13 03:35 | RAD ---
EXAM: CT Head Without Intravenous Contrast CLINICAL HISTORY: 63 years old, male; Injury or trauma; Fall; Initial encounter; Laceration; Without residual foreign body; Forehead; Injury date: ; Injury details: Etoh/laceration mid forehead TECHNIQUE: Axial computed tomography images of the head/brain without intravenous contrast. All CT scans at this facility use at least one of these dose optimization techniques: automated exposure control; mA and/or kV adjustment per patient size (includes targeted exams where dose is matched to clinical indication); or iterative reconstruction. COMPARISON: BRAIN WO CT BRAIN WO 08/16/2017 7:11 PM FINDINGS: Brain: There is moderate diffuse cerebral atrophy present, consistent with this patient's age. There is moderate diffuse heterogeneity of the white matter attenuation, consistent with chronic white matter ischemic changes. No hemorrhage. Ventricles: Unremarkable. No ventriculomegaly. Bones/joints: Unremarkable. No acute fracture. Soft tissues: Unremarkable. Sinuses: Unremarkable as visualized. No acute sinusitis. Mastoid air cells: Unremarkable as visualized. No mastoid effusion. IMPRESSION: No acute findings.
[2018-04-13 06:37] VITALS: BP 103/60
== END 2018-04-13 06:42 | disposition home or self-care (01) ==
LOC: ED 02:10
DX: S01.01XA Laceration without foreign body of scalp, initial encounter (principal); F10.129 Alcohol abuse with intoxication, unspecified; W19.XXXA Unspecified fall, initial encounter; Y92.9 Unspecified place or not applicable
CPT/HCPCS: 12001; 70450; 90471; 90715; 99283

== ENCOUNTER 2018-06-20 11:46 | Emergency (ER) | payer OTHER ==
--- NOTE | 2018-06-20 12:11 | ED ---
Throat Pain/Nasal Congestion - HPI Summary HPI Summary: A 63 y/o M presents to ED with ongoing weeping and soreness from his R prosthetic eye area. He had a surgical revision of his R prosthetic eye a few weeks ago, skin was taken from his R abd. He thinks the abd wound is not healing correctly and is unsure of onset, but noticed this AM it was weepy. The surgery was performed by Dr. Miguel Angel Taylor III, optho, at the [facility] in [place]. He denies trauma to his abd, but says he does move around in his sleep. Hes unsure at bedside of his follow-up appt, but says he has the date written down. He had lost his original implant, then had a temporary prostethic, but it did not fit correctly, so he was referred to Dr. Taylor. - History of Current Complaint Chief Complaint: EDGeneral Time Seen by Provider: 06/20/18 11:59 Hx Obtained From: Patient Onset/Duration: Still Present Severity: Moderate Related History: Other (Noted In Comments) - R prosthetic eye, surgery a few weeks ago. - Allergies/Home Medications Allergies/Adverse Reactions: Allergies Allergy/AdvReac Type Severity Reaction Status Date / Time No Known Allergies Allergy Verified 06/20/18 11:55 PMH/Surg Hx/FS Hx/Imm Hx Previously Healthy: No Endocrine/Hematology History: Reports: Hx Anemia - Mild macrocytic anemia Denies: Hx Anticoagulant Therapy, Hx Diabetes Cardiovascular History: Reports: Hx Hypertension - on medication, Other Cardiovascular Problems/Disorders - Hyperlipidemia Denies: Hx Congestive Heart Failure, Hx Myocardial Infarction, Hx Pacemaker/ ICD Respiratory History: Reports: Hx Asthma, Hx Chronic Obstructive Pulmonary Disease (COPD), Hx Pneumonia, Other Respiratory Problems/Disorders - Dyspnea GI History: Reports: Hx Gastroesophageal Reflux Disease - on omeprazole Denies: Other GI Disorders History: Reports: Hx Renal Disease, Other Problems/Disorders - Frequent urination Denies: Hx Dialysis Musculoskeletal History: Reports: Other Musculoskeletal History - nondisplaced fracture neck or left humerus Denies: Hx Arthritis, Hx Gout Sensory History: Reports: Hx Cataracts - 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, Hx Contacts or Glasses - Glasses - Right eye missing- doesn't wear prosthetic eye, Hx Eye Injury, Hx Eye Prosthesis - bnot with Pt, Hx Legally Blind, Hx Deafness, Hx Hearing Aid, Hx Hearing Problem, Other Sensory Impairments - Has R eye prosthesis, Blind OD s/p enucleation defect Denies: Hx Glaucoma Opthamlomology History: Reports: Hx Cataracts - 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, Hx Contacts or Glasses - Glasses - Right eye missing- doesn't wear prosthetic eye, Hx Eye Injury, Hx Eye Prosthesis - bnot with Pt, Hx Legally Blind, Other Sensory Impairments - Has R eye prosthesis , Blind OD s/p enucleation defect Denies: Hx Glaucoma Neurological History: Reports: Hx Headaches - occasionally, Hx Seizures - Alcohol withdrawal Denies: Other Neuro Impairments/Disorders Psychiatric History: Reports: Hx Anxiety - at times, Hx Depression - at times, Hx Community Mental Health Tx, Hx Substance Abuse Denies: Hx Attention Deficit Hyperactivity Disorder, Hx Eating Disorder, Hx Panic Disorder, Hx Post Traumatic Stress Disorder, Hx Inpatient Treatment, Hx Schizophrenia, Hx Bipolar Disorder, Hx Suicide Attempt, Hx of Violent Episodes Against Others, Other Psychiatric Issues/Disorders - Surgical History Surgery Procedure, Year, and Place: RT EYE PROSTHESIS-Glass eye prev cleared by xray-doesn't wear-state the eye is too small. RIGHT WRIST I & D-cellulitis Hx Anesthesia Reactions: No - Immunization History Date of Tetanus Vaccine: unk Date of Influenza Vaccine: unk Infectious Disease History: No Infectious Disease History: Denies: Hx Human Immunodeficiency Virus (HIV), Hx of Known/Suspected MRSA, History Other Infectious Disease, Traveled Outside the [place] in Last 30 Days - Family History Known Family History: Positive: Other - cancer. alcoholism. Negative: Respiratory Disease, Seizure Disorder - Social History Occupation: Unemployed Lives: Dormitory/Roommates Alcohol Use: Daily Alcohol Amount: Couple on 03/27/18 Hx Substance Use: Yes Substance Use Type: Reports: Marijuana Substance Use Comment - Amount & Last Used: Pt. states that his last drink was at 2200 on 01/16/17, two 24 oz beers Hx Tobacco Use: Yes Smoking Status (MU): Heavy Every Day Tobacco Smoker Type: Cigarettes Amount Used/How Often: PACK DAY- wearing nicotine patch, trying to quit-hasn't smoked for 2 days Have You Smoked in the Last Year: Yes Review of Systems Negative: Fever, Chills Eyes: Other - pos: R eye soreness; R eye prosthetic Positive: Drainage - R eye. Negative: Erythema Negative: Sore Throat Negative: Chest Pain Negative: Shortness Of Breath, Cough Positive: Other - pos: poorly healing wound to R abd. Negative: Abdominal Pain , Vomiting, Nausea Negative: dysuria, hematuria Negative: Myalgia, Edema Negative: Rash Neurological: Other - neg: dizziness All Other Systems Reviewed And Are Negative: Yes Physical Exam - Summary Physical Exam Summary: Constitutional: Well-developed, Well-nourished, Alert. (-) Distressed Skin: Warm, Dry HENT: Normocephalic; Atraumatic Eyes: Conjunctiva normal, small amount of crusty, draining to R eye surgical revision. Neck: Musculoskeletal ROM normal neck. (-) JVD, (-) Stridor, (-) Tracheal deviation Cardio: Rhythm regular, rate normal, Heart sounds normal; Intact distal pulses; The pedal pulses are 2+ and symmetric. Radial pulses are 2+ and symmetric. (-) Murmur Pulmonary/Chest wall: Effort normal. (-) Respiratory distress, (-) Wheezes, (-) Rales Abd: Soft, (-) epigastric tenderness, (-) Distension, (-) Guarding, (-) Rebound. Wound dehiscence of incision of R abd with no surrounding erythema. Musculoskeletal: (-) Edema Lymph: (-) Cervical adenopathy Neuro: Alert, Oriented x3 Psych: Mood and affect Normal Triage Information Reviewed: Yes Vital Signs On Initial Exam: Initial Vitals Temp Pulse Resp BP Pulse Ox 97.9 F 99 16 146/99 100 06/20/18 11:51 06/20/18 11:51 06/20/18 11:51 06/20/18 11:51 06/20/18 11:51 Vital Signs Reviewed: Yes Diagnostics - Vital Signs Vital Signs Temp Pulse Resp BP Pulse Ox 06/20/18 11:51 97.9 F 99 16 146/99 100 - Laboratory Lab Statement: Any lab studies that have been ordered have been reviewed, and results considered in the medical decision making process. EENT Course/Dx - Course Course Of Treatment: Pt is a 63 y/o M presenting with R eye weeping and soreness s/p surgical revision of R prosthetic eye a few weeks ago by Dr. Brandon COPELAND at [facility] in [facility]. Patient's R abd shows wound dehiscence. Spoke with Dr. Taylor who was agreeable to loose steri-strips and further management at pt's follow-up appt. Confirmed pt's follow-up appt with facility which is scheduled for tomorrow. Strongly advised pt to make this appt. - Diagnoses Provider Diagnoses: Wound dehiscence Discharge - Sign-Out/Discharge Documenting (check all that apply): Patient Departure - DC - Discharge Plan Condition: Stable Disposition: HOME Patient Education Materials: Wound Dehiscence (ED), Bed Bugs (ED) Referrals: Dario Pierce, [facility] [Primary Care Provider] - Miguel Angel Taylor [Other] (Scheduled follow up TOMORROW: 06/21/2018 at 1:15 PM ) Additional Instructions: You are scheduled to follow-up with Dr. Taylor at [facility], [address] [place] [address], phone: [phone] on 06/21/18 AT 1:15 PM. It's important that you go to this appointment. Return to the emergency department for changing or worsening symptoms. - Attestation Statements Document Initiated by Scribe: Yes Documenting Scribe: Yvonne Aragon Provider For Whom Scribe is Documenting (Include Credential): Dr. Williams Garza MD Scribe Attestation: I, Yvonne Aragon, scribed for Dr. Williams Garza MD on 06/20/18 at 1310. Consult Consult: 1225: Dr. Miguel Angel Taylor [facility], [facility] in [place] Recommends nml post-op course, and agrees with loose closure with steri-strips today and further management at the scheduled f/u appt.
[2018-06-20 13:14] VITALS: BP 122/70
== END 2018-06-20 13:13 | disposition home or self-care (01) ==
LOC: ED 11:46
DX: T81.31XA Disruption of external operation (surgical) wound, not elsewhere classified, initial encounter (principal); Y83.8 Other surgical procedures as the cause of abnormal reaction of the patient, or of later complication, without mention of misadventure at the time of the procedure
CPT/HCPCS: 99282